=== PATIENT | female | born 1975 | race Two or more races ===

== ENCOUNTER 2016-12-29 18:23 | Emergency (ER) | payer SELFPAY ==
[~2016-12-29] VITALS: Ht 165.1 cm; Wt 97.5 kg
[~2016-12-29 18:23] MED LIST: NAPR-607; NOR10T; NORFLEX; PRILOSEC
[2016-12-29 18:29] VITALS: BP 113/71
[2016-12-29] MEDS ORDERED: CYCLOBENZAPRINE HCL 10 MG TAB PO ONE (20:15)
[2016-12-29] MEDS ORDERED: ACETAMINOPHEN 500 MG TAB PO ONE (20:15)
== END 2016-12-29 20:34 | disposition home or self-care (01) ==
LOC: ER 18:30
DX: M54.16 Radiculopathy, lumbar region (principal); M79.1 Myalgia; E11.9 Type 2 diabetes mellitus without complications; I10 Essential (primary) hypertension; G89.29 Other chronic pain; F12.10 Cannabis abuse, uncomplicated; Z87.891 Personal history of nicotine dependence; Z88.8 Allergy status to other drugs, medicaments and biological substances
CPT/HCPCS: 72100

== ENCOUNTER 2017-06-04 12:11 | Emergency (ER) | payer MEDICAID ==
[~2017-06-04] VITALS: Ht 162.6 cm; Wt 107.0 kg
[~2017-06-04 12:11] MED LIST changes: -NAPR-607; +NAPR500T4
[2017-06-04] MEDS ORDERED: KETOROLAC TROMETH 60MG/2ML VIAL IM ONE (14:15)
[2017-06-04 14:17] VITALS: BP 121/76
== END 2017-06-04 15:29 | disposition home or self-care (01) ==
LOC: ER 12:11
DX: S39.012A Strain of muscle, fascia and tendon of lower back, initial encounter (principal); S83.8X1A Sprain of other specified parts of right knee, initial encounter; G89.29 Other chronic pain; M54.5 Low back pain; E11.9 Type 2 diabetes mellitus without complications; I10 Essential (primary) hypertension; Z79.899 Other long term (current) drug therapy; Z88.6 Allergy status to analgesic agent; W01.0XXA Fall on same level from slipping, tripping and stumbling without subsequent striking against object, initial encounter; Y93.89 Activity, other specified; Y92.89 Other specified places as the place of occurrence of the external cause; Y99.8 Other external cause status
CPT/HCPCS: 72100; 96372; 99284; J1885

== ENCOUNTER 2022-08-05 13:09 | Emergency (ER) | payer MEDICAID ==
[~2022-08-05] VITALS: Ht 162.6 cm; Wt 98.9 kg
[~2022-08-05 13:09] MED LIST changes: +NAPR500T31; -NAPR500T4
[2022-08-05] MEDS ORDERED: LEVO750T64 PO (15:02)
[2022-08-05 15:30] VITALS: BP 115/69
[2022-08-05 18:09] LABS: Urine Blood Negative /uL (Negative); Urine Specific Gravity 1.041 (1.001-1.035)
== END 2022-08-05 16:09 | disposition home or self-care (01) ==
LOC: ER 13:09
DX: N39.0 Urinary tract infection, site not specified (principal); E11.9 Type 2 diabetes mellitus without complications; I10 Essential (primary) hypertension; F12.10 Cannabis abuse, uncomplicated; Z87.891 Personal history of nicotine dependence
CPT/HCPCS: 81003

== ENCOUNTER 2023-03-26 22:19 | Emergency (ER) | payer MEDICAID ==
[~2023-03-26] VITALS: Ht 165.1 cm; Wt 104.0 kg
[~2023-03-26 22:19] MED LIST changes: +LEVO750T40 PO; +NAPR-746; -NAPR500T31
[2023-03-26 23:31] VITALS: BP 142/74; PULSE 110; RESP 16; TEMP 98.1; O2SAT 99
[2023-03-26] MEDS ORDERED: CEPH500C PO (23:54)
[2023-03-26] MEDS ORDERED: TRIA0.02 TOP (23:54)
[2023-03-27] MEDS ORDERED: POLYSOL28 OP (00:12)
== END 2023-03-27 00:40 | disposition home or self-care (01) ==
LOC: ER 22:25
DX: L03.116 Cellulitis of left lower limb (principal); L03.115 Cellulitis of right lower limb; H10.9 Unspecified conjunctivitis; E78.5 Hyperlipidemia, unspecified; E11.9 Type 2 diabetes mellitus without complications; F17.210 Nicotine dependence, cigarettes, uncomplicated; F12.90 Cannabis use, unspecified, uncomplicated; Z88.6 Allergy status to analgesic agent; Z79.899 Other long term (current) drug therapy; Z98.890 Other specified postprocedural states

== ENCOUNTER 2023-04-06 13:15 | Emergency (ER) | payer MEDICAID ==
[~2023-04-06] VITALS: Ht 165.1 cm; Wt 103.9 kg
[~2023-04-06 13:15] MED LIST changes: +CEPH500C PO; +POLYSOL28 OP; +TRIA0.02 TOP
[2023-04-06 17:14] VITALS: BP 136/74; PULSE 102; RESP 18; TEMP 97; O2SAT 100
[2023-04-06] MEDS ORDERED: HYDR-3682 PO (17:16)
[2023-04-06] MEDS ORDERED: NYST150P2 XX (17:16)
[2023-04-06] MEDS ORDERED: TRIA0.1O TOP (17:16)
[2023-04-06] MEDS ORDERED: CLOT1CRE78 EX (17:16)
== END 2023-04-06 17:26 | disposition home or self-care (01) ==
LOC: ER 13:15
DX: R21 Rash and other nonspecific skin eruption (principal); E11.9 Type 2 diabetes mellitus without complications; E78.5 Hyperlipidemia, unspecified; F17.210 Nicotine dependence, cigarettes, uncomplicated; F12.10 Cannabis abuse, uncomplicated; Z88.6 Allergy status to analgesic agent

== ENCOUNTER 2024-09-27 17:10 | Inpatient (IN) | payer MEDICAID ==
[~2024-09-27] VITALS: Ht 162.6 cm; Wt 93.2 kg
[~2024-09-27 17:10] MED LIST changes: +ALBU108A5 IN; +CLOT1CRE78 EX; +HYDR-3682 PO; +NYST150P2 XX; +PROM1SOL4 PO; +TRIA0.1O TOP
[2024-09-27 21:45] VITALS: BP 93/61; PULSE 101; RESP 18; TEMP 98.1; O2SAT 98
[2024-09-27] MEDS ORDERED: ALBUAER3 IN (22:25)
[2024-09-27] MEDS ORDERED: ATOR-507 PO (22:25)
[2024-09-27] MEDS ORDERED: IVAB5TAB2 PO (22:25)
[2024-09-27] MEDS ORDERED: OMEP20TA PO (22:25)
[2024-09-27] MEDS ORDERED: ESCI10TA PO (22:25)
[2024-09-27] MEDS ORDERED: ACET325T82 PO (22:25)
[2024-09-27] MEDS ORDERED: ASPI81CH59 PO (22:25)
[2024-09-27] MEDS ORDERED: EMPA1TAB PO (22:25)
[2024-09-27] MEDS ORDERED: TICA90TA PO (22:25)
[2024-09-27] MEDS ORDERED: BUPR2MIS SL (22:25)
[2024-09-27] MEDS ORDERED: INSUINJ37 SC (22:25)
[2024-09-27] MEDS ORDERED: NITROGLYCERIN 0.4 MG SL TAB SL PRN (23:00)
[2024-09-27] MEDS ORDERED: MORPHINE SULFATE INJ 2 MG/ml SYRG IV PRN (23:00)
[2024-09-27] MEDS ORDERED: DEXTROSE (50%) 50ML SYRG IV PRN (23:00)
[2024-09-27] MEDS ORDERED: POLYETHYLENE GLYCOL 17 GM PWDR PO PRN (23:15)
[2024-09-27 23:41] LABS: Basophils # (auto) 0 10 ^3/uL (0-0.2); Eosinophils # (auto) 0.3 10 ^3/uL (0-0.8); Lymphocytes # (auto) 1.2 10 ^3/uL (0.4-5.4); Monocytes # (auto) 0.6 10 ^3/uL (0-1.3); Neutrophils # (auto) 4.4 10 ^3/uL (1.6-8.6); White Blood Cell 6.6 10^3/uL (4.4-10.8)
[2024-09-27 23:42] LABS: Basophils % (auto) 0.6 % (0.0-2.0); Eosinophils % (auto) 4.9 % (0.0-7.0); Hematocrit 27.7 % (36.0-46.0); Lymphocytes % (auto) 18.3 % (10.0-50.0); Mean Corpuscular Hemoglobin 25.7 pg (28.0-32.0); Mean Corpuscular Hgb Conc. 32.6 g/dL (32.0-36.0); Mean Corpuscular Volume 78.9 fL (80.0-100.0); Monocytes % (auto) 9.5 % (0.0-12.0); Neutrophils % (auto) 66.7 % (37.0-80.0); Platelet Count (auto) 257 10^3/uL (140-450); Red Blood Cells 3.51 10^6/uL (4.0-5.20); Red Cell Distribution Width 15.1 % (11.8-14.3)
[2024-09-28] VITALS (55 sets, daily range): BP systolic 78–120; BP diastolic 40–74; PULSE 60–132; RESP 11–24; TEMP 98.2–101.1; O2SAT 6–100
[2024-09-28 00:05] LABS: Alanine Aminotransferase 20 U/L (7-40); Albumin 3.5 g/dL (3.2-4.8); Anion Gap 6 (5-15); Aspartate Aminotransferase 20 U/L (13-40); BUN/Creatinine Ratio 21.6 (10.0-20.0); Blood Urea Nitrogen 16 mg/dL (9-23); Calcium 9.4 mg/dL (8.7-10.4); Carbon Dioxide 25 mmol/L (20-31); Potassium 3.9 mmol/L (3.5-5.1)
[2024-09-28 00:06] LABS: Bilirubin, Total 0.3 mg/dL (0.2-1.0); Total Protein 6.5 g/dL (5.7-8.2)
[2024-09-28 00:08] LABS: Alkaline Phosphatase 207 U/L (46-116); Chloride 96 mmol/L (98-107); Glucose 269 mg/dL (74-106); Sodium 127 mmol/L (136-145)
--- NOTE | 2024-09-28 00:08 | DVHHPRES ---
History of Present Illness Resident Creating Document: MARTINA REN Reason for Visit: Imelda from [facility] History of Present Illness The patient is a 49-year-old female with a history of hyperlipidemia (HLD), type 2 diabetes mellitus (DM2), and methamphetamine use, who initially presented with worsening shortness of breath and a nonproductive cough that had been ongoing for 5 days. She was admitted on September 13/2025 She subsequently developed substernal chest pressure and bilateral lower extremity swelling over the past few days. She denies fever or chills. She has a 30 pack-year smoking history and quit drinking alcohol a year ago. However, she recently used methamphetamine and PCP before this admission. She was found to have elevated troponins and was diagnosed with NSTEMI at [facility]. An echocardiogram revealed an ejection fraction (EF) of 15%, and a left heart catheterization showed: 80% stenosis of RCA, 95% stenosis of OM1 and mid circumflex, 80% stenosis of OM2 and 90% stenosis of the proximal to mid LAD A ruptured 99% stenosis in mid LAD and HBA1c was found to be 14 Given the high-risk nature of her coronary artery disease the patient was transferred to [facility] for further evaluation and management, including consideration of high-risk PCI vs. CABG. September 19/2025 In her admission she had an episode of acute neurological changes with new-onset slurred speech, prompting a stroke workup. Imaging showed a small left precent ral and postcentral cortical infarct. No large vessel thrombus was seen on TTE On September 22/2025: The patient had the high risk PCI and Impella assistance was placed until September 24/2025 Angiogram: S/P Impella assisted, IVUS guided PCI to LAD and LCX. S/P PCI to proximal to mid LAD with 2.548 Xience Skypoint KYM, post-dilated with 2.75mm NC balloon. Stenosis reduced from 90% to 0% with SAL-3 flow. S/P PCI to proximal LCX with 3.023mm Xience Skypoint KYM, post-dilated with 3.25mm NC balloon. PTCA performed on bifurcating OM1 with SAL-3 flow. S/P PCI to distal LCX into OM2 with 2.7523mm Xience Skypoint KYM, post-dilated with 2.75mm NC balloon. Jailed OM2 was re-crossed, and PTCA was performed with SAL-3 flow. Also patient was found to be positive for MSSA which was covered with cefazolin Pt also developed a right groin hematoma in the puncture site of the impella Review of Systems Constitutional: No: Fever, Chills, Sweats, Weakness, Malaise, Other Eyes: No: Pain, Vision change, Conjunctivae inflammation, Eyelid inflammation, Other, Redness ENT: No: Ear pain, Ear discharge, Nose pain, Nose discharge, Nose congestion, Mouth pain, Mouth swelling, Throat pain, Throat swelling, Other Respiratory: No: Cough, Dry, Shortness of breath, SOB with excertion, Wheezing, Hemoptysis, Pleuritic Pain, Sputum, Wheezing, Other Cardiovascular: No: Chest Pain, Palpitations, Orthopnea, Paroxysmal Noc. D yspnea, Edema, Lt Headedness, Other Genitourinary: No Dysuria, No Frequency, No Incontinence, No Hematuria, No Retention, No Other Musculoskeletal: No: other, neck pain, shoulder pain, arm pain, back pain, hand pain, leg pain, foot pain Skin: No: Rash, Lesions, Jaundice, Bruising, Other Neurological: No: Weakness, Numbness, Incoordination, Change in speech, Confusion, Seizures, Other Allergies: Coded Allergies: Ibuprofen (Verified Allergy, Unknown, 07/23/14) Mushroom Extract Complex (Verified Allergy, Unknown, 09/28/24) Mushroom food allergy Medications Current Medications Medications Dose Ordered Sig/Mary Anne Route Start Time Stop Time Status Last Admin Dose Admin Nitroglycerin 0.4 mg Q5MINP PRN SL 09/27/24 23:00 Morphine Sulfate 2 mg Q30M PRN IV 09/27/24 23:00 Ticagrelor 90 mg BID PO 09/28/24 10:00 Aspirin 81 mg DAILY PO 09/28/24 10:00 Insulin Glargine 40 units HS SC 09/28/24 22:00 Diagnostic Test (Pha) 1 strip Q6HR 09/28/24 00:00 Insulin Human Regular Q6HR SC 09/28/24 00:00 Dextrose 50 ml UD PRN IV 09/27/24 23:00 Empaglifozin 10 mg DAILY PO 09/28/24 10:00 Atorvastatin Calcium 80 mg HS PO 09/28/24 22:00 Cefazolin Sodium/ Dextrose 50 ml @ 50 mls/hr Q8HR IV 09/28/24 06:00 Enoxaparin Sodium 40 mg DAILY SC 09/28/24 10:00 UNV Pantoprazole Sodium 40 mg DAILY IV 09/28/24 10:00 Sennosides 8.6 mg HS PO 09/28/24 22:00 Polyethylene Glycol 17 gm DAILYPRN PRN PO 09/27/24 23:15 Exam General Appearance: Alert, Oriented X3, Cooperative HEENT: Atraumatic, PERRLA, EOMI, Mucous membr. moist/pink Respiratory: Clear to auscultation Cardiovascular: Regular rate, Normal S1, Normal S2, Other (tachycardic) Abdominal: Soft Extremities: No clubbing, No edema, Other (right groin hematoma, non expanding ) Skin: No rashes Neuro: Normal gait, Normal speech, Strength at 5/5 X4 ext, Normal tone Psych/Mental Status: Mental status NL, Mood NL Labs/Xrays Labs Test 09/27/24 23:32 Range/Units White Blood Count 6.6 4.4-10.8 10^3/uL Red Blood Count 3.51 L 4.0-5.20 10^6/uL Hemoglobin 9.0 L 12.2-16.2 g/dL Hematocrit 27.7 L 36.0-46.0 % Mean Corpuscular Volume 78.9 L 80.0-100.0 fL Mean Corpuscular Hemoglobin 25.7 L 28.0-32.0 pg Mean Corpuscular Hemoglobin Concent 32.6 32.0-36.0 g/dL Red Cell Distribution Width 15.1 H 11.8-14.3 % Platelet Count 257 140-450 10^3/uL Mean Platelet Volume 7.8 6.9-10.8 fL Neutrophils (%) (Auto) 66.7 37.0-80.0 % Lymphocytes (%) (Auto) 18.3 10.0-50.0 % Monocytes (%) (Auto) 9.5 0.0-12.0 % Eosinophils (%) (Auto) 4.9 0.0-7.0 % Basophils (%) (Auto) 0.6 0.0-2.0 % Neutrophils # (Auto) 4.4 1.6-8.6 10 ^3/uL Lymphocytes # (Auto) 1.2 0.4-5.4 10 ^3/uL Monocytes # (Auto) 0.6 0-1.3 10 ^3/uL Eosinophils # (Auto) 0.3 0-0.8 10 ^3/uL Basophils # (Auto) 0 0-0.2 10 ^3/uL Nucleated Red Blood Cells 0.0 % Assessment/Plan Assessment/Plan #Cardiogenic shock #S/P (09/22/24) Impella assisted, IVUS guided PCI to LAD and LCX. #S/P PCI (09/22/24) to proximal to mid LAD with 2.548 Xience Skypoint KYM, post-dilated with 2.75mm NC balloon. Stenosis reduced from 90% to 0% with SAL-3 flow. #S/P PCI (09/22/24) to proximal LCX with 3.023mm Xience Skypoint KYM, post- dilated with 3.25mm NC balloon. PTCA performed on bifurcating OM1 with SAL-3 flow. #S/P PCI (09/22/24) to distal LCX into OM2 with 2.7523mm Xience Skypoint KYM, post-dilated with 2.75mm NC balloon. Jailed OM2 was re-crossed, and PTCA was performed with SAL-3 flow. #NSTEMI with multivessel CAD #Acute ischemic stroke (09/19/24): Small left precentral and postcentral cortical infarct. #Severe systolic CHF (EF 15-20%) #MSSA bacteremia #Type 2 Diabetes Mellitus - Uncontrolled (A1C >14%) #Hyperlipidemia #Methamphetamine use disorder #Hematoma right groin #Hyponatremia - chronic- 127 #Hypocromic, microcitic anemia #Transaminitis Admit patient JARED status Cardiology and neurology consult ordered Cardiac diet Restart ticagrelor and aspirin Restart cefazolin 2 gr every 8h Lantus 14 UI Moderate insulin sliding scale Start atorvastatin 80 mg Due to low BPs only jardiance is started 10 mg. No other GDMT medications Blood and urine culture ordered New ECHO ordered New chest xray, UA, UDS, GGT, iron panel, ferritin and TSH ordered Asymptomatic hyponatremia: urine sodium, urine osm and serum osm ordered Groin hematoma: ultrasound ordered Smoking and drug use cessation reinforcement. Case discussed with Dr Marco Time spent on critical care 71 min Full code Plan discussed with: Patient, Other (rn) My Orders Orders - MARTINA REN RESIDENT Procedure Category Date Status Time Admit ADMIT 09/27/24 Transmitted 22:56 Nitroglycerin PHA 09/27/24 In Process Sublingual (Ntrostat 23:00 Morphine Sulfate PHA 09/27/24 In Process Injection 23:00 Oxygen By Nasal RT 09/27/24 Transmitted Cannula 22:56 Stat Ekg For Chest HUNTER 09/27/24 In Process Pain 22:56 Notify Md Of Changes HUNTER 09/27/24 In Process From Base 22:56 Tool Radial Drill Press Set Up Operator For HUNTER 09/27/24 In Process 24 Hours 22:56 Emergency Dysrhythmia HUNTER 09/27/24 In Process Protocol 22:56 Rhythm Strips Once HUNTER 09/27/24 In Process Every Shift 22:56 Blood Culture CRISSY 09/27/24 In Process 22:59 Urine Bacterial CRISSY 09/27/24 Logged Culture 22:59 Ticagrelor (Brilinta) PHA 09/28/24 In Process 10:00 Aspirin Tablet PHA 09/28/24 In Process 10:00 Insulin Lantus PHA 09/28/24 In Process (Glargine) (Lantus) 22:00 Glucose Blood PHA 09/28/24 In Process (Accu-Chek Comfort 00:00 Insulin R (Human) PHA 09/28/24 In Process (Insulin R) 00:00 Dextrose 50% Syringe PHA 09/27/24 In Process 23:00 Empagliflozin PHA 09/28/24 In Process (Jardiance) 10:00 Atorvastatin (Lipitor) PHA 09/28/24 In Process 22:00 Comprehensive LAB 09/27/24 In Process Metabolic Panel 23:06 Complete Blood Count LAB 09/28/24 Logged 04:00 Comprehensive LAB 09/28/24 Logged Metabolic Panel 04:00 Lactic Acid W/ Reflex LAB 09/28/24 Logged Order 04:00 Thyroid Stimulating LAB 09/28/24 Logged Hormone 04:00 Echo 2d Mode Cardiac US 09/27/24 Logged DOP 23:06 * Cardiology Consult CONS 09/27/24 Transmitted 23:06 Cefazolin 2 PHA 09/28/24 In Process [id number] (Ancef) 06:00 Chest Xray 1 View XY 09/27/24 Logged 23:06 Test, Urine LAB 09/27/24 Logged 23:06 Urinalysis LAB 09/27/24 Logged 23:06 Cardiac DIET 09/28/24 Transmitted Diet-2gna,Lofat,Lochol Breakfast * Neurology Consult CONS 09/27/24 Transmitted 23:06 Enoxaparin Sodium PHA 09/28/24 Pending (Lovenox) 10:00 Pantoprazole PHA 09/28/24 In Process (Protonix) 10:00 Senna Pod Tablet PHA 09/28/24 In Process (Senokot Tablet) 22:00 Polyethylene Glycol PHA 09/27/24 In Process 17g Powder (Miralax 23:15 Date of Service: Sep 27, 2024 Billing Provider: SHRUTHI URENA MD Common Visit Codes: [id number] CARE 30-74 MIN MARTINA REN RESIDENT Sep 28, 2024 00:08 SHRUTHI URENA MD Sep 28, 2024 23:56
[2024-09-28] MEDS: ACCU-CHEK COMFORT CURVE STRIP VI SCH (01:07)
[2024-09-28] MEDS: InsuLIN REG 1unit/0.01ml Soln (100units/ml) SC SCH (01:25)
[2024-09-28 02:04] LABS: Urine Bacteria None Seen /hpf (None Seen)
[2024-09-28 02:35] LABS: Urine Blood Negative /uL (Negative); Urine Clarity Clear (Clear); Urine Color Yellow (Yellow); Urine Hyaline Cast FEW /lpf (0 - 2); Urine Mucus FEW (None Seen); Urine Protein, UAD TRACE (Negative); Urine Specific Gravity 1.023 (1.001-1.035); Urine Squamous Epithelial Cell FEW /hpf (<5); Urine Urobilinogen Normal (Negative); Urine WBC 14 /HPF (0-5); Urine pH 5.5 (5.0-9.0)
--- NOTE | 2024-09-28 09:03 | DVHINCON2 ---
Date of service: Sep 28, [address] Kraus Reason for Consultation Status post stroke after high-risk PCI History of Present Illness Ms. Oleksandr Elaine is a right-handed female with a history of hypertension, diabetes, dyslipidemia, coronary artery disease, previous heart attack, chronic leg edema, obesity, she presented to [facility] on 09/13/2024 for shortness breath, and the patient was found to have three-vessel coronary artery disease after catheterization on 09/15/2024, and she was transferred to the [facility] on 09/18/2024 on 09/20/2024, the patient was developed for memory, slurred speech but no focal weakness numbness (neuro consultation: Mild right facial droop and dysarthria), MRI brain scan confirmed acute stroke. On 09/22/2024, the patient was received stand, and she was transferred back to [facility] on 09/27/2024. She snores, maybe sometimes, occasionally she wakes up catching her breathing, her sleep refreshing, she sometimes has daytime fatigue and sleepiness She was slowly progressive tingling and numbness (no pain) in the feet since 2020 Dr. Vazquez, 09/19/24: LKN: 09/19/2024 1055. NIHSS: Two for symptoms of mild right facial droop and dysarthria TTE, 09/19/2024: No LV thrombus CTA perfusion, 09/19/24: No abnormality identified on the quantitative perfusion analysis. MRI brain, 09/20/2024: Recently tiny area of cortical olfactory involving the left precentral and postcentral gyri I presumed CT angio brain & neck was obtained because neurology/stroke note mentioned "no thrombectomy 2/2 M3 occlusion" Urinalysis, 09/28/2024: WBC: 2, urine leukocyte esterase: 1+ UDS, 09/14/2024: Amphetamine WBC/HB/PLT/MCV, 09/28/2024: 1/8.3/528/90.9 Na, 09/27/2024: 127 HGB A1c, 09/15/2024: > 14 Liver function tests, 09/27/2024: Unremarkable Echocardiogram, 09/14/2024: Normal left ventricular size with severely decreased systolic function. Ejection fraction is estimated at 15-20%. Severe global hypokinesis. Normal right ventricular size and systolic function. No hemodynamically significant valvular disease. PA systolic pressure is estimated at 35-40 mm Hg. There is no prior study for comparison. Cardiac catheterization, 09/15/2024: 1. severe 3v cad 2. acute severe systolic HF Past Medical History Hypertension, diabetes, dyslipidemia, coronary artery disease, heart attack in 2018, anxiety, chronic leg edema, obesity Past Surgical History x2, lumbar spine surgery, Bilateral tubal ligation Family History: Cerebrovascular accident (CVA) G8 MOTHER Chronic obstructive pulmonary disease G8 MOTHER Cirrhosis of liver G8 MOTHER Diabetes mellitus G8 MOTHER FH: CHF (congestive heart failure) G8 FATHER FH: emphysema G8 FATHER FH: tuberculosis G8 FATHER Hypertension G8 MOTHER Liver transplant G8 MOTHER Family History Hypertension, heart disease (no premature cardio vascular disease), COPD, liver cirrhosis (not alcohol related) Social History She was a tobacco smoker, she was a drug abuser (quit recently) no history of alcohol abuse Allergies: Coded Allergies: Ibuprofen (Verified Allergy, Unknown, 07/23/14) Mushroom Extract Complex (Verified Allergy, Unknown, 09/28/24) Mushroom food allergy Home Meds Reported Medications Insulin Glargine (Lantus Solostar) 100 Unit/Ml Inj, 15 UNIT SC BID, INJ 09/27/24 Albuterol Sulfate (VENTOLIN MDI) 90 Mcg Ih, 1 PUFF IN DAILY, INH 09/27/24 Omeprazole (Gnp Omeprazole) 20 Mg Tab, 20 MG PO DAILY, TAB 09/27/24 Escitalopram Oxalate (Lexapro) 10 Mg Tab, 10 MG PO DAILY, TAB 09/27/24 Acetaminophen (Apap) 325 Mg Tab, 2 TAB PO Q6HP PRN for PAIN SCALE 1 THRU 6, TAB 09/27/24 Buprenorphine Hcl-Naloxone Hcl (Suboxone) 1 Mis Mis, 1 MIS SL DAILY, MISC 09/27/24 Ticagrelor Base (BRILINTA) 90 Mg Tab, 90 MG PO BID, TAB 09/27/24 Ivabradine HCl (Ivabradine Hydrochloride) 5 Mg Tab, 2.5 MG PO BID, TAB 09/27/24 Atorvastatin Calcium (Lipitor) 40 Mg Tab, 40 MG PO DAILY, TAB 09/27/24 Aspirin (Aspirin Low Dose) 81 Mg Chw, 81 MG PO DAILY, TAB.CHEW 09/27/24 Empagliflozin (Jardiance) 10 Mg Tab, 10 MG PO DAILY, TAB 09/27/24 Current Medications Current Medications Medications (Trade) Dose Ordered Sig/Mary Anne Route PRN Reason Start Time Stop Time Status Last Admin Nitroglycerin (Ntrostat Sublingual) 0.4 mg Q5MINP PRN SL FOR CHEST PAIN 09/27/24 23:00 Morphine Sulfate 2 mg Q30M PRN IV FOR CHEST PAIN 09/27/24 23:00 Ticagrelor (Brilinta) 90 mg BID PO 09/28/24 10:00 Aspirin 81 mg DAILY PO 09/28/24 10:00 Insulin Glargine (Lantus) 40 units HS SC 09/28/24 22:00 Diagnostic Test (Pha) (Accu-Chek Comfort Curve T) 1 strip Q6HR 09/28/24 00:00 09/28/24 06:13 Insulin Human Regular (InsuLIN R) Q6HR SC 09/28/24 00:00 09/28/24 06:14 Dextrose 50 ml UD PRN IV Blood Sugar LESS THAN 60 09/27/24 23:00 Empaglifozin (Jardiance) 10 mg DAILY PO 09/28/24 10:00 Atorvastatin Calcium (Lipitor) 80 mg HS PO 09/28/24 22:00 Cefazolin Sodium/ Dextrose 50 ml @ 50 mls/hr Q8HR IV 09/28/24 06:00 Enoxaparin Sodium (Lovenox) 40 mg DAILY SC 09/28/24 10:00 Pantoprazole Sodium (Protonix) 40 mg DAILY IV 09/28/24 10:00 Sennosides (Senokot Tablet) 8.6 mg HS PO 09/28/24 22:00 Polyethylene Glycol (Miralax 17GM Powder) 17 gm DAILYPRN PRN PO FOR CONSTIPATION 09/27/24 23:15 Review of Systems As above, the other systems are negative Vital Signs Vital Signs Date Time Temp Pulse Resp B/P (MAP) Pulse Ox O2 Delivery O2 Flow Rate FiO2 09/28/24 07:00 110 21 93/53 (66) 96 09/28/24 06:00 Room Air* 0 21 09/28/24 04:00 98.9 98.9 Physical Exam GENERAL EXAM: General: the patient is well developed and nourished. No acute distress. HEENT: Normocephalic, neck is supple, no carotid bruits. No mass RESPIRATORY: Normal respiratory effort with symmetrical lung expansion. Lungs clear to auscultation. CARDIOVASCULAR: Regular rate and rhythm with no murmurs. S1, S2. ABDOMEN: Soft, nontender, normal bowel sound NEUROLOGICAL: MENTAL STATUS: Awake and alert. Oriented to person, place, time and general circumstances. Able to give personal history SPEECH, LANGUAGE, HIGHER CORTICAL FUNCTION: no aphasia or dysathria. CRANIAL NERVES: #2: Intact visual doll to confrontation. The optic discs were sharp #3,4,6: Pupils are equal, round and reactive. EOMs full and conjugate. No nystagmus. #5: Facial sensation intact in all three divisions bilaterally. Mandibular strength intact. #7: Facial muscles symmetrical and strength intact. #8: Hearing grossly normal to voice. #9,10: Uvula and soft palate rise in the midline. Swallow and voice are normal. #11: Trapezius and sternomastoid strength intact bilaterally. #12: Tongue midline. No fasciculations or atrophy. SENSATION: Sensation to touch and pinprick is normal. MOTOR: Normal tone in the upper and lower extremity. Normal muscle bulk. No fasciculations. No abnormal movements or posturing. Muscle strength of the major groups in the upper extremities is 5/5. Muscle strength of the major groups in the lower extremities is 5/5. REFLEXES: Deep tendon reflexes normal and symmetrical. No pathological reflexes. CEREBELLAR/COORDINATION: Finger to nose is normal bilaterally. GAIT/STATION: deferred. Labs/Diagnostic Data Labs Test 09/28/24 08:20 09/28/24 06:06 09/28/24 01:52 09/27/24 23:32 Range/Units POC Glucose 153 H 70-106 mg/dl Urine Color Yellow Yellow Urine Clarity Clear Clear Urine pH 5.5 5.0-9.0 Urine Specific [place] 1.023 1.001-1.035 Urine Protein Trace H Negative Urine Ketones Negative Negative Urine Blood Negative Negative /uL Urine Nitrite Negative Negative Urine Bilirubin Negative Negative Urine Urobilinogen Normal Negative mg/dL Urine Leukocyte Esterase 1+ Negative /uL Urine RBC 1 0 - 4 /hpf Urine Microscopic WBC 14 H 0-5 /HPF Urine Squamous Epithelial Cells Few <5 /hpf Urine Bacteria None seen None Seen /hpf Urine Hyaline Casts Few 0 - 2 /lpf Urine Mucus Few None Seen Urine Osmolality 617 mOsm/kg Urine Glucose 4+ H Normal mg/dL Urine Test Negative Negative White Blood Count 6.6 4.4-10.8 10^3/uL Red Blood Count 3.51 L 4.0-5.20 10^6/uL Hemoglobin 9.0 L 12.2-16.2 g/dL Hematocrit 27.7 L 36.0-46.0 % Mean Corpuscular Volume 78.9 L 80.0-100.0 fL Mean Corpuscular Hemoglobin 25.7 L 28.0-32.0 pg Mean Corpuscular Hemoglobin Concent 32.6 32.0-36.0 g/dL Red Cell Distribution Width 15.1 H 11.8-14.3 % Platelet Count 257 140-450 10^3/uL Mean Platelet Volume 7.8 6.9-10.8 fL Neutrophils (%) (Auto) 66.7 37.0-80.0 % Lymphocytes (%) (Auto) 18.3 10.0-50.0 % Monocytes (%) (Auto) 9.5 0.0-12.0 % Eosinophils (%) (Auto) 4.9 0.0-7.0 % Basophils (%) (Auto) 0.6 0.0-2.0 % Neutrophils # (Auto) 4.4 1.6-8.6 10 ^3/uL Lymphocytes # (Auto) 1.2 0.4-5.4 10 ^3/uL Monocytes # (Auto) 0.6 0-1.3 10 ^3/uL Eosinophils # (Auto) 0.3 0-0.8 10 ^3/uL Basophils # (Auto) 0 0-0.2 10 ^3/uL Nucleated Red Blood Cells 0.0 % Assessment Acute stroke with aphasia, right facial drooping, Stroke may be related to cardiac catheterization Sleep-related breathing disorder She was multiple stroke risk fact including Hypertension Diabetes Dyslipidemia Coronary artery disease Substance abuse Obesity Possible sleep apnea Plan/Recommendation Monitoring Supportive treatment JARED care Lipitor 80 mg daily Aspirin 81 mg daily Brilinta 90 mg b.i.d. DVT prophylax/Lovenox GI prophylaxis/Protonix Foot care Daily foot inspection Soft, wide than protect she was only APAP trial in the hospital She has been advised the to discuss with her family doctor Re: Sleep medicine evaluation Time spent with her discussing about impression, recommendation Progress: Poor This medical document was created using an electronic medical record system with [employer] dictation system. Although this document has been carefully reviewed, there may still be some phonetic and typographical errors. These areas are purely typographical due to imperfections of the software programs, and do not reflect any compromise in the patient's medical care. Plan discussed with: Patient, Other KANDACE ALEGRIA MD Sep 28, 2024 09:03
[2024-09-28] MEDS: ceFAZolin 2 GM/D5W50ml 50 ML IV SCH (09:06)
[2024-09-28] MEDS ORDERED: ENOXAPARIN SOD 40 MG/0.4 ML SYRINGE SC SCH (10:00)
--- NOTE | 2024-09-28 10:26 | DVH ---
EXAM: XY CHEST PORTABLE Indication: sob Technique: Single frontal view of the chest was obtained Comparison: None FINDINGS: Lines and Tubes: None Lungs: No focal consolidation. Pleura: No effusion. No pneumothorax. Cardiomediastinal contours: Unremarkable Bones: No acute osseous abnormality. IMPRESSION: No acute cardiopulmonary disease.
--- NOTE | 2024-09-28 10:27 | DVHPN2 ---
Subjective Generalized weakness Reviewed: Care Plan, H&P, Labs Changes from previous H/P or p: No Changes General: Per HPI Eyes: No Pain, No Vision change, No Conjunctivae inflammation, No Eyelid inflammation, No Other, No Redness ENT: No Ear pain, No Ear discharge, No Nose pain, No Nose discharge, No Nose congestion, No Mouth pain, No Mouth swelling, No Throat pain, No Throat swelling, No Other Cardiovascular: No Chest Pain, No Palpitations, No Orthopnea, No Paroxysmal Noc. Dyspnea, No Edema, No Lt Headedness, No Other Respiratory: No Cough, No Dry, No Shortness of breath, No SOB with excertion, No Wheezing, No Hemoptysis, No Pleuritic Pain, No Sputum, No Other Genitourinary: No Dysuria, No Frequency, No Incontinence, No Hematuria, No Retention, No Other Musculoskeletal: No other, No neck pain, No shoulder pain, No arm pain, No back pain, No hand pain, No leg pain, No foot pain Skin: No Rash, No Lesions, No Jaundice, No Bruising, No Other Objective Vitals Vital Signs Date Time Temp Pulse Resp B/P (MAP) Pulse Ox O2 Delivery O2 Flow Rate FiO2 09/28/24 09:15 128 20 96 09/28/24 08:00 100.2 100.2 09/28/24 08:00 Room Air* 0 21 Intake/Output Intake and Output 09/28/24 07:00 Intake Total 50 ml Output Total 400 ml Balance -350 ml Intake Oral 50 ml Output Urine Total 400 ml # Voids 1 General Appearance: Alert, Oriented X3, Cooperative, mild distress HEENT: Atraumatic, PERRLA Cardiovascular: Normal S1, Normal S2 Musculoskeletal: Normal sensory function, Normal motor function Neuro: Normal gait, Normal speech Psych/Mental Status: Mental status NL, Mood NL Medications Current Medications Medications Dose Ordered Sig/Mary [place] Route Start Time Stop Time Status Last Admin Dose Admin Nitroglycerin 0.4 mg Q5MINP PRN SL 09/27/24 23:00 Morphine Sulfate 2 mg Q30M PRN IV 09/27/24 23:00 Ticagrelor 90 mg BID PO 09/28/24 10:00 Aspirin 81 mg DAILY PO 09/28/24 10:00 Insulin Glargine 40 units HS SC 09/28/24 22:00 Diagnostic Test (Pha) 1 strip Q6HR 09/28/24 00:00 09/28/24 06:13 1 STRIP Insulin Human Regular Q6HR SC 09/28/24 00:00 09/28/24 06:14 2 UNITS Dextrose 50 ml UD PRN IV 09/27/24 23:00 Empaglifozin 10 mg DAILY PO 09/28/24 10:00 Atorvastatin Calcium 80 mg HS PO 09/28/24 22:00 Cefazolin Sodium/ Dextrose 50 ml @ 50 mls/hr Q8HR IV 09/28/24 06:00 09/28/24 09:06 50 MLS/HR Pantoprazole Sodium 40 mg DAILY IV 09/28/24 10:00 Sennosides 8.6 mg HS PO 09/28/24 22:00 Polyethylene Glycol 17 gm DAILYPRN PRN PO 09/27/24 23:15 Nicotine 1 patch DAILY TD 09/29/24 10:00 UNV Laboratory Results Laboratory Tests 09/28/24 08:20 Chemistry Test 09/27/24 23:32 09/28/24 08:20 Albumin 3.5 g/dL (3.2-4.8) Pending Calcium Level 9.4 mg/dL (8.7-10.4) Pending Total Protein 6.5 g/dL (5.7-8.2) Pending Magnesium Level Pending Coagulation Test 09/28/24 08:20 Prothrombin Time Pending Prothrombin Time INR Pending Activated Partial Thromboplast Time Pending Cardiac Markers Test 09/28/24 08:20 B-Type Natriuretic Peptide 109.99 pg/mL (0-100) LFT Test 09/27/24 23:32 09/28/24 08:20 Alanine Aminotransferase (ALT) 20 U/L (7-40) Pending Alkaline Phosphatase 207 U/L (46-116) H Pending Aspartate Amino Transferase (AST) 20 U/L (13-40) Pending Total Bilirubin 0.3 mg/dL (0.2-1.0) Pending HgA1c, TSH Test 09/28/24 08:20 Thyroid Stimulating Hormone (TSH) 18.99 uIU/mL (0.55-4.78) H Urinalysis Test 09/28/24 01:52 Urine Color Yellow (Yellow) Urine Clarity Clear (Clear) Urine pH 5.5 (5.0-9.0) Urine Specific [place] 1.023 (1.001-1.035) Urine Protein Trace (Negative) H Urine Ketones Negative (Negative) Urine Blood Negative /uL (Negative) Urine Nitrite Negative (Negative) Urine Bilirubin Negative (Negative) Urine Urobilinogen Normal mg/dL (Negative) Urine Leukocyte Esterase 1+ /uL (Negative) Urine RBC 1 /hpf (0 - 4) Urine Microscopic WBC 14 /HPF (0-5) H Urine Squamous Epithelial Cells Few /hpf (<5) Urine Bacteria None seen /hpf (None Seen) Urine Hyaline Casts Few /lpf (0 - 2) Urine Mucus Few (None Seen) Urine Osmolality 617 mOsm/kg Urine Sodium Pending Urine Glucose 4+ mg/dL (Normal) H Urine Test Negative (Negative) Labs and/or images reviewed: Labs reviewed by me, Image(s) reviewed by me Assessment/Plan Assessment/Plan Impression: -status post PTCA stent placement in LAD circumflex artery RCA -amphetamine abuse -acute decompensated systolic and diastolic heart failure -obesity -sepsis with MSSA in the blood -diabetes mellitus -hypothyroidism Plan: -received report from Cardiology from [facility] yesterday. Patient had prolonged recovery requiring Impella for 48 hours post intervention. Patient also developed fevers with positive blood culture with MSSA. -cardiology consultation -continue antibiotic therapy with Ancef -repeat blood culture -we will discuss goal-directed medical therapy with Cardiology regarding patient's tachycardia and soft blood pressure. -thyroid supplementation -regular insulin sliding scale -repeat labs in a.m. Critical care time spent with patient discussing and formulating plan of care: 40 minutes. This does not include time spent performing procedures. This medical document was created using an electronic medical record system with [employer] dictation system. Although this document has been carefully reviewed, there may still be some phonetic and typographical errors. These areas are purely typographical due to imperfections of the software programs, and do not reflect any compromise in the patient's medical care. Plan discussed with: Patient, Other (RN) My Orders Orders - INDU GARCÍA NP Procedure Category Date Status Time Mrsa Screen CRISSY 09/28/24 In Process 01:00 Date of Service: Sep 28, 2024 Billing Provider: INDU GARCÍA NP Common Visit Codes: 95211-[id number] CARE 30-74 MIN INDU GARCÍA NP Sep 28, 2024 10:27
--- NOTE | 2024-09-28 10:53 | DVH ---
US RT LOWER DVT US 09/28/2024 08:33 AM Clinical History: R/O DVT RLE EDEMA Comparison: None Technique: Duplex Doppler evaluation of the deep venous system of the right lower extremity from the common femo ral vein to the popliteal vein including color Doppler and spectral/pulsed waveform analysis was perf ormed. Findings: The common femoral vein demonstrates appropriate compressibility and waveform variability. There is compressibility/patency of the great saphenous vein at the proximal thigh. The femoral vein demonstrates appropriate compressibility and waveform variability. The deep femoral vein demonstrates appropriate compressibility and waveform variability. The popliteal vein demonstrates appropriate compressibility and waveform variability. There is color flow in the tibioperoneal trunk and posterior tibial vein. Impression: 1. No deep venous thrombosis right lower extremity. If clinical concern/symptoms persist or worsen, short-interval follow-up study is suggested.
--- NOTE | 2024-09-28 11:08 | DVH ---
EXAM: US RT LOW EXT ART DUPLEX HISTORY: arterial and venous doppler, R/O pseudoaneurysm or fistula COMPARISON: None TECHNIQUE: Realtime grayscale and color Doppler ultrasound images of the right lower extremity arter ies (common femoral, proximal deep femoral and proximal superficial femoral arteries) with spectral w aveform analysis were obtained. FINDINGS: No significant atherosclerotic disease or arterial stenosis. Elevated peak systolic velocities noted in the common femoral and proximal deep femoral arteries measuring 192 centimeter/second and 153 davie timeter/second respectively. Peak systolic velocity measures 113 centimeter/second in the proximal gliliam perficial femoral artery. Normal triphasic waveforms noted. No pseudo aneurysm is identified. A 1.7 x 1.7 x 0.9 cm isoechoic nonvascular structure is noted in the right groin that is likely hematoma. IMPRESSION: 1. No pseudo aneurysm. A 1.7 cm hematoma noted in the right groin. REFERENCE VALUES, [facility] (COUNTS INCLUDE 234 BEDS AT THE [facility]) vascular Imaging Lab Criteria: Peak systolic velocity ranges (in cm/sec) are as follows: <150 cm/s - <20 % stenosis 150-200 cm/s - 20-49% stenosis 200-300 cm/s - 50-75% stenosis >300 cm/s -> 75% stenosis
[2024-09-28] MEDS: ASPirin 81 mg TAB PO SCH (11:22)
[2024-09-28] MEDS: PANTOPRAZOLE 40 MG/10 ML VIAL INJ IV SCH (11:22)
[2024-09-28] MEDS: TICAGRELOR 90 MG TAB PO SCH (11:23)
[2024-09-28] MEDS: EMPAGLIFLOZIN 10 MG TAB PO SCH (11:23)
--- NOTE | 2024-09-28 11:45 | DVHCONRES ---
Date Seen: Sep 28, 2024 Resident Creating Document: AYDE LEW RESIDENT Referring Physician Dr. Kraus, resident Reason for Consultation Status post stroke after high-risk PCI History of Present Illness This is a 49-year-old female who was transferred from [place] after high-risk PCI. She has a past medical history relevant for hyperlipidemia, type 2 diabetes. Social history relevant for methamphetamine use. Patient was recently hospitalized on September 13, 2024 due to chief complain of shortness of Breath found, chest pain, bilateral lower extremity swelling, she was found no to have no NSTEMI initially, acute systolic CHF, patient was taken to the label tacker and she was found to have an 80% stenosis of RCA, 95% stenosis of OM1 and mid circumflex, 80% stenosis of OM2 and 90% stenosis of proximal to mid LAD, 99% stenosis in mid LAD. Due to this patient was threatening to [place] for further evaluation. During her stay over the she had an episode of slurred speech, a head CT with contrast revealed small left paracentral and postcentral cortical infarct. An Impella assisted device was placed, a PCI was also performed two proximal to mid LAD., another one was placed proximal to left circumflex. A 3rd was performed distal to left circumflex into OM2. Patient was also found to be positive for MSSA from blood culture. Patient also developed a right groin hematoma in the puncture site of the Impella. On arrival to the [facility], patient was placed back on aspirin and Brilinta, she was placed on cefazolin, a lower extremity Doppler to rule out a DVT. An arterial ultrasound also stated no pseudo not resume on the right drawing, but did demonstrate a 1.7 cm hematoma a chest x-ray was unremarkable. EKG shows sinus rhythm, no ST-T wave changes. Family History: Cerebrovascular accident (CVA) G8 MOTHER Chronic obstructive pulmonary disease G8 MOTHER Cirrhosis of liver G8 MOTHER Diabetes mellitus G8 MOTHER FH: CHF (congestive heart failure) G8 FATHER FH: emphysema G8 FATHER FH: tuberculosis G8 FATHER Hypertension G8 MOTHER Liver transplant G8 MOTHER Allergies: Coded Allergies: Ibuprofen (Verified Allergy, Unknown, 07/23/14) Mushroom Extract Complex (Verified Allergy, Unknown, 09/28/24) Mushroom food allergy Home Meds Reported Medications Insulin Glargine (Lantus Solostar) 100 Unit/Ml Inj, 15 UNIT SC BID, INJ 09/27/24 Albuterol Sulfate (VENTOLIN MDI) 90 Mcg Ih, 1 PUFF IN DAILY, INH 09/27/24 Omeprazole (Gnp Omeprazole) 20 Mg Tab, 20 MG PO DAILY, TAB 09/27/24 Escitalopram Oxalate (Lexapro) 10 Mg Tab, 10 MG PO DAILY, TAB 09/27/24 Acetaminophen (Apap) 325 Mg Tab, 2 TAB PO Q6HP PRN for PAIN SCALE 1 THRU 6, TAB 09/27/24 Buprenorphine Hcl-Naloxone Hcl (Suboxone) 1 Mis Mis, 1 MIS SL DAILY, MISC 09/27/24 Ticagrelor Base (BRILINTA) 90 Mg Tab, 90 MG PO BID, TAB 09/27/24 Ivabradine HCl (Ivabradine Hydrochloride) 5 Mg Tab, 2.5 MG PO BID, TAB 09/27/24 Atorvastatin Calcium (Lipitor) 40 Mg Tab, 40 MG PO DAILY, TAB 09/27/24 Aspirin (Aspirin Low Dose) 81 Mg Chw, 81 MG PO DAILY, TAB.CHEW 09/27/24 Empagliflozin (Jardiance) 10 Mg Tab, 10 MG PO DAILY, TAB 09/27/24 Current Medications Current Medications Medications (Trade) Dose Ordered Sig/Mary Anne Route PRN Reason Start Time Stop Time Status Last Admin Nitroglycerin (Ntrostat Sublingual) 0.4 mg Q5MINP PRN SL FOR CHEST PAIN 09/27/24 23:00 Morphine Sulfate 2 mg Q30M PRN IV FOR CHEST PAIN 09/27/24 23:00 Ticagrelor (Brilinta) 90 mg BID PO 09/28/24 10:00 Aspirin 81 mg DAILY PO 09/28/24 10:00 Insulin Glargine (Lantus) 40 units HS SC 09/28/24 22:00 Diagnostic Test (Pha) (Accu-Chek Comfort Curve T) 1 strip Q6HR 09/28/24 00:00 09/28/24 06:13 Insulin Human Regular (InsuLIN R) Q6HR SC 09/28/24 00:00 09/28/24 06:14 Dextrose 50 ml UD PRN IV Blood Sugar LESS THAN 60 09/27/24 23:00 Empaglifozin (Jardiance) 10 mg DAILY PO 09/28/24 10:00 Atorvastatin Calcium (Lipitor) 80 mg HS PO 09/28/24 22:00 Cefazolin Sodium/ Dextrose 50 ml @ 50 mls/hr Q8HR IV 09/28/24 06:00 09/28/24 09:06 Enoxaparin Sodium (Lovenox) 40 mg DAILY SC 09/28/24 10:00 09/28/24 09:46 DC Pantoprazole Sodium (Protonix) 40 mg DAILY IV 09/28/24 10:00 Sennosides (Senokot Tablet) 8.6 mg HS PO 09/28/24 22:00 Polyethylene Glycol (Miralax 17GM Powder) 17 gm DAILYPRN PRN PO FOR CONSTIPATION 09/27/24 23:15 Nicotine (Nicoderm 14MG/ 24HR) 1 patch DAILY TD 09/29/24 10:00 Levothyroxine Sodium (Synthroid Tablet) 50 mcg QAM@0600 PO 09/29/24 06:00 Review of Systems Constitutional: Patient denies fevers, chills, sweats and weight changes. Eyes: Patient denies any visual symptoms. Ears, Nose, and Throat: No difficulties with hearing. No symptoms of rhinitis or sore throat. Cardiovascular: Patient denies chest pains, palpitations, orthopnea and paroxysmal nocturnal dyspnea. Respiratory: No dyspnea on exertion, no wheezing or cough. GI: No nausea, vomiting, diarrhea, constipation, abdominal pain, hematochezia or melena. : No urinary hesitancy or dribbling. No nocturia or urinary frequency. No abnormal urethral discharge. Musculoskeletal: No myalgias, arthralgias or edema. Neurologic: No chronic headaches, no seizures. Patient denies numbness, tingling or weakness. Psychiatric: Patient denies problems with mood disturbance. No problems with anx iety. Endocrine: No excessive urination or excessive thirst. Dermatologic: Chronic wound on scalp Vital Signs Vital Signs Date Time Temp Pulse Resp B/P (MAP) Pulse Ox O2 Delivery O2 Flow Rate FiO2 09/28/24 09:15 128 20 96 09/28/24 08:00 100.2 100.2 09/28/24 08:00 Room Air* 0 21 Physical Exam General: Awake, alert, comfortable appearing, in no acute distress. HEENT: Head is normocephalic and atraumatic. Pupils are equal, round, and reactive to light. Extraocular muscles are intact. No nasal discharge. No facial trauma. Intraoral exam shows moist mucous membranes with no tonsillar enlargement or exudate. Neck: Supple with no cervical lymphadenopathy No meningismus. No goiter. Heart: Regular rate without murmur, rub, or gallop. Lungs: Equal breath sounds bilaterally with no wheezing, rales, or rhonchi. There is no chest wall tenderness or instability. Abdomen: Right inguinal area bruises and hematoma, no signs for active bleeding Extremities: Strong peripheral pulses. There is no clubbing, no cyanosis, and no edema. Skin: Wound on scalp Neurologic: Cranial nerves II-XII intact without motor, sensory, or cerebellar deficit, no asterixis. Labs/Diagnostic Data Labs Test 09/28/24 06:06 09/28/24 01:52 09/27/24 23:32 Range/Units POC Glucose 153 H 70-106 mg/dl Urine Color Yellow Yellow Urine Clarity Clear Clear Urine pH 5.5 5.0-9.0 Urine Specific [place] 1.023 1.001-1.035 Urine Protein Trace H Negative Urine Ketones Negative Negative Urine Blood Negative Negative /uL Urine Nitrite Negative Negative Urine Bilirubin Negative Negative Urine Urobilinogen Normal Negative mg/dL Urine Leukocyte Esterase 1+ Negative /uL Urine RBC 1 0 - 4 /hpf Urine Microscopic WBC 14 H 0-5 /HPF Urine Squamous Epithelial Cells Few <5 /hpf Urine Bacteria None seen None Seen /hpf Urine Hyaline Casts Few 0 - 2 /lpf Urine Mucus Few None Seen Urine Osmolality 617 mOsm/kg Urine Glucose 4+ H Normal mg/dL Urine Test Negative Negative White Blood Count 6.6 4.4-10.8 10^3/uL Red Blood Count 3.51 L 4.0-5.20 10^6/uL Hemoglobin 9.0 L 12.2-16.2 g/dL Hematocrit 27.7 L 36.0-46.0 % Mean Corpuscular Volume 78.9 L 80.0-100.0 fL Mean Corpuscular Hemoglobin 25.7 L 28.0-32.0 pg Mean Corpuscular Hemoglobin Concent 32.6 32.0-36.0 g/dL Red Cell Distribution Width 15.1 H 11.8-14.3 % Platelet Count 257 140-450 10^3/uL Mean Platelet Volume 7.8 6.9-10.8 fL Neutrophils (%) (Auto) 66.7 37.0-80.0 % Lymphocytes (%) (Auto) 18.3 10.0-50.0 % Monocytes (%) (Auto) 9.5 0.0-12.0 % Eosinophils (%) (Auto) 4.9 0.0-7.0 % Basophils (%) (Auto) 0.6 0.0-2.0 % Neutrophils # (Auto) 4.4 1.6-8.6 10 ^3/uL Lymphocytes # (Auto) 1.2 0.4-5.4 10 ^3/uL Monocytes # (Auto) 0.6 0-1.3 10 ^3/uL Eosinophils # (Auto) 0.3 0-0.8 10 ^3/uL Basophils # (Auto) 0 0-0.2 10 ^3/uL Nucleated Red Blood Cells 0.0 % Sodium Level 127 L 136-145 mmol/L Potassium Level 3.9 3.5-5.1 mmol/L Chloride Level 96 L 98-107 mmol/L Carbon Dioxide Level 25 20-31 mmol/L Anion Gap 6 5-15 Blood Urea Nitrogen 16 9-23 mg/dL Creatinine 0.74 0.550-1.02 mg/dL Glomerular Filtration Rate Calc 100 >90 mL/min BUN/Creatinine Ratio 21.6 H 10.0-20.0 Serum Glucose 269 H 74-106 mg/dL Calcium Level 9.4 8.7-10.4 mg/dL Total Bilirubin 0.3 0.2-1.0 mg/dL Aspartate Amino Transferase (AST) 20 13-40 U/L Alanine Aminotransferase (ALT) 20 7-40 U/L Alkaline Phosphatase 207 H 46-116 U/L Total Protein 6.5 5.7-8.2 g/dL Albumin 3.5 3.2-4.8 g/dL Assessment Multiple vessel disease status post PCI x3, status post Impella device. Acute ischemic stroke Acute systolic CHF, NYHA class 3 Sinus tachycardia, likely related to sepsis, anemia Bacteremia Anemia, microcytic hypochromic Hyperlipidemia Right inguinal hematoma Type 2 diabetes Methamphetamine abuse Plan/Recommendation Repeat echo shows improved EF to 25%, severe global dysfunction Continue Brilinta and aspirin Hold Lovenox given active bleeding Recommend blood transfusion if hemoglobin drops less than 8.0, monitor H&H Hold off GDMT given soft blood pressures, may continue jardiance Counseled on lifestyle modifications, avoid illicit drug use Antibiotic therapy per primary team Recommended trial of IVF NS 250ml Case was discussed with Dr. Felix sutherland high risk pci , images reviewed US of groin stable lvef improved HR high bp little low deepak start GDMT as it permits dc planning soon Plan discussed with: Patient AYDE LEW RESIDENT Sep 28, 2024 11:45 SD MORATAYA MD Sep 29, 2024 09:00
[2024-09-28] MEDS: NICOTINE 14 MG/24HR TOPICAL PATCH TD ONE (12:06)
[2024-09-28 12:27] LABS: Basophils # (auto) 0 10 ^3/uL (0-0.2); Hemoglobin 9.5 g/dL (12.2-16.2); Neutrophils # (auto) 5.8 10 ^3/uL (1.6-8.6); White Blood Cell 7.3 10^3/uL (4.4-10.8)
[2024-09-28 12:29] LABS: Basophils % (auto) 0.4 % (0.0-2.0); Eosinophils # (auto) 0.3 10 ^3/uL (0-0.8); Eosinophils % (auto) 3.6 % (0.0-7.0); Hematocrit 29.7 % (36.0-46.0); Lymphocytes # (auto) 0.7 10 ^3/uL (0.4-5.4); Lymphocytes % (auto) 9.4 % (10.0-50.0); Mean Corpuscular Hemoglobin 25.2 pg (28.0-32.0); Mean Corpuscular Volume 78.8 fL (80.0-100.0); Monocytes # (auto) 0.4 10 ^3/uL (0-1.3); Monocytes % (auto) 6.1 % (0.0-12.0); Neutrophils % (auto) 80.5 % (37.0-80.0); Platelet Count (auto) 305 10^3/uL (140-450); Red Blood Cells 3.77 10^6/uL (4.0-5.20); Red Cell Distribution Width 15.4 % (11.8-14.3)
[2024-09-28 12:36] LABS: INR 1.02 (0.9-1.15); Partial Thromboplastin Time 32.6 SEC (24.5-34.5); Prothrombin Time 10.8 sec (9.3-11.8)
[2024-09-28 13:16] LABS: Alanine Aminotransferase 17 U/L (7-40); Albumin 3.7 g/dL (3.2-4.8); Anion Gap 7 (5-15); Aspartate Aminotransferase 21 U/L (13-40); BUN/Creatinine Ratio 16.9 (10.0-20.0); Bilirubin, Total 0.4 mg/dL (0.2-1.0); Blood Urea Nitrogen 11 mg/dL (9-23); Calcium 9.6 mg/dL (8.7-10.4); Carbon Dioxide 25 mmol/L (20-31); Magnesium 1.7 mg/dL (1.6-2.6); Potassium 4.2 mmol/L (3.5-5.1); Total Protein 6.8 g/dL (5.7-8.2)
[2024-09-28 13:17] LABS: Free T3 2.54 pg/mL (2.3-4.2); Free T4 (Free Thyroxine) 1.19 ng/dL (0.89-1.76)
[2024-09-28 13:22] LABS: Alkaline Phosphatase 231 U/L (46-116); Chloride 96 mmol/L (98-107); Glucose 214 mg/dL (74-106); Sodium 128 mmol/L (136-145)
[2024-09-28] MEDS: SODIUM CHLORIDE 0.9% 250 ML IV ONE (13:29)
--- NOTE | 2024-09-28 14:31 | ECG ---
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
--- NOTE | 2024-09-28 15:18 | DVHSR ---
APPROVED REPORT EXAM: Two-dimensional and M-mode echocardiogram with Doppler and color Doppler. Blood Pressure: 93/53 mmHg INDICATION Heart Failure RISK FACTORS Height: 5'4", Weight: 200 DIMENSIONS LVDd5.6 (3.8-5.7cm)LA (2D) (1.9-4.0cm)Aortic Root (2.0-3.7cm) LVDs4.8 (2.5-4.0cm)LA (MM) (1.9-4.0cm)Aortic Cusp Exc (1.5-2.0cm) EF (%) 29.0 (55-70%)Rt. Atrium (1.9-4.0cm)Asc. Aorta cm IVSd0.7 (0.7-1.1cm)RV (D) (1.8-2.4cm) PWd1.0 (0.7-1.1cm) Mitral Valve MitralMitral Stenosis E/A ratio0.02D MVAcm2 Other Information Quality : Technically LimitedRhythm : Technically limited study due to body habitus. Conclusion lvef 25% severe global dysfunction normal RV Function
[2024-09-28] MEDS: ACETAMINOPHEN 325 MG TAB PO PRN (17:16)
[2024-09-28 20:45] LABS: Amphetamine Screen, Urine Neg (NEGATIVE); Barbiturate Scree,Urine Neg (NEGATIVE); Benzodiazephine Screen, Urine Neg (NEGATIVE); Cannabinoid Screen, Urine Neg (NEGATIVE); Cocaine Screen, Urine Neg (NEGATIVE); Opiate Scree,Urine Neg (NEGATIVE); Phencyclidine Screen, Urine Neg (NEGATIVE)
[2024-09-28] MEDS: INSULIN LANTUS (GLARGINE) 1 /0.01ml (100units/ml) SC SCH (21:53)
[2024-09-28] MEDS: ATORVASTATIN 20 MG TAB PO SCH (21:53)
[2024-09-28] MEDS: SENNA 8.6 MG TAB PO SCH (21:53)
[2024-09-29] VITALS (11 sets, daily range): BP systolic 80–114; BP diastolic 40–61; PULSE 65–129; RESP 17–20; TEMP 98–99.1; O2SAT 97–100
[2024-09-29] MEDS: LEVOTHYROXINE SODIUM 50 MCG TAB PO SCH (06:00)
--- NOTE | 2024-09-29 08:29 | DVHPN2 ---
Subjective Generalized weakness Reviewed: Care Plan, H&P, Labs Changes from previous H/P or p: No Changes General: Per HPI Eyes: No Pain, No Vision change, No Conjunctivae inflammation, No Eyelid inflammation, No Other, No Redness ENT: No Ear pain, No Ear discharge, No Nose pain, No Nose discharge, No Nose congestion, No Mouth pain, No Mouth swelling, No Throat pain, No Throat swelling, No Other Cardiovascular: No Chest Pain, No Palpitations, No Orthopnea, No Paroxysmal Noc. Dyspnea, No Edema, No Lt Headedness, No Other Respiratory: No Cough, No Dry, No Shortness of breath, No SOB with excertion, No Wheezing, No Hemoptysis, No Pleuritic Pain, No Sputum, No Other Genitourinary: No Dysuria, No Frequency, No Incontinence, No Hematuria, No Retention, No Other Musculoskeletal: No other, No neck pain, No shoulder pain, No arm pain, No back pain, No hand pain, No leg pain, No foot pain Skin: No Rash, No Lesions, No Jaundice, No Bruising, No Other Objective Vitals Vital Signs Date Time Temp Pulse Resp B/P (MAP) Pulse Ox O2 Delivery O2 Flow Rate FiO2 09/29/24 05:00 98.5 65 18 114/54 (74) 98 98.5 09/28/24 23:20 Facial BiPAP Mask 30 09/28/24 20:00 0 Intake/Output Intake and Output 09/29/24 07:00 Intake Total 2460 ml Output Total 1840 ml Balance 620 ml Intake Oral 2360 ml IV Total 100 ml Output Urine Total 1840 ml # Voids 1 General Appearance: Alert, Oriented X3, Cooperative, mild distress HEENT: Atraumatic, PERRLA Cardiovascular: Normal S1, Normal S2 Musculoskeletal: Normal sensory function, Normal motor function Neuro: Normal gait, Normal speech Skin: Dry, Intact Psych/Mental Status: Mental status NL, Mood NL Medications Current Medications Medications Dose Ordered Sig/Mary Anne Route Start Time Stop Time Status Last Admin Dose Admin Nitroglycerin 0.4 mg Q5MINP PRN SL 09/27/24 23:00 Morphine Sulfate 2 mg Q30M PRN IV 09/27/24 23:00 Ticagrelor 90 mg BID PO 09/28/24 10:00 09/28/24 21:53 90 MG Aspirin 81 mg DAILY PO 09/28/24 10:00 09/28/24 11:22 81 MG Insulin Glargine 40 units HS SC 09/28/24 22:00 09/28/24 21:53 40 UNITS Diagnostic Test (Pha) 1 strip Q6HR 09/28/24 00:00 09/29/24 06:11 1 STRIP Insulin Human Regular Q6HR SC 09/28/24 00:00 09/29/24 01:59 3 UNITS Dextrose 50 ml UD PRN IV 09/27/24 23:00 Empaglifozin 10 mg DAILY PO 09/28/24 10:00 09/28/24 11:23 10 MG Atorvastatin Calcium 80 mg HS PO 09/28/24 22:00 09/28/24 21:53 80 MG Cefazolin Sodium/ Dextrose 50 ml @ 50 mls/hr Q8HR IV 09/28/24 06:00 09/29/24 06:11 50 MLS/HR Pantoprazole Sodium 40 mg DAILY IV 09/28/24 10:00 09/28/24 11:22 40 MG Sennosides 8.6 mg HS PO 09/28/24 22:00 09/28/24 21:53 8.6 MG Polyethylene Glycol 17 gm DAILYPRN PRN PO 09/27/24 23:15 Nicotine 1 patch DAILY TD 09/29/24 10:00 Acetaminophen 650 mg Q6HP PRN PO 09/28/24 16:30 09/28/24 17:16 650 MG Ivabradine 2.5 mg BID PO 09/29/24 10:00 UNV Laboratory Results Laboratory Tests 09/28/24 11:12 Chemistry Test 09/28/24 11:12 Albumin 3.7 g/dL (3.2-4.8) Calcium Level 9.6 mg/dL (8.7-10.4) Magnesium Level 1.7 mg/dL (1.6-2.6) Total Protein 6.8 g/dL (5.7-8.2) Coagulation Test 09/28/24 11:12 Prothrombin Time 10.8 sec (9.3-11.8) Prothrombin Time INR 1.02 (0.9-1.15) Activated Partial Thromboplast Time 32.6 SEC (24.5-34.5) Cardiac Markers Test 09/28/24 11:12 B-Type Natriuretic Peptide 618.98 pg/mL (0-100) LFT Test 09/28/24 11:12 Alanine Aminotransferase (ALT) 17 U/L (7-40) Alkaline Phosphatase 231 U/L (46-116) H Aspartate Amino Transferase (AST) 21 U/L (13-40) Total Bilirubin 0.4 mg/dL (0.2-1.0) HgA1c, TSH Test 09/28/24 11:12 Thyroid Stimulating Hormone (TSH) 1.33 uIU/mL (0.55-4.78) Urinalysis Test 09/28/24 01:52 Urine Color Yellow (Yellow) Urine Clarity Clear (Clear) Urine pH 5.5 (5.0-9.0) Urine Specific [place] 1.023 (1.001-1.035) Urine Protein Trace (Negative) H Urine Ketones Negative (Negative) Urine Blood Negative /uL (Negative) Urine Nitrite Negative (Negative) Urine Bilirubin Negative (Negative) Urine Urobilinogen Normal mg/dL (Negative) Urine Leukocyte Esterase 1+ /uL (Negative) Urine RBC 1 /hpf (0 - 4) Urine Microscopic WBC 14 /HPF (0-5) H Urine Squamous Epithelial Cells Few /hpf (<5) Urine Bacteria None seen /hpf (None Seen) Urine Hyaline Casts Few /lpf (0 - 2) Urine Mucus Few (None Seen) Urine Osmolality 617 mOsm/kg Urine Sodium < 10 mmol/L (40-220) L Urine Glucose 4+ mg/dL (Normal) H Urine Test Negative (Negative) Microbiology Microbiology Date/Time Source Procedure Growth Status 09/28/24 01:15 Nose MRSA Screen - Final Complete 09/27/24 23:18 Blood Blood Culture - Preliminary Resulted Labs and/or images reviewed: Labs reviewed by me, Image(s) reviewed by me Assessment/Plan Assessment/Plan Impression: -status post PTCA stent placement in LAD circumflex artery RCA -amphetamine abuse -acute decompensated systolic and diastolic heart failure -obesity -sepsis with MSSA in the blood -diabetes mellitus Plan: -events: Patient continues to be febrile. Repeat blood culture positive for Gram-positive cocci, probably persistent MSSA. Patient continues to be tachycardic. Given patient was started Ivabradine at [facility], medication will be restarted at 2.5 mg p.o. b.i.d. -cardiology consultation -continue antibiotic therapy with Ancef -repeat blood culture: Positive Gram-positive cocci -regular insulin sliding scale , Lantus -repeat labs in a.m. Total time spent with patient discussing and formulating plan of care: 35 minutes. This medical document was created using an electronic medical record system with [employer] dictation system. Although this document has been carefully reviewed, there may still be some phonetic and typographical errors. These areas are purely typographical due to imperfections of the software programs, and do not reflect any compromise in the patient's medical care. Plan discussed with: Patient, Other (RN) My Orders Orders - INDU GARCÍA NP Procedure Category Date Status Time Cover Wound With Foam HUNTER 09/28/24 In Process Dressing 15:04 Acetaminophen Tablet PHA 09/28/24 In Process (Tylenol Tablet) 16:30 Ivabradine (Corlanor) PHA 09/29/24 Logged 10:00 Date of Service: Sep 29, 2024 Billing Provider: INDU GARCÍA NP Common Visit Codes: [id number] INP/OBS CARE(HIGH) INDU GARCÍA NP Sep 29, 2024 08:29
[2024-09-29] MEDS: NICOTINE 14 MG/24HR TOPICAL PATCH TD SCH (09:21)
[2024-09-29] MEDS: IVABRADINE 5 MG TAB PO SCH (09:21)
--- NOTE | 2024-09-29 12:59 | DVHPN2 ---
Progress Note Date Seen: Sep 29, 2024 Medical Necessity Reason Pt with a Central, PICC or Fol: No Subjective Patient reports: Feels better Objective vital signs Vital Sign Date Time Temp Pulse Resp B/P (MAP) Pulse Ox O2 Delivery O2 Flow Rate FiO2 09/29/24 07:40 122 97 Room Air* 0 21 09/29/24 05:00 98.5 18 114/54 (74) 98.5 Total Intake and Output 09/28/24 09/28/24 09/29/24 15:00 23:00 07:00 Intake Total 720 ml 790 ml 950 ml Output Total 1000 ml 840 ml Balance 720 ml -210 ml 110 ml medications Current Medications Medications Dose Ordered Sig/Mary Anne Route Start Time Stop Time Status Last Admin Dose Admin Nitroglycerin 0.4 mg Q5MINP PRN SL 09/27/24 23:00 Morphine Sulfate 2 mg Q30M PRN IV 09/27/24 23:00 Ticagrelor 90 mg BID PO 09/28/24 10:00 09/29/24 09:20 90 MG Aspirin 81 mg DAILY PO 09/28/24 10:00 09/29/24 09:20 81 MG Insulin Glargine 40 units HS SC 09/28/24 22:00 09/28/24 21:53 40 UNITS Diagnostic Test (Pha) 1 strip Q6HR 09/28/24 00:00 09/29/24 11:31 1 STRIP Insulin Human Regular Q6HR SC 09/28/24 00:00 09/29/24 11:53 2 UNITS Dextrose 50 ml UD PRN IV 09/27/24 23:00 Empaglifozin 10 mg DAILY PO 09/28/24 10:00 09/29/24 09:20 10 MG Atorvastatin Calcium 80 mg HS PO 09/28/24 22:00 09/28/24 21:53 80 MG Cefazolin Sodium/ Dextrose 50 ml @ 50 mls/hr Q8HR IV 09/28/24 06:00 09/29/24 06:11 50 MLS/HR Pantoprazole Sodium 40 mg DAILY IV 09/28/24 10:00 09/29/24 09:20 40 MG Sennosides 8.6 mg HS PO 09/28/24 22:00 09/28/24 21:53 8.6 MG Polyethylene Glycol 17 gm DAILYPRN PRN PO 09/27/24 23:15 Nicotine 1 patch DAILY TD 09/29/24 10:00 09/29/24 09:21 1 PATCH Acetaminophen 650 mg Q6HP PRN PO 09/28/24 16:30 09/28/24 17:16 650 MG Ivabradine 2.5 mg BID PO 09/29/24 10:00 09/29/24 09:21 2.5 MG Examination: GENERAL:Abnormal, HEENT:Abnormal, LUNGS:Abnormal, CVS:Abnormal, ABDOMEN:Abnormal laboratory and microbiology Laboratory Tests 09/28/24 11:12 Test 09/28/24 11:12 Range/Units Serum Glucose 214 H 74-106 mg/dL Microbiology Date/Time Source Procedure Growth Status 09/28/24 01:52 Voided Urine Urine Culture - Preliminary Resulted 09/28/24 01:15 Nose MRSA Screen - Final Complete 09/27/24 23:18 Blood Blood Culture - Preliminary Staphylococcus aureus Resulted Problem List/Assessment/Plan Problem List/Assessment/Plan nstemi severe 3v cad s/p multivessel high risk pci with impella sepsis hypotension cont dapt cont statin BB when feasible cont GMDT, jardiance abx per hospitalist Plan discussed with: Patient Date of Service: Sep 29, 2024 Billing Provider: SD MORATAYA MD Common Visit Codes: NOT BILLABLE SD MORATAYA MD Sep 29, 2024 12:59
--- NOTE | 2024-09-29 23:25 | DVHPN2 ---
Progress Note - Dictate Date Seen: Sep 29, 2024 Medical Necessity Reason Pt with a Central, PICC or Fol: No Subjective Ms. Oleksandr Elaine is a right-handed female with a history of hypertension, diabetes, dyslipidemia, coronary artery disease, previous heart attack, chronic leg edema, obesity, she presented to [facility] on 09/13/2024 for shortness breath, and the patient was found to have three-vessel coronary artery disease after catheterization on 09/15/2024, and she was transferred to the [facility] on 09/18/2024 on 09/20/2024, the patient was developed for memory, slurred speech but no focal weakness numbness (neuro consultation: Mild right facial droop and dysarthria), MRI brain scan confirmed acute stroke. On 09/22/2024, the patient was received stents, and she was transferred back to [facility] on 09/27/2024. I have seen and examined the patient, I have discussed her and her nurse, she was doing fine, no new complaints She reports the APAP help her sleep She snores, maybe sometimes, occasionally she wakes up catching her breathing, her sleep refreshing, she sometimes has daytime fatigue and sleepiness She was slowly progressive tingling and numbness (no pain) in the feet since 2020 Dr. Vazquez, 09/19/24: LKN: 09/19/2024 1055. NIHSS: Two for symptoms of mild right facial droop and dysarthria TTE, 09/19/2024: No LV thrombus CTA perfusion, 09/19/24: No abnormality identified on the quantitative perfusion analysis. MRI brain, 09/20/2024: Recently tiny area of cortical olfactory involving the left precentral and postcentral gyri I presumed CT angio brain & neck was obtained because neurology/stroke note mentioned "no thrombectomy 2/2 M3 occlusion" Urinalysis, 09/28/2024: WBC: 2, urine leukocyte esterase: 1+ UDS, 09/14/2024: Amphetamine WBC/HB/PLT/MCV, 09/28/2024: 1/8.3/528/90.9 Na, 09/27/2024: 127 HGB A1c, 09/15/2024: > 14 Liver function tests, 09/27/2024: Unremarkable Echocardiogram, 09/14/2024: Normal left ventricular size with severely decreased systolic function. Ejection fraction is estimated at 15-20%. Severe global hypokinesis. Normal right ventricular size and systolic function. No hemodynamically significant valvular disease. PA systolic pressure is estimated at 35-40 mm Hg. There is no prior study for comparison. Cardiac catheterization, 09/15/2024: 1. severe 3v cad 2. acute severe systolic HF vital signs Vital Sign Date Time Temp Pulse Resp B/P (MAP) Pulse Ox O2 Delivery O2 Flow Rate FiO2 09/29/24 21:00 99.1 129 18 111/61 (78) 97 99.1 09/29/24 20:00 Room Air* 0 21 Total Intake and Output 09/28/24 09/28/24 09/29/24 15:00 23:00 07:00 Intake Total 720 ml 790 ml 950 ml Output Total 1000 ml 840 ml Balance 720 ml -210 ml 110 ml medications Current Medications Medications Dose Ordered Sig/Mary Anne Route Start Time Stop Time Status Last Admin Dose Admin Nitroglycerin 0.4 mg Q5MINP PRN SL 09/27/24 23:00 Morphine Sulfate 2 mg Q30M PRN IV 09/27/24 23:00 Ticagrelor 90 mg BID PO 09/28/24 10:00 09/29/24 21:36 90 MG Aspirin 81 mg DAILY PO 09/28/24 10:00 09/29/24 09:20 81 MG Insulin Glargine 40 units HS SC 09/28/24 22:00 09/29/24 21:36 40 UNITS Diagnostic Test (Pha) 1 strip Q6HR 09/28/24 00:00 09/29/24 17:33 1 STRIP Insulin Human Regular Q6HR SC 09/28/24 00:00 09/29/24 18:25 2 UNITS Dextrose 50 ml UD PRN IV 09/27/24 23:00 Empaglifozin 10 mg DAILY PO 09/28/24 10:00 09/29/24 09:20 10 MG Atorvastatin Calcium 80 mg HS PO 09/28/24 22:00 09/29/24 21:36 80 MG Cefazolin Sodium/ Dextrose 50 ml @ 50 mls/hr Q8HR IV 09/28/24 06:00 09/29/24 21:37 50 MLS/HR Pantoprazole Sodium 40 mg DAILY IV 09/28/24 10:00 09/29/24 09:20 40 MG Sennosides 8.6 mg HS PO 09/28/24 22:00 09/29/24 21:37 8.6 MG Polyethylene Glycol 17 gm DAILYPRN PRN PO 09/27/24 23:15 Nicotine 1 patch DAILY TD 09/29/24 10:00 09/29/24 09:21 1 PATCH Acetaminophen 650 mg Q6HP PRN PO 09/28/24 16:30 09/28/24 17:16 650 MG Ivabradine 2.5 mg BID PO 09/29/24 10:00 09/29/24 21:37 2.5 MG Melatonin 5 mg HS PO 09/29/24 22:00 objective General: the patient is well developed and nourished. No acute distress. MENTAL STATUS: Awake and alert. Oriented to person, place, time and general circumstances. Able to give personal history SPEECH, LANGUAGE, HIGHER CORTICAL FUNCTION: no aphasia or dysathria. CRANIAL NERVES: Intact visual doll to confrontation. Pupils are equal, round and reactive. EOMs full and conjugate. No nystagmus. Facial sensation intact in all three divisions bilaterally. Mandibular strength intact. Facial muscles symmetrical and strength intact. . MOTOR: Normal tone in the upper and lower extremity. Normal muscle bulk. No fasciculations. No abnormal movements or posturing. Muscle strength of the major groups in the extremities is 5/5. REFLEXES: Deep tendon reflexes normal and symmetrical. No pathological reflexes. CEREBELLAR/COORDINATION: Finger to nose is normal bilaterally. GAIT/STATION: deferred. laboratory and microbiology Laboratory Tests 09/28/24 11:12 Test 09/28/24 11:12 Range/Units Serum Glucose 214 H 74-106 mg/dL Problem List Acute stroke with aphasia, right facial drooping, Stroke may be related to cardiac catheterization Sleep-related breathing disorder She was multiple stroke risk fact including Hypertension Diabetes Dyslipidemia Coronary artery disease Substance abuse Obesity Possible sleep apnea Assessment/Plan Monitoring Supportive treatment Telemetry Lipitor 80 mg daily Aspirin 81 mg daily Brilinta 90 mg b.i.d. DVT prophylax/Lovenox GI prophylaxis/Protonix Foot care Daily foot inspection Soft, wide than protect she was only APAP in the hospital She has been advised the to discuss with her family doctor Re: Sleep medicine evaluation This medical document was created using an electronic medical record system with [employer] computerized dictation system. Although this document has been carefully reviewed, there may still be some phonetic and typographical errors. These areas are purely typographical due to imperfections of the software programs, and do not reflect any compromise in the patient's medical care Prognosis poor Plan discussed with: Patient, Other KANDACE ALEGRIA MD Sep 29, 2024 23:25
[2024-09-30] VITALS (12 sets, daily range): BP systolic 81–100; BP diastolic 37–49; PULSE 85–122; RESP 16–20; TEMP 98.1–98.7; O2SAT 94–100
[2024-09-30] MEDS: MELATONIN 5 MG TAB PO SCH (00:28)
--- NOTE | 2024-09-30 13:09 | DVHPN2 ---
Subjective Generalized weakness Reviewed: Care Plan, H&P, Labs Changes from previous H/P or p: No Changes General: Per HPI Eyes: No Pain, No Vision change, No Conjunctivae inflammation, No Eyelid inflammation, No Other, No Redness ENT: No Ear pain, No Ear discharge, No Nose pain, No Nose discharge, No Nose congestion, No Mouth pain, No Mouth swelling, No Throat pain, No Throat swelling, No Other Cardiovascular: No Chest Pain, No Palpitations, No Orthopnea, No Paroxysmal Noc. Dyspnea, No Edema, No Lt Headedness, No Other Respiratory: No Cough, No Dry, No Shortness of breath, No SOB with excertion, No Wheezing, No Hemoptysis, No Pleuritic Pain, No Sputum, No Other Genitourinary: No Dysuria, No Frequency, No Incontinence, No Hematuria, No Retention, No Other Musculoskeletal: No other, No neck pain, No shoulder pain, No arm pain, No back pain, No hand pain, No leg pain, No foot pain Skin: No Rash, No Lesions, No Jaundice, No Bruising, No Other Objective Vitals Vital Signs Date Time Temp Pulse Resp B/P (MAP) Pulse Ox O2 Delivery O2 Flow Rate FiO2 09/30/24 12:42 98.7 87 16 81/46 (58) 94 98.7 09/30/24 07:40 Room Air* 0 21 Intake/Output Intake and Output 09/30/24 07:00 Intake Total 1590 ml Output Total 2200 ml Balance -610 ml Intake Oral 1440 ml IV Total 150 ml Output Urine Total 2200 ml # Bowel Movements 1 General Appearance: Alert, Oriented X3, Cooperative, mild distress HEENT: Atraumatic, PERRLA Cardiovascular: Normal S1, Normal S2 Musculoskeletal: Normal sensory function, Normal motor function Neuro: Normal gait, Normal speech Skin: Dry, Intact Psych/Mental Status: Mental status NL, Mood NL Medications Current Medications Medications Dose Ordered Sig/Mary Anne Route Start Time Stop Time Status Last Admin Dose Admin Nitroglycerin 0.4 mg Q5MINP PRN SL 09/27/24 23:00 Morphine Sulfate 2 mg Q30M PRN IV 09/27/24 23:00 Ticagrelor 90 mg BID PO 09/28/24 10:00 09/30/24 09:52 90 MG Aspirin 81 mg DAILY PO 09/28/24 10:00 09/30/24 09:52 81 MG Insulin Glargine 40 units HS SC 09/28/24 22:00 09/29/24 21:36 40 UNITS Diagnostic Test (Pha) 1 strip Q6HR 09/28/24 00:00 09/30/24 11:52 1 STRIP Insulin Human Regular Q6HR SC 09/28/24 00:00 09/30/24 11:52 3 UNITS Dextrose 50 ml UD PRN IV 09/27/24 23:00 Empaglifozin 10 mg DAILY PO 09/28/24 10:00 09/30/24 09:52 10 MG Atorvastatin Calcium 80 mg HS PO 09/28/24 22:00 09/29/24 21:36 80 MG Cefazolin Sodium/ Dextrose 50 ml @ 50 mls/hr Q8HR IV 09/28/24 06:00 09/30/24 05:56 50 MLS/HR Pantoprazole Sodium 40 mg DAILY IV 09/28/24 10:00 09/30/24 09:52 40 MG Sennosides 8.6 mg HS PO 09/28/24 22:00 09/29/24 21:37 8.6 MG Polyethylene Glycol 17 gm DAILYPRN PRN PO 09/27/24 23:15 Nicotine 1 patch DAILY TD 09/29/24 10:00 09/30/24 09:53 1 PATCH Acetaminophen 650 mg Q6HP PRN PO 09/28/24 16:30 09/28/24 17:16 650 MG Ivabradine 2.5 mg BID PO 09/29/24 10:00 09/30/24 09:52 2.5 MG Melatonin 5 mg HS PO 09/29/24 22:00 09/30/24 00:28 5 MG Fluconazole 100 mg DAILY PO 10/01/24 10:00 UNV Saccharomyces Boulardii 250 mg DAILY PO 10/01/24 10:00 UNV Laboratory Results Laboratory Tests 09/28/24 11:12 Urinalysis Test 09/28/24 01:52 Urine Color Yellow (Yellow) Urine Clarity Clear (Clear) Urine pH 5.5 (5.0-9.0) Urine Specific [place] 1.023 (1.001-1.035) Urine Protein Trace (Negative) H Urine Ketones Negative (Negative) Urine Blood Negative /uL (Negative) Urine Nitrite Negative (Negative) Urine Bilirubin Negative (Negative) Urine Urobilinogen Normal mg/dL (Negative) Urine Leukocyte Esterase 1+ /uL (Negative) Urine RBC 1 /hpf (0 - 4) Urine Microscopic WBC 14 /HPF (0-5) H Urine Squamous Epithelial Cells Few /hpf (<5) Urine Bacteria None seen /hpf (None Seen) Urine Hyaline Casts Few /lpf (0 - 2) Urine Mucus Few (None Seen) Urine Osmolality 617 mOsm/kg Urine Sodium < 10 mmol/L (40-220) L Urine Glucose 4+ mg/dL (Normal) H Urine Test Negative (Negative) Microbiology Microbiology Date/Time Source Procedure Growth Status 09/28/24 01:52 Voided Urine Urine Culture - Preliminary Resulted 09/28/24 01:15 Nose MRSA Screen - Final Complete 09/27/24 23:18 Blood Blood Culture - Final Staphylococcus aureus Complete Labs and/or images reviewed: Labs reviewed by me, Image(s) reviewed by me Assessment/Plan Assessment/Plan Impression: -status post PTCA stent placement in LAD circumflex artery RCA -amphetamine abuse -acute decompensated systolic and diastolic heart failure -obesity -sepsis with MSSA in the blood -diabetes mellitus Plan: -events: Patient's heart rate improved Ivabradine. Urine culture positive with yeast, greater [place] [id number]. Blood culture continues to grow Staphylococcus aureus. -repeat blood culture -cardiology consultation -continue antibiotic therapy with Ancef -continue Jardiance, hold other goal-directed medical therapy given soft blood pressure. -regular insulin sliding scale , Lantus -repeat labs in a.m. Total time spent with patient discussing and formulating plan of care: 35 minutes. This medical document was created using an electronic medical record system with [employer] dictation system. Although this document has been carefully reviewed, there may still be some phonetic and typographical errors. These areas are purely typographical due to imperfections of the software programs, and do not reflect any compromise in the patient's medical care. Plan discussed with: Patient, Other (RN) My Orders Orders - INDU GARCÍA NP Procedure Category Date Status Time Blood Culture CRISSY 09/30/24 Logged 12:57 Complete Blood Count LAB 10/01/24 Verified 04:00 Basic Metabolic Panel LAB 10/01/24 Verified 04:00 Fluconazole Tablet PHA 09/30/24 Logged (Diflucan Tablet) 13:00 Fluconazole Tablet PHA 10/01/24 Logged (Diflucan Tablet) 10:00 Florastor (S. PHA 10/01/24 Logged Boulardii) (Florastor) 10:00 Date of Service: Sep 30, 2024 Billing Provider: INDU GARCÍA NP Common Visit Codes: [id number] INP/OBS CARE(HIGH) INDU GARCÍA NP Sep 30, 2024 13:09
[2024-09-30] MEDS: FLUCONAZOLE 100 MG TAB PO ONE (14:21)
--- NOTE | 2024-09-30 16:41 | DVHPN2 ---
Progress Note Date Seen: Sep 30, 2024 Medical Necessity Reason Pt with a Central, PICC or Fol: No Subjective Other Systems: + blood cx Objective vital signs Vital Sign Date Time Temp Pulse Resp B/P (MAP) Pulse Ox O2 Delivery O2 Flow Rate FiO2 09/30/24 12:42 98.7 87 16 81/46 (58) 94 98.7 09/30/24 07:40 Room Air* 0 21 Total Intake and Output 09/29/24 09/29/24 09/30/24 15:00 23:00 07:00 Intake Total 100 ml 1140 ml 350 ml Output Total 1100 ml 1100 ml Balance 100 ml 40 ml -750 ml medications Current Medications Medications Dose Ordered Sig/Mary Anne Route Start Time Stop Time Status Last Admin Dose Admin Nitroglycerin 0.4 mg Q5MINP PRN SL 09/27/24 23:00 Morphine Sulfate 2 mg Q30M PRN IV 09/27/24 23:00 Ticagrelor 90 mg BID PO 09/28/24 10:00 09/30/24 09:52 90 MG Aspirin 81 mg DAILY PO 09/28/24 10:00 09/30/24 09:52 81 MG Insulin Glargine 40 units HS SC 09/28/24 22:00 09/29/24 21:36 40 UNITS Diagnostic Test (Pha) 1 strip Q6HR 09/28/24 00:00 09/30/24 11:52 1 STRIP Insulin Human Regular Q6HR SC 09/28/24 00:00 09/30/24 11:52 3 UNITS Dextrose 50 ml UD PRN IV 09/27/24 23:00 Empaglifozin 10 mg DAILY PO 09/28/24 10:00 09/30/24 09:52 10 MG Atorvastatin Calcium 80 mg HS PO 09/28/24 22:00 09/29/24 21:36 80 MG Cefazolin Sodium/ Dextrose 50 ml @ 50 mls/hr Q8HR IV 09/28/24 06:00 09/30/24 14:10 50 MLS/HR Pantoprazole Sodium 40 mg DAILY IV 09/28/24 10:00 09/30/24 09:52 40 MG Sennosides 8.6 mg HS PO 09/28/24 22:00 09/29/24 21:37 8.6 MG Polyethylene Glycol 17 gm DAILYPRN PRN PO 09/27/24 23:15 Nicotine 1 patch DAILY TD 09/29/24 10:00 09/30/24 09:53 1 PATCH Acetaminophen 650 mg Q6HP PRN PO 09/28/24 16:30 09/28/24 17:16 650 MG Ivabradine 2.5 mg BID PO 09/29/24 10:00 09/30/24 09:52 2.5 MG Melatonin 5 mg HS PO 09/29/24 22:00 09/30/24 00:28 5 MG Fluconazole 100 mg DAILY PO 10/01/24 10:00 Saccharomyces Boulardii 250 mg DAILY PO 10/01/24 10:00 Examination: GENERAL:Abnormal, HEENT:Abnormal, LUNGS:Abnormal, CVS:Abnormal, ABDOMEN:Abnormal laboratory and microbiology Laboratory Tests 09/28/24 11:12 Test 09/28/24 11:12 Range/Units Serum Glucose 214 H 74-106 mg/dL Microbiology Date/Time Source Procedure Growth Status 09/28/24 01:52 Voided Urine Urine Culture - Preliminary Resulted 09/28/24 01:15 Nose MRSA Screen - Final Complete 09/27/24 23:18 Blood Blood Culture - Final Staphylococcus aureus Complete Problem List/Assessment/Plan Problem List/Assessment/Plan nstemi severe 3v cad s/p multivessel high risk pci with impella sepsis hypotension cont dapt cont statin BB when feasible cont GMDT, jardiance abx per hospitalist ivabradine started unsure if fast HR and low bp likely 2/2 to septic shock cont abx Plan discussed with: Patient Date of Service: Sep 30, 2024 Billing Provider: SD MORATAYA MD Common Visit Codes: NOT BILLABLE SD MORATAYA MD Sep 30, 2024 16:41
--- NOTE | 2024-09-30 21:11 | DVHPN2 ---
Progress Note - Dictate Date Seen: Sep 30, 2024 Medical Necessity Reason Pt with a Central, PICC or Fol: No Subjective Ms. Oleksandr Elaine is a right-handed female with a history of hypertension, diabetes, dyslipidemia, coronary artery disease, previous heart attack, chronic leg edema, obesity, she presented to [facility] on 09/13/2024 for shortness breath, and the patient was found to have three-vessel coronary artery disease after catheterization on 09/15/2024, and she was transferred to the [facility] on 09/18/2024 on 09/20/2024, the patient was developed for memory, slurred speech but no focal weakness numbness (neuro consultation: Mild right facial droop and dysarthria), MRI brain scan confirmed acute stroke. On 09/22/2024, the patient was received stents, and she was transferred back to [facility] on 09/27/2024. I have seen and examined the patient, I have discussed her and her nurse, she was doing fine, she thinks CPAP with nasal pillows works better. no new complaints Follow-up blood culture today She reports the APAP help her sleep She snores, maybe sometimes, occasionally she wakes up catching her breathing, her sleep refreshing, she sometimes has daytime fatigue and sleepiness She was slowly progressive tingling and numbness (no pain) in the feet since 2020 Dr. Vazquez, 09/19/24: LKN: 09/19/2024 1055. NIHSS: Two for symptoms of mild right facial droop and dysarthria TTE, 09/19/2024: No LV thrombus CTA perfusion, 09/19/24: No abnormality identified on the quantitative perfusion analysis. MRI brain, 09/20/2024: Recently tiny area of cortical olfactory involving the left precentral and postcentral gyri I presumed CT angio brain & neck was obtained because neurology/stroke note mentioned "no thrombectomy 2/2 M3 occlusion" Urinalysis, 09/28/2024: WBC: 2, urine leukocyte esterase: 1+ UDS, 09/14/2024: Amphetamine WBC/HB/PLT/MCV, 09/28/2024: 1/8.3/528/90.9 Na, 09/27/2024: 127 HGB A1c, 09/15/2024: > 14 Liver function tests, 09/27/2024: Unremarkable Echocardiogram, 09/14/2024: Normal left ventricular size with severely decreased systolic function. Ejection fraction is estimated at 15-20%. Severe global hypokinesis. Normal right ventricular size and systolic function. No hemodynamically significant valvular disease. PA systolic pressure is estimated at 35-40 mm Hg. There is no prior study for comparison. Cardiac catheterization, 09/15/2024: 1. severe 3v cad 2. acute severe systolic HF vital signs Vital Sign Date Time Temp Pulse Resp B/P (MAP) Pulse Ox O2 Delivery O2 Flow Rate FiO2 09/30/24 17:00 98.3 99 17 100/49 (66) 95 98.3 09/30/24 07:40 Room Air* 0 21 Total Intake and Output 09/29/24 09/29/24 09/30/24 15:00 23:00 07:00 Intake Total 100 ml 1140 ml 350 ml Output Total 1100 ml 1100 ml Balance 100 ml 40 ml -750 ml medications Current Medications Medications Dose Ordered Sig/Mary Anne Route Start Time Stop Time Status Last Admin Dose Admin Nitroglycerin 0.4 mg Q5MINP PRN SL 09/27/24 23:00 Morphine Sulfate 2 mg Q30M PRN IV 09/27/24 23:00 Ticagrelor 90 mg BID PO 09/28/24 10:00 09/30/24 09:52 90 MG Aspirin 81 mg DAILY PO 09/28/24 10:00 09/30/24 09:52 81 MG Insulin Glargine 40 units HS SC 09/28/24 22:00 09/29/24 21:36 40 UNITS Diagnostic Test (Pha) 1 strip Q6HR 09/28/24 00:00 09/30/24 17:17 1 STRIP Insulin Human Regular Q6HR SC 09/28/24 00:00 09/30/24 17:54 6 UNITS Dextrose 50 ml UD PRN IV 09/27/24 23:00 Empaglifozin 10 mg DAILY PO 09/28/24 10:00 09/30/24 09:52 10 MG Atorvastatin Calcium 80 mg HS PO 09/28/24 22:00 09/29/24 21:36 80 MG Cefazolin Sodium/ Dextrose 50 ml @ 50 mls/hr Q8HR IV 09/28/24 06:00 09/30/24 14:10 50 MLS/HR Pantoprazole Sodium 40 mg DAILY IV 09/28/24 10:00 09/30/24 09:52 40 MG Sennosides 8.6 mg HS PO 09/28/24 22:00 09/29/24 21:37 8.6 MG Polyethylene Glycol 17 gm DAILYPRN PRN PO 09/27/24 23:15 Nicotine 1 patch DAILY TD 09/29/24 10:00 09/30/24 09:53 1 PATCH Acetaminophen 650 mg Q6HP PRN PO 09/28/24 16:30 09/28/24 17:16 650 MG Ivabradine 2.5 mg BID PO 09/29/24 10:00 09/30/24 09:52 2.5 MG Melatonin 5 mg HS PO 09/29/24 22:00 09/30/24 00:28 5 MG Fluconazole 100 mg DAILY PO 10/01/24 10:00 Saccharomyces Boulardii 250 mg DAILY PO 10/01/24 10:00 objective General: the patient is well developed and nourished. No acute distress. MENTAL STATUS: Awake and alert. Oriented to person, place, time and general circumstances. Able to give personal history SPEECH, LANGUAGE, HIGHER CORTICAL FUNCTION: no aphasia or dysathria. CRANIAL NERVES: Intact visual doll to confrontation. Pupils are equal, round and reactive. EOMs full and conjugate. No nystagmus. Facial sensation intact in all three divisions bilaterally. Mandibular strength intact. Facial muscles symmetrical and strength intact. . MOTOR: Normal tone in the upper and lower extremity. Normal muscle bulk. No fasciculations. No abnormal movements or posturing. Muscle strength of the major groups in the extremities is 5/5. REFLEXES: Deep tendon reflexes normal and symmetrical. No pathological reflexes. CEREBELLAR/COORDINATION: Finger to nose is normal bilaterally. GAIT/STATION: deferred. laboratory and microbiology Laboratory Tests 09/28/24 11:12 Test 09/28/24 11:12 Range/Units Serum Glucose 214 H 74-106 mg/dL Problem List Acute stroke with aphasia, right facial drooping, Stroke may be related to cardiac catheterization Sleep-related breathing disorder She was multiple stroke risk fact including Hypertension Diabetes Dyslipidemia Coronary artery disease Substance abuse Obesity Possible sleep apnea Assessment/Plan Monitoring Supportive treatment Telemetry Lipitor 80 mg daily Aspirin 81 mg daily Brilinta 90 mg b.i.d. DVT prophylax/Lovenox GI prophylaxis/Protonix Foot care Daily foot inspection Soft, wide than protect she was only APAP in the hospital She has been advised the to discuss with her family doctor Re: Sleep medicine evaluation This medical document was created using an electronic medical record system with Lightbox dictation system. Although this document has been carefully reviewed, there may still be some phonetic and typographical errors. These areas are purely typographical due to imperfections of the software programs, and do not reflect any compromise in the patient's medical care Prognosis poor Plan discussed with: Patient, Other KANDACE ALEGRIA MD Sep 30, 2024 21:11
[2024-10-01] VITALS (10 sets, daily range): BP systolic 94–113; BP diastolic 44–58; PULSE 75–91; RESP 18–20; TEMP 97.4–99; O2SAT 96–99
[2024-10-01 06:25] LABS: Basophils # (auto) 0 10 ^3/uL (0-0.2); Basophils % (auto) 0.6 % (0.0-2.0); Eosinophils # (auto) 0.3 10 ^3/uL (0-0.8); Eosinophils % (auto) 5.5 % (0.0-7.0); Hematocrit 25.1 % (36.0-46.0); Hemoglobin 8.1 g/dL (12.2-16.2); Lymphocytes # (auto) 1.3 10 ^3/uL (0.4-5.4); Lymphocytes % (auto) 24.8 % (10.0-50.0); Mean Corpuscular Hemoglobin 25.1 pg (28.0-32.0); Mean Corpuscular Hgb Conc. 32.1 g/dL (32.0-36.0); Mean Corpuscular Volume 78.1 fL (80.0-100.0); Monocytes # (auto) 0.6 10 ^3/uL (0-1.3); Monocytes % (auto) 11.4 % (0.0-12.0); Neutrophils # (auto) 2.9 10 ^3/uL (1.6-8.6); Neutrophils % (auto) 57.7 % (37.0-80.0); Nucleated Red Blood Cells % 0.1 %; Platelet Count (auto) 399 10^3/uL (140-450); Red Blood Cells 3.21 10^6/uL (4.0-5.20); Red Cell Distribution Width 14.9 % (11.8-14.3); White Blood Cell 5.1 10^3/uL (4.4-10.8)
[2024-10-01 06:44] LABS: Anion Gap 8 (5-15); Carbon Dioxide 24 mmol/L (20-31); Chloride 104 mmol/L (98-107); Potassium 3.6 mmol/L (3.5-5.1)
[2024-10-01 06:45] LABS: Calcium 9.4 mg/dL (8.7-10.4)
[2024-10-01 06:50] LABS: BUN/Creatinine Ratio 15.5 (10.0-20.0)
[2024-10-01 06:57] LABS: Blood Urea Nitrogen 9 mg/dL (9-23); Glucose 106 mg/dL (74-106); Sodium 136 mmol/L (136-145)
[2024-10-01] MEDS: FLUCONAZOLE 100 MG TAB PO SCH (10:27)
[2024-10-01] MEDS: FLORASTOR (S. BOULARDII) 250 MG CAP PO SCH (10:28)
--- NOTE | 2024-10-01 11:08 | ECG ---
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
--- NOTE | 2024-10-01 13:50 | DVHPN2 ---
Reviewed: Care Plan, H&P, Labs Changes from previous H/P or p: No Changes General: Per HPI Eyes: No Pain, No Vision change, No Conjunctivae inflammation, No Eyelid inflammation, No Other, No Redness ENT: No Ear pain, No Ear discharge, No Nose pain, No Nose discharge, No Nose congestion, No Mouth pain, No Mouth swelling, No Throat pain, No Throat swelling, No Other Cardiovascular: No Chest Pain, No Palpitations, No Orthopnea, No Paroxysmal Noc. Dyspnea, No Edema, No Lt Headedness, No Other Respiratory: No Cough, No Dry, No Shortness of breath, No SOB with excertion, No Wheezing, No Hemoptysis, No Pleuritic Pain, No Sputum, No Other Genitourinary: No Dysuria, No Frequency, No Incontinence, No Hematuria, No Retention, No Other Musculoskeletal: No other, No neck pain, No shoulder pain, No arm pain, No back pain, No hand pain, No leg pain, No foot pain Skin: No Rash, No Lesions, No Jaundice, No Bruising, No Other Objective Vitals Vital Signs Date Time Temp Pulse Resp B/P (MAP) Pulse Ox O2 Delivery O2 Flow Rate FiO2 10/01/24 11:48 83 19 95/44 99 0.0 21 10/01/24 08:00 Room Air* 10/01/24 08:00 98.6 98.6 Intake/Output Intake and Output 10/01/24 07:00 Intake Total 1575 ml Output Total 1800 ml Balance -225 ml Intake Oral 1425 ml IV Total 150 ml Output Urine Total 1800 ml General Appearance: Alert, Oriented X3, Cooperative, mild distress HEENT: Atraumatic, PERRLA Cardiovascular: Normal S1, Normal S2 Musculoskeletal: Normal sensory function, Normal motor function Neuro: Normal gait, Normal speech Skin: Dry, Intact Psych/Mental Status: Mental status NL, Mood NL Medications Current Medications Medications Dose Ordered Sig/Mary Anne Route Start Time Stop Time Status Last Admin Dose Admin Nitroglycerin 0.4 mg Q5MINP PRN SL 09/27/24 23:00 Morphine Sulfate 2 mg Q30M PRN IV 09/27/24 23:00 Ticagrelor 90 mg BID PO 09/28/24 10:00 10/01/24 10:27 90 MG Aspirin 81 mg DAILY PO 09/28/24 10:00 10/01/24 10:27 81 MG Insulin Glargine 40 units HS SC 09/28/24 22:00 09/30/24 22:19 40 UNITS Diagnostic Test (Pha) 1 strip Q6HR 09/28/24 00:00 10/01/24 12:19 1 STRIP Insulin Human Regular Q6HR SC 09/28/24 00:00 10/01/24 12:36 2 UNITS Dextrose 50 ml UD PRN IV 09/27/24 23:00 Empaglifozin 10 mg DAILY PO 09/28/24 10:00 10/01/24 10:28 10 MG Atorvastatin Calcium 80 mg HS PO 09/28/24 22:00 09/30/24 21:46 80 MG Cefazolin Sodium/ Dextrose 50 ml @ 50 mls/hr Q8HR IV 09/28/24 06:00 10/01/24 06:05 50 MLS/HR Pantoprazole Sodium 40 mg DAILY IV 09/28/24 10:00 10/01/24 10:26 40 MG Sennosides 8.6 mg HS PO 09/28/24 22:00 09/30/24 21:46 8.6 MG Polyethylene Glycol 17 gm DAILYPRN PRN PO 09/27/24 23:15 Nicotine 1 patch DAILY TD 09/29/24 10:00 10/01/24 10:26 1 PATCH Acetaminophen 650 mg Q6HP PRN PO 09/28/24 16:30 09/28/24 17:16 650 MG Ivabradine 2.5 mg BID PO 09/29/24 10:00 10/01/24 10:43 2.5 MG Melatonin 5 mg HS PO 09/29/24 22:00 09/30/24 21:46 5 MG Fluconazole 100 mg DAILY PO 10/01/24 10:00 10/01/24 10:27 100 MG Saccharomyces Boulardii 250 mg DAILY PO 10/01/24 10:00 10/01/24 10:28 250 MG Laboratory Results Laboratory Tests 10/01/24 05:45 Chemistry Test 10/01/24 05:45 Calcium Level 9.4 mg/dL (8.7-10.4) Urinalysis Test 09/28/24 01:52 Urine Color Yellow (Yellow) Urine Clarity Clear (Clear) Urine pH 5.5 (5.0-9.0) Urine Specific [place] 1.023 (1.001-1.035) Urine Protein Trace (Negative) H Urine Ketones Negative (Negative) Urine Blood Negative /uL (Negative) Urine Nitrite Negative (Negative) Urine Bilirubin Negative (Negative) Urine Urobilinogen Normal mg/dL (Negative) Urine Leukocyte Esterase 1+ /uL (Negative) Urine RBC 1 /hpf (0 - 4) Urine Microscopic WBC 14 /HPF (0-5) H Urine Squamous Epithelial Cells Few /hpf (<5) Urine Bacteria None seen /hpf (None Seen) Urine Hyaline Casts Few /lpf (0 - 2) Urine Mucus Few (None Seen) Urine Osmolality 617 mOsm/kg Urine Sodium < 10 mmol/L (40-220) L Urine Glucose 4+ mg/dL (Normal) H Urine Test Negative (Negative) Microbiology Microbiology Date/Time Source Procedure Growth Status 09/28/24 01:52 Voided Urine Urine Culture - Final Yeast, not Trini albicans Complete 09/28/24 01:15 Nose MRSA Screen - Final Complete 09/27/24 23:18 Blood Blood Culture - Final Staphylococcus aureus Complete Assessment/Plan Assessment/Plan Impression: -status post PTCA stent placement in LAD circumflex artery RCA -amphetamine abuse -acute decompensated systolic and diastolic heart failure -obesity -sepsis with MSSA in the blood -diabetes mellitus Plan: -events: Patient's heart rate improved Ivabradine. Urine culture positive with yeast, [place] [id number]. Blood culture continues to grow Staphylococcus aureus. -repeat blood culture -cardiology consultation -continue antibiotic therapy with Ancef -continue Jardiance, hold other goal-directed medical therapy given soft blood pressure. -regular insulin sliding scale , Lantus -repeat labs in a.m. 10/01/2024: continue with current IV ABx bacteremia repeat blood culture Plan discussed with: Patient Date of Service: Oct 01, 2024 Billing Provider: HALIMA BLACKBURN DO Common Visit Codes: [id number] INP/OBS CARE(HIGH) HALIMA BLACKBURN DO Oct 01, 2024 13:50
[2024-10-02] VITALS (9 sets, daily range): BP systolic 107–115; BP diastolic 51–63; PULSE 75–100; RESP 18–20; TEMP 98.1–98.7; O2SAT 95–99
--- NOTE | 2024-10-02 16:04 | DVHPN2 ---
Progress Note - Dictate Date Seen: Oct 02, 2024 Medical Necessity Reason Pt with a Central, PICC or Fol: No Subjective Ms. Oleksandr Elaine is a right-handed female with a history of hypertension, diabetes, dyslipidemia, coronary artery disease, previous heart attack, chronic leg edema, obesity, she presented to [facility] on 09/13/2024 for shortness breath, and the patient was found to have three-vessel coronary artery disease after catheterization on 09/15/2024, and she was transferred to the [facility] on 09/18/2024 on 09/20/2024, the patient was developed for memory, slurred speech but no focal weakness numbness (neuro consultation: Mild right facial droop and dysarthria), MRI brain scan confirmed acute stroke. On 09/22/2024, the patient was received stents, and she was transferred back to [facility] on 09/27/2024. I have seen and examined the patient, I have discussed her and her nurse, she is doing fine, she reports poor experience with APAP last night because a feeling of suffocation. No new complaints She was way work with her doctor for sleep medicine evaluation Follow-up blood culture Dr. Vazquez, 09/19/24: LKN: 09/19/2024 1055. NIHSS: Two for symptoms of mild right facial droop and dysarthria TTE, 09/19/2024: No LV thrombus CTA perfusion, 09/19/24: No abnormality identified on the quantitative perfusion analysis. MRI brain, 09/20/2024: Recently tiny area of cortical olfactory involving the left precentral and postcentral gyri I presumed CT angio brain & neck was obtained because neurology/stroke note mentioned "no thrombectomy 2/2 M3 occlusion" Urinalysis, 09/28/2024: WBC: 2, urine leukocyte esterase: 1+ UDS, 09/14/2024: Amphetamine WBC/HB/PLT/MCV, 09/28/2024: 1/8.3/528/90.9 Na, 09/27/2024: 127 HGB A1c, 09/15/2024: > 14 Liver function tests, 09/27/2024: Unremarkable Echocardiogram, 09/14/2024: Normal left ventricular size with severely decreased systolic function. Ejection fraction is estimated at 15-20%. Severe global hypokinesis. Normal right ventricular size and systolic function. No hemodynamically significant valvular disease. PA systolic pressure is estimated at 35-40 mm Hg. There is no prior study for comparison. Cardiac catheterization, 09/15/2024: 1. severe 3v cad 2. acute severe systolic HF vital signs Vital Sign Date Time Temp Pulse Resp B/P (MAP) Pulse Ox O2 Delivery O2 Flow Rate FiO2 10/02/24 13:00 98.1 76 18 111/59 (76) 98 98.1 10/02/24 08:00 Room Air* 0 21 Total Intake and Output 10/01/24 10/01/24 10/02/24 15:00 23:00 07:00 Intake Total 50 ml 740 ml 360 ml Output Total 460 ml Balance 50 ml 280 ml 360 ml medications Current Medications Medications Dose Ordered Sig/Mary Anne Route Start Time Stop Time Status Last Admin Dose Admin Nitroglycerin 0.4 mg Q5MINP PRN SL 09/27/24 23:00 Morphine Sulfate 2 mg Q30M PRN IV 09/27/24 23:00 Ticagrelor 90 mg BID PO 09/28/24 10:00 10/02/24 09:33 90 MG Aspirin 81 mg DAILY PO 09/28/24 10:00 10/02/24 09:32 81 MG Insulin Glargine 40 units HS SC 09/28/24 22:00 10/01/24 21:28 40 UNITS Diagnostic Test (Pha) 1 strip Q6HR 09/28/24 00:00 10/02/24 11:56 1 STRIP Insulin Human Regular Q6HR SC 09/28/24 00:00 10/01/24 18:26 2 UNITS Dextrose 50 ml UD PRN IV 09/27/24 23:00 Empaglifozin 10 mg DAILY PO 09/28/24 10:00 10/02/24 09:33 10 MG Atorvastatin Calcium 80 mg HS PO 09/28/24 22:00 10/01/24 21:20 80 MG Cefazolin Sodium/ Dextrose 50 ml @ 50 mls/hr Q8HR IV 09/28/24 06:00 10/02/24 13:55 50 MLS/HR Pantoprazole Sodium 40 mg DAILY IV 09/28/24 10:00 10/02/24 09:32 40 MG Sennosides 8.6 mg HS PO 09/28/24 22:00 10/01/24 21:20 8.6 MG Polyethylene Glycol 17 gm DAILYPRN PRN PO 09/27/24 23:15 Nicotine 1 patch DAILY TD 09/29/24 10:00 10/02/24 09:35 1 PATCH Acetaminophen 650 mg Q6HP PRN PO 09/28/24 16:30 09/28/24 17:16 650 MG Ivabradine 2.5 mg BID PO 09/29/24 10:00 10/02/24 09:32 2.5 MG Melatonin 5 mg HS PO 09/29/24 22:00 10/01/24 21:20 5 MG Fluconazole 100 mg DAILY PO 10/01/24 10:00 10/02/24 09:32 100 MG Saccharomyces Boulardii 250 mg DAILY PO 10/01/24 10:00 10/02/24 09:33 250 MG objective General: the patient is well developed and nourished. No acute distress. MENTAL STATUS: Awake and alert. Oriented to person, place, time and general circumstances. Able to give personal history SPEECH, LANGUAGE, HIGHER CORTICAL FUNCTION: no aphasia or dysathria. CRANIAL NERVES: Intact visual doll to confrontation. Pupils are equal, round and reactive. EOMs full and conjugate. No nystagmus. Facial sensation intact in all three divisions bilaterally. Mandibular strength intact. Facial muscles symmetrical and strength intact. . MOTOR: Normal tone in the upper and lower extremity. Normal muscle bulk. No fasciculations. No abnormal movements or posturing. Muscle strength of the major groups in the extremities is 5/5. REFLEXES: Deep tendon reflexes normal and symmetrical. No pathological reflexes. CEREBELLAR/COORDINATION: Finger to nose is normal bilaterally. GAIT/STATION: deferred. laboratory and microbiology Laboratory Tests 10/01/24 05:45 Test 10/01/24 05:45 Range/Units Serum Glucose 106 74-106 mg/dL Problem List Acute stroke with aphasia, right facial drooping, Stroke may be related to cardiac catheterization Sleep-related breathing disorder She was multiple stroke risk fact including Hypertension Diabetes Dyslipidemia Coronary artery disease Substance abuse Obesity Possible sleep apnea Assessment/Plan Monitoring Supportive treatment Telemetry Lipitor 80 mg daily Aspirin 81 mg daily Brilinta 90 mg b.i.d. DVT prophylax/Lovenox GI prophylaxis/Protonix Foot care Daily foot inspection Soft, wide than protect she was only APAP in the hospital She has been advised the to discuss with her family doctor Re: Sleep medicine evaluation This medical document was created using an electronic medical record system with [employer] dictation system. Although this document has been carefully reviewed, there may still be some phonetic and typographical errors. These areas are purely typographical due to imperfections of the software programs, and do not reflect any compromise in the patient's medical care Prognosis poor Plan discussed with: Patient, Other KANDACE ALEGRIA MD Oct 02, 2024 16:04
--- NOTE | 2024-10-02 22:21 | DVHPN2 ---
Reviewed: Care Plan, H&P, Labs Changes from previous H/P or p: No Changes General: Per HPI Eyes: No Pain, No Vision change, No Conjunctivae inflammation, No Eyelid inflammation, No Other, No Redness ENT: No Ear pain, No Ear discharge, No Nose pain, No Nose discharge, No Nose congestion, No Mouth pain, No Mouth swelling, No Throat pain, No Throat swelling, No Other Cardiovascular: No Chest Pain, No Palpitations, No Orthopnea, No Paroxysmal Noc. Dyspnea, No Edema, No Lt Headedness, No Other Respiratory: No Cough, No Dry, No Shortness of breath, No SOB with excertion, No Wheezing, No Hemoptysis, No Pleuritic Pain, No Sputum, No Other Genitourinary: No Dysuria, No Frequency, No Incontinence, No Hematuria, No Retention, No Other Musculoskeletal: No other, No neck pain, No shoulder pain, No arm pain, No back pain, No hand pain, No leg pain, No foot pain Skin: No Rash, No Lesions, No Jaundice, No Bruising, No Other Objective Vitals Vital Signs Date Time Temp Pulse Resp B/P (MAP) Pulse Ox O2 Delivery O2 Flow Rate FiO2 10/02/24 21:00 98.4 86 20 115/53 (73) 98 98.4 10/02/24 08:00 Room Air* 0 21 Intake/Output Intake and Output 10/02/24 06:59 Intake Total 1150 ml Output Total 460 ml Balance 690 ml Intake Oral 1050 ml IV Total 100 ml Output Urine Total 460 ml # Voids 4 # Bowel Movements 1 General Appearance: Alert, Oriented X3, Cooperative, mild distress HEENT: Atraumatic, PERRLA Cardiovascular: Normal S1, Normal S2 Musculoskeletal: Normal sensory function, Normal motor function Neuro: Normal gait, Normal speech Skin: Dry, Intact Psych/Mental Status: Mental status NL, Mood NL Medications Current Medications Medications Dose Ordered Sig/Mary Anne Route Start Time Stop Time Status Last Admin Dose Admin Nitroglycerin 0.4 mg Q5MINP PRN SL 09/27/24 23:00 Morphine Sulfate 2 mg Q30M PRN IV 09/27/24 23:00 Ticagrelor 90 mg BID PO 09/28/24 10:00 10/02/24 09:33 90 MG Aspirin 81 mg DAILY PO 09/28/24 10:00 10/02/24 09:32 81 MG Insulin Glargine 40 units HS SC 09/28/24 22:00 10/01/24 21:28 40 UNITS Diagnostic Test (Pha) 1 strip Q6HR 09/28/24 00:00 10/02/24 17:53 1 STRIP Insulin Human Regular Q6HR SC 09/28/24 00:00 10/01/24 18:26 2 UNITS Dextrose 50 ml UD PRN IV 09/27/24 23:00 Empaglifozin 10 mg DAILY PO 09/28/24 10:00 10/02/24 09:33 10 MG Atorvastatin Calcium 80 mg HS PO 09/28/24 22:00 10/01/24 21:20 80 MG Cefazolin Sodium/ Dextrose 50 ml @ 50 mls/hr Q8HR IV 09/28/24 06:00 10/02/24 13:55 50 MLS/HR Pantoprazole Sodium 40 mg DAILY IV 09/28/24 10:00 10/02/24 09:32 40 MG Sennosides 8.6 mg HS PO 09/28/24 22:00 10/01/24 21:20 8.6 MG Polyethylene Glycol 17 gm DAILYPRN PRN PO 09/27/24 23:15 Nicotine 1 patch DAILY TD 09/29/24 10:00 10/02/24 09:35 1 PATCH Acetaminophen 650 mg Q6HP PRN PO 09/28/24 16:30 09/28/24 17:16 650 MG Ivabradine 2.5 mg BID PO 09/29/24 10:00 10/02/24 09:32 2.5 MG Melatonin 5 mg HS PO 09/29/24 22:00 10/01/24 21:20 5 MG Fluconazole 100 mg DAILY PO 10/01/24 10:00 10/02/24 09:32 100 MG Saccharomyces Boulardii 250 mg DAILY PO 10/01/24 10:00 10/02/24 09:33 250 MG Laboratory Results Laboratory Tests 10/01/24 05:45 Urinalysis Test 09/28/24 01:52 Urine Color Yellow (Yellow) Urine Clarity Clear (Clear) Urine pH 5.5 (5.0-9.0) Urine Specific [place] 1.023 (1.001-1.035) Urine Protein Trace (Negative) H Urine Ketones Negative (Negative) Urine Blood Negative /uL (Negative) Urine Nitrite Negative (Negative) Urine Bilirubin Negative (Negative) Urine Urobilinogen Normal mg/dL (Negative) Urine Leukocyte Esterase 1+ /uL (Negative) Urine RBC 1 /hpf (0 - 4) Urine Microscopic WBC 14 /HPF (0-5) H Urine Squamous Epithelial Cells Few /hpf (<5) Urine Bacteria None seen /hpf (None Seen) Urine Hyaline Casts Few /lpf (0 - 2) Urine Mucus Few (None Seen) Urine Osmolality 617 mOsm/kg Urine Sodium < 10 mmol/L (40-220) L Urine Glucose 4+ mg/dL (Normal) H Urine Test Negative (Negative) Microbiology Microbiology Date/Time Source Procedure Growth Status 09/30/24 14:05 Blood Blood Culture - Preliminary NO GROWTH AFTER 48 HOURS OF INCUBATION. Resulted 09/28/24 01:52 Voided Urine Urine Culture - Final Yeast, not Trini albicans Complete 09/28/24 01:15 Nose MRSA Screen - Final Complete Assessment/Plan Assessment/Plan Impression: -status post PTCA stent placement in LAD circumflex artery RCA -amphetamine abuse -acute decompensated systolic and diastolic heart failure -obesity -sepsis with MSSA in the blood -diabetes mellitus Plan: -events: Patient's heart rate improved Ivabradine. Urine culture positive with yeast, [place] [id number]. Blood culture continues to grow Staphylococcus aureus. -repeat blood culture -cardiology consultation -continue antibiotic therapy with Ancef -continue Jardiance, hold other goal-directed medical therapy given soft blood pressure. -regular insulin sliding scale , Lantus -repeat labs in a.m. 10/01/2024: continue with current IV ABx bacteremia repeat blood culture Date of Service: Oct 02, 2024 Billing Provider: HALIMA BLACKBURN DO Common Visit Codes: [id number] INP/OBS CARE(HIGH) HALIMA BLACKBURN DO Oct 02, 2024 22:21
[2024-10-03] VITALS (12 sets, daily range): BP systolic 96–123; BP diastolic 51–75; PULSE 74–86; RESP 16–18; TEMP 97.6–98.6; O2SAT 94–100
[2024-10-03] MEDS ORDERED: TICA90TA PO (11:29)
[2024-10-03] MEDS ORDERED: AUG875T PO (11:29)
[2024-10-03] MEDS ORDERED: EMPA1TAB PO (11:29)
[2024-10-03] MEDS ORDERED: FURO1TAB33 PO (11:29)
[2024-10-03] MEDS ORDERED: IVAB1.7T PO (11:29)
[2024-10-03] MEDS ORDERED: ASPI-325 PO (11:29)
[2024-10-03] MEDS ORDERED: INSLANTI SC (11:29)
--- NOTE | 2024-10-03 12:49 | DVHDS2 ---
Discharge Summary Date of Admission Sep 27, 2024 at 21:40 Date of Discharge: Oct 03, 2024 Labs/Diagnostic Data: Laboratory Results Test 10/03/24 11:49 10/02/24 18:00 10/01/24 05:45 09/28/24 16:44 POC Glucose 139 mg/dl (70-106) Stool Occult Blood Negative (Negative) Stool Occult Blood Sample #3 (Negative) White Blood Count 5.1 10^3/uL (4.4-10.8) Red Blood Count 3.21 10^6/uL (4.0-5.20) Hemoglobin 8.1 g/dL (12.2-16.2) Hematocrit 25.1 % (36.0-46.0) Mean Corpuscular Volume 78.1 fL (80.0-100.0) Mean Corpuscular Hemoglobin 25.1 pg (28.0-32.0) Mean Corpuscular Hemoglobin Concent 32.1 g/dL (32.0-36.0) Red Cell Distribution Width 14.9 % (11.8-14.3) Platelet Count 399 10^3/uL (140-450) Mean Platelet Volume 7.0 fL (6.9-10.8) Neutrophils (%) (Auto) 57.7 % (37.0-80.0) Lymphocytes (%) (Auto) 24.8 % (10.0-50.0) Monocytes (%) (Auto) 11.4 % (0.0-12.0) Eosinophils (%) (Auto) 5.5 % (0.0-7.0) Basophils (%) (Auto) 0.6 % (0.0-2.0) Neutrophils # (Auto) 2.9 10 ^3/uL (1.6-8.6) Lymphocytes # (Auto) 1.3 10 ^3/uL (0.4-5.4) Monocytes # (Auto) 0.6 10 ^3/uL (0-1.3) Eosinophils # (Auto) 0.3 10 ^3/uL (0-0.8) Basophils # (Auto) 0 10 ^3/uL (0-0.2) Nucleated Red Blood Cells 0.1 % Sodium Level 136 mmol/L (136-145) Potassium Level 3.6 mmol/L (3.5-5.1) Chloride Level 104 mmol/L (98-107) Carbon Dioxide Level 24 mmol/L (20-31) Anion Gap 8 (5-15) Blood Urea Nitrogen 9 mg/dL (9-23) Creatinine 0.58 mg/dL (0.550-1.02) Glomerular Filtration Rate Calc 112 mL/min (>90) BUN/Creatinine Ratio 15.5 (10.0-20.0) Serum Glucose 106 mg/dL (74-106) Calcium Level 9.4 mg/dL (8.7-10.4) Troponin I High Sensitivity 1480 ng/L (</=34) Test 09/28/24 11:12 09/28/24 01:52 Prothrombin Time 10.8 sec (9.3-11.8) Prothrombin Time INR 1.02 (0.9-1.15) Activated Partial Thromboplast Time 32.6 SEC (24.5-34.5) Lactic Acid Level 1.3 mmol/L (0.4-2.0) Magnesium Level 1.7 mg/dL (1.6-2.6) Iron Level 20 ug/dL (50-170) Total Iron Binding Capacity 287 ug/dL (250-425) Percent Iron Saturation 7.0 % (15-50) Ferritin 64.8 ng/mL (10-291) Total Bilirubin 0.4 mg/dL (0.2-1.0) Gamma Glutamyl Transpeptidase 235 U/L (<38) Aspartate Amino Transferase (AST) 21 U/L (13-40) Alanine Aminotransferase (ALT) 17 U/L (7-40) Alkaline Phosphatase 231 U/L (46-116) B-Type Natriuretic Peptide 618.98 pg/mL (0-100) Total Protein 6.8 g/dL (5.7-8.2) Albumin 3.7 g/dL (3.2-4.8) Thyroid Stimulating Hormone (TSH) 1.33 uIU/mL (0.55-4.78) Free Thyroxine (T4) Calculated 1.19 ng/dL (0.89-1.76) Free Triiodothyronine (T3) pg/mL 2.54 pg/mL (2.3-4.2) Urine Color Yellow (Yellow) Urine Clarity Clear (Clear) Urine pH 5.5 (5.0-9.0) Urine Specific [place] 1.023 (1.001-1.035) Urine Protein Trace (Negative) Urine Ketones Negative (Negative) Urine Blood Negative /uL (Negative) Urine Nitrite Negative (Negative) Urine Bilirubin Negative (Negative) Urine Urobilinogen Normal mg/dL (Negative) Urine Leukocyte Esterase 1+ /uL (Negative) Urine RBC 1 /hpf (0 - 4) Urine Microscopic WBC 14 /HPF (0-5) Urine Squamous Epithelial Cells Few /hpf (<5) Urine Bacteria None seen /hpf (None Seen) Urine Hyaline Casts Few /lpf (0 - 2) Urine Mucus Few (None Seen) Urine Osmolality 617 mOsm/kg Urine Sodium < 10 mmol/L (40-220) Urine Glucose 4+ mg/dL (Normal) Urine Test Negative (Negative) Urine Opiates Screen Neg (NEGATIVE) Urine Fentanyl Screen Neg (NEGATIVE) Urine Barbiturates Screen Neg (NEGATIVE) Urine Phencyclidine Screen Neg (NEGATIVE) Urine Amphetamines Screen Neg (NEGATIVE) Urine Benzodiazepines Screen Neg (NEGATIVE) Urine Cocaine Screen Neg (NEGATIVE) Urine Cannabinoids Screen Neg (NEGATIVE) Other Laboratory Tests 10/01/24 05:45 Brief Hx & Hospital Course: History of Present Illness The patient is a 49-year-old female with a history of hyperlipidemia (HLD), type 2 diabetes mellitus (DM2), and methamphetamine use, who initially presented with worsening shortness of breath and a nonproductive cough that had been ongoing for 5 days. She was admitted on September 13/2025 She subsequently developed substernal chest pressure and bilateral lower extremity swelling over the past few days. She denies fever or chills. She has a 30 pack-year smoking history and quit drinking alcohol a year ago. However, she recently used methamphetamine and PCP before this admission. She was found to have elevated troponins and was diagnosed with NSTEMI at [facility]. An echocardiogram revealed an ejection fraction (EF) of 15%, and a left heart catheterization showed: 80% stenosis of RCA, 95% stenosis of OM1 and mid circumflex, 80% stenosis of OM2 and 90% stenosis of the proximal to mid LAD A ruptured 99% stenosis in mid LAD and HBA1c was found to be 14 Given the high-risk nature of her coronary artery disease the patient was transferred to [facility] for further evaluation and management, including consideration of high-risk PCI vs. CABG. September 19/2025 In her admission she had an episode of acute neurological changes with new-onset slurred speech, prompting a stroke workup. Imaging showed a small left precentral and postcentral cortical infarct. No large vessel thrombus was seen on TTE On September 22/2025: The patient had the high risk PCI and Impella assistance was placed until September 24/2025 Angiogram: S/P Impella assisted, IVUS guided PCI to LAD and LCX. S/P PCI to proximal to mid LAD with 2.548 Xience Skypoint KMY, post-dilated with 2.75mm NC balloon. Stenosis reduced from 90% to 0% with SAL-3 flow. S/P PCI to proximal LCX with 3.023mm Xience Skypoint KYM, post-dilated with 3.25mm NC balloon. PTCA performed on bifurcating OM1 with SAL-3 flow. S/P PCI to distal LCX into OM2 with 2.7523mm Xience Skypoint KYM, post-dilated with 2.75mm NC balloon. Jailed OM2 was re-crossed, and PTCA was performed with SAL-3 flow. Also patient was found to be positive for MSSA which was covered with cefazolin Pt also developed a right groin hematoma in the puncture site of the impella Course of hospitalization: Patient was treated with IV Ancef for MSSA. Repeat blood culture found the patient to continued to have emesis a, with repeat blood culture being negative. Patient has been ambulating without difficulty. Patient's heart rate was uncontrolled in the hospital on admission, with persistent borderline hypotension. Patient was started Ivabraden 0.5 mg p.o. b.i.d. with the patient's heart rate improving. Patient was also started on Jardiance 10 mg p.o. daily to assist with not only goal-directed medical therapy with the patient's persistent hyperglycemia. Patient was blood sugars have improved. Patient has had increase with ambulation. She will be continued on dual antiplatelet therapy in the form of Brilinta and aspirin. Patient will also continue with Jardiance as well as p.o. Lasix, as well as increasing her Lantus to 40 units q.h.s.. Patient we will be held off on Jasper and beta renay given patient's decreased blood pressure. She will follow up with Dr. Washington in 1-2 weeks for re-evaluation of adding goal-directed medical therapy. Patient was instructed on the need to be abstain from all alcohol and illicit drugs. She will also follow up with the discharge Clinic in one week. Patient was agreeable with discharge plan. All questions answered. Physical examination General: Alert and Oriented x3. No acute distress. Well-nourished. Obese Eyes: EOMI. Anicteric. HENT: Moist mucous membranes. Lungs: Clear to auscultation bilaterally. No accessory muscle use. Cardiovascular: Regular rate and rhythm. No murmur. No JVD. Abdomen: Soft, non-tender and non-distended. No palpable masses. Extremities: No edema. Non-tender. Skin: No rashes or lesions. Warm. Neurologic: No focal neurological deficits. CN II-XII grossly intact, but not individually tested. Psychiatric: Cooperative. Appropriate mood and affect. Total time spent with patient discussing and formulating plan of care: 35 minutes. This medical document was created using an electronic medical record system with [employer] dictation system. Although this document has been carefully reviewed, there may still be some phonetic and typographical errors. These areas are purely typographical due to imperfections of the software programs, and do not reflect any compromise in the patient's medical care. Consults/Reason for consult Cardiology: Status post high-risk PCI Condition at Discharge: Guarded Final Diagnosis/Problems List CAD SP PTCA Diagnosis: -status post PTCA stent placement in LAD circumflex artery RCA -amphetamine abuse -acute decompensated systolic and diastolic heart failure -obesity -sepsis with MSSA in the blood -diabetes mellitus -postprocedure CVA -right inguinal hematoma postprocedure Discharge Disposition: Home Discharge Instruct/Medications Diet: Consistent carbohydrate, Cardiac 2g Na,low cholest Activity: Light activity Follow Up/Referral: Follow up with Cardiology in 1-2 weeks Follow up with PCP in 1-2 weeks Medications: Lantus 40 units q.h.s. Jardiance 10 mg p.o. daily Lasix 20 mg p.o. daily Ivabraden 2.5 mg p.o. Brilinta showed 90 mg p.o. b.i.d. Aspirin 81 mg p.o. daily Augmentin 875 mg p.o. b.i.d. times 10 days 36 Discharge Statement: "Patient was advised to return to the ER or call 911 if any headaches, dizziness, shortness of breath, chest pain, abdominal pain, bleeding, fevers, or worsening of medical condition. Patient was counseled about treatment plan, medications, possible side effects, patientverbalized understanding. All questions were answered to the best of my ability. This discharge took greater then 30 minutes in planning, reviewing documentation, counseling the patient, and discussing with other team members." ASSESSMENT ASSESSMENT Assessment CAD SP PTCA Date of Service: Oct 03, 2024 Billing Provider: INDU GARCÍA NP Common Visit Codes: 68793-WRS/OBS DISCH DAY >30min Secondary Visit Codes: 74760-CEUXA CHNG SMOKING >10MIN INDU GARCÍA NP Oct 03, 2024 12:49
--- NOTE | 2024-10-03 23:50 | DVHPN2 ---
Progress Note - Dictate Date Seen: Oct 03, 2024 Medical Necessity Reason Pt with a Central, PICC or Fol: No Subjective Ms. Oleksandr Elaine is a right-handed female with a history of hypertension, diabetes, dyslipidemia, coronary artery disease, previous heart attack, chronic leg edema, obesity, she presented to [facility] on 09/13/2024 for shortness breath, and the patient was found to have three-vessel coronary artery disease after catheterization on 09/15/2024, and she was transferred to the [facility] on 09/18/2024 on 09/20/2024, the patient was developed for memory, slurred speech but no focal weakness numbness (neuro consultation: Mild right facial droop and dysarthria), MRI brain scan confirmed acute stroke. On 09/22/2024, the patient was received stents, and she was transferred back to [facility] on 09/27/2024. I have seen and examined the patient, I have discussed her and her nurse, she is doing fine, she reports good experience with APAP last night and she wants to continue Dr. Vazquez, 09/19/24: LKN: 09/19/2024 1055. NIHSS: Two for symptoms of mild right facial droop and dysarthria TTE, 09/19/2024: No LV thrombus CTA perfusion, 09/19/24: No abnormality identified on the quantitative perfusion analysis. MRI brain, 09/20/2024: Recently tiny area of cortical olfactory involving the left precentral and postcentral gyri I presumed CT angio brain & neck was obtained because neurology/stroke note mentioned "no thrombectomy 2/2 M3 occlusion" Blood culture, 09/27/2024: Staphylococcus aureus Urinalysis, 09/28/2024: WBC: 2, urine leukocyte esterase: 1+ UDS, 09/14/2024: Amphetamine WBC/HB/PLT/MCV, 09/28/2024: 1/8.3/528/90.9 Na, 09/27/2024: 127 HGB A1c, 09/15/2024: > 14 Liver function tests, 09/27/2024: Unremarkable Echocardiogram, 09/14/2024: Normal left ventricular size with severely decreased systolic function. Ejection fraction is estimated at 15-20%. Severe global hypokinesis. Normal right ventricular size and systolic function. No hemodynamically significant valvular disease. PA systolic pressure is estimated at 35-40 mm Hg. There is no prior study for comparison. Cardiac catheterization, 09/15/2024: 1. severe 3v cad 2. acute severe systolic HF vital signs Vital Sign Date Time Temp Pulse Resp B/P (MAP) Pulse Ox O2 Delivery O2 Flow Rate FiO2 10/03/24 21:00 98.5 86 17 101/55 (70) 94 98.5 10/03/24 08:05 Room Air* 0 21 Total Intake and Output 10/02/24 10/02/24 10/03/24 15:00 23:00 07:00 Intake Total 514 ml 824 ml 1280 ml Output Total 801 ml 404 ml Balance 514 ml 23 ml 876 ml medications Current Medications Medications Dose Ordered Sig/Mary Anne Route Start Time Stop Time Status Last Admin Dose Admin Nitroglycerin 0.4 mg Q5MINP PRN SL 09/27/24 23:00 Morphine Sulfate 2 mg Q30M PRN IV 09/27/24 23:00 Ticagrelor 90 mg BID PO 09/28/24 10:00 10/03/24 21:33 90 MG Aspirin 81 mg DAILY PO 09/28/24 10:00 10/03/24 10:10 81 MG Insulin Glargine 40 units HS SC 09/28/24 22:00 10/03/24 23:24 40 UNITS Diagnostic Test (Pha) 1 strip Q6HR 09/28/24 00:00 10/03/24 23:24 1 STRIP Insulin Human Regular Q6HR SC 09/28/24 00:00 10/03/24 23:23 3 UNITS Dextrose 50 ml UD PRN IV 09/27/24 23:00 Empaglifozin 10 mg DAILY PO 09/28/24 10:00 10/03/24 10:10 10 MG Atorvastatin Calcium 80 mg HS PO 09/28/24 22:00 10/03/24 21:33 80 MG Cefazolin Sodium/ Dextrose 50 ml @ 50 mls/hr Q8HR IV 09/28/24 06:00 10/03/24 21:33 50 MLS/HR Pantoprazole Sodium 40 mg DAILY IV 09/28/24 10:00 10/03/24 10:09 40 MG Sennosides 8.6 mg HS PO 09/28/24 22:00 10/03/24 21:33 8.6 MG Polyethylene Glycol 17 gm DAILYPRN PRN PO 09/27/24 23:15 Nicotine 1 patch DAILY TD 09/29/24 10:00 10/03/24 10:10 1 PATCH Acetaminophen 650 mg Q6HP PRN PO 09/28/24 16:30 09/28/24 17:16 650 MG Ivabradine 2.5 mg BID PO 09/29/24 10:00 10/03/24 21:34 2.5 MG Melatonin 5 mg HS PO 09/29/24 22:00 10/03/24 21:33 5 MG Fluconazole 100 mg DAILY PO 10/01/24 10:00 10/03/24 10:09 100 MG Saccharomyces Boulardii 250 mg DAILY PO 10/01/24 10:00 10/03/24 10:10 250 MG objective General: the patient is well developed and nourished. No acute distress. MENTAL STATUS: Awake and alert. Oriented to person, place, time and general circumstances. Able to give personal history SPEECH, LANGUAGE, HIGHER CORTICAL FUNCTION: no aphasia or dysathria. CRANIAL NERVES: Intact visual doll to confrontation. Pupils are equal, round and reactive. EOMs full and conjugate. No nystagmus. Facial sensation intact in all three divisions bilaterally. Mandibular strength intact. Facial muscles symmetrical and strength intact. . MOTOR: Normal tone in the upper and lower extremity. Normal muscle bulk. No fasciculations. No abnormal movements or posturing. Muscle strength of the major groups in the extremities is 5/5. REFLEXES: Deep tendon reflexes normal and symmetrical. No pathological reflexes. CEREBELLAR/COORDINATION: Finger to nose is normal bilaterally. GAIT/STATION: deferred. laboratory and microbiology Laboratory Tests 10/01/24 05:45 Test 10/01/24 05:45 Range/Units Serum Glucose 106 74-106 mg/dL Problem List Acute stroke with aphasia, right facial drooping, Stroke may be related to cardiac catheterization Sleep-related breathing disorder She was multiple stroke risk fact including Hypertension Diabetes Dyslipidemia Coronary artery disease Substance abuse Obesity Possible sleep apnea Assessment/Plan Monitoring Supportive treatment Telemetry Lipitor 80 mg daily Aspirin 81 mg daily Brilinta 90 mg b.i.d. DVT prophylax/Lovenox GI prophylaxis/Protonix Foot care Daily foot inspection Soft, wide than protect she was only APAP in the hospital She has been advised the to discuss with her family doctor Re: Sleep medicine evaluation This medical document was created using an electronic medical record system with [employer] dictation system. Although this document has been carefully reviewed, there may still be some phonetic and typographical errors. These areas are purely typographical due to imperfections of the software programs, and do not reflect any compromise in the patient's medical care Prognosis poor Plan discussed with: Patient, Other KANDACE ALEGRIA MD Oct 03, 2024 23:50
[2024-10-04] VITALS (7 sets, daily range): BP systolic 90–96; BP diastolic 49–55; PULSE 76–81; RESP 17–18; TEMP 98.4–98.8; O2SAT 92–100
[2024-10-04] MEDS: PNEUMOCOCCAL VACC POLYS 25 MCG/0.5 ML VIAL IM ONE (10:25)
[2024-10-04] MEDS: INFLUENZA TRIVALENT 2024-2025 0.5 ML INJ IM ONE (10:27)
--- NOTE | 2024-10-04 11:26 | DVHPN2 ---
Subjective Generalized weakness Reviewed: Care Plan, H&P, Labs Changes from previous H/P or p: No Changes General: Per HPI Eyes: No Pain, No Vision change, No Conjunctivae inflammation, No Eyelid inflammation, No Other, No Redness ENT: No Ear pain, No Ear discharge, No Nose pain, No Nose discharge, No Nose congestion, No Mouth pain, No Mouth swelling, No Throat pain, No Throat swelling, No Other Cardiovascular: No Chest Pain, No Palpitations, No Orthopnea, No Paroxysmal Noc. Dyspnea, No Edema, No Lt Headedness, No Other Respiratory: No Cough, No Dry, No Shortness of breath, No SOB with excertion, No Wheezing, No Hemoptysis, No Pleuritic Pain, No Sputum, No Other Genitourinary: No Dysuria, No Frequency, No Incontinence, No Hematuria, No Retention, No Other Musculoskeletal: No other, No neck pain, No shoulder pain, No arm pain, No back pain, No hand pain, No leg pain, No foot pain Skin: No Rash, No Lesions, No Jaundice, No Bruising, No Other Objective Vitals Vital Signs Date Time Temp Pulse Resp B/P (MAP) Pulse Ox O2 Delivery O2 Flow Rate FiO2 10/04/24 09:47 76 18 96 10/04/24 09:00 98.8 93/49 (64) 98.8 10/04/24 08:00 Room Air* 0 21 Intake/Output Intake and Output 10/04/24 07:00 Intake Total 3290 ml Output Total 1 ml Balance 3289 ml Intake Oral 3090 ml IV Total 200 ml Stool Total 1 ml # Voids 5 # Bowel Movements 1 General Appearance: Alert, Oriented X3, Cooperative, mild distress HEENT: Atraumatic, PERRLA Cardiovascular: Normal S1, Normal S2 Musculoskeletal: Normal sensory function, Normal motor function Neuro: Normal gait, Normal speech, Cranial nerves 3-12 NL Skin: Dry, Intact Psych/Mental Status: Mental status NL, Mood NL Medications Current Medications Medications Dose Ordered Sig/Mary Anne Route Start Time Stop Time Status Last Admin Dose Admin Nitroglycerin 0.4 mg Q5MINP PRN SL 09/27/24 23:00 Morphine Sulfate 2 mg Q30M PRN IV 09/27/24 23:00 Ticagrelor 90 mg BID PO 09/28/24 10:00 10/04/24 09:57 90 MG Aspirin 81 mg DAILY PO 09/28/24 10:00 10/04/24 09:57 81 MG Insulin Glargine 40 units HS SC 09/28/24 22:00 10/03/24 23:24 40 UNITS Diagnostic Test (Pha) 1 strip Q6HR 09/28/24 00:00 10/04/24 05:12 1 STRIP Insulin Human Regular Q6HR SC 09/28/24 00:00 10/03/24 23:23 3 UNITS Dextrose 50 ml UD PRN IV 09/27/24 23:00 Empaglifozin 10 mg DAILY PO 09/28/24 10:00 10/04/24 09:57 10 MG Atorvastatin Calcium 80 mg HS PO 09/28/24 22:00 10/03/24 21:33 80 MG Cefazolin Sodium/ Dextrose 50 ml @ 50 mls/hr Q8HR IV 09/28/24 06:00 10/04/24 05:07 50 MLS/HR Pantoprazole Sodium 40 mg DAILY IV 09/28/24 10:00 10/04/24 09:56 40 MG Sennosides 8.6 mg HS PO 09/28/24 22:00 10/03/24 21:33 8.6 MG Polyethylene Glycol 17 gm DAILYPRN PRN PO 09/27/24 23:15 Nicotine 1 patch DAILY TD 09/29/24 10:00 10/04/24 09:57 1 PATCH Acetaminophen 650 mg Q6HP PRN PO 09/28/24 16:30 09/28/24 17:16 650 MG Ivabradine 2.5 mg BID PO 09/29/24 10:00 10/04/24 09:58 2.5 MG Melatonin 5 mg HS PO 09/29/24 22:00 10/03/24 21:33 5 MG Fluconazole 100 mg DAILY PO 10/01/24 10:00 10/04/24 09:58 100 MG Saccharomyces Boulardii 250 mg DAILY PO 10/01/24 10:00 10/04/24 09:57 250 MG Laboratory Results Laboratory Tests 10/01/24 05:45 Urinalysis Test 09/28/24 01:52 Urine Color Yellow (Yellow) Urine Clarity Clear (Clear) Urine pH 5.5 (5.0-9.0) Urine Specific [place] 1.023 (1.001-1.035) Urine Protein Trace (Negative) H Urine Ketones Negative (Negative) Urine Blood Negative /uL (Negative) Urine Nitrite Negative (Negative) Urine Bilirubin Negative (Negative) Urine Urobilinogen Normal mg/dL (Negative) Urine Leukocyte Esterase 1+ /uL (Negative) Urine RBC 1 /hpf (0 - 4) Urine Microscopic WBC 14 /HPF (0-5) H Urine Squamous Epithelial Cells Few /hpf (<5) Urine Bacteria None seen /hpf (None Seen) Urine Hyaline Casts Few /lpf (0 - 2) Urine Mucus Few (None Seen) Urine Osmolality 617 mOsm/kg Urine Sodium < 10 mmol/L (40-220) L Urine Glucose 4+ mg/dL (Normal) H Urine Test Negative (Negative) Microbiology Microbiology Date/Time Source Procedure Growth Status 09/30/24 14:05 Blood Blood Culture - Preliminary NO GROWTH AFTER 72 HOURS OF INCUBATION. Resulted 09/28/24 01:52 Voided Urine Urine Culture - Final Yeast, not Trini albicans Complete 09/28/24 01:15 Nose MRSA Screen - Final Complete Labs and/or images reviewed: Labs reviewed by me, Image(s) reviewed by me Assessment/Plan Assessment/Plan Impression: -status post PTCA stent placement in LAD circumflex artery RCA -amphetamine abuse -acute decompensated systolic and diastolic heart failure -obesity -sepsis with MSSA in the blood -diabetes mellitus Plan: -events: Patient discharged yesterday. Pending discharge medications. Continue current plan of care until DC home. -repeat blood culture -cardiology consultation -continue antibiotic therapy with Ancef -continue Jardiance, hold other goal-directed medical therapy given soft blood pressure. -regular insulin sliding scale , Lantus -repeat labs in a.m. Total time spent with patient discussing and formulating plan of care: 35 minutes. This medical document was created using an electronic medical record system with [employer] dictation system. Although this document has been carefully reviewed, there may still be some phonetic and typographical errors. These areas are purely typographical due to imperfections of the software programs, and do not reflect any compromise in the patient's medical care. Plan discussed with: Patient, Other (RN) My Orders Orders - INDU GARCÍA NP Procedure Category Date Status Time Discharge DISCHARGE 10/03/24 Transmitted 11:24 Schedule For Dc HUNTER 10/03/24 In Process Clinic F/U 11:24 Date of Service: Oct 04, 2024 Billing Provider: INDU GARCÍA NP Common Visit Codes: [id number] INP/OBS CARE(HIGH) INDU GARCÍA NP Oct 04, 2024 11:26
== END 2024-10-04 14:00 | disposition home or self-care (01) | DRG 720 ==
LOC: WEST WING 21:40 → ICU CENTRL 09-28 03:25 → TELE-WESTW 09-28 16:03
PROVIDERS: ADMIT Nurse Practitioner Acute Care; ATTEND Nurse Practitioner Acute Care
PROC: 5A09357 Assistance with Respiratory Ventilation, Less than 24 Consecutive Hours, Continuous Positive Airway Pressure (ICD-10-PCS; principal; 2024-09-28)
PROC: 5A09357 Assistance with Respiratory Ventilation, Less than 24 Consecutive Hours, Continuous Positive Airway Pressure (ICD-10-PCS; 2024-09-30)
PROC: 5A09357 Assistance with Respiratory Ventilation, Less than 24 Consecutive Hours, Continuous Positive Airway Pressure (ICD-10-PCS; 2024-10-02)
PROC: 5A09357 Assistance with Respiratory Ventilation, Less than 24 Consecutive Hours, Continuous Positive Airway Pressure (ICD-10-PCS; 2024-10-03)
PROC: 5A09357 Assistance with Respiratory Ventilation, Less than 24 Consecutive Hours, Continuous Positive Airway Pressure (ICD-10-PCS; 2024-10-04)
DX: A41.01 Sepsis due to Methicillin susceptible Staphylococcus aureus (principal); R57.0 Cardiogenic shock; I21.4 Non-ST elevation (NSTEMI) myocardial infarction; I50.43 Acute on chronic combined systolic (congestive) and diastolic (congestive) heart failure; E87.1 Hypo-osmolality and hyponatremia; R47.01 Aphasia; D50.9 Iron deficiency anemia, unspecified; E11.65 Type 2 diabetes mellitus with hyperglycemia; E66.9 Obesity, unspecified; E78.5 Hyperlipidemia, unspecified; I11.0 Hypertensive heart disease with heart failure; F15.10 Other stimulant abuse, uncomplicated; R29.810 Facial weakness; E03.9 Hypothyroidism, unspecified; S30.1XXA Contusion of abdominal wall, initial encounter; X58.XXXA Exposure to other specified factors, initial encounter; I25.10 Atherosclerotic heart disease of native coronary artery without angina pectoris; E11.9 Type 2 diabetes mellitus without complications; R74.01 Elevation of levels of liver transaminase levels; Z88.8 Allergy status to other drugs, medicaments and biological substances; Z79.899 Other long term (current) drug therapy; Z82.49 Family history of ischemic heart disease and other diseases of the circulatory system; Z82.5 Family history of asthma and other chronic lower respiratory diseases; Z83.3 Family history of diabetes mellitus; Z82.3 Family history of stroke; Z87.891 Personal history of nicotine dependence; Z79.4 Long term (current) use of insulin; Z79.82 Long term (current) use of aspirin; Y93.89 Activity, other specified; Y92.89 Other specified places as the place of occurrence of the external cause; Y99.8 Other external cause status; Z98.61 Coronary angioplasty status; Z68.34 Body mass index [BMI] 34.0-34.9, adult; I25.2 Old myocardial infarction; Z79.84 Long term (current) use of oral hypoglycemic drugs
CPT/HCPCS: 36415; 71045; 80048; 80053; 80307; 81001; 81025; 82270; 82728; 82962; 82977; 83540; 83550; 83605; 83735; 83880; 83935; 84300; 84439; 84443; 84481; 84484; 85025; 85610; 85730; 87040; 87077; 87081; 87086; 87088; 87186; 93005; 93306; 93926; 93971; 94660; 96365; 96372; 96375; G0378; J1815; J2470

== ENCOUNTER 2024-10-08 19:34 | Emergency (ER) | payer MEDICAID ==
[~2024-10-08] VITALS: Ht 162.6 cm; Wt 84.0 kg
[~2024-10-08 19:34] MED LIST changes: +ACET325T82 PO; -ALBU108A5 IN; +ALBUAER3 IN; +ASPI-325 PO; +ASPI81CH59 PO; +ATOR-507 PO; +AUG875T PO; +BUPR2MIS SL; -CEPH500C PO; -CLOT1CRE78 EX; +EMPA1TAB PO; +ESCI10TA PO; +FURO1TAB33 PO; -HYDR-3682 PO; +INSLANTI SC; +INSUINJ37 SC; +IVAB1.7T PO; +IVAB5TAB2 PO; -LEVO750T40 PO; -NAPR-746; -NOR10T; -NORFLEX; -NYST150P2 XX; +OMEP20TA PO; -POLYSOL28 OP; -PRILOSEC; -PROM1SOL4 PO; +TICA90TA PO; -TRIA0.02 TOP; -TRIA0.1O TOP
[2024-10-08 20:19] VITALS: BP 120/72; PULSE 104; RESP 16; O2SAT 99
== END 2024-10-08 21:13 | disposition left against medical advice (07) ==
LOC: ER 19:34
DX: R10.2 Pelvic and perineal pain (principal); Z53.21 Procedure and treatment not carried out due to patient leaving prior to being seen by health care provider

== ENCOUNTER 2024-10-23 13:56 | Inpatient (IN) | payer MEDICAID ==
[2024-10-23] VITALS (13 sets, daily range): BP systolic 88–148; BP diastolic 51–79; PULSE 71–97; RESP 10–23; TEMP 97.6–98.7; O2SAT 95–100
[~2024-10-23] VITALS: Ht 162.6 cm; Wt 87.0 kg
[~2024-10-23 13:56] MED LIST changes: +ISOS1TAB28 PO
[2024-10-23 14:54] LABS: Chloride 104 mmol/L (98-107); Potassium 3.9 mmol/L (3.5-5.1)
[2024-10-23 14:55] LABS: Anion Gap 8 (5-15); Basophils # (auto) 0 10 ^3/uL (0-0.2); Eosinophils # (auto) 0.3 10 ^3/uL (0-0.8); Hematocrit 33.1 % (36.0-46.0); Hemoglobin 10.9 g/dL (12.2-16.2); Lymphocytes # (auto) 0.6 10 ^3/uL (0.4-5.4); Monocytes # (auto) 0.2 10 ^3/uL (0-1.3); Nucleated Red Blood Cells % 0.2 %; White Blood Cell 2.1 10^3/uL (4.4-10.8)
[2024-10-23 14:56] LABS: Basophils % (auto) 0.2 % (0.0-2.0); Calcium 9.4 mg/dL (8.7-10.4); Eosinophils % (auto) 11.9 % (0.0-7.0); Lymphocytes % (auto) 29.7 % (10.0-50.0); Mean Corpuscular Hemoglobin 25.1 pg (28.0-32.0); Mean Corpuscular Volume 76.1 fL (80.0-100.0); Monocytes % (auto) 9.6 % (0.0-12.0); Neutrophils % (auto) 48.6 % (37.0-80.0); Platelet Count (auto) 189 10^3/uL (140-450); Red Blood Cells 4.35 10^6/uL (4.0-5.20); Red Cell Distribution Width 15.7 % (11.8-14.3)
[2024-10-23 14:57] LABS: Carbon Dioxide 20 mmol/L (20-31); Sodium 132 mmol/L (136-145)
[2024-10-23 15:01] LABS: Blood Urea Nitrogen 14 mg/dL (9-23)
--- NOTE | 2024-10-23 15:01 | DVH ---
CHEST RADIOGRAPH Indication: cp Technique: Single frontal view of the chest was obtained Comparison: XY CHEST PORTABLE on DOS: 09/28/24 FINDINGS: Lines and Tubes: None Lungs: No focal consolidation. Pleura: No effusion. No pneumothorax. Cardiomediastinal contours: Unremarkable Bones: No acute osseous abnormality. IMPRESSION: 1. No acute cardiopulmonary disease.
[2024-10-23 15:02] LABS: Glucose 196 mg/dL (74-106)
[2024-10-23] MEDS: SODIUM CHLORIDE 0.9% 500 ML IV ONE ×2 (15:03→20:38)
--- NOTE | 2024-10-23 15:09 | ED.PDOC ---
HPI Comments 49 y.o female with PMHx of DM, HTN, hyperlipidemia, CHF with EJ fraction of 20%, ND, PTCA x2, NSTEMI x2, and anxiety, presents to the ED for a chief complaint of substernal chest pain associated with SOB that started today at 0500 while laying down in bed. Patient describes pain as a pressure sensation that is constant, non radiating, and has no alleviating or precipitating factors. Patient reports this pain feels similar to her previous ND episode. Patient denies any nausea, vomiting, diarrhea, fever, chills, leg swelling. Chief Complaint: Chest Pain Time Seen by MD: 14:20 Primary Care Provider: SHERI Reviewed Notes: Nurses Notes, Medications, Allergies Allergies: Coded Allergies: Ibuprofen (Verified Allergy, Unknown, 07/23/14) Mushroom Extract Complex (Verified Allergy, Unknown, 09/28/24) Mushroom food allergy Home Meds Active Scripts Aspirin (Aspirin Low Dose) 81 Mg Tab, 81 MG PO DAILY for 30 Days, #30 TAB 3 Refills Prov:IND[employer]ARC[employer] 10/03/24 Amoxicillin & Pot Clavulanate (AUGMENTIN TABLET) 875 Mg Tb, 875 MG PO BID for 10 Days, #20 TAB Prov:[employer] 10/03/24 Furosemide (Lasix) 20 Mg Tb, 1 TAB PO DAILY, #90 TAB 1 Refill Prov:[employer] 10/03/24 Empagliflozin (Jardiance) 10 Mg Tab, 10 MG PO DAILY for 30 Days, #30 TAB 3 Refills Prov:[employer] 10/03/24 Insulin Glargine (Lantus) 100 Unit/Ml Inj, 40 UNITS SC HS for 30 Days, #5 INJ 3 Refills Prescirbe Pre-filled pens please. Prov:[employer] 10/03/24 Ticagrelor Base (BRILINTA) 90 Mg Tab, 90 MG PO BID for 30 Days, #60 TAB 3 Refills Prov:[employer] 10/03/24 Ivabradine Hydrochloride (Corlanor) 5 Mg Tab, 2.5 MG PO BID for 30 Days, #30 TAB 3 Refills Prov:[employer] 10/03/24 Reported Medications Insulin Glargine (Lantus Solostar) 100 Unit/Ml Inj, 15 UNIT SC BID, INJ 09/27/24 Albuterol Sulfate (VENTOLIN MDI) 90 Mcg Ih, 1 PUFF IN DAILY, INH 09/27/24 Omeprazole (Gnp Omeprazole) 20 Mg Tab, 20 MG PO DAILY, TAB 09/27/24 Escitalopram Oxalate (Lexapro) 10 Mg Tab, 10 MG PO DAILY, TAB 09/27/24 Acetaminophen (Apap) 325 Mg Tab, 2 TAB PO Q6HP PRN for PAIN SCALE 1 THRU 6, TAB 09/27/24 Buprenorphine Hcl-Naloxone Hcl (Suboxone) 1 Mis Mis, 1 MIS SL DAILY, MISC 09/27/24 Ticagrelor Base (BRILINTA) 90 Mg Tab, 90 MG PO BID, TAB 09/27/24 Ivabradine HCl (Ivabradine Hydrochloride) 5 Mg Tab, 2.5 MG PO BID, TAB 09/27/24 Atorvastatin Calcium (Lipitor) 40 Mg Tab, 40 MG PO DAILY, TAB 09/27/24 Aspirin (Aspirin Low Dose) 81 Mg Chw, 81 MG PO DAILY, TAB.CHEW 09/27/24 Empagliflozin (Jardiance) 10 Mg Tab, 10 MG PO DAILY, TAB 09/27/24 Information Source: Patient Mode of Arrival: Wheelchair Severity: Moderate Timing: Hours Duration: Since onset Location: Substernal Radiation: No Radiation Quality: Pressure Onset: At Rest Cardiac Risk Factors: Hyperlipidemia, HTN, Diabetes PE Risk Factors: None History of: Similar pain in past, ND Modifying Factors: Nothing Associated Signs and Symptoms: SOB Past Medical History PAST MEDICAL HISTORY: Anxiety, CHF, DM, High Lipids, HTN, ND Surgical History: PTCA (3) HANDKERCHIEF SAMPLE CLERK History: No Pertinent HANDKERCHIEF SAMPLE CLERK History Family History Family History: Reviewed,noncontributory to illness Social History Smoker: Cigarettes Alcohol: Occasionally Drugs: Marijuana, Methamphetamine Lives In: Home Constitutional: denies: chills, diaphoresis, fatigue, fever, malaise, sweats, weakness, others EENTM: denies: blurred vision, double vision, ear bleeding, ear discharge, ear drainage, ear pain, ear ringing, eye pain, eye redness, hearing loss, mouth pain, mouth swelling, nasal discharge, nose bleeding, nose congestion, nose pain, photophobia, tearing, throat pain, throat swelling, voice changes, others Respiratory: reports: SOB at rest, shortness of breath, SOB with excertion; denies: cough, hemoptysis, orthopnea, stridor, wheezing, others Cardiovascular: reports: chest pain; denies: dizzy spells, diaphoresis, Dyspnea on exertion, edema, irregular heart beat, left arm pain, lightheadedness, palpitations, PND, syncope, others Gastrointestinal: denies: abdomen distended, abdominal pain, blood streaked bowels, constipated, diarrhea, dysphagia, difficulty swallowing, hematemesis, melena, nausea, poor appetite, poor fluid intake, rectal bleeding, rectal pain, vomiting, others Genitourinary: denies: abnormal vagina bleeding, burning, dyspareunia, dysuria, flank pain, frequency, hematuria, incontinence, pain, , vagina di scharge, urgency, others Neurological: denies: dizziness, fainting, headache, left sided numbness, left sided weakness, numbness, paresthesia, pre-existing deficit, right sided numbness, right sided weakness, seizure, speech problems, tingling, tremors, weakness, others Musculoskeletal: denies: back pain, gout, joint pain, joint swelling, muscle pain, muscle stiffness, neck pain, others Integumetry: denies: bruises, change in color, change in hair/nails, dryness, laceration, lesions, lumps, rash, wounds, others Allergic/Immunocompromised: denies: Difficulty Healing, Frequent Infections, Hives, Itching, others Hematologic/Lymphatic: denies: anemia, blood clots, easy bleeding, easy bruising, swollen glands, others Endocrine: denies: excessive hunger, excessive sweating, excessive thirst, excessive urination, flushing, intolerance to cold, intolerance to heat, unexplained weight gain, unexplained weight loss, others Psychiatric: denies: anxiety, bipolar disorder, depression, hopeless, panic disorder, schizophrenia, sleepless, suicidal, others All Other Systems: Reviewed and Negative Physical Exam General Appearance: No Apparent Distress, Normal HEENT: Normal ENT Inspection, Pharynx Normal, TMs Normal Neck: Full Range of Motion, Non-Tender, Normal, Normal Inspection Respiratory: Chest Non-Tender, Lungs Clear, No Accessory Muscle Use, No Respiratory Distress, Normal Breath Sounds Cardiovascular: No Edema, No JVD, No Murmur, No Gallop, Normal Peripheral Pulses, Regular Rate/Rhythm Breast Exam: Deferred Gastrointestinal: No Organomegaly, Non Tender, No Pulsatile Mass, Normal Bowel Sounds, Soft Genitalia: Deferred Pelvic: Deferred Rectal: Deferred Extremities: No calf tenderness, Normal capillary refill, Normal inspection, N ormal range of motion, Non-tender, No pedal edema Musculoskeletal : Apperance: Normal Neurologic: Alert, net coordinator II-XII nml as Tested, No Motor Deficits, Normal Affect, Normal Mood, No Sensory Deficits Cerebellar Function: Normal Reflexes: Normal Skin: Dry, Normal Color, Warm Lymphatic: No Adenopathy Was a procedure done? Was a procedure done?: No CP Differential Dx Differential Diagnosis: Angina, Anxiety / Panic Attack, Electrolyte Disorder, Heart Failure, ND, N/A Differential Diagnosis: CHF Differential Diagnosis: Angina, Chest Wall Pain, Cholelithiasis, Costochondritis, Gastritis, Myocardial Infarction, Pericarditis, Pneumonia, Pulmonary Embolus X-Ray, Labs, Meds, VS Vital Signs Date Time Temp Pulse Resp B/P (MAP) Pulse Ox O2 Delivery O2 Flow Rate FiO2 10/23/24 15:41 78 10/23/24 14:35 82/42 (55) 10/23/24 14:30 97.6 96 18 78/50 (59) 95 97.6 10/23/24 14:30 96 18 95 Room Air* 0 21 10/23/24 14:20 98.0 73 16 88/84 (85) 99 10/23/24 14:07 96 Lab Test 10/23/24 16:00 10/23/24 15:33 10/23/24 14:11 Range/Units Urine Opiates Screen Pending Urine Fentanyl Screen Pending Urine Barbiturates Screen Pending Urine Phencyclidine Screen Pending Urine Amphetamines Screen Pending Urine Benzodiazepines Screen Pending Urine Cocaine Screen Pending Urine Cannabinoids Screen Pending Troponin I High Sensitivity Pending 74 *H </=34 ng/L White Blood Count 2.1 L 4.4-10.8 10^3/uL Red Blood Count 4.35 4.0-5.20 10^6/uL Hemoglobin 10.9 L 12.2-16.2 g/dL Hematocrit 33.1 L 36.0-46.0 % Mean Corpuscular Volume 76.1 L 80.0-100.0 fL Mean Corpuscular Hemoglobin 25.1 L 28.0-32.0 pg Mean Corpuscular Hemoglobin Concent 33.0 32.0-36.0 g/dL Red Cell Distribution Width 15.7 H 11.8-14.3 % Platelet Count 189 140-450 10^3/uL Mean Platelet Volume 8.8 6.9-10.8 fL Neutrophils (%) (Auto) 48.6 37.0-80.0 % Lymphocytes (%) (Auto) 29.7 10.0-50.0 % Monocytes (%) (Auto) 9.6 0.0-12.0 % Eosinophils (%) (Auto) 11.9 H 0.0-7.0 % Basophils (%) (Auto) 0.2 0.0-2.0 % Neutrophils # (Auto) 1.0 L 1.6-8.6 10 ^3/uL Lymphocytes # (Auto) 0.6 0.4-5.4 10 ^3/uL Monocytes # (Auto) 0.2 0-1.3 10 ^3/uL Eosinophils # (Auto) 0.3 0-0.8 10 ^3/uL Basophils # (Auto) 0 0-0.2 10 ^3/uL Nucleated Red Blood Cells 0.2 % Sodium Level 132 L 136-145 mmol/L Potassium Level 3.9 3.5-5.1 mmol/L Chloride Level 104 98-107 mmol/L Carbon Dioxide Level 20 20-31 mmol/L Anion Gap 8 5-15 Blood Urea Nitrogen 14 9-23 mg/dL Creatinine 1.00 0.550-1.02 mg/dL Glomerular Filtration Rate Calc 69 >90 mL/min BUN/Creatinine Ratio 14.0 10.0-20.0 Serum Glucose 196 H 74-106 mg/dL Calcium Level 9.4 8.7-10.4 mg/dL Current Medications Medications (Trade) Dose Ordered Sig/Mary Anne Route Start Time Stop Time Status Last Admin Sodium Chloride 500 ml @ 500 mls/hr Q1H ONCE IV 10/23/24 14:45 10/23/24 15:44 DC 10/23/24 15:03 Time of 1ST Reevaluation: 15:04 Reevaluation 1ST: Unchanged Reevaluation 2ND: Improved Patient Education/Counseling: Diagnosis, Treatment, Prognosis, Need For Follow Up, Other, Pt Unresponsive Family Education/Counseling: Diagnosis, Treatment, Prognosis, Need For Follow Up Additional Information Previous visit documents reviewed: 10/08/24 wound check 09/27/24 NSTEMI 09/14/24 NSTEMI 09/09/24 Acute bronchitis The following tests were ordered, and results were reviewed by me: EKG x3, NS, CXR, lab including Troponin x3, BMP, CBC, Drug screen Additional Information was gathered from interviewing the following independent historians: None I reviewed and agreed with the following test results read by other providers: CXR I discussed treatment and results with medical personnel and: patient pt has 20% ef, per pt herself. her systolic Bp is not expected to be much above 100, if at all, if her Bp were well controlled. pt appears alert, comfortable, so the initial hypotension is likely not too from her baseline. however, she had symptoms of CP, a history of ND and along with the hypotension and mildly elevated trop, she likely has ACS. she will be admitted for further evaluation and treatments Departure 1 Departure Time of Disposition: 16:29 Impression: Primary Impression: Acute coronary syndrome Disposition: ADMITTED INPATIENT Admit to: Tele Condition: Serious Critical Care Note Critical Care Time?: Yes (55 min-critical care time only) Critical care comment: Due to concerns for patients condition deteriorating, the care required my highest level of attention and readiness to intervene. I assessed the patient, reviewed the medical records, ordered the appropriate tests and treatments, then reassessed for results and responsiveness. I communicated with medical personnel and consultants and formulated a plan of care. Total critical care time excludes any procedures Stability Stability form required: No Heart Score Heart Score: Heart Score Response (Comments) Value History Highly Suspicious 2 EKG Repolarization Disturb 1 Age 45-64 1 Risk Factors >3 or Hx ASHD 2 Troponin 1-2 x's Normal limit 1 Total 7 I personally scribed for TUYET DIAZ MD ([email or web address]) on 10/23/24 at 15:09. Electronically submitted by Eryn Salinas ([facility]). TUYET DIAZ MD Oct 23, 2024 15:09
[2024-10-23] MEDS: ASPirin 325 MG TAB PO ONE (16:35)
[2024-10-23 16:47] LABS: Opiate Scree,Urine Neg (NEGATIVE)
[2024-10-23 16:50] LABS: Amphetamine Screen, Urine Neg (NEGATIVE); Barbiturate Scree,Urine Neg (NEGATIVE); Benzodiazephine Screen, Urine Neg (NEGATIVE); Cannabinoid Screen, Urine Neg (NEGATIVE); Cocaine Screen, Urine Neg (NEGATIVE); Phencyclidine Screen, Urine Neg (NEGATIVE)
[2024-10-23] MEDS ORDERED: ONDANSETRON HCL 4 MG/2 ML VIAL IV PRN (17:15)
[2024-10-23] MEDS ORDERED: DEXTROSE (50%) 50ML SYRG IV PRN (17:15)
[2024-10-23] MEDS ORDERED: MORPHINE SULFATE 4 MG/ML SYR/VIAL IV PRN (17:15)
--- NOTE | 2024-10-23 17:40 | DVHHP2 ---
History of Present Illness Reason for Visit: Chest pain History of Present Illness Maritza Fan is a 49-year-old female with past medical history of hypertension, hyperlipidemia, diabetes type 2, CHF, CVA with no deficits, MD, anxiety, PTCA x3 on 09/22/24 with an Impella that was placed in and removed on 09/24/24 at [facility], and right groin I and D with a wound VAC currently in place from [facility] who presents to the ED with chest pain and shortness of breath that occurred this morning around 5:00 a.m.. Patient states that she was sleeping at the time and the pain woke her up from her sleep. She reports that the pain is currently 7/10 pressure-like and constant and radiates to her left mid axillary. Patient states that she is currently taking Bactrim for her MRSA infection that started on her left dorsal hand and her right groin which started on October 15 and due to finish on October 28. Patient denies any abdominal pain, nausea, vomiting, diarrhea, lightheadedness, weakness, fever, chills, and dizziness. Patient also reports that she uses a cane and a front wheel walker to ambulate. Patient states that she quit smoking, quit drinking, and quit illicit drugs this August. Patient also reports that she had fallen 1 year ago on her head and she is currently cleaning the top of her scalp with solution and placing a bandage over the site. Patient also states that she only takes aspirin for her current stents in place. 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 Psych: Anxiety Endocrine: Diabetes Past Surgical History: Other (Status post PTCA x3 on to 6 with an Impella that was removed on to 8 Right groin I and D with a wound VAC currently in place) Family History: Other (Mom with COPD and dad with heart disease) Smoke: Quit ALCOHOL: none (Quit) Drugs: Marijuana, Other (Methamphetamine and marijuana quit) Lives: with Family Domestic Violence: Neg Review of Systems Respiratory: Shortness of breath Cardiovascular: Chest Pain Allergies: Coded Allergies: Ibuprofen (Verified Allergy, Unknown, 07/23/14) Mushroom Extract Complex (Verified Allergy, Unknown, 09/28/24) Mushroom food allergy Medications Current Medications Medications Dose Ordered Sig/Mary Anne Route Start Time Stop Time Status Last Admin Dose Admin Norepinephrine Bitartrate 250 ml @ 3.75 mls/hr Q24H IV 10/23/24 17:15 UNV Diagnostic Test (Pha) 1 strip ACHS 10/23/24 22:00 UNV Insulin Human Regular ACHS SC 10/23/24 22:00 UNV Dextrose 50 ml UD PRN IV 10/23/24 17:15 UNV Morphine Sulfate 2 mg Q30MP PRN IV 10/23/24 17:15 UNV Acetaminophen 650 mg Q6HP PRN PO 10/23/24 17:15 UNV Ondansetron HCl 4 mg Q4HP PRN IV 10/23/24 17:15 UNV Exam Vital Signs Vital Signs Date Time Temp Pulse Resp B/P (MAP) Pulse Ox O2 Delivery O2 Flow Rate FiO2 10/23/24 16:00 83 18 88/52 (64) 96 10/23/24 14:30 97.6 97.6 10/23/24 14:30 Room Air* 0 21 General Appearance: Alert, Oriented X3, Cooperative, No acute distress HEENT: Atraumatic, PERRLA, EOMI, Mucous membr. moist/pink Respiratory: Normal air movement Cardiovascular: Regular rate, Normal S1, Normal S2, No murmurs Abdominal: Normal bowel sounds, Soft, No tenderness, No hepatospenomegaly, No masses Extremities: No cyanosis Skin: No significant lesion Neuro: Normal speech, Normal tone, Sensation intact Psych/Mental Status: Mental status NL, Mood NL Labs/Xrays Labs Test 10/23/24 17:00 10/23/24 16:00 10/23/24 14:11 Range/Units Urine Opiates Screen Neg NEGATIVE Urine Fentanyl Screen Neg NEGATIVE Urine Barbiturates Screen Neg NEGATIVE Urine Phencyclidine Screen Neg NEGATIVE Urine Amphetamines Screen Neg NEGATIVE Urine Benzodiazepines Screen Neg NEGATIVE Urine Cocaine Screen Neg NEGATIVE Urine Cannabinoids Screen Neg NEGATIVE White Blood Count 2.1 L 4.4-10.8 10^3/uL Red Blood Count 4.35 4.0-5.20 10^6/uL Hemoglobin 10.9 L 12.2-16.2 g/dL Hematocrit 33.1 L 36.0-46.0 % Mean Corpuscular Volume 76.1 L 80.0-100.0 fL Mean Corpuscular Hemoglobin 25.1 L 28.0-32.0 pg Mean Corpuscular Hemoglobin Concent 33.0 32.0-36.0 g/dL Red Cell Distribution Width 15.7 H 11.8-14.3 % Platelet Count 189 140-450 10^3/uL Mean Platelet Volume 8.8 6.9-10.8 fL Neutrophils (%) (Auto) 48.6 37.0-80.0 % Lymphocytes (%) (Auto) 29.7 10.0-50.0 % Monocytes (%) (Auto) 9.6 0.0-12.0 % Eosinophils (%) (Auto) 11.9 H 0.0-7.0 % Basophils (%) (Auto) 0.2 0.0-2.0 % Neutrophils # (Auto) 1.0 L 1.6-8.6 10 ^3/uL Lymphocytes # (Auto) 0.6 0.4-5.4 10 ^3/uL Monocytes # (Auto) 0.2 0-1.3 10 ^3/uL Eosinophils # (Auto) 0.3 0-0.8 10 ^3/uL Basophils # (Auto) 0 0-0.2 10 ^3/uL Nucleated Red Blood Cells 0.2 % Sodium Level 132 L 136-145 mmol/L Potassium Level 3.9 3.5-5.1 mmol/L Chloride Level 104 98-107 mmol/L Carbon Dioxide Level 20 20-31 mmol/L Anion Gap 8 5-15 Blood Urea Nitrogen 14 9-23 mg/dL Creatinine 1.00 0.550-1.02 mg/dL Glomerular Filtration Rate Calc 69 >90 mL/min BUN/Creatinine Ratio 14.0 10.0-20.0 Serum Glucose 196 H 74-106 mg/dL Calcium Level 9.4 8.7-10.4 mg/dL CHEST RADIOGRAPH Indication: cp Technique: Single frontal view of the chest was obtained Comparison: XY CHEST PORTABLE on DOS: 09/28/24 FINDINGS: Lines and Tubes: None Lungs: No focal consolidation. Pleura: No effusion. No pneumothorax. Cardiomediastinal contours: Unremarkable Bones: No acute osseous abnormality. IMPRESSION: 1. No acute cardiopulmonary disease. Assessment/Plan Assessment/Plan Assessment Chest pain Rule out sepsis Hypotension Anemia Hyponatremia Obesity Diabetes type 2 uncontrolled History of MRSA infection History of right groin I&D with a wound VAC History of hypertension History of hyperlipidemia History of MD status post PTCA x3 on 09/22/2024 at [facility] History of polysubstance abuse Plan Admit to ICU Vasopressors Wound consult Cardiology consult Hemoglobin A1c ISS and Accu-Cheks Aspirin NS 500 cc given in ED Drug screen EKG noted Chest x-ray BNP Respiratory treatments UDS Urine culture Lactate Blood cultures TSH Diet Discussed plan of care with patient and nurse IV antibiotics-ceftriaxone Resume home medications DVT prophylaxis -SCDs Counseled patient on cessation of polysubstance use Counseled patient on lifestyle modifications, diet, and exercise Continue home medication Bactrim until 10/28/24 Plan discussed with: Patient My Orders Orders - AGUS REZA 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 INSTALLER Procedure Category Date Status Time Norepinephrine Drip PHA 10/23/24 Transmitted Levophed 17:15 Hemoglobin A1c LAB 10/23/24 Transmitted 17:07 Glucose Blood PHA 10/23/24 Transmitted (Accu-Chek Comfort 22:00 Mild Sliding Scale PHA 10/23/24 Transmitted 22:00 Dextrose 50% Syringe PHA 10/23/24 Transmitted 17:15 Drug Screen LAB 10/23/24 Transmitted 17:07 Lactate Dehydrogenase LAB 10/23/24 Transmitted 17:07 Blood Culture CRISSY 10/23/24 Transmitted 17:07 Urinalysis LAB 10/23/24 Transmitted 17:07 Urine Bacterial CRISSY 10/23/24 Transmitted Culture 17:07 * Cardiology Consult CONS 10/23/24 Transmitted 17:07 Thyroid Stimulating LAB 10/23/24 Transmitted Hormone 17:07 Admit ADMIT 10/23/24 Transmitted 17:07 Code Status CODE 10/23/24 Transmitted 17:07 Vital Signs HUNTER 10/23/24 Transmitted 17:07 Genetics Teacher HUNTER 10/23/24 Transmitted 17:07 Cardiac DIET 10/23/24 Transmitted Diet-2gna,Lofat,Lochol Dinner Morphine Sulfate PHA 10/23/24 Transmitted Injection 17:15 Acetaminophen Tablet PHA 10/23/24 Transmitted (Tylenol Tablet) 17:15 Complete Blood Count LAB 10/24/24 Verified 04:00 Basic Metabolic Panel LAB 10/24/24 Verified 04:00 Magnesium LAB 10/24/24 Verified 04:00 Ondansetron Hcl PHA 10/23/24 Transmitted (Zofran) 17:15 Electrocardigram EKG 10/24/24 Transmitted 04:00 Troponin-I Hs LAB 10/23/24 Transmitted 17:07 Cardiac HUNTER 10/23/24 Transmitted Rehabilitation - Outpa Nitroglycerin PHA 10/23/24 Transmitted Sublingual (Ntrostat 17:15 Morphine Sulfate PHA 10/23/24 Transmitted Injection 17:15 Stat Ekg For Chest [facility] 10/23/24 Transmitted Pain 17:07 Notify Of Changes [facility] 10/23/24 Transmitted From Base 17:07 Developer [employer] For [facility] 10/23/24 Transmitted 24 Hours 17:07 Emergency Dysrhythmia [facility] 10/23/24 Transmitted Protocol 17:07 Rhythm Strips Once [facility] 10/23/24 Transmitted Every Shift 17:07 Oxygen By Nasal RT 10/23/24 Transmitted Cannula 17:07 Amoxicillin/Clavulanate [facility] 10/23/24 Transmitted Tablet (Augmenti 22:00 Empagliflozin PHA 10/24/24 Transmitted (Jardiance) 10:00 Furosemide Tablet [facility] 10/24/24 Transmitted (Lasix Tablet) 10:00 (Nf) Aspirin (Aspirin PHA 10/24/24 Transmitted Low Dose) 10:00 (Nf) Atorvastatin PHA 10/24/24 Transmitted Calcium (Lipitor) 10:00 (Nf) Buprenorphine [facility] 10/24/24 Transmitted Hcl-Naloxone Hcl (Sub 10:00 (Nf) Escitalopram PHA 10/24/24 Transmitted Oxalate (Lexapro) 10:00 (Nf) Omeprazole (Gnp PHA 10/24/24 Transmitted Omeprazole) 10:00 Date of Service: Oct 23, 2024 Billing Provider: AGUS REZA Common Visit Codes: [id number] INP/OBS CARE (HIGH) AGUS REZA Oct 23, 2024 17:40
[2024-10-23 17:51] LABS: Urine Bacteria None Seen /hpf (None Seen)
[2024-10-23 18:09] LABS: Urine Blood Negative /uL (Negative); Urine Clarity Clear (Clear); Urine Color Colorless (Yellow); Urine Protein, UAD Negative (Negative); Urine Specific Gravity 1.016 (1.001-1.035); Urine Squamous Epithelial Cell None Seen /hpf (<5); Urine Urobilinogen Normal (Negative); Urine WBC < 1 /HPF (0-5)
[2024-10-23 18:20] LABS: Thyroid Stimulating Hormone 0.21 uIU/mL (0.55-4.78)
[2024-10-23] MEDS: cefTRIAXone 1GM/50ML D5W 50 ML IV ONE (18:43)
[2024-10-23] MEDS ORDERED: SODIUM CHLORIDE 0.9% 1,650 ML IV ONE (18:45)
[2024-10-23] MEDS: NOREPINEPHRINE 8 MG/250ML KIT 250 ML IV SCH (18:52)
[2024-10-23] MEDS: MORPHINE SULFATE INJ 2 MG/ml SYRG IV PRN (20:26)
[2024-10-23] MEDS: BUDESONIDE (INHALATION) 0.5 MG/2 ML NEB NEB SCH (20:56)
[2024-10-23] MEDS: IPRATROPIUM BROM 0.5 MG/2.5ML INH SOL NEB PRN (20:56)
[2024-10-23] MEDS: ALBUTEROL SULF 2.5 MG/0.5ML(0.5%) NEB SOLN NEB PRN (20:56)
[2024-10-23] MEDS: InsuLIN REG 1unit/0.01ml Soln (100units/ml) SC SCH (22:00)
[2024-10-23] MEDS: ACCU-CHEK COMFORT CURVE STRIP VI SCH (22:00)
[2024-10-23] MEDS: AMOXICILLIN/CLAVUL 875 MG TAB PO SCH (22:33)
[2024-10-24] VITALS (78 sets, daily range): BP systolic 89–125; BP diastolic 40–71; PULSE 69–133; RESP 8–30; TEMP 98.2–99.3; O2SAT 83–100
[2024-10-24] MEDS: ACETAMINOPHEN 325 MG TAB PO PRN (02:46)
[2024-10-24 05:22] LABS: Chloride 106 mmol/L (98-107); Potassium 4.2 mmol/L (3.5-5.1)
[2024-10-24 05:23] LABS: Anion Gap 10 (5-15); Calcium 9.2 mg/dL (8.7-10.4)
[2024-10-24 05:25] LABS: Hemoglobin 9.2 g/dL (12.2-16.2); Mean Corpuscular Hemoglobin 24.9 pg (28.0-32.0); Mean Corpuscular Hgb Conc. 32.7 g/dL (32.0-36.0); Platelet Count (auto) 164 10^3/uL (140-450); Red Blood Cells 3.69 10^6/uL (4.0-5.20); Red Cell Distribution Width 15.5 % (11.8-14.3)
[2024-10-24 05:28] LABS: BUN/Creatinine Ratio 13.3 (10.0-20.0); Blood Urea Nitrogen 11 mg/dL (9-23)
[2024-10-24 05:30] LABS: Carbon Dioxide 19 mmol/L (20-31); Glucose 171 mg/dL (74-106); Sodium 135 mmol/L (136-145)
[2024-10-24 05:42] LABS: White Blood Cell 1.8 10^3/uL (4.4-10.8)
[2024-10-24 05:44] LABS: Basophils % (manual) 0 (0.0-2.0); Blast Cells 0; Metamyelocytes % 0; Myelocytes % 0; Promyelocytes % 0; Reactive Lymphocytes 0
[2024-10-24 08:16] LABS: Anisocytosis Slight; Band Neutrophils % (manual) 4; Eosinophils % (manual) 15 (0-7); Lymphocytes % (manual) 35 (10.0-50.0); Monocytes % (manual) 11 (0-12); Platelet Estimate Adequate
[2024-10-24] MEDS: cefTRIAXone 1GM/50ML D5W 50 ML IV SCH (09:26)
[2024-10-24] MEDS: FUROSEMIDE 20 MG TAB PO SCH (10:34)
[2024-10-24] MEDS: ATORVASTATIN 20 MG TAB PO SCH (10:34)
[2024-10-24] MEDS: PANTOPRAZOLE 40 MG TAB PO SCH (10:34)
[2024-10-24] MEDS: ASPirin 81 mg TAB PO SCH (10:35)
[2024-10-24] MEDS: EMPAGLIFLOZIN 10 MG TAB PO SCH (10:35)
--- NOTE | 2024-10-24 10:39 | DVHINCON2 ---
Date of service: Oct 24, 2024 History of Present Illness 49 yo F office pt of mine with complex hx of cad s/p impella high risk pci now with wound vac to groin, severe chf, recent scalp infection bacteremia admitted for chest pain and low wbc count. trops are -. ecg reviewed . pt taking brilinta Past Medical History reviewed Family History: Cerebrovascular accident (CVA) G8 MOTHER Chronic obstructive pulmonary disease G8 MOTHER Cirrhosis of liver G8 MOTHER Diabetes mellitus G8 MOTHER FH: CHF (congestive heart failure) G8 FATHER FH: emphysema G8 FATHER FH: tuberculosis G8 FATHER Hypertension G8 MOTHER Liver transplant G8 MOTHER Allergies: Coded Allergies: Ibuprofen (Verified Allergy, Unknown, 07/23/14) Mushroom Extract Complex (Verified Allergy, Unknown, 09/28/24) Mushroom food allergy Home Meds Active Scripts Aspirin (Aspirin Low Dose) 81 Mg Tab, 81 MG PO DAILY for 30 Days, #30 TAB 3 Refills Prov:INDU GARCÍA ENTRY LEVEL MANAGER 10/03/24 Amoxicillin & Pot Clavulanate (AUGMENTIN TABLET) 875 Mg Tb, 875 MG PO BID for 10 Days, #20 TAB Prov:INDU GARCÍA ENTRY LEVEL MANAGER 10/03/24 Furosemide (Lasix) 20 Mg Tb, 1 TAB PO DAILY, #90 TAB 1 Refill Prov:INDU GARCÍA ENTRY LEVEL MANAGER 10/03/24 Empagliflozin (Jardiance) 10 Mg Tab, 10 MG PO DAILY for 30 Days, #30 TAB 3 Refills Prov:INDU GARCÍA ENTRY LEVEL MANAGER 10/03/24 Insulin Glargine (Lantus) 100 Unit/Ml Inj, 40 UNITS SC HS for 30 Days, #5 INJ 3 Refills Prescirbe Pre-filled pens please. Prov:INDU GARCÍA ENTRY LEVEL MANAGER 10/03/24 Ticagrelor Base (BRILINTA) 90 Mg Tab, 90 MG PO BID for 30 Days, #60 TAB 3 Refills Prov:INDU GARCÍA ENTRY LEVEL MANAGER 10/03/24 Ivabradine Hydrochloride (Corlanor) 5 Mg Tab, 2.5 MG PO BID for 30 Days, #30 TAB 3 Refills Prov:INDU GARCÍA ENTRY LEVEL MANAGER 10/03/24 Reported Medications Insulin Glargine (Lantus Solostar) 100 Unit/Ml Inj, 15 UNIT SC BID, INJ 09/27/24 Albuterol Sulfate (VENTOLIN MDI) 90 Mcg Ih, 1 PUFF IN DAILY, INH 09/27/24 Omeprazole (Gnp Omeprazole) 20 Mg Tab, 20 MG PO DAILY, TAB 09/27/24 Escitalopram Oxalate (Lexapro) 10 Mg Tab, 10 MG PO DAILY, TAB 09/27/24 Acetaminophen (Apap) 325 Mg Tab, 2 TAB PO Q6HP PRN for PAIN SCALE 1 THRU 6, TAB 09/27/24 Buprenorphine Hcl-Naloxone Hcl (Suboxone) 1 Mis Mis, 1 MIS SL DAILY, MISC 09/27/24 Ticagrelor Base (BRILINTA) 90 Mg Tab, 90 MG PO BID, TAB 09/27/24 Ivabradine HCl (Ivabradine Hydrochloride) 5 Mg Tab, 2.5 MG PO BID, TAB 09/27/24 Atorvastatin Calcium (Lipitor) 40 Mg Tab, 40 MG PO DAILY, TAB 09/27/24 Aspirin (Aspirin Low Dose) 81 Mg Chw, 81 MG PO DAILY, TAB.CHEW 09/27/24 Empagliflozin (Jardiance) 10 Mg Tab, 10 MG PO DAILY, TAB 09/27/24 Current Medications Current Medications Medications (Trade) Dose Ordered Sig/Mary Anne Route PRN Reason Start Time Stop Time Status Last Admin Norepinephrine Bitartrate 250 ml @ 3.75 mls/hr Q24H IV 10/23/24 17:15 10/23/24 18:52 Diagnostic Test (Pha) (Accu-Chek Comfort Curve T) 1 strip ACHS 10/23/24 22:00 10/24/24 06:56 Insulin Human Regular (InsuLIN R) ACHS SC 10/23/24 22:00 10/24/24 06:55 Dextrose 50 ml UD PRN IV Blood Sugar LESS THAN 60 10/23/24 17:15 Morphine Sulfate 2 mg Q30MP PRN IV FOR CHEST PAIN 10/23/24 17:15 10/23/24 18:12 DC Acetaminophen (Tylenol Tablet) 650 mg Q6HP PRN PO MILD PAIN (1-3 PAIN SCALE) 10/23/24 17:15 10/24/24 02:46 Ondansetron HCl (Zofran) 4 mg Q4HP PRN IV NAUSEA / VOMITING 10/23/24 17:15 Nitroglycerin (Ntrostat Sublingual) 0.4 mg Q5MINP PRN SL FOR CHEST PAIN 10/23/24 17:15 Morphine Sulfate 2 mg Q30M PRN IV FOR CHEST PAIN 10/23/24 17:15 10/23/24 20:26 Amoxicillin/ Clavulanate Potassium (Augmentin Tablet) 875 mg BID PO 10/23/24 22:00 10/24/24 10:35 Empaglifozin (Jardiance) 10 mg DAILY PO 10/24/24 10:00 10/24/24 10:35 Furosemide (Lasix Tablet) 20 mg DAILY PO 10/24/24 10:00 10/24/24 10:34 Aspirin 81 mg DAILY PO 10/24/24 10:00 10/24/24 10:35 Atorvastatin Calcium (Lipitor) 40 mg DAILY PO 10/24/24 10:00 10/24/24 10:34 Patient Own Medication 1 mis DAILY SL 10/24/24 10:00 Hold Citalopram Hydrobromide (CeleXA TABLET) 20 mg DAILY PO 10/24/24 10:00 Pantoprazole Sodium (Protonix Tablet) 40 mg DAILY PO 10/24/24 10:00 10/24/24 10:34 Budesonide (Pulmicort) 0.5 mg BID NEB 10/23/24 22:00 10/24/24 06:48 Albuterol (Ventolin Medneb) 2.5 mg Q4HPRN PRN NEB SHORTNESS OF BREATH 10/23/24 17:45 10/24/24 06:48 Ipratropium [place] (Atrovent Medneb) 0.5 mg Q4HPRN PRN NEB SHORTNESS OF BREATH 10/23/24 17:45 10/24/24 06:48 Ceftriaxone Sodium 50 ml @ 100 mls/hr DAILY@09 IV 10/24/24 09:00 10/24/24 09:26 Review of Systems 10 pt ros otherwise negative Vital Signs Vital Signs Date Time Temp Pulse Resp B/P (MAP) Pulse Ox O2 Delivery O2 Flow Rate FiO2 10/24/24 10:34 113/65 10/24/24 09:45 76 17 94 10/24/24 08:00 Room Air* 0 21 10/24/24 04:00 98.6 98.6 Physical Exam nad s1 s2 rrr ctab soft nt/nd trivial edema, R groin wound vac Labs/Diagnostic Data Labs Test 10/24/24 10:00 10/24/24 04:19 10/23/24 18:39 10/23/24 17:00 Range/Units POC Glucose 250 H 70-106 mg/dl White Blood Count 1.8 *L 4.4-10.8 10^3/uL Red Blood Count 3.69 L 4.0-5.20 10^6/uL Hemoglobin 9.2 #L 12.2-16.2 g/dL Hematocrit 28.0 #L 36.0-46.0 % Mean Corpuscular Volume 76.0 L 80.0-100.0 fL Mean Corpuscular Hemoglobin 24.9 L 28.0-32.0 pg Mean Corpuscular Hemoglobin Concent 32.7 32.0-36.0 g/dL Red Cell Distribution Width 15.5 H 11.8-14.3 % Platelet Count 164 140-450 10^3/uL Mean Platelet Volume 8.6 6.9-10.8 fL Neutrophils (%) (Auto) 37.0-80.0 % Lymphocytes (%) (Auto) 10.0-50.0 % Monocytes (%) (Auto) 0.0-12.0 % Eosinophils (%) (Auto) 0.0-7.0 % Basophils (%) (Auto) 0.0-2.0 % Neutrophils # (Auto) 1.6-8.6 10 ^3/uL Lymphocytes # (Auto) 0.4-5.4 10 ^3/uL Monocytes # (Auto) 0-1.3 10 ^3/uL Differential Total Cells Counted 100.0 100 Neutrophils % (Manual) 35 L 37.0-80.0 Band Neutrophils % (Manual) 4 Lymphocytes % (Manual) 35 10.0-50.0 Monocytes % (Manual) 11 0-12 Eosinophils % (Manual) 15 H 0-7 Basophils % (Manual) 0 0.0-2.0 Metamyelocytes % (manual) 0 Myelocytes % (Manual) 0 Promyelocytes % (Manual) 0 Blast Cells % (Manual) 0 Reactive Lymphocytes 0 Platelet Estimate Adequate Anisocytosis (manual) Slight Microcytosis Slight Sodium Level 135 L 136-145 mmol/L Potassium Level 4.2 3.5-5.1 mmol/L Chloride Level 106 98-107 mmol/L Carbon Dioxide Level 19 L 20-31 mmol/L Anion Gap 10 5-15 Blood Urea Nitrogen 11 9-23 mg/dL Creatinine 0.83 0.550-1.02 mg/dL Glomerular Filtration Rate Calc 87 >90 mL/min BUN/Creatinine Ratio 13.3 10.0-20.0 Serum Glucose 171 H 74-106 mg/dL Calcium Level 9.2 8.7-10.4 mg/dL Magnesium Level 2.0 1.6-2.6 mg/dL Lactic Acid Level 0.8 0.4-2.0 mmol/L Troponin I High Sensitivity 65 *H </=34 ng/L Test 10/23/24 16:00 10/23/24 14:11 Range/Units Urine Color Colorless Yellow Urine Clarity Clear Clear Urine pH 6.0 5.0-9.0 Urine Specific [place] 1.016 1.001-1.035 Urine Protein Negative Negative Urine Ketones Negative Negative Urine Blood Negative Negative /uL Urine Nitrite Negative Negative Urine Bilirubin Negative Negative Urine Urobilinogen Normal Negative mg/dL Urine Leukocyte Esterase Negative Negative /uL Urine RBC None seen 0 - 4 /hpf Urine Microscopic WBC < 1 0-5 /HPF Urine Squamous Epithelial Cells None seen <5 /hpf Urine Bacteria None seen None Seen /hpf Urine Glucose 4+ H Normal mg/dL Urine Opiates Screen Neg NEGATIVE Urine Fentanyl Screen Neg NEGATIVE Urine Barbiturates Screen Neg NEGATIVE Urine Phencyclidine Screen Neg NEGATIVE Urine Amphetamines Screen Neg NEGATIVE Urine Benzodiazepines Screen Neg NEGATIVE Urine Cocaine Screen Neg NEGATIVE Urine Cannabinoids Screen Neg NEGATIVE Eosinophils # (Auto) 0.3 0-0.8 10 ^3/uL Basophils # (Auto) 0 0-0.2 10 ^3/uL Nucleated Red Blood Cells 0.2 % Hemoglobin A1c 10.6 H <5.7 % A1C Lactate Dehydrogenase 194 120-246 U/L Thyroid Stimulating Hormone (TSH) 0.21 L 0.55-4.78 uIU/mL Microbiology Date/Time Source Procedure Growth Status 10/23/24 16:00 Voided Urine Urine Culture - Preliminary Resulted Assessment severe chf r/o acs hx of cad s/p pci recent sepsis cont dapt plavix given, cont asa acs ruled out d dimer pending diuretics as needed infectious workup ongoing Plan discussed with: Patient SD MORATAYA MD Oct 24, 2024 10:39
[2024-10-24] MEDS: CLOPIDOGREL BISULFATE 75 MG TAB PO ONE (11:00)
--- NOTE | 2024-10-24 15:28 | DVHPN2 ---
Subjective Patient continues to have intermittent sharp substernal and left-sided chest pain. Reviewed: Care Plan, H&P, Labs, Medications Changes from previous H/P or p: No Changes General: Per HPI Cardiovascular: Chest Pain Respiratory: Shortness of breath Objective Vitals Vital Signs Date Time Temp Pulse Resp B/P (MAP) Pulse Ox O2 Delivery O2 Flow Rate FiO2 10/24/24 15:00 93 11 124/68 (86) 100 10/24/24 14:00 Room Air* 0 21 10/24/24 12:00 98.4 98.4 Intake/Output Intake and Output 10/24/24 06:59 Intake Total 745.00 ml Balance 745.00 ml Intake Oral 230 ml IV Total 515.00 ml # Voids 1 General Appearance: Alert, Oriented X3, mild distress HEENT: Atraumatic, PERRLA Cardiovascular: Normal S1, Normal S2 Abdomen: Normal bowel sounds, Soft, No tenderness Musculoskeletal: Normal sensory function, Normal motor function Neuro: Normal gait, Normal speech Skin: Wounds (See nurse notes and pictures), Other (Right point wound VAC. Scalp dressing) Psych/Mental Status: Mental status NL, Mood NL Medications Current Medications Medications Dose Ordered Sig/Mary Anne Route Start Time Stop Time Status Last Admin Dose Admin Norepinephrine Bitartrate 250 ml @ 3.75 mls/hr Q24H IV 10/23/24 17:15 10/23/24 18:52 3.75 MLS/HR Diagnostic Test (Pha) 1 strip ACHS 10/23/24 22:00 10/24/24 14:08 1 STRIP Insulin Human Regular ACHS SC 10/23/24 22:00 10/24/24 14:09 4 UNITS Dextrose 50 ml UD PRN IV 10/23/24 17:15 Acetaminophen 650 mg Q6HP PRN PO 10/23/24 17:15 10/24/24 02:46 650 MG Ondansetron HCl 4 mg Q4HP PRN IV 10/23/24 17:15 Nitroglycerin 0.4 mg Q5MINP PRN SL 10/23/24 17:15 Morphine Sulfate 2 mg Q30M PRN IV 10/23/24 17:15 10/24/24 14:56 2 MG Amoxicillin/ Clavulanate Potassium 875 mg BID PO 10/23/24 22:00 10/24/24 10:35 875 MG Empaglifozin 10 mg DAILY PO 10/24/24 10:00 10/24/24 10:35 10 MG Furosemide 20 mg DAILY PO 10/24/24 10:00 10/24/24 10:34 20 MG Aspirin 81 mg DAILY PO 10/24/24 10:00 10/24/24 10:35 81 MG Atorvastatin Calcium 40 mg DAILY PO 10/24/24 10:00 10/24/24 10:34 40 MG Patient Own Medication 1 mis DAILY SL 10/24/24 10:00 Hold Citalopram Hydrobromide 20 mg DAILY PO 10/24/24 10:00 Pantoprazole Sodium 40 mg DAILY PO 10/24/24 10:00 10/24/24 10:34 40 MG Budesonide 0.5 mg BID NEB 10/23/24 22:00 10/24/24 06:48 0.5 MG Albuterol 2.5 mg Q4HPRN PRN NEB 10/23/24 17:45 10/24/24 06:48 2.5 MG Ipratropium [place] 0.5 mg Q4HPRN PRN NEB 10/23/24 17:45 10/24/24 06:48 0.5 MG Ceftriaxone Sodium 50 ml @ 100 mls/hr DAILY@09 IV 10/24/24 09:00 10/24/24 09:26 100 MLS/HR Laboratory Results Laboratory Tests 10/24/24 04:19 Chemistry Test 10/24/24 04:19 Calcium Level 9.2 mg/dL (8.7-10.4) Magnesium Level 2.0 mg/dL (1.6-2.6) Urinalysis Test 10/23/24 16:00 Urine Color Colorless (Yellow) Urine Clarity Clear (Clear) Urine pH 6.0 (5.0-9.0) Urine Specific [place] 1.016 (1.001-1.035) Urine Protein Negative (Negative) Urine Ketones Negative (Negative) Urine Blood Negative /uL (Negative) Urine Nitrite Negative (Negative) Urine Bilirubin Negative (Negative) Urine Urobilinogen Normal mg/dL (Negative) Urine Leukocyte Esterase Negative /uL (Negative) Urine RBC None seen /hpf (0 - 4) Urine Microscopic WBC < 1 /HPF (0-5) Urine Squamous Epithelial Cells None seen /hpf (<5) Urine Bacteria None seen /hpf (None Seen) Urine Glucose 4+ mg/dL (Normal) H Microbiology Microbiology Date/Time Source Procedure Growth Status 10/23/24 16:00 Voided Urine Urine Culture - Preliminary Resulted Labs and/or images reviewed: Labs reviewed by me, Image(s) reviewed by me Assessment/Plan Assessment/Plan Impression: -chest pain -rule out ACS -history of recent CT with multiple stent placement as well as the need for Impella device for cardiogenic shock -hypotension, questionable cardiogenic shock -rule out PE -rule out sepsis given recent bacteremia with Staphylococcus aureus -history of illicit drug use: Amphetamines -obesity -diabetes mellitus Plan: -continue to wean norepinephrine drip -check D-dimer, if elevated CT angiogram of the chest will be performed -continue regular insulin sliding scale -stop Augmentin, continue Rocephin -wound care nurse consultation for changing wound VAC to right groin, evaluate the necessity for continued treatment -stroud cultures -continue dual antiplatelet therapy -repeat labs in a.m. Critical care time spent with patient discussing and formulating plan of care: 40 minutes. This does not include time spent performing procedures. This medical document was created using an electronic medical record system with [employer] dictation system. Although this document has been carefully reviewed, there may still be some phonetic and typographical errors. These areas are purely typographical due to imperfections of the software programs, and do not reflect any compromise in the patient's medical care. Plan discussed with: Patient, Other (RN) My Orders Orders - INDU GARCÍA NP Procedure Category Date Status Time Wound Culture W/ Gs CRISSY 10/24/24 In Process 13:43 Electrocardigram EKG 10/24/24 Logged 15:00 Electrocardigram EKG 10/24/24 Logged 16:00 * Wound Consult CONS 10/24/24 Transmitted 15:18 D-Dimer LAB 10/24/24 Logged 15:18 Basic Metabolic Panel LAB 10/25/24 Verified 04:00 Complete Blood Count LAB 10/25/24 Verified 04:00 Date of Service: Oct 24, 2024 Billing Provider: INDU GARCÍA NP Common Visit Codes: [id number] CARE 30-74 MIN INDU GARCÍA NP Oct 24, 2024 15:28
[2024-10-24] MEDS: IOHEXOL 350 MG/ML 100ML IJ ONE (18:26)
[2024-10-24] MEDS: IOHEXOL 180 MG/ML 20ML VIAL IJ ONE (18:26)
--- NOTE | 2024-10-24 21:19 | DVH ---
EXAM: CT CT ANGIO CHEST CONTRAST History: RULE OUT PE Comparison Study: None available TECHNIQUE: A digital sealing and canceling machine operator image was obtained. During the uneventful, intravenous administration of c ontrast material, multislice data acquisition was obtained through the chest. 3-D postprocessing is performed by technologist including MIP imaging Radiation Dose : CTDI vol 25.03 mGy, DLP 807.27 mGy*cm. Findings: Lungs: The lungs are clear. Pleura: Unremarkable Heart/Great vessels: No cardiomegaly or pericardial effusion. No pulmonary embolism, aneurysm, or dis section. Moderate coronary atherosclerosis. Mediastinum: Unremarkable Soft tissues/Bones: Unremarkable Cholelithiasis. The remaining partially visualized upper abdomen is within normal limits. Impression: 1. No evidence of a pulmonary embolism, aneurysm, or dissection.
[2024-10-24] MEDS: CITALOPRAM HYDROBR 20 MG TAB PO SCH (21:37)
[2024-10-25] VITALS (84 sets, daily range): BP systolic 73–136; BP diastolic 31–70; PULSE 62–114; RESP 10–23; TEMP 98.6–99.4; O2SAT 90–100
[2024-10-25 06:31] LABS: Basophils # (auto) 0 10 ^3/uL (0-0.2); Eosinophils # (auto) 0.3 10 ^3/uL (0-0.8); Hemoglobin 10.8 g/dL (12.2-16.2); Lymphocytes # (auto) 1.5 10 ^3/uL (0.4-5.4); Lymphocytes % (auto) 51.6 % (10.0-50.0); Monocytes # (auto) 0.3 10 ^3/uL (0-1.3); Neutrophils # (auto) 0.8 10 ^3/uL (1.6-8.6); White Blood Cell 2.9 10^3/uL (4.4-10.8)
[2024-10-25 06:34] LABS: Basophils % (auto) 0.7 % (0.0-2.0); Chloride 104 mmol/L (98-107); Eosinophils % (auto) 9.8 % (0.0-7.0); Hematocrit 33.3 % (36.0-46.0); Mean Corpuscular Hemoglobin 24.7 pg (28.0-32.0); Mean Corpuscular Hgb Conc. 32.5 g/dL (32.0-36.0); Mean Corpuscular Volume 75.9 fL (80.0-100.0); Monocytes % (auto) 11.6 % (0.0-12.0); Neutrophils % (auto) 26.3 % (37.0-80.0); Nucleated Red Blood Cells % 0.1 %; Platelet Count (auto) 182 10^3/uL (140-450); Red Blood Cells 4.39 10^6/uL (4.0-5.20); Red Cell Distribution Width 15.8 % (11.8-14.3)
[2024-10-25 06:35] LABS: Anion Gap 8 (5-15); Calcium 9.6 mg/dL (8.7-10.4); Carbon Dioxide 22 mmol/L (20-31)
[2024-10-25 06:36] LABS: Sodium 134 mmol/L (136-145)
[2024-10-25 06:40] LABS: BUN/Creatinine Ratio 18.1 (10.0-20.0); Blood Urea Nitrogen 13 mg/dL (9-23)
[2024-10-25 06:48] LABS: Glucose 186 mg/dL (74-106)
--- NOTE | 2024-10-25 08:15 | ECG ---
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
--- NOTE | 2024-10-25 08:24 | DVHPN2 ---
Subjective Patient denies any symptoms at this time. Reviewed: Care Plan, H&P, Labs, Medications Changes from previous H/P or p: No Changes General: Per HPI Cardiovascular: Chest Pain Respiratory: Shortness of breath Objective Vitals Vital Signs Date Time Temp Pulse Resp B/P (MAP) Pulse Ox O2 Delivery O2 Flow Rate FiO2 10/25/24 06:45 90 20 106/53 (70) 98 10/25/24 06:08 Nasal Cannula* 2 28 10/25/24 04:00 98.6 98.6 Intake/Output Intake and Output 10/25/24 07:00 Intake Total 1253.75 ml Output Total 1800 ml Balance -546.25 ml Intake Oral 1000 ml IV Total 253.75 ml Output Urine Total 1800 ml # Voids 3 # Bowel Movements 1 General Appearance: Alert, Oriented X3, mild distress HEENT: Atraumatic, PERRLA Cardiovascular: Normal S1, Normal S2 Abdomen: Normal bowel sounds, Soft, No tenderness Musculoskeletal: Normal sensory function, Normal motor function Neuro: Normal gait, Normal speech Skin: Dry, Intact, Wounds (See nurse notes and pictures), Other (Right point wound VAC. Scalp dressing) Psych/Mental Status: Mental status NL, Mood NL Medications Current Medications Medications Dose Ordered Sig/Mary Anne Route Start Time Stop Time Status Last Admin Dose Admin Norepinephrine Bitartrate 250 ml @ 3.75 mls/hr Q24H IV 10/23/24 17:15 10/23/24 18:52 3.75 MLS/HR Diagnostic Test (Pha) 1 strip ACHS 10/23/24 22:00 10/25/24 06:17 1 STRIP Insulin Human Regular ACHS SC 10/23/24 22:00 10/25/24 06:18 3 UNITS Dextrose 50 ml UD PRN IV 10/23/24 17:15 Acetaminophen 650 mg Q6HP PRN PO 10/23/24 17:15 10/24/24 02:46 650 MG Ondansetron HCl 4 mg Q4HP PRN IV 10/23/24 17:15 Nitroglycerin 0.4 mg Q5MINP PRN SL 10/23/24 17:15 Morphine Sulfate 2 mg Q30M PRN IV 10/23/24 17:15 10/24/24 22:35 2 MG Empaglifozin 10 mg DAILY PO 10/24/24 10:00 10/24/24 10:35 10 MG Furosemide 20 mg DAILY PO 10/24/24 10:00 10/24/24 10:34 20 MG Aspirin 81 mg DAILY PO 10/24/24 10:00 10/24/24 10:35 81 MG Atorvastatin Calcium 40 mg DAILY PO 10/24/24 10:00 10/24/24 10:34 40 MG Patient Own Medication 1 mis DAILY SL 10/24/24 10:00 Hold Citalopram Hydrobromide 20 mg DAILY PO 10/24/24 10:00 10/24/24 21:37 20 MG Pantoprazole Sodium 40 mg DAILY PO 10/24/24 10:00 10/24/24 10:34 40 MG Budesonide 0.5 mg BID NEB 10/23/24 22:00 10/25/24 06:07 0.5 MG Albuterol 2.5 mg Q4HPRN PRN NEB 10/23/24 17:45 10/25/24 06:07 2.5 MG Ipratropium [place] 0.5 mg Q4HPRN PRN NEB 10/23/24 17:45 10/25/24 06:07 0.5 MG Ceftriaxone Sodium 50 ml @ 100 mls/hr DAILY@09 IV 10/24/24 09:00 10/24/24 09:26 100 MLS/HR Laboratory Results Laboratory Tests 10/25/24 05:48 Chemistry Test 10/25/24 05:48 Calcium Level 9.6 mg/dL (8.7-10.4) Coagulation Test 10/24/24 16:34 D-Dimer, Quantitative 4.13 mg/L FEU (0.0-0.49) H Urinalysis Test 10/23/24 16:00 Urine Color Colorless (Yellow) Urine Clarity Clear (Clear) Urine pH 6.0 (5.0-9.0) Urine Specific [place] 1.016 (1.001-1.035) Urine Protein Negative (Negative) Urine Ketones Negative (Negative) Urine Blood Negative /uL (Negative) Urine Nitrite Negative (Negative) Urine Bilirubin Negative (Negative) Urine Urobilinogen Normal mg/dL (Negative) Urine Leukocyte Esterase Negative /uL (Negative) Urine RBC None seen /hpf (0 - 4) Urine Microscopic WBC < 1 /HPF (0-5) Urine Squamous Epithelial Cells None seen /hpf (<5) Urine Bacteria None seen /hpf (None Seen) Urine Glucose 4+ mg/dL (Normal) H Microbiology Microbiology Date/Time Source Procedure Growth Status 10/23/24 18:39 Blood Blood Culture - Preliminary NO GROWTH AFTER 24 HOURS OF INCUBATION. Resulted 10/23/24 16:00 Voided Urine Urine Culture - Preliminary Resulted Labs and/or images reviewed: Labs reviewed by me, Image(s) reviewed by me Assessment/Plan Assessment/Plan Impression: -chest pain -rule out ACS -history of recent [place] with multiple stent placement as well as the need for Impella device for cardiogenic shock -hypotension, questionable cardiogenic shock -rule out PE -rule out sepsis given recent bacteremia with Staphylococcus aureus -history of illicit drug use: Amphetamines -obesity -diabetes mellitus Been complicated cystitis Plan: Events: Patient was on 2 micrograms/minute of norepinephrine. CT angiogram of the chest negative for PE. Cardiology consultation/recommendations reviewed with Dr. [place]. -wound care consultation: Wound VAC changed -continue regular insulin sliding scale -stop Augmentin, continue Rocephin -stroud cultures : Positive UTI with Gram-negative rods -continue dual antiplatelet therapy -repeat labs in a.m. Critical care time spent with patient discussing and formulating plan of care: 40 minutes. This does not include time spent performing procedures. This medical document was created using an electronic medical record system with [employer] dictation system. Although this document has been carefully reviewed, there may still be some phonetic and typographical errors. These areas are purely typographical due to imperfections of the software programs, and do not reflect any compromise in the patient's medical care. Plan discussed with: Patient, Other (RN) My Orders Orders - INDU GARCÍA NP Procedure Category Date Status Time Wound Culture W/ Gs CRISSY 10/24/24 In Process 13:43 Electrocardigram EKG 10/24/24 Logged 15:00 Electrocardigram EKG 10/24/24 Logged 16:00 * Wound Consult CONS 10/24/24 Transmitted 15:[address] 10/24/24 Resulted Contrast 17:57 Apply Barrier Cream HUNTER 10/24/24 In Process 13:57 Complete Blood Count LAB 10/26/24 Verified 04:00 Basic Metabolic Panel LAB 10/26/24 Verified 04:00 Date of Service: Oct 25, 2024 Billing Provider: INDU GARCÍA NP Common Visit Codes: [id number] CARE 30-74 MIN INDU GARCÍA NP Oct 25, 2024 08:24
--- NOTE | 2024-10-25 08:25 | ECG ---
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
--- NOTE | 2024-10-25 08:30 | ECG ---
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
--- NOTE | 2024-10-25 08:38 | ECG ---
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
--- NOTE | 2024-10-25 14:55 | DVHPN2 ---
Progress Note Date Seen: Oct 25, 2024 Medical Necessity Reason Pt with a Central, PICC or Fol: No Subjective Patient reports: Feels better Objective vital signs Vital Sign Date Time Temp Pulse Resp B/P (MAP) Pulse Ox O2 Delivery O2 Flow Rate FiO2 10/25/24 12:00 83 10/25/24 10:15 18 102/51 (68) 96 10/25/24 10:00 Room Air* 0 21 10/25/24 08:00 98.9 98.9 Total Intake and Output 10/24/24 10/24/24 10/25/24 15:00 23:00 07:00 Intake Total 152.50 ml 568.75 ml 540.0 ml Output Total 1000 ml 800 ml Balance 152.50 ml -431.25 ml -260.0 ml medications Current Medications Medications Dose Ordered Sig/Mary Anne Route Start Time Stop Time Status Last Admin Dose Admin Norepinephrine Bitartrate 250 ml @ 3.75 mls/hr Q24H IV 10/23/24 17:15 10/23/24 18:52 3.75 MLS/HR Diagnostic Test (Pha) 1 strip ACHS 10/23/24 22:00 10/25/24 13:13 1 STRIP Insulin Human Regular ACHS SC 10/23/24 22:00 10/25/24 13:16 6 UNITS Dextrose 50 ml UD PRN IV 10/23/24 17:15 Acetaminophen 650 mg Q6HP PRN PO 10/23/24 17:15 10/24/24 02:46 650 MG Ondansetron HCl 4 mg Q4HP PRN IV 10/23/24 17:15 Nitroglycerin 0.4 mg Q5MINP PRN SL 10/23/24 17:15 Morphine Sulfate 2 mg Q30M PRN IV 10/23/24 17:15 10/24/24 22:35 2 MG Empaglifozin 10 mg DAILY PO 10/24/24 10:00 10/25/24 09:08 10 MG Furosemide 20 mg DAILY PO 10/24/24 10:00 10/25/24 09:07 20 MG Aspirin 81 mg DAILY PO 10/24/24 10:00 10/25/24 09:08 81 MG Atorvastatin Calcium 40 mg DAILY PO 10/24/24 10:00 10/25/24 09:07 40 MG Patient Own Medication 1 mis DAILY SL 10/24/24 10:00 Hold Pantoprazole Sodium 40 mg DAILY PO 10/24/24 10:00 10/25/24 09:07 40 MG Budesonide 0.5 mg BID NEB 10/23/24 22:00 10/25/24 06:07 0.5 MG Albuterol 2.5 mg Q4HPRN PRN NEB 10/23/24 17:45 10/25/24 06:07 2.5 MG Ipratropium [place] 0.5 mg Q4HPRN PRN NEB 10/23/24 17:45 10/25/24 06:07 0.5 MG Citalopram Hydrobromide 20 mg DAILY PO 10/25/24 22:00 Ertapenem 1 gm/ Sodium Chloride 50 ml @ 100 mls/hr DAILY IV 10/25/24 13:45 Examination: GENERAL:Abnormal, HEENT:Abnormal, LUNGS:Abnormal, CVS:Abnormal, ABDOMEN:Abnormal laboratory and microbiology Laboratory Tests 10/25/24 05:48 Test 10/25/24 05:48 Range/Units Serum Glucose 186 H 74-106 mg/dL Microbiology Date/Time Source Procedure Growth Status 10/24/24 13:30 Scalp Gram Stain - Final Resulted 10/24/24 13:30 Scalp Wound Culture - Preliminary Resulted 10/23/24 18:39 Blood Blood Culture - Preliminary NO GROWTH AFTER 24 HOURS OF INCUBATION. Resulted 10/23/24 16:00 Voided Urine Urine Culture - Final Klebsiella pneumoniae - ESBL Complete Problem List/Assessment/Plan Problem List/Assessment/Plan cad severe chf recent sepsis /infection ckd cta was - for PE pt is on brilinta not plavix, will restart this cont dapt cont statin Plan discussed with: Patient Date of Service: Oct 25, 2024 Billing Provider: SD MORATAYA MD Common Visit Codes: NOT BILLABLE SD MORATAYA MD Oct 25, 2024 14:55
[2024-10-25] MEDS: ERTAPENEM SOD INJ 1 GM in SODIUM CHL 0.9% 50 ML IV SCH (16:22)
[2024-10-25] MEDS: TICAGRELOR 90 MG TAB PO SCH (17:31)
[2024-10-25] MEDS: CITALOPRAM HYDROBR 20 MG TAB PO SCH (22:32)
[2024-10-26] VITALS (72 sets, daily range): BP systolic 81–131; BP diastolic 40–84; PULSE 57–111; RESP 8–33; TEMP 98.2–98.4; O2SAT 92–100
[2024-10-26 06:32] LABS: Mean Corpuscular Volume 76.3 fL (80.0-100.0)
[2024-10-26 06:36] LABS: Hematocrit 35.5 % (36.0-46.0); Mean Corpuscular Hemoglobin 23.7 pg (28.0-32.0); Platelet Count (auto) 243 10^3/uL (140-450); Red Blood Cells 4.66 10^6/uL (4.0-5.20); Red Cell Distribution Width 15.4 % (11.8-14.3); White Blood Cell 3.3 10^3/uL (4.4-10.8)
[2024-10-26 06:46] LABS: Chloride 104 mmol/L (98-107); Potassium 3.7 mmol/L (3.5-5.1)
[2024-10-26 06:47] LABS: Anion Gap 10 (5-15); Calcium 9.8 mg/dL (8.7-10.4); Carbon Dioxide 21 mmol/L (20-31)
[2024-10-26 06:50] LABS: Sodium 135 mmol/L (136-145)
[2024-10-26 06:52] LABS: BUN/Creatinine Ratio 18.4 (10.0-20.0); Blood Urea Nitrogen 14 mg/dL (9-23)
[2024-10-26 06:54] LABS: Glucose 224 mg/dL (74-106)
[2024-10-26 07:12] LABS: Band Neutrophils % (manual) 0; Basophils % (manual) 0 (0.0-2.0); Metamyelocytes % 0; Myelocytes % 0; Promyelocytes % 0; Reactive Lymphocytes 0
--- NOTE | 2024-10-26 08:49 | DVHPN2 ---
Subjective Patient denies any symptoms at this time. Reviewed: Care Plan, H&P, Labs, Medications Changes from previous H/P or p: No Changes General: Per HPI Cardiovascular: Chest Pain Respiratory: Shortness of breath Objective Vitals Vital Signs Date Time Temp Pulse Resp B/P (MAP) Pulse Ox O2 Delivery O2 Flow Rate FiO2 10/26/24 08:15 63 15 109/55 (73) 94 10/26/24 08:01 98.2 98.2 10/26/24 05:54 Room Air* 0 21 Intake/Output Intake and Output 10/26/24 06:59 Intake Total 638.50 ml Balance 638.50 ml Intake Oral 486 ml IV Total 152.50 ml # Voids 1 General Appearance: Alert, Oriented X3, mild distress HEENT: Atraumatic, PERRLA Cardiovascular: Normal S1, Normal S2 Abdomen: Normal bowel sounds, Soft, No tenderness Musculoskeletal: Normal sensory function, Normal motor function Neuro: Normal gait, Normal speech Skin: Dry, Intact, Wounds (See nurse notes and pictures), Other (Right point wound VAC. Scalp dressing) Psych/Mental Status: Mental status NL, Mood NL Medications Current Medications Medications Dose Ordered Sig/Mary Anne Route Start Time Stop Time Status Last Admin Dose Admin Norepinephrine Bitartrate 250 ml @ 3.75 mls/hr Q24H IV 10/23/24 17:15 10/25/24 17:33 3.75 MLS/HR Diagnostic Test (Pha) 1 strip ACHS 10/23/24 22:00 10/26/24 06:30 1 STRIP Insulin Human Regular ACHS SC 10/23/24 22:00 10/26/24 06:30 4 UNITS Dextrose 50 ml UD PRN IV 10/23/24 17:15 Acetaminophen 650 mg Q6HP PRN PO 10/23/24 17:15 10/25/24 23:11 650 MG Ondansetron HCl 4 mg Q4HP PRN IV 10/23/24 17:15 Nitroglycerin 0.4 mg Q5MINP PRN SL 10/23/24 17:15 Morphine Sulfate 2 mg Q30M PRN IV 10/23/24 17:15 10/25/24 23:27 2 MG Empaglifozin 10 mg DAILY PO 10/24/24 10:00 10/25/24 09:08 10 MG Furosemide 20 mg DAILY PO 10/24/24 10:00 10/25/24 09:07 20 MG Aspirin 81 mg DAILY PO 10/24/24 10:00 10/25/24 09:08 81 MG Atorvastatin Calcium 40 mg DAILY PO 10/24/24 10:00 10/25/24 09:07 40 MG Patient Own Medication 1 mis DAILY SL 10/24/24 10:00 Hold Pantoprazole Sodium 40 mg DAILY PO 10/24/24 10:00 10/25/24 09:07 40 MG Budesonide 0.5 mg BID NEB 10/23/24 22:00 10/26/24 05:54 0.5 MG Albuterol 2.5 mg Q4HPRN PRN NEB 10/23/24 17:45 10/26/24 05:54 2.5 MG Ipratropium [place] 0.5 mg Q4HPRN PRN NEB 10/23/24 17:45 10/26/24 05:54 0.5 MG Citalopram Hydrobromide 20 mg DAILY PO 10/25/24 22:00 10/25/24 22:32 20 MG Ertapenem 1 gm/ Sodium Chloride 50 ml @ 100 mls/hr DAILY IV 10/25/24 13:45 10/25/24 16:22 100 MLS/HR Ticagrelor 90 mg BID PO 10/25/24 15:00 10/25/24 22:32 90 MG Laboratory Results Laboratory Tests 10/26/24 05:28 Chemistry Test 10/26/24 05:28 Calcium Level 9.8 mg/dL (8.7-10.4) Urinalysis Test 10/23/24 16:00 Urine Color Colorless (Yellow) Urine Clarity Clear (Clear) Urine pH 6.0 (5.0-9.0) Urine Specific [place] 1.016 (1.001-1.035) Urine Protein Negative (Negative) Urine Ketones Negative (Negative) Urine Blood Negative /uL (Negative) Urine Nitrite Negative (Negative) Urine Bilirubin Negative (Negative) Urine Urobilinogen Normal mg/dL (Negative) Urine Leukocyte Esterase Negative /uL (Negative) Urine RBC None seen /hpf (0 - 4) Urine Microscopic WBC < 1 /HPF (0-5) Urine Squamous Epithelial Cells None seen /hpf (<5) Urine Bacteria None seen /hpf (None Seen) Urine Glucose 4+ mg/dL (Normal) H Microbiology Microbiology Date/Time Source Procedure Growth Status 10/24/24 13:30 Scalp Gram Stain - Final Resulted 10/24/24 13:30 Scalp Wound Culture - Preliminary Resulted 10/23/24 18:39 Blood Blood Culture - Preliminary NO GROWTH AFTER 48 HOURS OF INCUBATION. Resulted 10/23/24 16:00 Voided Urine Urine Culture - Final Klebsiella pneumoniae - ESBL Complete Labs and/or images reviewed: Labs reviewed by me, Image(s) reviewed by me Assessment/Plan Assessment/Plan Impression: -chest pain -rule out ACS -history of recent [place] with multiple stent placement as well as the need for Impella device for cardiogenic shock -hypotension, questionable cardiogenic shock -rule out PE -rule out sepsis given recent bacteremia with Staphylococcus aureus -history of illicit drug use: Amphetamines -obesity -diabetes mellitus Been complicated cystitis Plan: Events: Continues to be 4 micrograms/minute of norepinephrine. Patient denies any symptoms. Reviewing UA/UC, he way negative for signs of UTI with UC growing ESBL. We will repeat both. Continues to have intermittent substernal chest pain. -start Ranexa -wound care consultation: Wound VAC changed -continue regular insulin sliding scale --continue Invanz for now. -trial of albumin -continue dual antiplatelet therapy -repeat labs in a.m. Critical care time spent with patient discussing and formulating plan of care: 40 minutes. This does not include time spent performing procedures. This medical document was created using an electronic medical record system with [employer] dictation system. Although this document has been carefully reviewed, there may still be some phonetic and typographical errors. These areas are purely typographical due to imperfections of the software programs, and do not reflect any compromise in the patient's medical care. Plan discussed with: Patient, Other (RN) My Orders Orders - INDU GARCÍA NP Procedure Category Date Status Time Citalopram Tablet PHA 10/25/24 In Process (Celexa Tablet) 22:00 Ertapenem Sod Inj PHA 10/25/24 In Process (Invanz) 13:45 Communication Order ORDERS 10/25/24 Transmitted 17:23 Manual Differential LAB 10/26/24 In Process 05:28 Urinalysis LAB 10/26/24 Verified 08:44 Urine Bacterial CRISSY 10/26/24 Verified Culture 08:44 Albumin Ivpb PHA 10/26/24 Verified 08:45 Basic Metabolic Panel LAB 10/27/24 Verified 04:00 Complete Blood Count LAB 10/27/24 Verified 04:00 Date of Service: Oct 26, 2024 Billing Provider: INDU GARCÍA NP Common Visit Codes: [id number] CARE 30-74 MIN INDU GARCÍA NP Oct 26, 2024 08:49
[2024-10-26 10:30] LABS: Urine Bacteria None Seen /hpf (None Seen)
[2024-10-26] MEDS: RANOLAZINE ER 500 MG TAB PO SCH (10:40)
[2024-10-26 10:50] LABS: Blast Cells 1; Eosinophils % (manual) 7 (0-7); Lymphocytes % (manual) 42 (10.0-50.0); Monocytes % (manual) 7 (0-12)
[2024-10-26 10:51] LABS: Hypochromia Moderate; Platelet Estimate Adequate
[2024-10-26 11:23] LABS: Urine Blood Negative /uL (Negative); Urine Clarity Clear (Clear); Urine Color Light-Yellow (Yellow); Urine Protein, UAD Negative (Negative); Urine Specific Gravity 1.039 (1.001-1.035); Urine Squamous Epithelial Cell FEW /hpf (<5); Urine Urobilinogen Normal (Negative); Urine WBC 4 /HPF (0-5); Urine pH 5.5 (5.0-9.0)
[2024-10-26] MEDS: ALBUMIN 25% 50 ML IV ONE (12:42)
[2024-10-27] VITALS (102 sets, daily range): BP systolic 81–145; BP diastolic 41–112; PULSE 48–107; RESP 7–26; TEMP 97.7–98.2; O2SAT 91–100
[2024-10-27 07:09] LABS: Red Cell Distribution Width 15.4 % (11.8-14.3); White Blood Cell 3.1 10^3/uL (4.4-10.8)
[2024-10-27 07:13] LABS: Hemoglobin 10.8 g/dL (12.2-16.2); Mean Corpuscular Hemoglobin 24.8 pg (28.0-32.0); Mean Corpuscular Hgb Conc. 32.6 g/dL (32.0-36.0); Mean Corpuscular Volume 76.2 fL (80.0-100.0); Platelet Count (auto) 258 10^3/uL (140-450); Red Blood Cells 4.33 10^6/uL (4.0-5.20)
[2024-10-27 07:15] LABS: Band Neutrophils % (manual) 0; Basophils % (manual) 0 (0.0-2.0); Blast Cells 0; Eosinophils % (manual) 0 (0-7); Metamyelocytes % 0; Myelocytes % 0; Promyelocytes % 0
[2024-10-27 07:23] LABS: Anion Gap 10 (5-15); Carbon Dioxide 20 mmol/L (20-31); Chloride 105 mmol/L (98-107); Potassium 4.4 mmol/L (3.5-5.1); Sodium 135 mmol/L (136-145)
[2024-10-27 07:29] LABS: Blood Urea Nitrogen 14 mg/dL (9-23)
[2024-10-27 07:32] LABS: Glucose 212 mg/dL (74-106)
--- NOTE | 2024-10-27 09:00 | DVHPN2 ---
Subjective Patient denies any symptoms at this time. Reviewed: Care Plan, H&P, Labs, Medications Changes from previous H/P or p: No Changes General: Per HPI Cardiovascular: Chest Pain Respiratory: Shortness of breath Objective Vitals Vital Signs Date Time Temp Pulse Resp B/P (MAP) Pulse Ox O2 Delivery O2 Flow Rate FiO2 10/27/24 07:18 68 18 100 10/27/24 07:10 Room Air 0.0 10/27/24 07:10 21 10/27/24 06:50 104/66 10/27/24 04:00 97.7 97.7 Intake/Output Intake and Output 10/27/24 07:00 Intake Total 1337.50 ml Output Total 0 ml Balance 1337.50 ml Intake Oral 1100 ml IV Total 237.50 ml Output Urine Total 0 ml # Voids 2 # Bowel Movements 1 General Appearance: Alert, Oriented X3, Cooperative, mild distress HEENT: Atraumatic, PERRLA Cardiovascular: Normal S1, Normal S2 Abdomen: Normal bowel sounds, Soft, No tenderness Musculoskeletal: Normal sensory function, Normal motor function Neuro: Normal gait, Normal speech Skin: Dry, Intact, Wounds (See nurse notes and pictures), Other (Right point wound VAC. Scalp dressing) Psych/Mental Status: Mental status NL, Mood NL Medications Current Medications Medications Dose Ordered Sig/Mary Anne Route Start Time Stop Time Status Last Admin Dose Admin Norepinephrine Bitartrate 250 ml @ 3.75 mls/hr Q24H IV 10/23/24 17:15 10/26/24 15:42 7.5 MLS/HR Diagnostic Test (Pha) 1 strip ACHS 10/23/24 22:00 10/27/24 07:00 1 STRIP Insulin Human Regular ACHS SC 10/23/24 22:00 10/27/24 07:38 4 UNITS Dextrose 50 ml UD PRN IV 10/23/24 17:15 Acetaminophen 650 mg Q6HP PRN PO 10/23/24 17:15 10/26/24 20:36 650 MG Ondansetron HCl 4 mg Q4HP PRN IV 10/23/24 17:15 Nitroglycerin 0.4 mg Q5MINP PRN SL 10/23/24 17:15 Morphine Sulfate 2 mg Q30M PRN IV 10/23/24 17:15 10/26/24 21:24 2 MG Empaglifozin 10 mg DAILY PO 10/24/24 10:00 10/26/24 10:39 10 MG Furosemide 20 mg DAILY PO 10/24/24 10:00 10/26/24 10:39 20 MG Aspirin 81 mg DAILY PO 10/24/24 10:00 10/26/24 10:39 81 MG Atorvastatin Calcium 40 mg DAILY PO 10/24/24 10:00 10/26/24 10:40 40 MG Patient Own Medication 1 mis DAILY SL 10/24/24 10:00 Hold Pantoprazole Sodium 40 mg DAILY PO 10/24/24 10:00 10/26/24 10:39 40 MG Budesonide 0.5 mg BID NEB 10/23/24 22:00 10/27/24 07:10 0.5 MG Albuterol 2.5 mg Q4HPRN PRN NEB 10/23/24 17:45 10/27/24 07:10 2.5 MG Ipratropium [place] 0.5 mg Q4HPRN PRN NEB 10/23/24 17:45 10/27/24 07:10 0.5 MG Citalopram Hydrobromide 20 mg DAILY PO 10/25/24 22:00 10/26/24 10:40 20 MG Ertapenem 1 gm/ Sodium Chloride 50 ml @ 100 mls/hr DAILY IV 10/25/24 13:45 10/26/24 10:40 100 MLS/HR Ticagrelor 90 mg BID PO 10/25/24 15:00 10/26/24 22:18 90 MG Ranolazine 500 mg BID PO 10/26/24 10:00 10/26/24 22:18 500 MG Laboratory Results Laboratory Tests 10/27/24 05:38 Chemistry Test 10/27/24 05:38 Calcium Level 10.0 mg/dL (8.7-10.4) Urinalysis Test 10/26/24 10:17 Urine Color Light-yellow (Yellow) Urine Clarity Clear (Clear) Urine pH 5.5 (5.0-9.0) Urine Specific [place] 1.039 (1.001-1.035) Urine Protein Negative (Negative) Urine Ketones Negative (Negative) Urine Blood Negative /uL (Negative) Urine Nitrite Negative (Negative) Urine Bilirubin Negative (Negative) Urine Urobilinogen Normal mg/dL (Negative) Urine Leukocyte Esterase Negative /uL (Negative) Urine RBC 8 /hpf (0 - 4) Urine Microscopic WBC 4 /HPF (0-5) Urine Squamous Epithelial Cells Few /hpf (<5) Urine Bacteria None seen /hpf (None Seen) Urine Glucose 4+ mg/dL (Normal) H Microbiology Microbiology Date/Time Source Procedure Growth Status 10/24/24 13:30 Scalp Gram Stain - Final Resulted 10/24/24 13:30 Scalp Wound Culture - Preliminary Resulted 10/23/24 18:39 Blood Blood Culture - Preliminary NO GROWTH AFTER 72 HOURS OF INCUBATION. Resulted 10/23/24 16:00 Voided Urine Urine Culture - Final Klebsiella pneumoniae - ESBL Complete Labs and/or images reviewed: Labs reviewed by me, Image(s) reviewed by me Assessment/Plan Assessment/Plan Impression: -chest pain -rule out ACS -history of recent [place] with multiple stent placement as well as the need for Impella device for cardiogenic shock -hypotension, questionable cardiogenic shock -rule out PE -rule out sepsis given recent bacteremia with Staphylococcus aureus -history of illicit drug use: Amphetamines -obesity -diabetes mellitus Been complicated cystitis Plan: Events: Levophed at 1 microgram/minute. Twelve lead ECG reviewed. Patient continues to report having intermittent chest pain. Ranexa started yesterday. -continue Ranexa -additional dose of albumin -wound care consultation: Wound VAC changed -continue regular insulin sliding scale -continue Invanz for now. -trial of albumin -continue dual antiplatelet therapy -repeat labs in a.m. Critical care time spent with patient discussing and formulating plan of care: 40 minutes. This does not include time spent performing procedures. This medical document was created using an electronic medical record system with [employer] dictation system. Although this document has been carefully reviewed, there may still be some phonetic and typographical errors. These areas are purely typographical due to imperfections of the software programs, and do not reflect any compromise in the patient's medical care. Plan discussed with: Patient, Other (RN) My Orders Orders - INDU GARCÍA NP Procedure Category Date Status Time Manual Differential LAB 10/27/24 In Process 05:38 Electrocardigram EKG 10/27/24 Logged 08:32 Date of Service: Oct 27, 2024 Billing Provider: INDU GARCÍA NP Common Visit Codes: [id number] CARE 30-74 MIN INDU GARCÍA NP Oct 27, 2024 09:00
[2024-10-27] MEDS: ALBUMIN 25% 50 ML IV ONE (09:52)
[2024-10-27 10:18] LABS: Hypochromia Slight; Lymphocytes % (manual) 51 (10.0-50.0); Monocytes % (manual) 9 (0-12); Platelet Estimate Adequate; Reactive Lymphocytes 3
--- NOTE | 2024-10-27 13:37 | ECG ---
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
[2024-10-28] VITALS (99 sets, daily range): BP systolic 79–137; BP diastolic 44–77; PULSE 48–125; RESP 7–23; TEMP 97.9–98.9; O2SAT 90–100
--- NOTE | 2024-10-28 06:55 | DVHPN2 ---
Subjective Patient denies any symptoms at this time. Reviewed: Care Plan, H&P, Labs, Medications Changes from previous H/P or p: No Changes General: Per HPI Cardiovascular: Chest Pain Respiratory: Shortness of breath Objective Vitals Vital Signs Date Time Temp Pulse Resp B/P (MAP) Pulse Ox O2 Delivery O2 Flow Rate FiO2 10/28/24 06:28 117/61 10/28/24 06:00 13 99 Room Air* 0 21 10/28/24 06:00 70 10/28/24 00:00 98.7 98.7 Intake/Output Intake and Output 10/28/24 07:00 Intake Total 1481.75 ml Output Total 1900 ml Balance -418.25 ml Intake Oral 1230 ml IV Total 251.75 ml Output Urine Total 1900 ml # Voids 1 General Appearance: Alert, Oriented X3, Cooperative, mild distress HEENT: Atraumatic, PERRLA Cardiovascular: Normal S1, Normal S2 Abdomen: Normal bowel sounds, Soft, No tenderness Musculoskeletal: Normal sensory function, Normal motor function Neuro: Normal gait, Normal speech Skin: Dry, Intact, Wounds (See nurse notes and pictures), Other (Right point wound VAC. Scalp dressing) Psych/Mental Status: Mental status NL, Mood NL Medications Current Medications Medications Dose Ordered Sig/Mary Anne Route Start Time Stop Time Status Last Admin Dose Admin Norepinephrine Bitartrate 250 ml @ 3.75 mls/hr Q24H IV 10/23/24 17:15 10/28/24 06:28 7.5 MLS/HR Diagnostic Test (Pha) 1 strip ACHS 10/23/24 22:00 10/28/24 06:36 1 STRIP Insulin Human Regular ACHS SC 10/23/24 22:00 10/28/24 06:40 3 UNITS Dextrose 50 ml UD PRN IV 10/23/24 17:15 Acetaminophen 650 mg Q6HP PRN PO 10/23/24 17:15 10/26/24 20:36 650 MG Ondansetron HCl 4 mg Q4HP PRN IV 10/23/24 17:15 Nitroglycerin 0.4 mg Q5MINP PRN SL 10/23/24 17:15 Morphine Sulfate 2 mg Q30M PRN IV 10/23/24 17:15 10/26/24 21:24 2 MG Empaglifozin 10 mg DAILY PO 10/24/24 10:00 10/27/24 09:53 10 MG Furosemide 20 mg DAILY PO 10/24/24 10:00 10/27/24 09:53 20 MG Aspirin 81 mg DAILY PO 10/24/24 10:00 10/27/24 09:53 81 MG Atorvastatin Calcium 40 mg DAILY PO 10/24/24 10:00 10/27/24 09:54 40 MG Patient Own Medication 1 mis DAILY SL 10/24/24 10:00 Hold Pantoprazole Sodium 40 mg DAILY PO 10/24/24 10:00 10/27/24 09:53 40 MG Budesonide 0.5 mg BID NEB 10/23/24 22:00 10/27/24 18:20 0.5 MG Albuterol 2.5 mg Q4HPRN PRN NEB 10/23/24 17:45 10/27/24 07:10 2.5 MG Ipratropium [place] 0.5 mg Q4HPRN PRN NEB 10/23/24 17:45 10/27/24 07:10 0.5 MG Citalopram Hydrobromide 20 mg DAILY PO 10/25/24 22:00 10/27/24 09:54 20 MG Ertapenem 1 gm/ Sodium Chloride 50 ml @ 100 mls/hr DAILY IV 10/25/24 13:45 10/27/24 10:55 100 MLS/HR Ticagrelor 90 mg BID PO 10/25/24 15:00 10/27/24 21:36 90 MG Ranolazine 500 mg BID PO 10/26/24 10:00 10/27/24 21:36 500 MG Laboratory Results Laboratory Tests 10/27/24 05:38 Urinalysis Test 10/26/24 10:17 Urine Color Light-yellow (Yellow) Urine Clarity Clear (Clear) Urine pH 5.5 (5.0-9.0) Urine Specific [place] 1.039 (1.001-1.035) Urine Protein Negative (Negative) Urine Ketones Negative (Negative) Urine Blood Negative /uL (Negative) Urine Nitrite Negative (Negative) Urine Bilirubin Negative (Negative) Urine Urobilinogen Normal mg/dL (Negative) Urine Leukocyte Esterase Negative /uL (Negative) Urine RBC 8 /hpf (0 - 4) Urine Microscopic WBC 4 /HPF (0-5) Urine Squamous Epithelial Cells Few /hpf (<5) Urine Bacteria None seen /hpf (None Seen) Urine Glucose 4+ mg/dL (Normal) H Microbiology Microbiology Date/Time Source Procedure Growth Status 10/26/24 10:17 Urine - Midstream Clean Catch Urine Culture - Preliminary Resulted 10/24/24 13:30 Scalp Gram Stain - Final Resulted 10/24/24 13:30 Scalp Wound Culture - Preliminary Resulted 10/23/24 18:39 Blood Blood Culture - Preliminary NO GROWTH AFTER 72 HOURS OF INCUBATION. Resulted Labs and/or images reviewed: Labs reviewed by me, Image(s) reviewed by me Assessment/Plan Assessment/Plan Impression: -chest pain -rule out ACS -history of recent [place] with multiple stent placement as well as the need for Impella device for cardiogenic shock -hypotension, questionable cardiogenic shock -rule out PE -rule out sepsis given recent bacteremia with Staphylococcus aureus -history of illicit drug use: Amphetamines -obesity -diabetes mellitus Been complicated cystitis Plan: Events: Continues to be on norepinephrine at 4 micrograms/minute. Repeat urine culture with growth. -PICC line placement -continue Ranexa -wound care consultation: Wound VAC changed -continue regular insulin sliding scale -continue IV Invanz -continue dual antiplatelet therapy -social service consultation for discharge planning. Patient will require probable SNF placement for continued IV antibiotic therapy with Invanz as well as physical therapy -repeat labs in a.m. Critical care time spent with patient discussing and formulating plan of care: 40 minutes. This does not include time spent performing procedures. This medical document was created using an electronic medical record system with [employer] dictation system. Although this document has been carefully reviewed, there may still be some phonetic and typographical errors. These areas are purely typographical due to imperfections of the software programs, and do not reflect any compromise in the patient's medical care. Plan discussed with: Patient, Other (RN) My Orders Orders - INDU GARCÍA NP Procedure Category Date Status Time Mrsa Screen CRISSY 10/27/24 Uncollected 10:36 Mrsa Screen CRISSY 10/27/24 In Process 11:58 * Picc Line Consult CONS 10/28/24 Transmitted 06:51 Basic Metabolic Panel LAB 10/29/24 Verified 04:00 Magnesium LAB 10/29/24 Verified 04:00 Chest Portable XY 10/29/24 Transmitted 04:00 Date of Service: Oct 28, 2024 Billing Provider: INDU GARCÍA NP Common Visit Codes: [id number] CARE 30-74 MIN INDU GARCÍA NP Oct 28, 2024 06:55
[2024-10-28 10:32] LABS: INR 1.11 (0.9-1.15); Partial Thromboplastin Time 40.8 SEC (24.5-34.5); Prothrombin Time 11.6 sec (9.3-11.8)
[2024-10-28] MEDS: LIDOCAINE 1% (LOCAL ANESTH.) PF 5ml SDV ID ONE (17:23)
[2024-10-28] MEDS: SODIUM CHLOR 0.9% PF (SALINE LOCK) 10ML VIAL/SYR IV SCH (21:40)
[2024-10-29] VITALS (100 sets, daily range): BP systolic 78–136; BP diastolic 43–102; PULSE 53–128; RESP 8–25; TEMP 97.8–98.2; O2SAT 85–100
[2024-10-29 04:01] LABS: Chloride 104 mmol/L (98-107); Potassium 3.5 mmol/L (3.5-5.1); Sodium 138 mmol/L (136-145)
[2024-10-29 04:02] LABS: Anion Gap 9 (5-15); Calcium 10.2 mg/dL (8.7-10.4); Carbon Dioxide 25 mmol/L (20-31)
[2024-10-29 04:07] LABS: BUN/Creatinine Ratio 22.4 (10.0-20.0); Blood Urea Nitrogen 15 mg/dL (9-23)
[2024-10-29 04:08] LABS: Magnesium 2.1 mg/dL (1.6-2.6)
[2024-10-29 04:09] LABS: Glucose 157 mg/dL (74-106)
--- NOTE | 2024-10-29 05:44 | DVH ---
Exam: US US GUIDED VASCULAR ACCESS Clinical History: PICC LINE PLACEMENT Comparison: None Findings: Targeted sonographic evaluation of the arm vein was obtained utilizing grayscale and color Doppler im aging. IMPRESSION: Sonographic assistance for central line placement. Please refer to procedural report for detailed fin dings.
--- NOTE | 2024-10-29 05:44 | DVH ---
CHEST RADIOGRAPH Indication: chf Technique: Single frontal view of the chest was obtained COMPARISON: XY CHEST PORTABLE on DOS: 10/23/24, XY CHEST PORTABLE on DOS: 09/28/24 FINDINGS: Lines and Tubes: Right PICC in satisfactory position Lungs: Clear Pleura: No effusion. No pneumothorax. Cardiomediastinal contours: Unremarkable Bones: Unremarkable IMPRESSION: Right PICC in satisfactory position
--- NOTE | 2024-10-29 10:13 | DVHPN2 ---
Subjective Patient verbalizes that she was feeling better. States that she was ambulating with out any signs of dizziness. Reviewed: Care Plan, H&P, Labs, Medications Changes from previous H/P or p: Changes General: Per HPI Cardiovascular: Chest Pain Respiratory: Shortness of breath Objective Vitals Vital Signs Date Time Temp Pulse Resp B/P (MAP) Pulse Ox O2 Delivery O2 Flow Rate FiO2 10/29/24 08:07 105/56 10/29/24 07:10 64 14 100 10/29/24 07:02 Room Air 0.0 10/29/24 07:02 21 10/29/24 04:00 97.9 97.9 Intake/Output Intake and Output 10/29/24 07:00 Intake Total 2296.50 ml Output Total 2100 ml Balance 196.50 ml Intake Oral 2040 ml IV Total 256.50 ml Output Urine Total 2100 ml Stool Total 0 ml General Appearance: Alert, Oriented X3, Cooperative, mild distress HEENT: Atraumatic, PERRLA Cardiovascular: Normal S1, Normal S2 Abdomen: Normal bowel sounds, Soft, No tenderness Musculoskeletal: Normal sensory function, Normal motor function Neuro: Normal gait, Normal speech Skin: Dry, Intact, Wounds (See nurse notes and pictures), Other (Right point wound VAC. Scalp dressing) Psych/Mental Status: Mental status NL, Mood NL Medications Current Medications Medications Dose Ordered Sig/Mary Anne Route Start Time Stop Time Status Last Admin Dose Admin Norepinephrine Bitartrate 250 ml @ 3.75 mls/hr Q24H IV 10/23/24 17:15 10/29/24 08:07 7.5 MLS/HR Diagnostic Test (Pha) 1 strip ACHS 10/23/24 22:00 10/28/24 21:40 1 STRIP Insulin Human Regular ACHS SC 10/23/24 22:00 10/28/24 21:44 8 UNITS Dextrose 50 ml UD PRN IV 10/23/24 17:15 Acetaminophen 650 mg Q6HP PRN PO 10/23/24 17:15 10/26/24 20:36 650 MG Ondansetron HCl 4 mg Q4HP PRN IV 10/23/24 17:15 Nitroglycerin 0.4 mg Q5MINP PRN SL 10/23/24 17:15 Morphine Sulfate 2 mg Q30M PRN IV 10/23/24 17:15 10/28/24 15:11 2 MG Empaglifozin 10 mg DAILY PO 10/24/24 10:00 10/28/24 10:33 10 MG Furosemide 20 mg DAILY PO 10/24/24 10:00 10/28/24 10:32 20 MG Aspirin 81 mg DAILY PO 10/24/24 10:00 10/28/24 10:33 81 MG Atorvastatin Calcium 40 mg DAILY PO 10/24/24 10:00 10/28/24 10:33 40 MG Patient Own Medication 1 mis DAILY SL 10/24/24 10:00 Hold Pantoprazole Sodium 40 mg DAILY PO 10/24/24 10:00 10/28/24 10:32 40 MG Budesonide 0.5 mg BID NEB 10/23/24 22:00 10/29/24 07:02 0.5 MG Albuterol 2.5 mg Q4HPRN PRN NEB 10/23/24 17:45 10/29/24 07:02 2.5 MG Ipratropium [place] 0.5 mg Q4HPRN PRN NEB 10/23/24 17:45 10/27/24 07:10 0.5 MG Citalopram Hydrobromide 20 mg DAILY PO 10/25/24 22:00 10/28/24 10:32 20 MG Ertapenem 1 gm/ Sodium Chloride 50 ml @ 100 mls/hr DAILY IV 10/25/24 13:45 10/28/24 10:31 100 MLS/HR Ticagrelor 90 mg BID PO 10/25/24 15:00 10/28/24 21:40 90 MG Ranolazine 500 mg BID PO 10/26/24 10:00 10/28/24 21:40 500 MG Sodium Chloride 10 ml QSHIFT@10,22 IV 10/28/24 22:00 10/28/24 21:40 10 ML Laboratory Results Laboratory Tests 10/27/24 05:38 10/29/24 02:57 Chemistry Test 10/29/24 02:57 Calcium Level 10.2 mg/dL (8.7-10.4) Magnesium Level 2.1 mg/dL (1.6-2.6) Urinalysis Test 10/26/24 10:17 Urine Color Light-yellow (Yellow) Urine Clarity Clear (Clear) Urine pH 5.5 (5.0-9.0) Urine Specific [place] 1.039 (1.001-1.035) Urine Protein Negative (Negative) Urine Ketones Negative (Negative) Urine Blood Negative /uL (Negative) Urine Nitrite Negative (Negative) Urine Bilirubin Negative (Negative) Urine Urobilinogen Normal mg/dL (Negative) Urine Leukocyte Esterase Negative /uL (Negative) Urine RBC 8 /hpf (0 - 4) Urine Microscopic WBC 4 /HPF (0-5) Urine Squamous Epithelial Cells Few /hpf (<5) Urine Bacteria None seen /hpf (None Seen) Urine Glucose 4+ mg/dL (Normal) H Microbiology Microbiology Date/Time Source Procedure Growth Status 10/27/24 11:58 Nose MRSA Screen - Final Complete 10/26/24 10:17 Urine - Midstream Clean Catch Urine Culture - Final Complete 10/23/24 18:39 Blood Blood Culture - Final NO GROWTH AFTER 5 DAYS OF INCUBATION. Complete Labs and/or images reviewed: Labs reviewed by me, Image(s) reviewed by me Assessment/Plan Assessment/Plan Impression: -chest pain -rule out ACS -history of recent [place] with multiple stent placement as well as the need for Impella device for cardiogenic shock -hypotension, questionable cardiogenic shock -ruled out PE -sepsis secondary to ESBL in the urine -history of illicit drug use: Amphetamines -obesity -diabetes mellitus -complicated cystitis with ESBL in the urine Plan: Events: Continues to be on norepinephrine at 4 micrograms/minute. Repeat urine culture contaminated. Continue treatment with Invanz. Plans to evaluate right inguinal wound with possible removal of wound VAC. PICC line placed. -continue Ranexa -wound care consultation: Re-evaluate need for wound VAC -continue regular insulin sliding scale -continue IV Invanz -continue dual antiplatelet therapy -social service consultation for discharge planning. Patient will require probable SNF placement for continued IV antibiotic therapy with Invanz as well as physical therapy -repeat labs in a.m. Critical care time spent with patient discussing and formulating plan of care: 40 minutes. This does not include time spent performing procedures. This medical document was created using an electronic medical record system with [employer] system. Although this document has been carefully reviewed, there may still be some phonetic and typographical errors. These areas are purely typographical due to imperfections of the software programs, and do not reflect any compromise in the patient's medical care. Plan discussed with: Patient, Other My Orders Orders - INDU GARCÍA NP Procedure Category Date Status Time Us Guided Vascular US 10/28/24 Resulted Access 16:52 Nursing Protocol Picc HUNTER 10/28/24 In Process 16:52 Change Dressing Prn HUNTER 10/28/24 In Process 16:52 PICC BD 10/28/24 Transmitted 16:52 Sodium Chloride Lock PHA 10/28/24 In Process (Saline Lock Ns) 22:00 Do Not Use Picc For HUNTER 10/28/24 In Process Blood Cult 16:52 May Draw Blood From [facility] 10/28/24 In Process Picc 16:52 Ok To Use Picc HUNTER 10/28/24 In Process 16:52 Change Picc Dressing HUNTER 10/28/24 In Process Q7 Days 16:52 Communication Order ORDERS 10/29/24 Transmitted 07:59 Date of Service: Oct 29, 2024 Billing Provider: INDU GARCÍA NP Common Visit Codes: [id number] CARE 30-74 MIN INDU GARCÍA NP Oct 29, 2024 10:13
[2024-10-29] MEDS: NITROGLYCERIN 0.4 MG SL TAB SL PRN (15:28)
--- NOTE | 2024-10-29 16:02 | DVHPN2 ---
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75 mls/hr Q24H IV 10/23/24 17:15 10/29/24 08:07 7.5 MLS/HR Diagnostic Test (Pha) 1 strip ACHS 10/23/24 22:00 10/29/24 11:30 1 STRIP Insulin Human Regular ACHS SC 10/23/24 22:00 10/29/24 11:30 4 UNITS Dextrose 50 ml UD PRN IV 10/23/24 17:15 Acetaminophen 650 mg Q6HP PRN PO 10/23/24 17:15 10/26/24 20:36 650 MG Ondansetron HCl 4 mg Q4HP PRN IV 10/23/24 17:15 Nitroglycerin 0.4 mg Q5MINP PRN SL 10/23/24 17:15 10/29/24 15:38 0.4 MG Morphine Sulfate 2 mg Q30M PRN IV 10/23/24 17:15 10/28/24 15:11 2 MG Empaglifozin 10 mg DAILY PO 10/24/24 10:00 10/29/24 11:03 10 MG Furosemide 20 mg DAILY PO 10/24/24 10:00 10/29/24 11:04 20 MG Aspirin 81 mg DAILY PO 10/24/24 10:00 10/29/24 11:03 81 MG Atorvastatin Calcium 40 mg DAILY PO 10/24/24 10:00 10/29/24 11:03 40 MG Patient Own Medication 1 mis DAILY SL 10/24/24 10:00 Hold Pantoprazole Sodium 40 mg DAILY PO 10/24/24 10:00 10/29/24 11:04 40 MG Budesonide 0.5 mg BID NEB 10/23/24 22:00 10/29/24 07:02 0.5 MG Albuterol 2.5 mg Q4HPRN PRN NEB 10/23/24 17:45 10/29/24 07:02 2.5 MG Ipratropium [place] 0.5 mg Q4HPRN PRN NEB 10/23/24 17:45 10/27/24 07:10 0.5 MG Citalopram Hydrobromide 20 mg DAILY PO 10/25/24 22:00 10/29/24 11:04 20 MG Ertapenem 1 gm/ Sodium Chloride 50 ml @ 100 mls/hr DAILY IV 10/25/24 13:45 10/29/24 11:03 100 MLS/HR Ticagrelor 90 mg BID PO 10/25/24 15:00 10/29/24 11:03 90 MG Ranolazine 500 mg BID PO 10/26/24 10:00 10/29/24 11:03 500 MG Sodium Chloride 10 ml QSHIFT@10,22 IV 10/28/24 22:00 10/29/24 11:04 10 ML laboratory and microbiology Laboratory Tests 10/29/24 02:57 10/27/24 05:38 Test 10/29/24 02:57 Range/Units Serum Glucose 157 H 74-106 mg/dL Assessment/Plan Impression Acute hypoxemic respiratory failure Cardiomyopathy- severe Cardiogenic shock Infected impella NSTEMI Patient seen and examined in ICU Events Low oxygen requirements On room air On Levophed 3mcg for hemodynamic support Appears to have infected wound in groin Impella device in place Labs and imaging reviewed Chest x-ray shows clear lungs CTA of the chest shows no evidence of pulmonary emoblism Management Supplemental oxygen as needed Titrate to maintain sats 90% or above Incentive spirometry Continue antibiotics F/u cultures Bronchodilators Monitor renal function Monitor electrolytes Supplement as needed Pressors as needed for hemodynamic support To maintain a mean arterial pressure of 65 mmHg F/u cardiology DVT prophylaxis Critical care time 35 minutes Dietary Evaluation Review Comments: 1. Encourage continued good oral intakes >75% of meals 2. Suggest oral nutrition supplements (Ensure HP BID *provides 160 kcal, 16 gm pro, 19 gm CHO per carton) to support wound healing; change to Ensure Enlive if PO becomes <50% 3. Provided verbal and written diet education re: nutrition for wound healing, all questions/concerns addressed 4. Continue frequent POC BG checks for excellent glycemic control; goal <180 mg/dl while inpatient Expected Outcomes/Goals: Wound healing, maintain skin integrity, weight maintenance. Plan discussed with: Patient LITTLE FRANKLIN MD Oct 29, 2024 16:02
[2024-10-30] VITALS (95 sets, daily range): BP systolic 74–134; BP diastolic 34–79; PULSE 53–92; RESP 10–25; TEMP 97.6–98.9; O2SAT 92–100
--- NOTE | 2024-10-30 07:02 | DVHPN2 ---
Subjective Patient verbalizes that she was feeling better. States that she was ambulating with out any signs of dizziness. Reviewed: Care Plan, H&P, Labs, Medications Changes from previous H/P or p: No Changes General: Per HPI Cardiovascular: Chest Pain Respiratory: Shortness of breath Objective Vitals Vital Signs Date Time Temp Pulse Resp B/P (MAP) Pulse Ox O2 Delivery O2 Flow Rate FiO2 10/30/24 06:45 71 16 112/52 (72) 97 10/30/24 06:00 Room Air* 0 21 10/30/24 04:00 97.6 97.6 Intake/Output Intake and Output 10/30/24 07:00 Intake Total 5671.85 ml Balance 5671.85 ml Intake Oral 1480 ml IV Total 191.85 ml Intraperitoneal 4000 ml # Bowel Movements 1 General Appearance: Alert, Oriented X3, Cooperative, mild distress HEENT: Atraumatic, PERRLA Cardiovascular: Normal S1, Normal S2 Abdomen: Normal bowel sounds, Soft, No tenderness Musculoskeletal: Normal sensory function, Normal motor function Neuro: Normal gait, Normal speech Skin: Dry, Intact, Wounds (See nurse notes and pictures), Other (Right point wound VAC. Scalp dressing) Psych/Mental Status: Mental status NL, Mood NL Medications Current Medications Medications Dose Ordered Sig/Mary Anne Route Start Time Stop Time Status Last Admin Dose Admin Norepinephrine Bitartrate 250 ml @ 3.75 mls/hr Q24H IV 10/23/24 17:15 10/29/24 08:07 7.5 MLS/HR Diagnostic Test (Pha) 1 strip ACHS 10/23/24 22:00 10/29/24 21:41 1 STRIP Insulin Human Regular ACHS SC 10/23/24 22:00 10/29/24 21:44 8 UNITS Dextrose 50 ml UD PRN IV 10/23/24 17:15 Acetaminophen 650 mg Q6HP PRN PO 10/23/24 17:15 10/26/24 20:36 650 MG Ondansetron HCl 4 mg Q4HP PRN IV 10/23/24 17:15 Nitroglycerin 0.4 mg Q5MINP PRN SL 10/23/24 17:15 10/29/24 15:38 0.4 MG Morphine Sulfate 2 mg Q30M PRN IV 10/23/24 17:15 10/28/24 15:11 2 MG Empaglifozin 10 mg DAILY PO 10/24/24 10:00 10/29/24 11:03 10 MG Furosemide 20 mg DAILY PO 10/24/24 10:00 10/29/24 11:04 20 MG Aspirin 81 mg DAILY PO 10/24/24 10:00 10/29/24 11:03 81 MG Atorvastatin Calcium 40 mg DAILY PO 10/24/24 10:00 10/29/24 11:03 40 MG Patient Own Medication 1 mis DAILY SL 10/24/24 10:00 Hold Pantoprazole Sodium 40 mg DAILY PO 10/24/24 10:00 10/29/24 11:04 40 MG Budesonide 0.5 mg BID NEB 10/23/24 22:00 10/29/24 18:11 0.5 MG Albuterol 2.5 mg Q4HPRN PRN NEB 10/23/24 17:45 10/29/24 21:53 2.5 MG Ipratropium [place] 0.5 mg Q4HPRN PRN NEB 10/23/24 17:45 10/29/24 21:53 0.5 MG Citalopram Hydrobromide 20 mg DAILY PO 10/25/24 22:00 10/29/24 11:04 20 MG Ertapenem 1 gm/ Sodium Chloride 50 ml @ 100 mls/hr DAILY IV 10/25/24 13:45 10/29/24 11:03 100 MLS/HR Ticagrelor 90 mg BID PO 10/25/24 15:00 10/29/24 21:40 90 MG Ranolazine 500 mg BID PO 10/26/24 10:00 10/29/24 21:40 500 MG Sodium Chloride 10 ml QSHIFT@10,22 IV 10/28/24 22:00 10/29/24 21:41 10 ML Laboratory Results Laboratory Tests 10/27/24 05:38 10/29/24 02:57 Urinalysis Test 10/26/24 10:17 Urine Color Light-yellow (Yellow) Urine Clarity Clear (Clear) Urine pH 5.5 (5.0-9.0) Urine Specific [place] 1.039 (1.001-1.035) Urine Protein Negative (Negative) Urine Ketones Negative (Negative) Urine Blood Negative /uL (Negative) Urine Nitrite Negative (Negative) Urine Bilirubin Negative (Negative) Urine Urobilinogen Normal mg/dL (Negative) Urine Leukocyte Esterase Negative /uL (Negative) Urine RBC 8 /hpf (0 - 4) Urine Microscopic WBC 4 /HPF (0-5) Urine Squamous Epithelial Cells Few /hpf (<5) Urine Bacteria None seen /hpf (None Seen) Urine Glucose 4+ mg/dL (Normal) H Microbiology Microbiology Date/Time Source Procedure Growth Status 10/28/24 17:18 Nose MRSA Screen - Final Complete 10/26/24 10:17 Urine - Midstream Clean Catch Urine Culture - Final Complete 10/23/24 18:39 Blood Blood Culture - Final NO GROWTH AFTER 5 DAYS OF INCUBATION. Complete Labs and/or images reviewed: Labs reviewed by me, Image(s) reviewed by me Assessment/Plan Assessment/Plan Impression: -chest pain -rule out ACS -history of recent [place] with multiple stent placement as well as the need for Impella device for cardiogenic shock -hypotension, questionable cardiogenic shock -ruled out PE -sepsis secondary to ESBL in the urine -history of illicit drug use: Amphetamines -obesity -diabetes mellitus -complicated cystitis with ESBL in the urine Plan:Events: Continues to be on norepinephrine at 4 micrograms/minute. -Start Midodrine -Albumin -continue Ranexa -wound care consultation: Re-evaluate need for wound VAC -continue regular insulin sliding scale -continue IV Invanz -continue dual antiplatelet therapy -social service consultation for discharge planning. Patient will require probable SNF placement for continued IV antibiotic therapy with Invanz as well as physical therapy -repeat labs in a.m. Critical care time spent with patient discussing and formulating plan of care: 40 minutes. This does not include time spent performing procedures. This medical document was created using an electronic medical record system with [employer] dictation system. Although this document has been carefully reviewed, there may still be some phonetic and typographical errors. These areas are purely typographical due to imperfections of the software programs, and do not reflect any compromise in the patient's medical care. Plan discussed with: Patient, Other (RN) My Orders Orders - INDU GARCÍA NP Procedure Category Date Status Time Communication Order ORDERS 10/29/24 Transmitted 07:59 Date of Service: Oct 30, 2024 Billing Provider: INDU GARCÍA NP Common Visit Codes: [id number] CARE 30-74 MIN INDU GARCÍA NP Oct 30, 2024 07:01
[2024-10-30] MEDS: ALBUMIN 25% 100 ML IV ONE (10:10)
--- NOTE | 2024-10-30 10:40 | DVHPN2 ---
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* Patient seen and examined at bedside Overnight events reviewed vital signs Vital Sign Date Time Temp Pulse Resp B/P (MAP) Pulse Ox O2 Delivery O2 Flow Rate FiO2 10/30/24 10:09 94/56 10/30/24 09:49 62 16 100 10/30/24 09:43 Room Air 0.0 10/30/24 09:43 21 10/30/24 04:00 97.6 97.6 Total Intake and Output 10/29/24 10/29/24 10/30/24 14:59 22:59 06:59 Intake Total 338.75 ml 1200.60 ml 540.0 ml Output Total 1600 ml Balance 338.75 ml -399.40 ml 540.0 ml medications Current Medications Medications Dose Ordered Sig/Mary Anne Route Start Time Stop Time Status Last Admin Dose Admin Norepinephrine Bitartrate 250 ml @ 3.75 mls/hr Q24H IV 10/23/24 17:15 10/29/24 08:07 7.5 MLS/HR Diagnostic Test (Pha) 1 strip ACHS 10/23/24 22:00 10/29/24 21:41 1 STRIP Insulin Human Regular ACHS SC 10/23/24 22:00 10/29/24 21:44 8 UNITS Dextrose 50 ml UD PRN IV 10/23/24 17:15 Acetaminophen 650 mg Q6HP PRN PO 10/23/24 17:15 10/26/24 20:36 650 MG Ondansetron HCl 4 mg Q4HP PRN IV 10/23/24 17:15 Nitroglycerin 0.4 mg Q5MINP PRN SL 10/23/24 17:15 10/29/24 15:38 0.4 MG Morphine Sulfate 2 mg Q30M PRN IV 10/23/24 17:15 10/28/24 15:11 2 MG Empaglifozin 10 mg DAILY PO 10/24/24 10:00 10/30/24 10:09 10 MG Furosemide 20 mg DAILY PO 10/24/24 10:00 10/30/24 10:09 20 MG Aspirin 81 mg DAILY PO 10/24/24 10:00 10/30/24 10:09 81 MG Atorvastatin Calcium 40 mg DAILY PO 10/24/24 10:00 10/30/24 10:09 40 MG Pantoprazole Sodium 40 mg DAILY PO 10/24/24 10:00 10/30/24 10:10 40 MG Budesonide 0.5 mg BID NEB 10/23/24 22:00 10/30/24 09:43 0.5 MG Albuterol 2.5 mg Q4HPRN PRN NEB 10/23/24 17:45 10/29/24 21:53 2.5 MG Ipratropium [place] 0.5 mg Q4HPRN PRN NEB 10/23/24 17:45 10/29/24 21:53 0.5 MG Citalopram Hydrobromide 20 mg DAILY PO 10/25/24 22:00 10/30/24 10:10 20 MG Ertapenem 1 gm/ Sodium Chloride 50 ml @ 100 mls/hr DAILY IV 10/25/24 13:45 10/30/24 10:10 100 MLS/HR Ticagrelor 90 mg BID PO 10/25/24 15:00 10/30/24 10:09 90 MG Ranolazine 500 mg BID PO 10/26/24 10:00 10/30/24 10:09 500 MG Sodium Chloride 10 ml QSHIFT@10,22 IV 10/28/24 22:00 10/30/24 10:10 10 ML Midodrine 10 mg TID@0600,1200,1800 PO 10/30/24 12:00 laboratory and microbiology Laboratory Tests 10/29/24 02:57 10/27/24 05:38 Test 10/29/24 02:57 Range/Units Serum Glucose 157 H 74-106 mg/dL Assessment/Plan Impression Acute hypoxemic respiratory failure Cardiomyopathy- severe Cardiogenic shock Infected impella NSTEMI Patient seen and examined in ICU Events Low oxygen requirements On room air remains on Levophed 3mcg wound-vac right groin no new complaints started on midodrine Labs and imaging reviewed Chest x-ray shows clear lungs CTA of the chest shows no evidence of pulmonary emoblism Management Supplemental oxygen as needed Titrate to maintain sats 90% or above Incentive spirometry Continue antibiotics F/u cultures Bronchodilators Monitor renal function Monitor electrolytes Supplement as needed Pressors as needed for hemodynamic support To maintain a mean arterial pressure of 65 mmHg F/u cardiology DVT prophylaxis Critical care time 35 minutes Dietary Evaluation Review Comments: 1. Encourage continued good oral intakes >75% of meals 2. Suggest oral nutrition supplements (Ensure HP BID *provides 160 kcal, 16 gm pro, 19 gm CHO per carton) to support wound healing; change to Ensure Enlive if PO becomes <50% 3. Provided verbal and written diet education re: nutrition for wound healing, all questions/concerns addressed 4. Continue frequent POC BG checks for excellent glycemic control; goal <180 mg/dl while inpatient Expected Outcomes/Goals: Wound healing, maintain skin integrity, weight maintenance. Plan discussed with: Other (rn) LITTLE FRANKLIN MD Oct 30, 2024 10:40
[2024-10-30] MEDS: MIDODRINE HCL 10 MG TAB PO SCH (11:27)
[2024-10-31] VITALS (96 sets, daily range): BP systolic 46–173; BP diastolic 18–90; PULSE 55–136; RESP 8–28; TEMP 97.7–98.4; O2SAT 92–100
[2024-10-31 03:52] LABS: Chloride 104 mmol/L (98-107); Potassium 4.1 mmol/L (3.5-5.1); Sodium 137 mmol/L (136-145)
[2024-10-31 03:53] LABS: Anion Gap 8 (5-15); Calcium 10.2 mg/dL (8.7-10.4); Carbon Dioxide 25 mmol/L (20-31)
[2024-10-31 03:58] LABS: BUN/Creatinine Ratio 19.2 (10.0-20.0); Blood Urea Nitrogen 19 mg/dL (9-23)
[2024-10-31 04:00] LABS: Mean Corpuscular Hemoglobin 24.2 pg (28.0-32.0); Red Blood Cells 4.32 10^6/uL (4.0-5.20); White Blood Cell 3.8 10^3/uL (4.4-10.8)
[2024-10-31 04:11] LABS: Glucose 178 mg/dL (74-106)
[2024-10-31 04:15] LABS: Basophils # (auto) 0 10 ^3/uL (0-0.2); Eosinophils # (auto) 0.2 10 ^3/uL (0-0.8); Hematocrit 32.1 % (36.0-46.0); Hemoglobin 10.4 g/dL (12.2-16.2); Lymphocytes # (auto) 1.2 10 ^3/uL (0.4-5.4); Lymphocytes % (auto) 32.1 % (10.0-50.0); Mean Corpuscular Hgb Conc. 32.6 g/dL (32.0-36.0); Mean Corpuscular Volume 74.3 fL (80.0-100.0); Monocytes # (auto) 0.4 10 ^3/uL (0-1.3); Monocytes % (auto) 11.1 % (0.0-12.0); Neutrophils % (auto) 51.8 % (37.0-80.0); Nucleated Red Blood Cells % 0.1 %; Platelet Count (auto) 319 10^3/uL (140-450); Red Cell Distribution Width 15.6 % (11.8-14.3)
--- NOTE | 2024-10-31 07:47 | DVHPN2 ---
Subjective Patient verbalizes that she was feeling better. States that she was ambulating with out any signs of dizziness. Reviewed: Care Plan, H&P, Labs, Medications Changes from previous H/P or p: No Changes General: Per HPI Cardiovascular: Chest Pain Respiratory: Shortness of breath Objective Vitals Vital Signs Date Time Temp Pulse Resp B/P (MAP) Pulse Ox O2 Delivery O2 Flow Rate FiO2 10/31/24 07:07 97 Room Air* 0 21 10/31/24 07:07 67 17 10/31/24 06:15 90/51 (64) 10/31/24 06:00 98.2 98.2 Intake/Output Intake and Output 10/31/24 07:00 Intake Total 2287.50 ml Output Total 1750 ml Balance 537.50 ml Intake Oral 2010 ml IV Total 277.50 ml Output Urine Total 1750 ml General Appearance: Alert, Oriented X3, Cooperative, mild distress HEENT: Atraumatic, PERRLA Cardiovascular: Normal S1, Normal S2 Abdomen: Normal bowel sounds, Soft, No tenderness Musculoskeletal: Normal sensory function, Normal motor function Neuro: Normal gait, Normal speech Skin: Dry, Intact, Wounds (See nurse notes and pictures), Other (Right point wound VAC. Scalp dressing) Psych/Mental Status: Mental status NL, Mood NL Medications Current Medications Medications Dose Ordered Sig/Mary Anne Route Start Time Stop Time Status Last Admin Dose Admin Norepinephrine Bitartrate 250 ml @ 3.75 mls/hr Q24H IV 10/23/24 17:15 10/31/24 02:19 11.25 MLS/HR Diagnostic Test (Pha) 1 strip ACHS 10/23/24 22:00 10/31/24 06:22 1 STRIP Insulin Human Regular ACHS SC 10/23/24 22:00 10/31/24 06:22 3 UNITS Dextrose 50 ml UD PRN IV 10/23/24 17:15 Acetaminophen 650 mg Q6HP PRN PO 10/23/24 17:15 10/26/24 20:36 650 MG Ondansetron HCl 4 mg Q4HP PRN IV 10/23/24 17:15 Nitroglycerin 0.4 mg Q5MINP PRN SL 10/23/24 17:15 10/29/24 15:38 0.4 MG Morphine Sulfate 2 mg Q30M PRN IV 10/23/24 17:15 10/28/24 15:11 2 MG Empaglifozin 10 mg DAILY PO 10/24/24 10:00 10/30/24 10:09 10 MG Furosemide 20 mg DAILY PO 10/24/24 10:00 10/30/24 10:09 20 MG Aspirin 81 mg DAILY PO 10/24/24 10:00 10/30/24 10:09 81 MG Atorvastatin Calcium 40 mg DAILY PO 10/24/24 10:00 10/30/24 10:09 40 MG Pantoprazole Sodium 40 mg DAILY PO 10/24/24 10:00 10/30/24 10:10 40 MG Budesonide 0.5 mg BID NEB 10/23/24 22:00 10/31/24 07:07 0.5 MG Albuterol 2.5 mg Q4HPRN PRN NEB 10/23/24 17:45 10/30/24 21:51 2.5 MG Ipratropium [place] 0.5 mg Q4HPRN PRN NEB 10/23/24 17:45 10/30/24 21:51 0.5 MG Citalopram Hydrobromide 20 mg DAILY PO 10/25/24 22:00 10/30/24 10:10 20 MG Ertapenem 1 gm/ Sodium Chloride 50 ml @ 100 mls/hr DAILY IV 10/25/24 13:45 10/30/24 10:10 100 MLS/HR Ticagrelor 90 mg BID PO 10/25/24 15:00 10/30/24 21:20 90 MG Ranolazine 500 mg BID PO 10/26/24 10:00 10/30/24 21:15 500 MG Sodium Chloride 10 ml QSHIFT@10,22 IV 10/28/24 22:00 10/30/24 21:14 10 ML Midodrine 10 mg TID@0600,1200,1800 PO 10/30/24 12:00 10/31/24 06:22 10 MG Laboratory Results Laboratory Tests 10/31/24 03:05 Chemistry Test 10/31/24 03:05 Calcium Level 10.2 mg/dL (8.7-10.4) Urinalysis Test 10/26/24 10:17 Urine Color Light-yellow (Yellow) Urine Clarity Clear (Clear) Urine pH 5.5 (5.0-9.0) Urine Specific [place] 1.039 (1.001-1.035) Urine Protein Negative (Negative) Urine Ketones Negative (Negative) Urine Blood Negative /uL (Negative) Urine Nitrite Negative (Negative) Urine Bilirubin Negative (Negative) Urine Urobilinogen Normal mg/dL (Negative) Urine Leukocyte Esterase Negative /uL (Negative) Urine RBC 8 /hpf (0 - 4) Urine Microscopic WBC 4 /HPF (0-5) Urine Squamous Epithelial Cells Few /hpf (<5) Urine Bacteria None seen /hpf (None Seen) Urine Glucose 4+ mg/dL (Normal) H Microbiology Microbiology Date/Time Source Procedure Growth Status 10/28/24 17:18 Nose MRSA Screen - Final Complete 10/26/24 10:17 Urine - Midstream Clean Catch Urine Culture - Final Complete 10/23/24 18:39 Blood Blood Culture - Final NO GROWTH AFTER 5 DAYS OF INCUBATION. Complete Labs and/or images reviewed: Labs reviewed by me, Image(s) reviewed by me Assessment/Plan Assessment/Plan Impression: -chest pain -rule out ACS -history of recent [place] with multiple stent placement as well as the need for Impella device for cardiogenic shock -hypotension, questionable cardiogenic shock -ruled out PE -sepsis secondary to ESBL in the urine -history of illicit drug use: Amphetamines -obesity -diabetes mellitus -complicated cystitis with ESBL in the urine Plan:Events: Levophed 2 micrograms/minute. Patient was subjectively states that she was feeling better. Able to ambulate approximately 30 ft. Wound VAC exchanged. -continue midodrine, Ranexa -wound care consultation: Re-evaluate need for wound VAC -continue regular insulin sliding scale -continue IV Invanz -continue dual antiplatelet therapy -social service consultation for discharge planning. Patient will require probable SNF placement for continued IV antibiotic therapy with Invanz as well as physical therapy -repeat labs in a.m. Critical care time spent with patient discussing and formulating plan of care: 40 minutes. This does not include time spent performing procedures. This medical document was created using an electronic medical record system with [employer] system. Although this document has been carefully reviewed, there may still be some phonetic and typographical errors. These areas are purely typographical due to imperfections of the software programs, and do not reflect any compromise in the patient's medical care. Plan discussed with: Patient, Other (RN) Date of Service: Oct 31, 2024 Billing Provider: INDU GARCÍA NP Common Visit Codes: [id number] CARE 30-74 MIN INDU GARCÍA NP Oct 31, 2024 07:47
[2024-10-31] MEDS: NOREPINEPHRINE 8 MG/250ML KIT 250 ML IV SCH (18:30)
[2024-11-01] VITALS (97 sets, daily range): BP systolic 79–139; BP diastolic 42–71; PULSE 53–125; RESP 9–35; TEMP 97.9–98.4; O2SAT 91–100
--- NOTE | 2024-11-01 09:55 | DVHPN2 ---
Subjective Patient had an episode being dizzy associated with hypotension yesterday. Reviewed: Care Plan, H&P, Labs, Medications Changes from previous H/P or p: No Changes General: Per HPI Cardiovascular: Chest Pain Respiratory: Shortness of breath Skin: Other (Scabbing to top her head) Objective Vitals Vital Signs Date Time Temp Pulse Resp B/P (MAP) Pulse Ox O2 Delivery O2 Flow Rate FiO2 11/01/24 09:18 72/43 11/01/24 08:45 125 12 96 11/01/24 08:00 Room Air* 0 21 11/01/24 08:00 98.3 98.3 Intake/Output Intake and Output 11/01/24 07:00 Intake Total 1562.45 ml Output Total 2100 ml Balance -537.55 ml Intake Oral 1422 ml IV Total 140.45 ml Output Urine Total 2100 ml # Bowel Movements 1 General Appearance: Alert, Oriented X3, Cooperative, mild distress HEENT: Atraumatic, PERRLA Lungs: Clear to auscultation, Normal air movement Cardiovascular: Normal S1, Normal S2 Abdomen: Normal bowel sounds, Soft, No tenderness Musculoskeletal: Normal sensory function, Normal motor function Neuro: Normal gait, Normal speech Skin: Dry, Intact, Wounds (See nurse notes and pictures), Other (Right point wound VAC. Scalp dressing) Psych/Mental Status: Mental status NL, Mood NL Medications Current Medications Medications Dose Ordered Sig/Mary Anne Route Start Time Stop Time Status Last Admin Dose Admin Diagnostic Test (Pha) 1 strip ACHS 10/23/24 22:00 11/01/24 06:33 1 STRIP Insulin Human Regular ACHS SC 10/23/24 22:00 11/01/24 06:33 4 UNITS Dextrose 50 ml UD PRN IV 10/23/24 17:15 Acetaminophen 650 mg Q6HP PRN PO 10/23/24 17:15 10/26/24 20:36 650 MG Ondansetron HCl 4 mg Q4HP PRN IV 10/23/24 17:15 Nitroglycerin 0.4 mg Q5MINP PRN SL 10/23/24 17:15 10/29/24 15:38 0.4 MG Morphine Sulfate 2 mg Q30M PRN IV 10/23/24 17:15 10/29/24 15:41 2 MG Empaglifozin 10 mg DAILY PO 10/24/24 10:00 10/31/24 08:58 10 MG Furosemide 20 mg DAILY PO 10/24/24 10:00 10/31/24 08:59 20 MG Aspirin 81 mg DAILY PO 10/24/24 10:00 10/31/24 08:58 81 MG Atorvastatin Calcium 40 mg DAILY PO 10/24/24 10:00 10/31/24 08:58 40 MG Pantoprazole Sodium 40 mg DAILY PO 10/24/24 10:00 10/31/24 08:58 40 MG Budesonide 0.5 mg BID NEB 10/23/24 22:00 10/31/24 18:42 0.5 MG Albuterol 2.5 mg Q4HPRN PRN NEB 10/23/24 17:45 10/30/24 21:51 2.5 MG Ipratropium [place] 0.5 mg Q4HPRN PRN NEB 10/23/24 17:45 10/30/24 21:51 0.5 MG Citalopram Hydrobromide 20 mg DAILY PO 10/25/24 22:00 10/31/24 08:58 20 MG Ertapenem 1 gm/ Sodium Chloride 50 ml @ 100 mls/hr DAILY IV 10/25/24 13:45 10/31/24 08:59 100 MLS/HR Ticagrelor 90 mg BID PO 10/25/24 15:00 10/31/24 21:01 90 MG Ranolazine 500 mg BID PO 10/26/24 10:00 10/31/24 21:00 500 MG Sodium Chloride 10 ml QSHIFT@10,22 IV 10/28/24 22:00 10/31/24 21:09 10 ML Midodrine 10 mg TID@0600,1200,1800 PO 10/30/24 12:00 11/01/24 05:43 10 MG Norepinephrine Bitartrate 250 ml @ 3.75 mls/hr Q24H IV 10/31/24 18:30 11/01/24 06:04 3.75 MLS/HR Laboratory Results Laboratory Tests 10/31/24 03:05 Urinalysis Test 10/26/24 10:17 Urine Color Light-yellow (Yellow) Urine Clarity Clear (Clear) Urine pH 5.5 (5.0-9.0) Urine Specific [place] 1.039 (1.001-1.035) Urine Protein Negative (Negative) Urine Ketones Negative (Negative) Urine Blood Negative /uL (Negative) Urine Nitrite Negative (Negative) Urine Bilirubin Negative (Negative) Urine Urobilinogen Normal mg/dL (Negative) Urine Leukocyte Esterase Negative /uL (Negative) Urine RBC 8 /hpf (0 - 4) Urine Microscopic WBC 4 /HPF (0-5) Urine Squamous Epithelial Cells Few /hpf (<5) Urine Bacteria None seen /hpf (None Seen) Urine Glucose 4+ mg/dL (Normal) H Microbiology Microbiology Date/Time Source Procedure Growth Status 10/28/24 17:18 Nose MRSA Screen - Final Complete 10/26/24 10:17 Urine - Midstream Clean Catch Urine Culture - Final Complete 10/23/24 18:39 Blood Blood Culture - Final NO GROWTH AFTER 5 DAYS OF INCUBATION. Complete Labs and/or images reviewed: Labs reviewed by me, Image(s) reviewed by me Assessment/Plan Assessment/Plan Impression: -chest pain -rule out ACS -history of recent [place] with multiple stent placement as well as the need for Impella device for cardiogenic shock -hypotension, questionable cardiogenic shock -ruled out PE -sepsis secondary to ESBL in the urine -history of illicit drug use: Amphetamines -obesity -diabetes mellitus -complicated cystitis with ESBL in the urine Plan:Events: Levophed 2 micrograms/minute. Episode of diaphoresis and dizziness with ambulation yesterday. -trial of albumin. -continue midodrine, Ranexa -wound care consultation: Re-evaluate need for wound VAC -continue regular insulin sliding scale -continue IV Invanz -continue dual antiplatelet therapy -social service consultation for discharge planning. Patient will require probable SNF placement for continued IV antibiotic therapy with Invanz as well as physical therapy -repeat labs in a.m. Critical care time spent with patient discussing and formulating plan of care: 40 minutes. This does not include time spent performing procedures. This medical document was created using an electronic medical record system with [employer] dictation system. Although this document has been carefully reviewed, there may still be some phonetic and typographical errors. These areas are purely typographical due to imperfections of the software programs, and do not reflect any compromise in the patient's medical care. Plan discussed with: Patient, Other (RN) My Orders Orders - INDU GARCÍA NP Procedure Category Date Status Time Norepinephrine 8 PHA 10/31/24 In Process Mg/250ml Kit 18:30 Date of Service: Nov 01, 2024 Billing Provider: INDU GARCÍA NP Common Visit Codes: [id number] CARE 30-74 MIN INDU GARCÍA NP Nov 01, 2024 09:55
[2024-11-01] MEDS: ALBUMIN 5% 250 ML IV ONE (11:17)
[2024-11-02] VITALS (117 sets, daily range): BP systolic 74–159; BP diastolic 30–87; PULSE 56–136; RESP 11–27; TEMP 97.4–98; O2SAT 93–100
[2024-11-02 03:59] LABS: Anion Gap 8 (5-15); Basophils # (auto) 0 10 ^3/uL (0-0.2); Basophils % (auto) 1.2 % (0.0-2.0); Carbon Dioxide 26 mmol/L (20-31); Chloride 105 mmol/L (98-107); Eosinophils # (auto) 0.2 10 ^3/uL (0-0.8); Hematocrit 31.3 % (36.0-46.0); Hemoglobin 10.2 g/dL (12.2-16.2); Lymphocytes # (auto) 1.1 10 ^3/uL (0.4-5.4); Lymphocytes % (auto) 29.3 % (10.0-50.0); Mean Corpuscular Hemoglobin 23.9 pg (28.0-32.0); Mean Corpuscular Hgb Conc. 32.5 g/dL (32.0-36.0); Mean Corpuscular Volume 73.5 fL (80.0-100.0); Monocytes # (auto) 0.6 10 ^3/uL (0-1.3); Monocytes % (auto) 14.8 % (0.0-12.0); Neutrophils % (auto) 50.7 % (37.0-80.0); Nucleated Red Blood Cells % 0.2 %; Platelet Count (auto) 349 10^3/uL (140-450); Potassium 3.8 mmol/L (3.5-5.1); Red Blood Cells 4.25 10^6/uL (4.0-5.20); Red Cell Distribution Width 15.9 % (11.8-14.3); Sodium 139 mmol/L (136-145); White Blood Cell 3.9 10^3/uL (4.4-10.8)
[2024-11-02 04:05] LABS: BUN/Creatinine Ratio 23.3 (10.0-20.0); Blood Urea Nitrogen 17 mg/dL (9-23)
[2024-11-02 04:12] LABS: Calcium 10.6 mg/dL (8.7-10.4); Glucose 170 mg/dL (74-106)
[2024-11-02] MEDS: SODIUM CHLORIDE 0.9% 1,000 ML IV SCH (09:10)
--- NOTE | 2024-11-02 09:20 | DVHPN2 ---
Subjective Patient had an episode being dizzy associated with hypotension yesterday. Reviewed: Care Plan, H&P, Labs, Medications Changes from previous H/P or p: No Changes General: Per HPI Cardiovascular: Chest Pain Respiratory: Shortness of breath Skin: Other (Scabbing to top her head) Objective Vitals Vital Signs Date Time Temp Pulse Resp B/P (MAP) Pulse Ox O2 Delivery O2 Flow Rate FiO2 11/02/24 06:58 56 12 99 11/02/24 06:45 Room Air 11/02/24 06:45 93/46 (62) 11/02/24 06:00 0 21 11/02/24 04:00 98.0 98.0 Intake/Output Intake and Output 11/02/24 07:00 Intake Total 4600.340 ml Output Total 1000 ml Balance 3600.340 ml Intake Oral 4180 ml IV Total 420.340 ml Urine/Stool Mix 1000 ml # Voids 4 General Appearance: Alert, Oriented X3, Cooperative, mild distress HEENT: Atraumatic, PERRLA Lungs: Clear to auscultation, Normal air movement Cardiovascular: Normal S1, Normal S2 Abdomen: Normal bowel sounds, Soft, No tenderness Musculoskeletal: Normal sensory function, Normal motor function Neuro: Normal gait, Normal speech Skin: Dry, Intact, Wounds (See nurse notes and pictures), Other (Right point wound VAC. Scalp dressing) Psych/Mental Status: Mental status NL, Mood NL Medications Current Medications Medications Dose Ordered Sig/Mary Anne Route Start Time Stop Time Status Last Admin Dose Admin Diagnostic Test (Pha) 1 strip ACHS 10/23/24 22:00 11/02/24 05:57 1 STRIP Insulin Human Regular ACHS SC 10/23/24 22:00 11/02/24 06:00 3 UNITS Dextrose 50 ml UD PRN IV 10/23/24 17:15 Acetaminophen 650 mg Q6HP PRN PO 10/23/24 17:15 10/26/24 20:36 650 MG Ondansetron HCl 4 mg Q4HP PRN IV 10/23/24 17:15 Nitroglycerin 0.4 mg Q5MINP PRN SL 10/23/24 17:15 10/29/24 15:38 0.4 MG Empaglifozin 10 mg DAILY PO 10/24/24 10:00 11/01/24 09:55 10 MG Aspirin 81 mg DAILY PO 10/24/24 10:00 11/01/24 09:55 81 MG Atorvastatin Calcium 40 mg DAILY PO 10/24/24 10:00 11/01/24 09:55 40 MG Pantoprazole Sodium 40 mg DAILY PO 10/24/24 10:00 11/01/24 09:51 40 MG Budesonide 0.5 mg BID NEB 10/23/24 22:00 11/02/24 06:48 0.5 MG Albuterol 2.5 mg Q4HPRN PRN NEB 10/23/24 17:45 11/02/24 06:48 2.5 MG Ipratropium [place] 0.5 mg Q4HPRN PRN NEB 10/23/24 17:45 11/02/24 06:48 0.5 MG Citalopram Hydrobromide 20 mg DAILY PO 10/25/24 22:00 11/01/24 09:55 20 MG Ertapenem 1 gm/ Sodium Chloride 50 ml @ 100 mls/hr DAILY IV 10/25/24 13:45 11/01/24 09:50 100 MLS/HR Ticagrelor 90 mg BID PO 10/25/24 15:00 11/01/24 20:54 90 MG Ranolazine 500 mg BID PO 10/26/24 10:00 11/01/24 20:54 500 MG Sodium Chloride 10 ml QSHIFT@10,22 IV 10/28/24 22:00 11/01/24 20:54 10 ML Midodrine 10 mg TID@0600,1200,1800 PO 10/30/24 12:00 11/02/24 05:55 10 MG Norepinephrine Bitartrate 250 ml @ 3.75 mls/hr Q24H IV 10/31/24 18:30 11/01/24 06:04 3.75 MLS/HR Sodium Chloride 1,000 ml @ 100 mls/hr Q10H IV 11/02/24 08:30 11/02/24 18:29 11/02/24 09:10 100 MLS/HR Laboratory Results Laboratory Tests 11/02/24 03:29 Chemistry Test 11/02/24 03:29 Calcium Level 10.6 mg/dL (8.7-10.4) H Urinalysis Test 10/26/24 10:17 Urine Color Light-yellow (Yellow) Urine Clarity Clear (Clear) Urine pH 5.5 (5.0-9.0) Urine Specific [place] 1.039 (1.001-1.035) Urine Protein Negative (Negative) Urine Ketones Negative (Negative) Urine Blood Negative /uL (Negative) Urine Nitrite Negative (Negative) Urine Bilirubin Negative (Negative) Urine Urobilinogen Normal mg/dL (Negative) Urine Leukocyte Esterase Negative /uL (Negative) Urine RBC 8 /hpf (0 - 4) Urine Microscopic WBC 4 /HPF (0-5) Urine Squamous Epithelial Cells Few /hpf (<5) Urine Bacteria None seen /hpf (None Seen) Urine Glucose 4+ mg/dL (Normal) H Microbiology Microbiology Date/Time Source Procedure Growth Status 10/28/24 17:18 Nose MRSA Screen - Final Complete 10/26/24 10:17 Urine - Midstream Clean Catch Urine Culture - Final Complete 10/23/24 18:39 Blood Blood Culture - Final NO GROWTH AFTER 5 DAYS OF INCUBATION. Complete Labs and/or images reviewed: Labs reviewed by me, Image(s) reviewed by me Assessment/Plan Assessment/Plan Impression: -chest pain -rule out ACS -history of recent [place] with multiple stent placement as well as the need for Impella device for cardiogenic shock -hypotension, questionable cardiogenic shock -ruled out PE -sepsis secondary to ESBL in the urine -history of illicit drug use: Amphetamines -obesity -diabetes mellitus -complicated cystitis with ESBL in the urine Plan:Events: Levophed 1.5 micrograms/minute. Episode of diaphoresis and dizziness with ambulation yesterday. -NS 100ml/hr -continue midodrine, Ranexa -wound care consultation: Re-evaluate need for wound VAC -continue regular insulin sliding scale -continue IV Invanz -continue dual antiplatelet therapy -social service consultation for discharge planning. Patient will require probable SNF placement for continued IV antibiotic therapy with Invanz as well as physical therapy -repeat labs in a.m. Critical care time spent with patient discussing and formulating plan of care: 40 minutes. This does not include time spent performing procedures. This medical document was created using an electronic medical record system with [employer] system. Although this document has been carefully reviewed, there may still be some phonetic and typographical errors. These areas are purely typographical due to imperfections of the software programs, and do not reflect any compromise in the patient's medical care. Plan discussed with: Patient, Other (RN) My Orders Orders - INDU GARCÍA NP Procedure Category Date Status Time Sodium Chloride 0.9% PHA 11/02/24 In Process 08:30 Basic Metabolic Panel LAB 11/03/24 Verified 04:00 Complete Blood Count LAB 11/03/24 Verified 04:00 Date of Service: Nov 02, 2024 Billing Provider: INDU GARCÍA NP Common Visit Codes: [id number] CARE 30-74 MIN INDU GARCÍA NP Nov 02, 2024 09:20
[2024-11-03] VITALS (101 sets, daily range): BP systolic 65–117; BP diastolic 34–90; PULSE 57–134; RESP 8–38; TEMP 97.8–98.8; O2SAT 81–100
[2024-11-03 04:01] LABS: Basophils # (auto) 0 10 ^3/uL (0-0.2); Basophils % (auto) 1.1 % (0.0-2.0); Eosinophils # (auto) 0.2 10 ^3/uL (0-0.8); Hemoglobin 9.8 g/dL (12.2-16.2); Monocytes # (auto) 0.5 10 ^3/uL (0-1.3); Neutrophils # (auto) 1.9 10 ^3/uL (1.6-8.6); Neutrophils % (auto) 48.8 % (37.0-80.0)
[2024-11-03 04:03] LABS: Anion Gap 8 (5-15); Carbon Dioxide 22 mmol/L (20-31); Potassium 3.9 mmol/L (3.5-5.1); Sodium 139 mmol/L (136-145)
[2024-11-03 04:04] LABS: Calcium 10.1 mg/dL (8.7-10.4); Eosinophils % (auto) 4.9 % (0.0-7.0); Hematocrit 29.8 % (36.0-46.0); Lymphocytes # (auto) 1.3 10 ^3/uL (0.4-5.4); Lymphocytes % (auto) 31.8 % (10.0-50.0); Mean Corpuscular Hemoglobin 24.7 pg (28.0-32.0); Mean Corpuscular Hgb Conc. 32.9 g/dL (32.0-36.0); Mean Corpuscular Volume 74.8 fL (80.0-100.0); Monocytes % (auto) 13.4 % (0.0-12.0); Nucleated Red Blood Cells % 0.2 %; Platelet Count (auto) 350 10^3/uL (140-450); Red Blood Cells 3.98 10^6/uL (4.0-5.20); Red Cell Distribution Width 15.5 % (11.8-14.3); White Blood Cell 3.9 10^3/uL (4.4-10.8)
[2024-11-03 04:09] LABS: BUN/Creatinine Ratio 24.6 (10.0-20.0); Blood Urea Nitrogen 15 mg/dL (9-23); Chloride 109 mmol/L (98-107); Glucose 148 mg/dL (74-106)
[2024-11-03] MEDS: HYDROCORTISONE SOD SUCC 100 MG/2ML INJ VIAL IV SCH (09:37)
--- NOTE | 2024-11-03 09:40 | DVH ---
XY CHEST XRAY 1 VIEW, HISTORY: chf COMPARISON: XY CHEST PORTABLE on DOS: 10/29/24, XY CHEST PORTABLE on DOS: 10/23/24, XY CHEST PORTABLE on DOS: 09/28/24 XY CHEST PORTABLE on DOS: 10/29/24, XY CHEST PORTABLE on DOS: 10/23/24, XY CHEST PORTABLE on DOS: 5 TECHNICAL DATA: 1 view of the chest was obtained. FINDINGS: Lines and tubes: Right arm PICC with tip in the upper cavoatrial junction. Cardiomediastinal silhouette: normal Pulmonary vasculature: normal Lung expansion: normal Lung airspace: normal Lung interstitium: normal Pleura: normal Pneumothorax: no Bones: Unremarkable Other: no IMPRESSION: No acute intrathoracic abnormality.
[2024-11-03] MEDS: LACTATED RINGER'S 1,000 ML IV SCH (09:45)
--- NOTE | 2024-11-03 09:45 | DVHPN2 ---
Subjective Patient asymptomatic. Reviewed: Care Plan, H&P, Labs, Medications Changes from previous H/P or p: No Changes General: Per HPI Cardiovascular: Chest Pain Respiratory: Shortness of breath Skin: Other (Scabbing to top her head) Objective Vitals Vital Signs Date Time Temp Pulse Resp B/P (MAP) Pulse Ox O2 Delivery O2 Flow Rate FiO2 11/03/24 09:04 96 Room Air 11/03/24 09:04 0 21 11/03/24 08:30 83 19 87/46 (60) 11/03/24 08:00 98.8 98.8 Intake/Output Intake and Output 11/03/24 07:00 Intake Total 2213.8775 ml Output Total 1700 ml Balance 513.8775 ml Intake Oral 1190 ml IV Total 1023.8775 ml Output Urine Total 1700 ml # Voids 1 # Bowel Movements 1 General Appearance: Alert, Oriented X3, Cooperative, mild distress HEENT: Atraumatic, PERRLA Lungs: Clear to auscultation, Normal air movement Cardiovascular: Normal S1, Normal S2 Abdomen: Normal bowel sounds, Soft, No tenderness Musculoskeletal: Normal sensory function, Normal motor function Neuro: Normal gait, Normal speech Skin: Dry, Intact, Wounds (See nurse notes and pictures), Other (Right point wound VAC. Scalp dressing) Psych/Mental Status: Mental status NL, Mood NL Medications Current Medications Medications Dose Ordered Sig/Mary Anne Route Start Time Stop Time Status Last Admin Dose Admin Diagnostic Test (Pha) 1 strip ACHS 10/23/24 22:00 11/03/24 05:57 1 STRIP Insulin Human Regular ACHS SC 10/23/24 22:00 11/03/24 05:58 2 UNITS Dextrose 50 ml UD PRN IV 10/23/24 17:15 Acetaminophen 650 mg Q6HP PRN PO 10/23/24 17:15 10/26/24 20:36 650 MG Ondansetron HCl 4 mg Q4HP PRN IV 10/23/24 17:15 Nitroglycerin 0.4 mg Q5MINP PRN SL 10/23/24 17:15 10/29/24 15:38 0.4 MG Empaglifozin 10 mg DAILY PO 10/24/24 10:00 11/02/24 09:45 10 MG Aspirin 81 mg DAILY PO 10/24/24 10:00 11/02/24 09:45 81 MG Atorvastatin Calcium 40 mg DAILY PO 10/24/24 10:00 11/02/24 09:45 40 MG Pantoprazole Sodium 40 mg DAILY PO 10/24/24 10:00 11/02/24 09:45 40 MG Budesonide 0.5 mg BID NEB 10/23/24 22:00 11/02/24 21:58 0.5 MG Albuterol 2.5 mg Q4HPRN PRN NEB 10/23/24 17:45 11/02/24 11:33 2.5 MG Ipratropium [place] 0.5 mg Q4HPRN PRN NEB 10/23/24 17:45 11/02/24 11:34 0.5 MG Citalopram Hydrobromide 20 mg DAILY PO 10/25/24 22:00 11/02/24 09:46 20 MG Ertapenem 1 gm/ Sodium Chloride 50 ml @ 100 mls/hr DAILY IV 10/25/24 13:45 11/02/24 09:46 100 MLS/HR Ticagrelor 90 mg BID PO 10/25/24 15:00 11/02/24 21:53 90 MG Ranolazine 500 mg BID PO 10/26/24 10:00 11/02/24 21:54 500 MG Sodium Chloride 10 ml QSHIFT@10,22 IV 10/28/24 22:00 11/02/24 21:57 10 ML Midodrine 10 mg TID@0600,1200,1800 PO 10/30/24 12:00 11/03/24 05:57 10 MG Norepinephrine Bitartrate 250 ml @ 3.75 mls/hr Q24H IV 10/31/24 18:30 11/01/24 06:04 3.75 MLS/HR Hydrocortisone Sodium Succinate 100 mg Q12HR IV 11/03/24 10:00 Laboratory Results Laboratory Tests 11/03/24 03:01 Chemistry Test 11/03/24 03:01 Calcium Level 10.1 mg/dL (8.7-10.4) Urinalysis Test 10/26/24 10:17 Urine Color Light-yellow (Yellow) Urine Clarity Clear (Clear) Urine pH 5.5 (5.0-9.0) Urine Specific [place] 1.039 (1.001-1.035) Urine Protein Negative (Negative) Urine Ketones Negative (Negative) Urine Blood Negative /uL (Negative) Urine Nitrite Negative (Negative) Urine Bilirubin Negative (Negative) Urine Urobilinogen Normal mg/dL (Negative) Urine Leukocyte Esterase Negative /uL (Negative) Urine RBC 8 /hpf (0 - 4) Urine Microscopic WBC 4 /HPF (0-5) Urine Squamous Epithelial Cells Few /hpf (<5) Urine Bacteria None seen /hpf (None Seen) Urine Glucose 4+ mg/dL (Normal) H Microbiology Microbiology Date/Time Source Procedure Growth Status 10/28/24 17:18 Nose MRSA Screen - Final Complete 10/26/24 10:17 Urine - Midstream Clean Catch Urine Culture - Final Complete 10/23/24 18:39 Blood Blood Culture - Final NO GROWTH AFTER 5 DAYS OF INCUBATION. Complete Labs and/or images reviewed: Labs reviewed by me, Image(s) reviewed by me Assessment/Plan Assessment/Plan Impression: -chest pain -rule out ACS -history of recent [place] with multiple stent placement as well as the need for Impella device for cardiogenic shock -hypotension, questionable cardiogenic shock -ruled out PE -sepsis secondary to ESBL in the urine -history of illicit drug use: Amphetamines -obesity -diabetes mellitus -complicated cystitis with ESBL in the urine Plan:Events: Levophed at 0.5 micrograms/minute. Patient was off pressors, then restarted yesterday. Cortisol level related. X-ray reviewed, clear. Trial of 500 mL bolus of LR -continue midodrine, Ranexa -wound care consultation: Recommendations reviewed -continue regular insulin sliding scale -continue IV Invanz -continue dual antiplatelet therapy -repeat labs in a.m. Critical care time spent with patient discussing and formulating plan of care: 40 minutes. This does not include time spent performing procedures. This medical document was created using an electronic medical record system with [employer] dictation system. Although this document has been carefully reviewed, there may still be some phonetic and typographical errors. These areas are purely typographical due to imperfections of the software programs, and do not reflect any compromise in the patient's medical care. Plan discussed with: Patient, Other (RN) My Orders Orders - INDU GARCÍA NP Procedure Category Date Status Time Chest Xray 1 View XY 11/03/24 Taken 08:24 Hydrocortisone PHA 11/03/24 In Process Succinate Inj 10:00 Date of Service: Nov 03, 2024 Billing Provider: INDU GARCÍA NP Common Visit Codes: [id number] CARE 30-74 MIN INDU GARCÍA NP Nov 03, 2024 09:45
[2024-11-04] VITALS (75 sets, daily range): BP systolic 67–117; BP diastolic 34–84; PULSE 57–121; RESP 11–33; TEMP 97.2–98.4; O2SAT 93–100
[2024-11-04 03:29] LABS: Basophils # (auto) 0.1 10 ^3/uL (0-0.2); Basophils % (auto) 2.2 % (0.0-2.0); Eosinophils # (auto) 0.2 10 ^3/uL (0-0.8); Eosinophils % (auto) 4.6 % (0.0-7.0); Hematocrit 31.4 % (36.0-46.0); Hemoglobin 10.1 g/dL (12.2-16.2); Lymphocytes # (auto) 1.3 10 ^3/uL (0.4-5.4); Lymphocytes % (auto) 32.9 % (10.0-50.0); Mean Corpuscular Hgb Conc. 32.1 g/dL (32.0-36.0); Mean Corpuscular Volume 74.8 fL (80.0-100.0); Monocytes # (auto) 0.6 10 ^3/uL (0-1.3); Monocytes % (auto) 14.7 % (0.0-12.0); Neutrophils # (auto) 1.7 10 ^3/uL (1.6-8.6); Neutrophils % (auto) 45.6 % (37.0-80.0); Nucleated Red Blood Cells % 0.1 %; Platelet Count (auto) 347 10^3/uL (140-450); Red Cell Distribution Width 15.6 % (11.8-14.3); White Blood Cell 3.8 10^3/uL (4.4-10.8)
[2024-11-04 03:37] LABS: Anion Gap 7 (5-15); Carbon Dioxide 24 mmol/L (20-31); Chloride 107 mmol/L (98-107); Sodium 138 mmol/L (136-145)
[2024-11-04 03:38] LABS: Calcium 10.4 mg/dL (8.7-10.4)
[2024-11-04 03:43] LABS: BUN/Creatinine Ratio 22.9 (10.0-20.0); Blood Urea Nitrogen 16 mg/dL (9-23)
[2024-11-04 03:46] LABS: Glucose 156 mg/dL (74-106)
--- NOTE | 2024-11-04 10:08 | DVHPN2 ---
Subjective Patient asymptomatic. Reviewed: Care Plan, H&P, Labs, Medications Changes from previous H/P or p: No Changes General: Per HPI Cardiovascular: Chest Pain Respiratory: Shortness of breath Skin: Other (Scabbing to top her head) Objective Vitals Vital Signs Date Time Temp Pulse Resp B/P (MAP) Pulse Ox O2 Delivery O2 Flow Rate FiO2 11/04/24 08:30 121 16 91/65 (74) 99 11/04/24 08:00 98.0 98.0 11/04/24 08:00 Room Air* 0 21 Intake/Output Intake and Output 11/04/24 07:00 Intake Total 2566.442 ml Output Total 2500 ml Balance 66.442 ml Intake Oral 1707 ml IV Total 859.442 ml Output Urine Total 2500 ml # Voids 4 General Appearance: Alert, Oriented X3, Cooperative, mild distress HEENT: Atraumatic, PERRLA Lungs: Clear to auscultation, Normal air movement Cardiovascular: Normal S1, Normal S2 Abdomen: Normal bowel sounds, Soft, No tenderness Musculoskeletal: Normal sensory function, Normal motor function Neuro: Normal gait, Normal speech Skin: Dry, Intact, Wounds (See nurse notes and pictures), Other (Right point wound VAC. Scalp dressing) Psych/Mental Status: Mental status NL, Mood NL Medications Current Medications Medications Dose Ordered Sig/Mary [place] Route Start Time Stop Time Status Last Admin Dose Admin Diagnostic Test (Pha) 1 strip ACHS 10/23/24 22:00 11/04/24 06:12 1 STRIP Insulin Human Regular ACHS SC 10/23/24 22:00 11/04/24 06:13 3 UNITS Dextrose 50 ml UD PRN IV 10/23/24 17:15 Acetaminophen 650 mg Q6HP PRN PO 10/23/24 17:15 10/26/24 20:36 650 MG Ondansetron HCl 4 mg Q4HP PRN IV 10/23/24 17:15 Nitroglycerin 0.4 mg Q5MINP PRN SL 10/23/24 17:15 10/29/24 15:38 0.4 MG Empaglifozin 10 mg DAILY PO 10/24/24 10:00 11/04/24 09:28 10 MG Aspirin 81 mg DAILY PO 10/24/24 10:00 11/04/24 09:29 81 MG Atorvastatin Calcium 40 mg DAILY PO 10/24/24 10:00 11/04/24 09:29 40 MG Pantoprazole Sodium 40 mg DAILY PO 10/24/24 10:00 11/04/24 09:28 40 MG Budesonide 0.5 mg BID NEB 10/23/24 22:00 11/04/24 06:35 0.5 MG Albuterol 2.5 mg Q4HPRN PRN NEB 10/23/24 17:45 11/04/24 06:35 2.5 MG Ipratropium [place] 0.5 mg Q4HPRN PRN NEB 10/23/24 17:45 11/04/24 06:35 0.5 MG Citalopram Hydrobromide 20 mg DAILY PO 10/25/24 22:00 11/04/24 09:28 20 MG Ertapenem 1 gm/ Sodium Chloride 50 ml @ 100 mls/hr DAILY IV 10/25/24 13:45 11/04/24 09:28 100 MLS/HR Ticagrelor 90 mg BID PO 10/25/24 15:00 11/04/24 09:28 90 MG Ranolazine 500 mg BID PO 10/26/24 10:00 11/04/24 09:28 500 MG Sodium Chloride 10 ml QSHIFT@10,22 IV 10/28/24 22:00 11/04/24 09:29 10 ML Midodrine 10 mg TID@0600,1200,1800 PO 10/30/24 12:00 11/04/24 06:12 10 MG Norepinephrine Bitartrate 250 ml @ 3.75 mls/hr Q24H IV 10/31/24 18:30 11/01/24 06:04 3.75 MLS/HR Digoxin 0.125 mg DAILY PO 11/05/24 10:00 UNV Laboratory Results Laboratory Tests 11/04/24 03:00 Chemistry Test 11/04/24 03:00 Calcium Level 10.4 mg/dL (8.7-10.4) Urinalysis Test 10/26/24 10:17 Urine Color Light-yellow (Yellow) Urine Clarity Clear (Clear) Urine pH 5.5 (5.0-9.0) Urine Specific [place] 1.039 (1.001-1.035) Urine Protein Negative (Negative) Urine Ketones Negative (Negative) Urine Blood Negative /uL (Negative) Urine Nitrite Negative (Negative) Urine Bilirubin Negative (Negative) Urine Urobilinogen Normal mg/dL (Negative) Urine Leukocyte Esterase Negative /uL (Negative) Urine RBC 8 /hpf (0 - 4) Urine Microscopic WBC 4 /HPF (0-5) Urine Squamous Epithelial Cells Few /hpf (<5) Urine Bacteria None seen /hpf (None Seen) Urine Glucose 4+ mg/dL (Normal) H Microbiology Microbiology Date/Time Source Procedure Growth Status 10/28/24 17:18 Nose MRSA Screen - Final Complete 10/26/24 10:17 Urine - Midstream Clean Catch Urine Culture - Final Complete 10/23/24 18:39 Blood Blood Culture - Final NO GROWTH AFTER 5 DAYS OF INCUBATION. Complete Labs and/or images reviewed: Labs reviewed by me, Image(s) reviewed by me Assessment/Plan Assessment/Plan Impression: -chest pain -rule out ACS -history of recent [place] with multiple stent placement as well as the need for Impella device for cardiogenic shock -hypotension, questionable cardiogenic shock -ruled out PE -sepsis secondary to ESBL in the urine -history of illicit drug use: Amphetamines -obesity -diabetes mellitus -complicated cystitis with ESBL in the urine Plan: Events: Norepinephrine was weaned off yesterday. Patient had episode of hypotension for which was restarted for approximately 1.5 hours. Patient was assessed sitting in the chair asymptomatic. Noted tachycardia. Given her insurance did not approve Ivabradine as an outpatient, will attempt to use digoxin for heart rate control in setting of low blood pressure and tachycardia with reduced ejection fraction. -continue midodrine, Ranexa -wound care consultation: Recommendations reviewed -continue regular insulin sliding scale -continue IV Invanz -continue dual antiplatelet therapy -repeat labs in a.m. Critical care time spent with patient discussing and formulating plan of care: 40 minutes. This does not include time spent performing procedures. This medical document was created using an electronic medical record system with [employer] dictation system. Although this document has been carefully reviewed, there may still be some phonetic and typographical errors. These areas are purely typographical due to imperfections of the software programs, and do not reflect any compromise in the patient's medical care. Plan discussed with: Patient, Other (RN) My Orders Orders - INDU GARCÍA NP Procedure Category Date Status Time Digoxin Tablet PHA 11/04/24 Logged (Lanoxin Tablet) 10:00 Digoxin Tablet PHA 11/05/24 Logged (Lanoxin Tablet) 10:00 Date of Service: Nov 04, 2024 Billing Provider: INDU GARCÍA NP Common Visit Codes: [id number] CARE 30-74 MIN INDU GARCÍA NP Nov 04, 2024 10:08
[2024-11-04] MEDS: DIGOXIN 0.125 MG TAB PO ONE (10:52)
[2024-11-04] MEDS: SODIUM CHLORIDE 0.9% 1,000 ML IV ONE (12:45)
[2024-11-05] VITALS (18 sets, daily range): BP systolic 90–121; BP diastolic 44–69; PULSE 65–120; RESP 14–18; TEMP 98–98.6; O2SAT 92–100
[2024-11-05] MEDS: DIGOXIN 0.125 MG TAB PO SCH (10:25)
--- NOTE | 2024-11-05 14:18 | DVHPN2 ---
Subjective The patient is seen and examined at bedside. No complaint today. Reviewed: Care Plan, H&P, Labs, Medications Changes from previous H/P or p: No Changes General: Per HPI Cardiovascular: Chest Pain Respiratory: Shortness of breath Skin: Other (Scabbing to top her head) Objective Vitals Vital Signs Date Time Temp Pulse Resp B/P (MAP) Pulse Ox O2 Delivery O2 Flow Rate FiO2 11/05/24 12:40 98.2 65 16 97/51 (66) 95 98.2 11/05/24 10:36 Room Air 0.0 11/05/24 10:36 21 Intake/Output Intake and Output 11/05/24 07:00 Intake Total 1744 ml Output Total 2340 ml Balance -596 ml Intake Oral 1194 ml IV Total 550 ml Output Urine Total 2340 ml General Appearance: Alert, Oriented X3, Cooperative, mild distress HEENT: Atraumatic, PERRLA Lungs: Clear to auscultation, Normal air movement Cardiovascular: Normal S1, Normal S2 Abdomen: Normal bowel sounds, Soft, No tenderness Musculoskeletal: Normal sensory function, Normal motor function Neuro: Normal gait, Normal speech Skin: Dry, Intact, Wounds (See nurse notes and pictures), Other (Right point wound VAC. Scalp dressing) Psych/Mental Status: Mental status NL, Mood NL Medications Current Medications Medications Dose Ordered Sig/Mary [place] Route Start Time Stop Time Status Last Admin Dose Admin Diagnostic Test (Pha) 1 strip ACHS 10/23/24 22:00 11/05/24 11:30 1 STRIP Insulin Human Regular ACHS SC 10/23/24 22:00 11/05/24 11:30 3 UNITS Dextrose 50 ml UD PRN IV 10/23/24 17:15 Acetaminophen 650 mg Q6HP PRN PO 10/23/24 17:15 10/26/24 20:36 650 MG Ondansetron HCl 4 mg Q4HP PRN IV 10/23/24 17:15 Nitroglycerin 0.4 mg Q5MINP PRN SL 10/23/24 17:15 10/29/24 15:38 0.4 MG Empaglifozin 10 mg DAILY PO 10/24/24 10:00 11/05/24 10:26 10 MG Aspirin 81 mg DAILY PO 10/24/24 10:00 11/05/24 10:24 81 MG Atorvastatin Calcium 40 mg DAILY PO 10/24/24 10:00 11/05/24 10:24 40 MG Pantoprazole Sodium 40 mg DAILY PO 10/24/24 10:00 11/05/24 10:25 40 MG Budesonide 0.5 mg BID NEB 10/23/24 22:00 11/05/24 10:37 0.5 MG Albuterol 2.5 mg Q4HPRN PRN NEB 10/23/24 17:45 11/05/24 10:37 2.5 MG Ipratropium [place] 0.5 mg Q4HPRN PRN NEB 10/23/24 17:45 11/05/24 10:37 0.5 MG Citalopram Hydrobromide 20 mg DAILY PO 10/25/24 22:00 11/05/24 10:26 20 MG Ertapenem 1 gm/ Sodium Chloride 50 ml @ 100 mls/hr DAILY IV 10/25/24 13:45 11/05/24 10:45 100 MLS/HR Ticagrelor 90 mg BID PO 10/25/24 15:00 11/05/24 10:24 90 MG Ranolazine 500 mg BID PO 10/26/24 10:00 11/05/24 10:26 500 MG Sodium Chloride 10 ml QSHIFT@10,22 IV 10/28/24 22:00 11/05/24 10:26 10 ML Midodrine 10 mg TID@0600,1200,1800 PO 10/30/24 12:00 11/05/24 12:32 10 MG Digoxin 0.125 mg DAILY PO 11/05/24 10:00 11/05/24 10:25 0.125 MG Laboratory Results Laboratory Tests 11/04/24 03:00 Urinalysis Test 10/26/24 10:17 Urine Color Light-yellow (Yellow) Urine Clarity Clear (Clear) Urine pH 5.5 (5.0-9.0) Urine Specific [place] 1.039 (1.001-1.035) Urine Protein Negative (Negative) Urine Ketones Negative (Negative) Urine Blood Negative /uL (Negative) Urine Nitrite Negative (Negative) Urine Bilirubin Negative (Negative) Urine Urobilinogen Normal mg/dL (Negative) Urine Leukocyte Esterase Negative /uL (Negative) Urine RBC 8 /hpf (0 - 4) Urine Microscopic WBC 4 /HPF (0-5) Urine Squamous Epithelial Cells Few /hpf (<5) Urine Bacteria None seen /hpf (None Seen) Urine Glucose 4+ mg/dL (Normal) H Microbiology Microbiology Date/Time Source Procedure Growth Status 10/28/24 17:18 Nose MRSA Screen - Final Complete 10/26/24 10:17 Urine - Midstream Clean Catch Urine Culture - Final Complete 10/23/24 18:39 Blood Blood Culture - Final NO GROWTH AFTER 5 DAYS OF INCUBATION. Complete Labs and/or images reviewed: Labs reviewed by me Assessment/Plan Assessment/Plan -chest pain -rule out ACS -history of recent [place] with multiple stent placement as well as the need for Impella device for cardiogenic shock -hypotension, questionable cardiogenic shock -ruled out PE -sepsis secondary to ESBL in the urine -history of illicit drug use: Amphetamines -obesity -diabetes mellitus -complicated cystitis with ESBL in the urine Plan: Continuing current management. Encouraged the patient to be out of bed and ambulate. So far her blood pressure is stable. Patient is still very weak. Today she said she only able to get up and sit in the chair. Continuing physical therapy. Continuing midodrine and Ranexa. Continuing with wound care. Continuing with sliding scale insulin. Continuing with IV Invanz. Continuing with dual antiplatelet medication. This medical document was created using an electronic medical record system with [employer] direct computerized dictation system. Although this document has been carefully reviewed, there may still be some phonetic and typographical errors. These areas are purely typographical due to imperfections of the software programs, and do not reflect any compromise in the patient's medical care. Plan discussed with: Patient Date of Service: Nov 05, 2024 Billing Provider: REEMA LEE MD Common Visit Codes: [id number] INP/OBS CARE(HIGH) REEMA LEE MD Nov 05, 2024 14:18
[2024-11-06] VITALS (12 sets, daily range): BP systolic 90–124; BP diastolic 38–79; PULSE 58–98; RESP 15–18; TEMP 97.3–98.4; O2SAT 94–100
--- NOTE | 2024-11-06 23:03 | DVHPN2 ---
Subjective The patient is seen and examined at bedside. Remained weak and tired. Reviewed: Care Plan, H&P, Labs, Medications Changes from previous H/P or p: No Changes General: Per HPI Cardiovascular: Chest Pain Respiratory: Shortness of breath Skin: Other (Scabbing to top her head) Objective Vitals Vital Signs Date Time Temp Pulse Resp B/P (MAP) Pulse Ox O2 Delivery O2 Flow Rate FiO2 11/06/24 22:14 74 16 100 11/06/24 22:08 Room Air 0.0 11/06/24 22:08 21 11/06/24 21:00 97.6 102/54 (70) 97.6 Intake/Output Intake and Output 11/06/24 07:00 Intake Total 1410 ml Balance 1410 ml Intake Oral 1360 ml IV Total 50 ml # Voids 6 General Appearance: Alert, Oriented X3, Cooperative, mild distress HEENT: Atraumatic, PERRLA Lungs: Clear to auscultation, Normal air movement Cardiovascular: Normal S1, Normal S2 Abdomen: Normal bowel sounds, Soft, No tenderness Musculoskeletal: Normal sensory function, Normal motor function Neuro: Normal gait, Normal speech Skin: Dry, Intact, Wounds (See nurse notes and pictures), Other (Right point wound VAC. Scalp dressing) Psych/Mental Status: Mental status NL, Mood NL Medications Current Medications Medications Dose Ordered Sig/Mary [place] Route Start Time Stop Time Status Last Admin Dose Admin Diagnostic Test (Pha) 1 strip ACHS 10/23/24 22:00 11/06/24 21:49 1 STRIP Insulin Human Regular ACHS SC 10/23/24 22:00 11/06/24 21:53 3 UNITS Dextrose 50 ml UD PRN IV 10/23/24 17:15 Acetaminophen 650 mg Q6HP PRN PO 10/23/24 17:15 10/26/24 20:36 650 MG Ondansetron HCl 4 mg Q4HP PRN IV 10/23/24 17:15 Nitroglycerin 0.4 mg Q5MINP PRN SL 10/23/24 17:15 10/29/24 15:38 0.4 MG Empaglifozin 10 mg DAILY PO 10/24/24 10:00 11/06/24 09:59 10 MG Aspirin 81 mg DAILY PO 10/24/24 10:00 11/06/24 10:01 81 MG Atorvastatin Calcium 40 mg DAILY PO 10/24/24 10:00 11/06/24 09:59 40 MG Pantoprazole Sodium 40 mg DAILY PO 10/24/24 10:00 11/06/24 09:59 40 MG Budesonide 0.5 mg BID NEB 10/23/24 22:00 11/06/24 22:08 0.5 MG Albuterol 2.5 mg Q4HPRN PRN NEB 10/23/24 17:45 11/06/24 09:49 2.5 MG Ipratropium [place] 0.5 mg Q4HPRN PRN NEB 10/23/24 17:45 11/06/24 09:49 0.5 MG Citalopram Hydrobromide 20 mg DAILY PO 10/25/24 22:00 11/06/24 09:59 20 MG Ertapenem 1 gm/ Sodium Chloride 50 ml @ 100 mls/hr DAILY IV 10/25/24 13:45 11/06/24 10:20 100 MLS/HR Ticagrelor 90 mg BID PO 10/25/24 15:00 11/06/24 22:03 90 MG Ranolazine 500 mg BID PO 10/26/24 10:00 11/06/24 22:03 500 MG Sodium Chloride 10 ml QSHIFT@10,22 IV 10/28/24 22:00 11/06/24 22:04 10 ML Midodrine 10 mg TID@0600,1200,1800 PO 10/30/24 12:00 11/06/24 18:03 10 MG Digoxin 0.125 mg DAILY PO 11/05/24 10:00 11/06/24 10:01 0.125 MG Laboratory Results Laboratory Tests 11/04/24 03:00 Urinalysis Test 10/26/24 10:17 Urine Color Light-yellow (Yellow) Urine Clarity Clear (Clear) Urine pH 5.5 (5.0-9.0) Urine Specific [place] 1.039 (1.001-1.035) Urine Protein Negative (Negative) Urine Ketones Negative (Negative) Urine Blood Negative /uL (Negative) Urine Nitrite Negative (Negative) Urine Bilirubin Negative (Negative) Urine Urobilinogen Normal mg/dL (Negative) Urine Leukocyte Esterase Negative /uL (Negative) Urine RBC 8 /hpf (0 - 4) Urine Microscopic WBC 4 /HPF (0-5) Urine Squamous Epithelial Cells Few /hpf (<5) Urine Bacteria None seen /hpf (None Seen) Urine Glucose 4+ mg/dL (Normal) H Microbiology Microbiology Date/Time Source Procedure Growth Status 10/28/24 17:18 Nose MRSA Screen - Final Complete 10/26/24 10:17 Urine - Midstream Clean Catch Urine Culture - Final Complete 10/23/24 18:39 Blood Blood Culture - Final NO GROWTH AFTER 5 DAYS OF INCUBATION. Complete Labs and/or images reviewed: Labs reviewed by me Assessment/Plan Assessment/Plan -chest pain -rule out ACS -history of recent [place] with multiple stent placement as well as the need for Impella device for cardiogenic shock -hypotension, questionable cardiogenic shock -ruled out PE -sepsis secondary to ESBL in the urine -history of illicit drug use: Amphetamines -obesity -diabetes mellitus -complicated cystitis with ESBL in the urine Plan: Continuing current management. Encouraged the patient to be out of bed and ambulate. So far her blood pressure is stable. Patient is still very weak. Today she said she only able to get up and sit in the chair. Continuing physical therapy. Continuing midodrine and Ranexa. Continuing with wound care. Continuing with sliding scale insulin. Continuing with IV Invanz. Continuing with dual antiplatelet medication. This medical document was created using an electronic medical record system with [employer] computerized dictation system. Although this document has been carefully reviewed, there may still be some phonetic and typographical errors. These areas are purely typographical due to imperfections of the software programs, and do not reflect any compromise in the patient's medical care. Plan discussed with: Patient Date of Service: Nov 06, 2024 Billing Provider: REEMA LEE MD Common Visit Codes: [id number] INP/OBS CARE(HIGH) REEMA LEE MD Nov 06, 2024 23:03
[2024-11-07] VITALS (10 sets, daily range): BP systolic 102–114; BP diastolic 47–71; PULSE 59–73; RESP 14–18; TEMP 97.6–98.5; O2SAT 94–98
[2024-11-07] MEDS ORDERED: DIGO1TAB48 PO (09:57)
[2024-11-07] MEDS ORDERED: RANO500T3 PO (10:01)
--- NOTE | 2024-11-07 10:09 | DVHDS2 ---
Discharge Summary Date of Admission Oct 23, 2024 at 17:07 Date of Discharge: Nov 07, 2024 Admitting Diagnosis Pain Labs/Diagnostic Data: Laboratory Results Test 11/07/24 05:14 11/06/24 07:12 11/04/24 03:00 11/02/24 08:25 POC Glucose 130 mg/dl (70-106) Digoxin Level < 0.14 ng/mL (0.8-2) White Blood Count 3.8 10^3/uL (4.4-10.8) Red Blood Count 4.20 10^6/uL (4.0-5.20) Hemoglobin 10.1 g/dL (12.2-16.2) Hematocrit 31.4 % (36.0-46.0) Mean Corpuscular Volume 74.8 fL (80.0-100.0) Mean Corpuscular Hemoglobin 24.0 pg (28.0-32.0) Mean Corpuscular Hemoglobin Concent 32.1 g/dL (32.0-36.0) Red Cell Distribution Width 15.6 % (11.8-14.3) Platelet Count 347 10^3/uL (140-450) Mean Platelet Volume 8.0 fL (6.9-10.8) Neutrophils (%) (Auto) 45.6 % (37.0-80.0) Lymphocytes (%) (Auto) 32.9 % (10.0-50.0) Monocytes (%) (Auto) 14.7 % (0.0-12.0) Eosinophils (%) (Auto) 4.6 % (0.0-7.0) Basophils (%) (Auto) 2.2 % (0.0-2.0) Neutrophils # (Auto) 1.7 10 ^3/uL (1.6-8.6) Lymphocytes # (Auto) 1.3 10 ^3/uL (0.4-5.4) Monocytes # (Auto) 0.6 10 ^3/uL (0-1.3) Eosinophils # (Auto) 0.2 10 ^3/uL (0-0.8) Basophils # (Auto) 0.1 10 ^3/uL (0-0.2) Nucleated Red Blood Cells 0.1 % Sodium Level 138 mmol/L (136-145) Potassium Level 4.0 mmol/L (3.5-5.1) Chloride Level 107 mmol/L (98-107) Carbon Dioxide Level 24 mmol/L (20-31) Anion Gap 7 (5-15) Blood Urea Nitrogen 16 mg/dL (9-23) Creatinine 0.70 mg/dL (0.550-1.02) Glomerular Filtration Rate Calc 107 mL/min (>90) BUN/Creatinine Ratio 22.9 (10.0-20.0) Serum Glucose 156 mg/dL (74-106) Calcium Level 10.4 mg/dL (8.7-10.4) Cortisol AM Sample 31.51 ug/dL (5.27-22.45) Test 10/29/24 02:57 10/28/24 10:07 10/27/24 05:38 10/26/24 10:17 Magnesium Level 2.1 mg/dL (1.6-2.6) Prothrombin Time 11.6 sec (9.3-11.8) Prothrombin Time INR 1.11 (0.9-1.15) Activated Partial Thromboplast Time 40.8 SEC (24.5-34.5) Differential Total Cells Counted 100.0 (100) Neutrophils % (Manual) 37 (37.0-80.0) Band Neutrophils % (Manual) 0 Lymphocytes % (Manual) 51 (10.0-50.0) Monocytes % (Manual) 9 (0-12) Eosinophils % (Manual) 0 (0-7) Basophils % (Manual) 0 (0.0-2.0) Metamyelocytes % (manual) 0 Myelocytes % (Manual) 0 Promyelocytes % (Manual) 0 Blast Cells % (Manual) 0 Reactive Lymphocytes 3 Platelet Estimate Adequate Hypochromasia (manual) Slight Microcytosis Slight Urine Color Light-yellow (Yellow) Urine Clarity Clear (Clear) Urine pH 5.5 (5.0-9.0) Urine Specific [place] 1.039 (1.001-1.035) Urine Protein Negative (Negative) Urine Ketones Negative (Negative) Urine Blood Negative /uL (Negative) Urine Nitrite Negative (Negative) Urine Bilirubin Negative (Negative) Urine Urobilinogen Normal mg/dL (Negative) Urine Leukocyte Esterase Negative /uL (Negative) Urine RBC 8 /hpf (0 - 4) Urine Microscopic WBC 4 /HPF (0-5) Urine Squamous Epithelial Cells Few /hpf (<5) Urine Bacteria None seen /hpf (None Seen) Urine Glucose 4+ mg/dL (Normal) Test 10/24/24 16:34 10/24/24 04:19 10/23/24 18:39 10/23/24 17:00 D-Dimer, Quantitative 4.13 mg/L FEU (0.0-0.49) Anisocytosis (manual) Slight Lactic Acid Level 0.8 mmol/L (0.4-2.0) Troponin I High Sensitivity 65 ng/L (</=34) Test 10/23/24 16:00 10/23/24 14:11 Urine Opiates Screen Neg (NEGATIVE) Urine Fentanyl Screen Neg (NEGATIVE) Urine Barbiturates Screen Neg (NEGATIVE) Urine Phencyclidine Screen Neg (NEGATIVE) Urine Amphetamines Screen Neg (NEGATIVE) Urine Benzodiazepines Screen Neg (NEGATIVE) Urine Cocaine Screen Neg (NEGATIVE) Urine Cannabinoids Screen Neg (NEGATIVE) Hemoglobin A1c 10.6 % A1C (<5.7) Lactate Dehydrogenase 194 U/L (120-246) Thyroid Stimulating Hormone (TSH) 0.21 uIU/mL (0.55-4.78) Other Laboratory Tests 11/04/24 03:00 Brief Hx & Hospital Course: History of Present Illness Maritza Fan is a 49-year-old female with past medical history of hypertension, hyperlipidemia, diabetes type 2, CHF, CVA with no deficits, ND, anxiety, PTCA x3 on 09/22/24 with an Impella that was placed in and removed on 09/24/24 at [facility], and right groin I and D with a wound VAC currently in place from [facility] who presents to the ED with chest pain and shortness of breath that occurred this morning around 5:00 a.m.. Patient states that she was sleeping at the time and the pain woke her up from her sleep. She reports that the pain is currently 7/10 pressure-like and constant and radiates to her left mid axillary. Patient states that she is currently taking Bactrim for her MRSA infection that started on her left dorsal hand and her right groin which started on October 15 and due to finish on October 28. Patient denies any abdominal pain, nausea, vomiting, diarrhea, lightheadedness, weakness, fever, chills, and dizziness. Patient also reports that she uses a cane and a front wheel walker to ambulate. Patient states that she quit smoking, quit drinking, and quit illicit drugs this August. Patient also reports that she had fallen 1 year ago on her head and she is currently cleaning the top of her scalp with solution and placing a bandage over the site. Patient also states that she only takes aspirin for her current stents in place. Course of hospitalization: The patient was very well-known to to me from her previous admission including findings of uncontrolled diabetes mellitus, multivessel coronary artery disease, with the patient was subsequently being transferred to [facility] for which she underwent high-risk PCI with multiple stent placement as well as the need for Impella LVAD for persistent cardiogenic shock. Patient had also Staphylococcus aureus bacteremia at that time, as well as having small CVA during her admission at [facility]. Patient was transferred back to this hospital, and subsequently discharged. The patient went back for postop follow up at [facility], with the patient undergoing I and D to hematoma of right groin as well as wound VAC placement. Patient was brought to this hospital from home, found to be hypotensive requiring vasopressor therapy. Extreme challenges were found to weaning the patient off of vasopressors, probably multifactorial given poor ejection fraction, ESBL in the urine, as well as patient being hypovolemic from her heart failure regimen. Patient was given full two week course of Invanz. Right groin a wound VAC has been removed given adequate healing to her right groin. Patient's diuretics were stopped. Passive leg raises were performed on multiple occasions in the ICU, for which the patient had volume replete. Patient continued to have some hypotension as well as tachycardia for which digoxin 0.125 mg p.o. was started. Patient's heart rate improved. Patient has been ambulating without any noted dizziness and without any assistive DME. Vital signs have been the stable for the past 48 hours. Patient will be discharged home after having PICC line removed. Patient was instructed to have her wound VAC returned back to her home health services. Medication reconciliation was performed with the patient to continue all medications other than Imdur, with the patient now continuing her treatment with Ranexa, as well as digoxin every other day. She was to follow up with her PCP in 1-2 weeks as well as her discharge Clinic in one week if she was not able to obtain an appointment in a timely fashion. Patient was agreeable to this discharge plan. All questions answered. Total time spent with patient discussing and formulating plan of care: 35 minutes. This medical document was created using an electronic medical record system with [employer] dictation system. Although this document has been carefully reviewed, there may still be some phonetic and typographical errors. These areas are purely typographical due to imperfections of the software programs, and do not reflect any compromise in the patient's medical care. Consults/Reason for consult Cardiology: Elevated troponin, chest pain Condition at Discharge: Fair Final Diagnosis/Problems List Septic shock secondary to ESBL in the Urine Secondary diagnosis: -chest pain, stable angina -ruled out ACS -history of recent ND with multiple stent placement as well as the need for Impella device for cardiogenic shock -hypotension, questionable cardiogenic shock -ruled out PE -sepsis secondary to ESBL in the urine -history of illicit drug use: Amphetamines -obesity -diabetes mellitus -complicated cystitis with ESBL in the urine Discharge Disposition: Home Discharge Instruct/Medications Diet: Consistent carbohydrate, Cardiac 2g Na,low cholest Activity: No Restrictions, As Tolerated Follow Up/Referral: DC clinic in 1 week PCP in 1-2 weeks Medications: Midodrine 10mg po TID Digoxin 0.125mg every other day Continue all other home medications per medication reconciliation form 36 Discharge Statement: "Patient was advised to return to the ER or call 911 if any headaches, dizziness, shortness of breath, chest pain, abdominal pain, bleeding, fevers, or worsening of medical condition. Patient was counseled about treatment plan, medications, possible side effects, patientverbalized understanding. All questions were answered to the best of my ability. This discharge took greater then 30 minutes in planning, reviewing documentation, counseling the patient, and discussing with other team members." ASSESSMENT ASSESSMENT Assessment Septic shock secondary to ESBL in the Urine Date of Service: Nov 07, 2024 Billing Provider: INDU GARCÍA NP Common Visit Codes: 05080-SVC/OBS DISCH DAY >30min INDU GARCÍA NP Nov 07, 2024 10:09
[2024-11-07 10:48] LABS: Basophils # (auto) 0 10 ^3/uL (0-0.2); Basophils % (auto) 1.3 % (0.0-2.0); Eosinophils # (auto) 0.1 10 ^3/uL (0-0.8); Hemoglobin 9.7 g/dL (12.2-16.2); Monocytes # (auto) 0.3 10 ^3/uL (0-1.3); Neutrophils # (auto) 2.1 10 ^3/uL (1.6-8.6); Nucleated Red Blood Cells % 0.1 %; White Blood Cell 3.2 10^3/uL (4.4-10.8)
[2024-11-07 10:51] LABS: Hematocrit 29.4 % (36.0-46.0); Lymphocytes # (auto) 0.7 10 ^3/uL (0.4-5.4); Lymphocytes % (auto) 20.1 % (10.0-50.0); Mean Corpuscular Hemoglobin 24.7 pg (28.0-32.0); Mean Corpuscular Hgb Conc. 33.2 g/dL (32.0-36.0); Mean Corpuscular Volume 74.5 fL (80.0-100.0); Monocytes % (auto) 10.1 % (0.0-12.0); Neutrophils % (auto) 64.5 % (37.0-80.0); Platelet Count (auto) 345 10^3/uL (140-450); Red Blood Cells 3.94 10^6/uL (4.0-5.20); Red Cell Distribution Width 15.8 % (11.8-14.3)
[2024-11-07 10:55] LABS: Chloride 104 mmol/L (98-107); Potassium 4.2 mmol/L (3.5-5.1); Sodium 138 mmol/L (136-145)
[2024-11-07 10:56] LABS: Anion Gap 8 (5-15); Carbon Dioxide 26 mmol/L (20-31)
[2024-11-07 11:01] LABS: BUN/Creatinine Ratio 16.7 (10.0-20.0); Blood Urea Nitrogen 13 mg/dL (9-23)
[2024-11-07 11:04] LABS: Glucose 251 mg/dL (74-106)
== END 2024-11-07 15:06 | disposition home or self-care (01) | DRG 720 ==
LOC: ER 13:56 → OVERFLOW 17:07 → ICU WEST 10-27 10:24 → TELE-CENTR 11-04 21:17
PROVIDERS: ADMIT Nurse Practitioner Acute Care; ATTEND Nurse Practitioner Acute Care
PROC: 02HV33Z Insertion of Infusion Device into Superior Vena Cava, Percutaneous Approach (ICD-10-PCS; principal; 2024-10-28)
PROC: B548ZZA Ultrasonography of Superior Vena Cava, Guidance (ICD-10-PCS; 2024-10-28)
DX: A41.89 Other specified sepsis (principal); J96.01 Acute respiratory failure with hypoxia; R65.21 Severe sepsis with septic shock; I50.43 Acute on chronic combined systolic (congestive) and diastolic (congestive) heart failure; I42.9 Cardiomyopathy, unspecified; D64.9 Anemia, unspecified; E11.65 Type 2 diabetes mellitus with hyperglycemia; E66.9 Obesity, unspecified; F41.9 Anxiety disorder, unspecified; F17.210 Nicotine dependence, cigarettes, uncomplicated; I25.10 Atherosclerotic heart disease of native coronary artery without angina pectoris; E78.5 Hyperlipidemia, unspecified; F15.90 Other stimulant use, unspecified, uncomplicated; E86.1 Hypovolemia; I11.0 Hypertensive heart disease with heart failure; Z68.32 Body mass index [BMI] 32.0-32.9, adult; Z91.02 Food additives allergy status; Z79.82 Long term (current) use of aspirin; Z82.3 Family history of stroke; N30.00 Acute cystitis without hematuria; Z82.49 Family history of ischemic heart disease and other diseases of the circulatory system; B96.89 Other specified bacterial agents as the cause of diseases classified elsewhere; Z82.5 Family history of asthma and other chronic lower respiratory diseases; Z16.12 Extended spectrum beta lactamase (ESBL) resistance; Z83.3 Family history of diabetes mellitus; Z86.14 Personal history of Methicillin resistant Staphylococcus aureus infection; Z86.73 Personal history of transient ischemic attack (TIA), and cerebral infarction without residual deficits; Z88.6 Allergy status to analgesic agent; Z98.61 Coronary angioplasty status
CPT/HCPCS: 36415; 36569; 71045; 71275; 76937; 80048; 80162; 80307; 81001; 82533; 82962; 83036; 83605; 83615; 83735; 84443; 84484; 85007; 85025; 85027; 85379; 85610; 85730; 87040; 87081; 87086; 87088; 87186; 87205; 93005; 94640; 96361; 96365; 97110; 97116; 97163; 97530; 99291; G0378; J1335; J1815; P9047; Q9965

== ENCOUNTER 2025-04-05 17:29 | Inpatient (IN) | payer MEDICAID ==
[~2025-04-05] VITALS: Ht 165.1 cm; Wt 96.1 kg
[~2025-04-05 17:29] MED LIST changes: +ACET500T58 PO; -ASPI-325 PO; -AUG875T PO; +CEPH250C PO; +CIPR1SUS8 LEFT EAR; +DIGO1TAB48 PO; -FURO1TAB33 PO; -INSLANTI SC; -ISOS1TAB28 PO; -IVAB1.7T PO; -IVAB5TAB2 PO; +MID10T PO; +RANO500T3 PO; +SACU1TAB PO
--- NOTE | 2025-04-05 18:00 | ED.PDOC ---
History of Present Illness HPI Comments 50-year-old female presents with a chief complaint of chest pain x onset one hour with associated nausea and SOB at rest. Patient states that she got into an argument with her brother and states that she began to have chest pain. Patient mentions that she now feels nauseated and SOB. Patient reports that she has had 2 previous MIs. EKG was 90 with NSR rhythm. Chief Complaint: Chest Pain Time Seen by MD: 17:51 Primary Care Provider: UNKNOWN Reviewed Notes: Medications, Allergies Allergies: Coded Allergies: Ibuprofen (Unverified Allergy, Severe, anaphylaxis, 09/13/24) Metformin (Unverified Allergy, Unknown, 02/12/25) Home Meds Active Scripts Acetaminophen (Acetaminophen) 500 Mg Tab, 500 MG PO Q4HPRN, #30 TAB 0 Refills Prov:MAEVE JOYNER 03/29/25 Ciprofloxacin-Dexamethasone (Ciprofloxacin/Dexamethaso 0.3-0.1 %) 1 Prerna Prerna, 4 DROP LEFT EAR BID for 7 Days, #1 BOTTLE 0 Refills Prov:MAEVE JOYNER 03/29/25 Reported Medications Omeprazole (Gnp Omeprazole) 20 Mg Tab, 1 TAB PO DAILY, #90 TAB 1 Refill 12/07/24 Pravastatin Sodium (PRAVACHOL TABLET) 20 Mg Tb, 1 TAB PO DAILY, #30 TAB 5 Refills 12/07/24 Aspirin (Aspir-81) 81 Mg Tab, 1 TAB PO DAILY, #30 TAB 5 Refills 12/07/24 Insulin Glargine (Lantus) 100 Unit/Ml Inj, 100 UNIT SC, INJ 11/24/24 Escitalopram Oxalate (Lexapro) 10 Mg Tab, 1 TAB PO DAILY, #90 TAB 3 Refills 09/15/24 Sitagliptin Phosphate (Januvia) 50 Mg Tab, 1 TAB PO DAILY, #30 TAB 5 Refills 09/15/24 Information Source: Patient Mode of Arrival: Wheelchair Severity: Moderate Timing: Hours Duration: Since onset Prehospital treatment: None Past Medical History PAST MEDICAL HISTORY: Anxiety, CHF, DM, High Lipids, HTN, LA Surgical History: 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: No Pertinent PROGRAM COORDINATOR EXECUTIVE EDUCATION History Family History Family History: Reviewed,noncontributory to illness, Unknown Social History Smoker: Non-Smoker Alcohol: Denies ETOH Use Drugs: Denies Drug Use Lives In: Home Constitutional: denies: chills, diaphoresis, fatigue, fever, malaise, sweats, weakness, others EENTM: denies: blurred vision, double vision, ear bleeding, ear discharge, ear drainage, ear pain, ear ringing, eye pain, eye redness, hearing loss, mouth pain, mouth swelling, nasal discharge, nose bleeding, nose congestion, nose pain, photophobia, tearing, throat pain, throat swelling, voice changes, others Respiratory: reports: SOB at rest, shortness of breath; denies: cough, hemoptysis, orthopnea, SOB with excertion, stridor, wheezing, others Cardiovascular: reports: chest pain; denies: dizzy spells, diaphoresis, Dyspnea on exertion, edema, irregular heart beat, left arm pain, lightheadedness, palpitations, PND, syncope, others Gastrointestinal: reports: nausea; denies: abdomen distended, abdominal pain, blood streaked bowels, constipated, diarrhea, dysphagia, difficulty swallowing, hematemesis, melena, poor appetite, poor fluid intake, rectal bleeding, rectal pain, vomiting, others Genitourinary: denies: abnormal vagina bleeding, burning, dyspareunia, dysuria, flank pain, frequency, hematuria, incontinence, pain, , vagina discharge, urgency, others Neurological: denies: dizziness, fainting, headache, left sided numbness, left sided weakness, numbness, paresthesia, pre-existing deficit, right sided numbness, right sided weakness, seizure, speech problems, tingling, tremors, weakness, others Musculoskeletal: denies: back pain, gout, joint pain, joint swelling, muscle pain, muscle stiffness, neck pain, others Integumetry: denies: bruises, change in color, change in hair/nails, dryness, laceration, lesions, lumps, rash, wounds, others Allergic/Immunocompromised: denies: Difficulty Healing, Frequent Infections, Hives, Itching, others Hematologic/Lymphatic: denies: anemia, blood clots, easy bleeding, easy bruising, swollen glands, others Endocrine: denies: excessive hunger, excessive sweating, excessive thirst, excessive urination, flushing, intolerance to cold, intolerance to heat, unexplained weight gain, unexplained weight loss, others Psychiatric: denies: anxiety, bipolar disorder, depression, hopeless, panic disorder, schizophrenia, sleepless, suicidal, others All Other Systems: Reviewed and Negative Physical Exam General Appearance: No Apparent Distress, Normal HEENT: Normal ENT Inspection, Pharynx Normal, TMs Normal Neck: Full Range of Motion, Non-Tender, Normal, Normal Inspection Respiratory: Chest Non-Tender, Lungs Clear, No Accessory Muscle Use, No Respiratory Distress, Normal Breath Sounds Cardiovascular: No Edema, No JVD, No Murmur, No Gallop, Normal Peripheral Pulses, Regular Rate/Rhythm Breast Exam: Deferred Gastrointestinal: No Organomegaly, Non Tender, No Pulsatile Mass, Normal Bowel Sounds, Soft Genitalia: Deferred Pelvic: Deferred Rectal: Deferred Extremities: No calf tenderness, Normal capillary refill, Normal inspection, Normal range of motion, Non-tender, No pedal edema Musculoskeletal : Apperance: Normal Neurologic: Alert, cone operator II-XII nml as Tested, No Motor Deficits, Normal Affect, Normal Mood, No Sensory Deficits Cerebellar Function: Normal Reflexes: Normal Skin: Dry, Normal Color, Warm Lymphatic: No Adenopathy Was a procedure done? Was a procedure done?: No EKG EKG : Pulse Rate (adult): 90 [place]: Normal Cardiac Rhythm: NSR Block: None Hypertrophy: None ST: Normal Differential Dx Considerations may include: Differential diagnosis includes unstable angina, acute LA, anxiety, pleurisy, chest wall pain, GERD symptoms. However with the patient's strong cardiac history and multiple risk factors she will be admitted for further evaluation out unstable angina X-Ray, Labs, Meds, VS Vital Signs Date Time Temp Pulse Resp B/P (MAP) Pulse Ox O2 Delivery O2 Flow Rate FiO2 04/05/25 18:20 84 04/05/25 18:00 90 04/05/25 17:38 90 04/05/25 17:32 98.1 101 18 133/69 97 98.1 Lab Test 04/05/25 17:43 Range/Units White Blood Count 5.5 4.4-10.8 10^3/uL Red Blood Count 5.17 4.0-5.20 10^6/uL Hemoglobin 11.9 L 12.2-16.2 g/dL Hematocrit 37.3 36.0-46.0 % Mean Corpuscular Volume 72.2 L 80.0-100.0 fL Mean Corpuscular Hemoglobin 22.9 L 28.0-32.0 pg Mean Corpuscular Hemoglobin Concent 31.8 L 32.0-36.0 g/dL Red Cell Distribution Width 17.1 H 11.8-14.3 % Platelet Count 364 140-450 10^3/uL Mean Platelet Volume 7.5 6.9-10.8 fL Neutrophils (%) (Auto) 68.6 37.0-80.0 % Lymphocytes (%) (Auto) 18.2 10.0-50.0 % Monocytes (%) (Auto) 8.6 0.0-12.0 % Eosinophils (%) (Auto) 3.8 0.0-7.0 % Basophils (%) (Auto) 0.8 0.0-2.0 % Neutrophils # (Auto) 3.7 1.6-8.6 10 ^3/uL Lymphocytes # (Auto) 1.0 0.4-5.4 10 ^3/uL Monocytes # (Auto) 0.5 0-1.3 10 ^3/uL Eosinophils # (Auto) 0.2 0-0.8 10 ^3/uL Basophils # (Auto) 0 0-0.2 10 ^3/uL Nucleated Red Blood Cells 0.1 % Sodium Level 136 136-145 mmol/L Potassium Level 4.0 3.5-5.1 mmol/L Chloride Level 103 98-107 mmol/L Carbon Dioxide Level 22 20-31 mmol/L Anion Gap 11 5-15 Blood Urea Nitrogen 16 9-23 mg/dL Creatinine 0.94 0.550-1.02 mg/dL Glomerular Filtration Rate Calc 74 >90 mL/min BUN/Creatinine Ratio 17.0 10.0-20.0 Serum Glucose 290 H 74-106 mg/dL Calcium Level 9.6 8.7-10.4 mg/dL Troponin I High Sensitivity 29 </=34 ng/L Time of 1ST Reevaluation: 18:21 Reevaluation 1ST: Unchanged Patient Education/Counseling: Diagnosis, Treatment, Need For Follow Up Family Education/Counseling: Diagnosis, Treatment, Need For Follow Up SEPSIS Sepsis Screen Date sepsis recognized/suspect: Apr 05, 2025 Time Sepsis recognized/suspect: 1732 Recent Procedure: No On Antibiotic Therapy: No Respiratory Rate >20: No Heart Rate >90: Yes Temp<36 C (96.8 F) or >38.3 C: No SBP <90 or MAP <65 mmHG: No New Acute Mental Status Change: No Is the patient on CPAP, BIPAP,: No Physician Orders Electrocardigram (04/05/25 17:34) Troponin-I Hs (04/05/25 18:34) Troponin-I Hs (04/05/25 20:34) Electrocardigram (04/05/25 18:34) Continuous Ekg Monitoring 08,12,16,20,00,04 (04/05/25 17:55) Chest Xray 1 View (04/05/25 17:55) Vital Signs Date Time Temp Pulse Resp B/P (MAP) Pulse Ox O2 Delivery O2 Flow Rate FiO2 04/05/25 18:20 84 04/05/25 18:00 90 04/05/25 17:38 90 04/05/25 17:32 98.1 101 18 133/69 97 98.1 Laboratory Tests Test 04/05/25 17:43 White Blood Count 5.5 10^3/uL (4.4-10.8) Departure 1 Departure Time of Disposition: 18:44 Impression: Primary Impression: Unstable angina Disposition: ADMITTED INPATIENT Admit to: Tele Condition: Serious Discharged With: Self Critical Care Note Critical Care Time?: Yes (55 min-critical care time only) Critical care comment: Due to concerns for patients condition deteriorating, the care required my highest level of attention and readiness to intervene. I assessed the patient, reviewed the medical records, ordered the appropriate tests and treatments, then reassessed for results and responsiveness. I communicated with medical personnel and consultants and formulated a plan of care. Total critical care time excludes any procedures Stability Stability form required: No Heart Score Heart Score: Heart Score Response (Comments) Value History Highly Suspicious 2 EKG Repolarization Disturb 1 Age 45-64 1 Risk Factors >3 or Hx ASHD 2 Troponin Normal limit 0 Total 6 I personally scribed for TUYET DIAZ MD ([email or web address]) on 04/05/25 at 18:00. Electronically submitted by Rashaun Delgado ([email or web address]). TUYET DIAZ MD Apr 05, 2025 18:00
[2025-04-05 18:13] LABS: Hematocrit 37.3 % (36.0-46.0); Hemoglobin 11.9 g/dL (12.2-16.2); Mean Corpuscular Hemoglobin 22.9 pg (28.0-32.0); Mean Corpuscular Volume 72.2 fL (80.0-100.0); Nucleated Red Blood Cells % 0.1 %
[2025-04-05 18:17] LABS: Chloride 103 mmol/L (98-107); Potassium 4.0 mmol/L (3.5-5.1); Sodium 136 mmol/L (136-145)
[2025-04-05 18:18] LABS: Anion Gap 11 (5-15); Carbon Dioxide 22 mmol/L (20-31)
[2025-04-05 18:19] LABS: Calcium 9.6 mg/dL (8.7-10.4)
[2025-04-05 18:23] LABS: BUN/Creatinine Ratio 17.0 (10.0-20.0); Blood Urea Nitrogen 16 mg/dL (9-23)
[2025-04-05 18:24] LABS: Glucose 290 mg/dL (74-106)
--- NOTE | 2025-04-05 18:37 | DVH ---
CHEST RADIOGRAPH Indication: cp Technique: Single frontal view of the chest was obtained Comparison: XY CHEST PORTABLE on DOS: 02/12/25, XY CHEST XRAY 1 VIEW on DOS: 12/07/24, XY CHEST PORTABL E on DOS: 11/23/24 FINDINGS: Lines and Tubes: None Lungs: No focal consolidation. Pleura: No effusion. No pneumothorax. Cardiomediastinal contours: Unremarkable Bones: No acute osseous abnormality. IMPRESSION: 1. No acute cardiopulmonary disease. 2. No significant change from 02/12/2025.
[2025-04-05] MEDS: ONDANSETRON HCL 4 MG/2 ML VIAL IV ONE (19:41)
[2025-04-05] MEDS: SODIUM CHLORIDE 0.9% 1,000 ML IV ONE (19:42)
[2025-04-05] MEDS: MORPHINE SULFATE INJ 2 MG/ml SYRG IV ONE (19:42)
[2025-04-05] MEDS ORDERED: DEXTROSE (50%) 50ML SYRG IV PRN (23:15)
[2025-04-05] MEDS ORDERED: MORPHINE SULFATE INJ 2 MG/ml SYRG IV PRN (23:15)
[2025-04-05] MEDS ORDERED: NITROGLYCERIN 0.4 MG SL TAB SL PRN (23:15)
--- NOTE | 2025-04-05 23:28 | DVHHP2 ---
History of Present Illness History of Present Illness This is a 50-year-old female with past medical history of Anxiety, CHF with reduced ejection fraction 25% , DM2, HLD, HTN, [place], Depression, CAD with 3 stent September 2024 in [facility] presents to the Emergency Department with chest pain that began in afternoon after argument with her brother. Chest pain is associated with nausea, vomiting, dizziness, shortness of breaths and since then patient feeling anxious. Vomiting to episode but no blood contain in vomitus. The chest pain was 9/10, sharp in nature, radiates to the left side of the neck, took aspirin and Brilinta but does not helps a lot and patient decided to come to the hospital. Patient also stated she had bilateral leg swelling for last 2 days, exertional shortness of breaths and sometimes orthopnea. In ER, patient received NSS, ondansetron, aspirin 325 mg, morphine and Patient chest pain is improving. Patient is seen by Dr. Washington(surveying or spatial science technician). Currently patient denies any cough, headache, visual problems, abdominal pain, dysuria, any focal weakness. At the time of evaluation, her EKG showed a heart rate of 84 bpm with normal sinus rhythm (NSR), QTC 447. 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 History Family History: Reviewed,noncontributory to illness, Unknown Smoker: Ex smoker, quit smoking seen August 2024 Alcohol: ETOH stopped August 2024 Drugs: Denies Drug Use Lives In: Home PCP: Unknown Allergy: Ibuprofen, metformin Review of Systems Constitutional: Yes: Malaise; No: Fever, Chills, Sweats, Weakness, Other Eyes: No: Pain, Vision change, Conjunctivae inflammation, Eyelid inflammation, Other, Redness ENT: No: Ear pain, Ear discharge, Nose pain, Nose discharge, Nose congestion, Mouth pain, Mouth swelling, Throat pain, Throat swelling, Other Respiratory: No: Cough, Dry, Shortness of breath, SOB with excertion, Wheezing, Hemoptysis, Pleuritic Pain, Sputum, Wheezing, Other Cardiovascular: Chest Pain, Edema; No: Palpitations, Orthopnea, Paroxysmal Noc. Dyspnea, Lt Headedness, Other Gastrointestinal: Nausea, Vomiting; No: Abdominal Pain, Diarrhea, Constipation, Melena, Hematochezia, Other Genitourinary: No Dysuria, No Frequency, No Incontinence, No Hematuria, No Re tention, No Other Musculoskeletal: No: other, neck pain, shoulder pain, arm pain, back pain, hand pain, leg pain, foot pain Skin: No: Rash, Lesions, Jaundice, Bruising, Other Neurological: No: Weakness, Numbness, Incoordination, Change in speech, Confusion, Seizures, Other Allergies: Coded Allergies: Ibuprofen (Unverified Allergy, Severe, anaphylaxis, 09/13/24) Metformin (Unverified Allergy, Unknown, 02/12/25) Exam Vital Signs Vital Signs Date Time Temp Pulse Resp B/P (MAP) Pulse Ox O2 Delivery O2 Flow Rate FiO2 04/05/25 21:45 73 16 113/69 04/05/25 21:41 98.5 96 98.5 04/05/25 19:15 Room Air General Appearance: Alert, Oriented X3, mild distress HEENT: Atraumatic, PERRLA, EOMI Respiratory: Clear to auscultation, Normal air movement Cardiovascular: Regular rate, Normal S1, Normal S2 Abdominal: Normal bowel sounds, Soft, No tenderness Extremities: No clubbing, No cyanosis, Other (1+ edema bilateral lower extremity) Skin: No rashes, No significant lesion Neuro: Normal gait, Normal speech Labs/Xrays Labs Test 04/05/25 20:49 04/05/25 17:43 Range/Units Troponin I High Sensitivity 61 *H </=34 ng/L White Blood Count 5.5 4.4-10.8 10^3/uL Red Blood Count 5.17 4.0-5.20 10^6/uL Hemoglobin 11.9 L 12.2-16.2 g/dL Hematocrit 37.3 36.0-46.0 % Mean Corpuscular Volume 72.2 L 80.0-100.0 fL Mean Corpuscular Hemoglobin 22.9 L 28.0-32.0 pg Mean Corpuscular Hemoglobin Concent 31.8 L 32.0-36.0 g/dL Red Cell Distribution Width 17.1 H 11.8-14.3 % Platelet Count 364 140-450 10^3/uL Mean Platelet Volume 7.5 6.9-10.8 fL Neutrophils (%) (Auto) 68.6 37.0-80.0 % Lymphocytes (%) (Auto) 18.2 10.0-50.0 % Monocytes (%) (Auto) 8.6 0.0-12.0 % Eosinophils (%) (Auto) 3.8 0.0-7.0 % Basophils (%) (Auto) 0.8 0.0-2.0 % Neutrophils # (Auto) 3.7 1.6-8.6 10 ^3/uL Lymphocytes # (Auto) 1.0 0.4-5.4 10 ^3/uL Monocytes # (Auto) 0.5 0-1.3 10 ^3/uL Eosinophils # (Auto) 0.2 0-0.8 10 ^3/uL Basophils # (Auto) 0 0-0.2 10 ^3/uL Nucleated Red Blood Cells 0.1 % Sodium Level 136 136-145 mmol/L Potassium Level 4.0 3.5-5.1 mmol/L Chloride Level 103 98-107 mmol/L Carbon Dioxide Level 22 20-31 mmol/L Anion Gap 11 5-15 Blood Urea Nitrogen 16 9-23 mg/dL Creatinine 0.94 0.550-1.02 mg/dL Glomerular Filtration Rate Calc 74 >90 mL/min BUN/Creatinine Ratio 17.0 10.0-20.0 Serum Glucose 290 H 74-106 mg/dL Calcium Level 9.6 8.7-10.4 mg/dL B-Type Natriuretic Peptide 78.21 0-100 pg/mL SEPSIS Sepsis Screen Date sepsis recognized/suspect: Apr 05, 2025 Time Sepsis recognized/suspect: 1918 Recent Procedure: No On Antibiotic Therapy: No Respiratory Rate >20: No Heart Rate >90: No Temp<36 C (96.8 F) or >38.3 C: No SBP <90 or MAP <65 mmHG: No New Acute Mental Status Change: No Is the patient on CPAP, BIPAP,: No Physician Orders Electrocardigram (04/05/25 17:34) Electrocardigram (04/05/25 18:34) Continuous Ekg Monitoring 08,12,16,20,00,04 (04/05/25 17:55) Chest Xray 1 View (04/05/25 17:55) Admit (04/05/25 23:14) Code Status (04/05/25 23:14) Ondansetron Hcl (Zofran) (04/05/25 23:15) Enoxaparin Sodium (Lovenox) (04/06/25 10:00) Cardiac Diet-2gna,Lofat,Lochol (04/06/25 Breakfast) Echo 2d Mode Cardiac Dop (04/05/25 23:14) Nitroglycerin Sublingual (Ntrostat Subli (04/05/25 23:15) Morphine Sulfate Injection (04/05/25 23:15) Oxygen By Nasal Cannula (04/05/25 23:14) Notify Md Of Changes From Base (04/05/25 23:14) Bakery Sales Clerk For 24 Hours (04/05/25 23:14) Emergency Dysrhythmia Protocol (04/05/25 23:14) Rhythm Strips Once Every Shift (04/05/25 23:14) Test, Urine (04/05/25 23:14) Furosemide Tablet (Lasix Tablet) (04/06/25 10:00) Aspirin Tablet (04/06/25 10:00) Glucose Blood (Accu-Chek Comfort Curve T (04/06/25 07:00) Bedtime Insulin Scale (04/06/25 22:00) Moderate Insulin Ss (04/06/25 07:00) Dextrose 50% Syringe (04/05/25 23:15) Insulin Lantus (Glargine) (Lantus) (04/06/25 10:00) Pantoprazole Tablet (Protonix Tablet) (04/06/25 06:00) Pravastatin Sodium Tablet (Pravachol Tab (04/06/25 22:00) Empagliflozin (Jardiance) (04/06/25 10:00) Ranolazine (Ranexa Er) (04/06/25 10:00) Ticagrelor (Brilinta) (04/06/25 10:00) Isosorbide Mononitrate Tablet (Imdur Er (04/06/25 10:00) Metoprolol Tartrate Tablet (Lopressor Ta (04/06/25 10:00) Vital Signs Date Time Temp Pulse Resp B/P (MAP) Pulse Ox O2 Delivery O2 Flow Rate FiO2 04/05/25 21:45 73 16 113/69 04/05/25 21:41 98.5 73 16 113/69 (84) 96 98.5 04/05/25 19:46 97.8 78 16 106/78 (87) 97.8 04/05/25 19:42 78 16 106/78 04/05/25 19:15 98.6 86 20 108/61 (77) 96 98.6 04/05/25 19:15 80 20 96 Room Air 04/05/25 18:20 84 04/05/25 18:00 90 04/05/25 17:38 90 04/05/25 17:32 98.1 101 18 133/69 97 98.1 Laboratory Tests Test 04/05/25 17:43 White Blood Count 5.5 10^3/uL (4.4-10.8) Medications Medications Dose Ordered Sig/Mary Anne Route Start Time Stop Time Status Last Admin Dose Admin Aspirin 325 mg ONCE ONCE PO 04/05/25 18:00 04/05/25 18:01 DC 04/05/25 19:41 325 MG Morphine Sulfate 2 mg ONCE ONCE IV 04/05/25 19:30 04/05/25 19:31 DC 04/05/25 19:42 2 MG Ondansetron HCl 4 mg ONCE ONCE IV 04/05/25 19:30 04/05/25 19:31 DC 04/05/25 19:41 4 MG Sodium Chloride 1,000 ml @ 1,000 mls/hr Q1H ONCE IV 04/05/25 19:30 04/05/25 20:29 DC 04/05/25 19:42 1,000 MLS/HR Assessment/Plan Assessment/Plan Acute on chronic systolic heart failure Patient came with chest pain, nausea, dizziness, SOB, bilateral leg swelling In ER patient received morphine, ondansetron, aspirin 325 mg EKG showed a heart rate of 84 bpm with normal sinus rhythm (NSR), QTC 447. S.troponin 29> 37 >61 BNP 78.21 Start furosemide 40 mg p.o. daily Jardiance 10 mg p.o. daily Metoprolol 25 mg p.o. b.i.d. Ranolazine 500 mg p.o. b.i.d. Pravastatin 20 mg p.o. q.h.s. Brilinta 60 mg p.o. b.i.d. Isosorbide mononitrate 30 mg p.o. daily Will resume digoxin 0.125 mg Thursday and Thursday. Echo ordered UA, UDS, COVID 19 and influenza type a and B Monitor vitals NSTEMI type 2 due to heart failure Troponin 29>> 37> 61 Essential hypertension Metoprolol 50 mg p.o. b.i.d.-home medication Monitor BP DASH diet Type 2 diabetes mellitus with hyperglycemia During admission, BMP glucose 290 Hemoglobin A1c Glargine 25 units SC bedtime Insulin sliding scale Monitor blood sugar Jardiance 10 mg p.o. daily Sitagliptin 50 mg p.o. daily home medication NovoLog 10 units SC t.i.d.(home medicine) Coronary artery disease with 3 stent September 2024 Aspirin 81 mg p.o. daily Brilinta 60 mg p.o. b.i.d. Ranolazine 500 mg p.o. b.i.d. Mixed hyperlipidemia with diabetes mellitus type 2 Pravastatin 20 mg p.o. q.h.s. Lipid profile Lifestyle modification Normocytic normochromic anemia Hemoglobin 11.9, unknown baseline MCV 72.2, MCH 22.9, RDW 17.1 No signs symptoms of active bleeding Depression Will resume escitalopram 10 mg home medication GERD Omeprazole 20 mg p.o. daily Obesity, BMI 33.8 Lifestyle modification Diet: Diabetic diet GI prophylaxis: Pantoprazole 40 mg p.o. daily DVT prophylaxis: Lovenox 40 mg subcutaneously daily Goals of care discussions, more than 29 minute spent with patient. Full Code status. Case discussed with Dr. Fuller. Plan discussed with: Patient, Other (Nurse) My Orders Orders - KOFI PAN RESIDENT Procedure Category Date Status Time Admit ADMIT 04/05/25 Transmitted 23:14 Code Status CODE 04/05/25 Transmitted 23:14 Ondansetron Hcl PHA 04/05/25 Transmitted (Zofran) 23:15 Enoxaparin Sodium PHA 04/06/25 Transmitted (Lovenox) 10:00 Cardiac DIET 04/06/25 Transmitted Diet-2gna,Lofat,Lochol Breakfast Echo 2d Mode Cardiac US 04/05/25 Transmitted DOP 23:14 Nitroglycerin PHA 04/05/25 Transmitted Sublingual (Ntrostat 23:15 Morphine Sulfate PHA 04/05/25 Transmitted Injection 23:15 Oxygen By Nasal RT 04/05/25 Transmitted Cannula 23:14 Notify Of Changes [facility] 04/05/25 Transmitted From Base 23:14 Bakery Sales Clerk For [facility] 04/05/25 Transmitted 24 Hours 23:[address] [facility] 04/05/25 Transmitted Protocol 23:14 Rhythm Strips Once [facility] 04/05/25 Transmitted Every Shift 23:14 Test, Urine LAB 04/05/25 Transmitted 23:14 Furosemide Tablet PHA 04/06/25 Transmitted (Lasix Tablet) 10:00 Aspirin Tablet PHA 04/06/25 Transmitted 10:00 Glucose Blood PHA 04/06/25 Transmitted (Accu-Chek Comfort 07:00 Bedtime Insulin Scale PHA 04/06/25 Transmitted 22:00 Moderate Insulin Ss PHA 04/06/25 Transmitted 07:00 Dextrose 50% Syringe PHA 04/05/25 Transmitted 23:15 Insulin Lantus PHA 04/06/25 Transmitted (Glargine) (Lantus) 10:00 Pantoprazole Tablet PHA 04/06/25 Transmitted (Protonix Tablet) 06:00 Pravastatin Sodium PHA 04/06/25 Transmitted Tablet (Pravachol Tab 22:00 Empagliflozin PHA 04/06/25 Transmitted (Jardiance) 10:00 Ranolazine (Ranexa Er) PHA 04/06/25 Transmitted 10:00 Ticagrelor (Brilinta) PHA 04/06/25 Transmitted 10:00 Isosorbide PHA 04/06/25 Transmitted Mononitrate Tablet 10:00 Metoprolol Tartrate PHA 04/06/25 Transmitted Tablet (Lopressor Ta 10:00 Date of Service: Apr 05, 2025 Billing Provider: SUPA FULLER MD Common Visit Codes: 35999-[id number] INP/OBS CARE (HIGH) Secondary Visit Codes: [id number] CARE PLAN 30 MINUTES KOFI PAN Apr 05, 2025 23:28
[2025-04-06] VITALS (9 sets, daily range): BP systolic 91–112; BP diastolic 52–65; PULSE 61–95; RESP 15–18; TEMP 97.8–98.9; O2SAT 94–98
--- NOTE | 2025-04-06 00:27 | ECG ---
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
[2025-04-06 01:46] LABS: COVID19 ANTIGEN SOFIA FIA NEGATIVE (NEGATIVE)
[2025-04-06] MEDS: PANTOPRAZOLE 40 MG TAB PO SCH (06:14)
[2025-04-06] MEDS: ACCU-CHEK COMFORT CURVE STRIP VI SCH (06:14)
[2025-04-06] MEDS: InsuLIN REG 1unit/0.01ml Soln (100units/ml) SC SCH (06:18)
[2025-04-06 08:19] LABS: Cholesterol 159 mg/dL (< 200); Triglycerides 142 mg/dL (< 150)
[2025-04-06 08:24] LABS: HDL Cholesterol 37 mg/dL (40-59)
[2025-04-06] MEDS: ENOXAPARIN SOD 40 MG/0.4 ML SYRINGE SC SCH (09:52)
[2025-04-06] MEDS: RANOLAZINE ER 500 MG TAB PO SCH (09:52)
[2025-04-06] MEDS: METOPROLOL TARTRATE 25 MG TAB PO SCH (09:53)
[2025-04-06] MEDS: ONDANSETRON HCL 4 MG/2 ML VIAL IV PRN (09:54)
[2025-04-06] MEDS: ACETAMINOPHEN 325 MG TAB PO PRN (09:54)
[2025-04-06] MEDS: FUROSEMIDE 40 MG TAB PO SCH (09:54)
[2025-04-06] MEDS: EMPAGLIFLOZIN 10 MG TAB PO SCH (09:54)
[2025-04-06] MEDS: ISOSORBIDE MONONITRATE ER 60 MG TAB PO SCH (09:54)
[2025-04-06] MEDS: INSULIN LANTUS (GLARGINE) 1 /0.01ml (100units/ml) SC SCH (09:57)
[2025-04-06] MEDS: TICAGRELOR 60 MG TAB PO SCH (10:21)
--- NOTE | 2025-04-06 13:55 | ECG ---
[facility] Test Date: 2025-04-05 Test Time: 17:38:10 Pat Name: SHARONDA PARDO Department: ED Room: 0297T A Gender: F Radiographer: ROYCE : 1975 Requested By: MARLEY WALTON Order Number: [id number] Reading MD: Ever Ferguson Measurements Intervals [place] Rate: 90 P: 72 ID: [id number] QRS: -15 QRSD: 93 T: 66 QT: 365 QTc: 447 Interpretive Statements Sinus rhythm Borderline left axis deviation Low voltage, precordial leads Electronically Signed On 04-11-2025 14:19:17 PDT by Ever Ferguson Please click the below link to view image of tracing.
--- NOTE | 2025-04-06 14:52 | DVHINCON2 ---
Date Seen: Apr 06, 2025 Referring Physician MD Lawson resident Reason for Consultation Eval for possible AICD with EF less than 30% History of Present Illness This is a 50-year-old female patient who presents to the emergency room with chief complaint of chest pain. The patient reports that the chest pain began at approximately 5:00 p.m. yesterday after having a verbal argument with her brother. She reports becoming emotionally unstable and throwing a ladder which bounced back and hit her chest wall. She describes the pain as provoked with deep inhalation, intermittent, sharp in nature, located midsternally, and nonradiating. At the time of assessment, chest pain is reproducible upon palpation. Initial twelve lead electrocardiogram reveals normal sinus rhythm without any significant ST segment changes. Initial troponin level of 29ng/L with up trend and current level at 61ng/L. Significant past medical history includes severe multivessel coronary artery disease undergoing high-risk PCI including 3 KYM at [facility] with need for Impella device for cardiogenic shock on 09/2024, peripheral arterial disease undergoing SENSITOMETRIST of the bilateral lower extremities including 4 KYM (2 right sided, 2 left sided), ischemic cardiomyopathy with HFrEF, cerebrovascular accident with no residual weakness, hypertension, dyslipidemia, diabetes mellitus, previous polysubstance abuse and obesity. The patient reports following up with account executive trainee in the outpatient setting. Past Medical History Past medical history reviewed. No other significant than mentioned above. Past Surgical History PTCA including 3 KYM, 09/2024 SENSITOMETRIST including 4 KYM, 01/2025 BTL Family History: Diabetes mellitus G8 MOTHER FH: COPD (chronic obstructive pulmonary disease) G8 MOTHER FH: hepatic cirrhosis G8 MOTHER Hypertension G8 MOTHER Family History Family history reviewed. Social History Patient reports a 15 pack-year history, quit smoking August 2024 Patient admits to previous drug abuse, quit in August 2024 Denies any alcohol use Allergies: Coded Allergies: Ibuprofen (Unverified Allergy, Severe, anaphylaxis, 09/13/24) Metformin (Unverified Allergy, Unknown, 02/12/25) Home Meds Active Scripts Acetaminophen (Acetaminophen) 500 Mg Tab, 500 MG PO Q4HPRN, #30 TAB 0 Refills Prov:MAEVE JOYNER 03/29/25 Ciprofloxacin-Dexamethasone (Ciprofloxacin/Dexamethaso 0.3-0.1 %) 1 Prerna Prerna, 4 DROP LEFT EAR BID for 7 Days, #1 BOTTLE 0 Refills Prov:MAEVE JOYNER 03/29/25 Reported Medications Isosorbide Mononitrate (Isosorbide Mononitrate Er) 30 Mg Tab, 1 TAB PO DAILY, #90 04/06/25 Furosemide (Furosemide) 20 Mg Tab, 1 TAB PO DAILY, #30 04/06/25 Multiple Vitamin (Multivitamins) Tab, 1 TAB PO DAILY, #30 04/06/25 Metoprolol Succinate (Metoprolol Succinate Er) 25 Mg Tab, 1 TAB PO DAILY, #15 04/06/25 Insulin Glargine (Basaglar Kwikpen) 100 Unit/Ml Inj, UNIT SC UD, #15 04/06/25 Empagliflozin (Jardiance) 10 Mg Tab, 1 TAB PO DAILY, #30 04/06/25 Ascorbic Acid (VITAMIN C TABLET) 500 Mg Tb, 1 TAB PO DAILY, #30 04/06/25 Pravastatin Sodium (PRAVACHOL TABLET) 20 Mg Tb, 10 MG PO DAILY, #30 04/06/25 Digoxin (Digoxin) 125 Mcg Tab, 1 TAB PO DAILY, #30 04/06/25 Midodrine Hcl (Midodrine Hcl) 10 Mg Tab, 1 TAB PO UD, #90 04/06/25 Insulin Aspart (Novolog Flexpen Relion) 100 Unit/Ml Inj, UNIT SC UD, #15 04/06/25 Ticagrelor Base (BRILINTA) 90 Mg Tab, 1 TAB PO BID, #60 04/06/25 Ranolazine (Ranolazine ER) 500 Mg Tab, 1 TAB PO BID, #60 04/06/25 Omeprazole (Gnp Omeprazole) 20 Mg Tab, 1 TAB PO DAILY, #30 12/07/24 Aspirin (Aspir-81) 81 Mg Tab, 1 TAB PO DAILY, #90 12/07/24 Escitalopram Oxalate (Lexapro) 10 Mg Tab, 1 TAB PO DAILY, #30 09/15/24 Sitagliptin Phosphate (Januvia) 50 Mg Tab, 1 TAB PO DAILY, #30 TAB 5 Refills 09/15/24 Discontinued Reported Medications Metoprolol Tartrate (Metoprolol Tartrate) 50 Mg Tab, 50 MG PO for 30 Days, MG 04/06/25 Home Meds Home medications reviewed. Current Medications Current Medications Medications (Trade) Dose Ordered Sig/Mary Anne Route PRN Reason Start Time Stop Time Status Last Admin Ondansetron HCl (Zofran) 4 mg Q4HP PRN IV NAUSEA / VOMITING 04/05/25 23:15 04/06/25 09:54 Enoxaparin Sodium (Lovenox) 40 mg DAILY SC 04/06/25 10:00 04/06/25 09:52 Nitroglycerin (Ntrostat Sublingual) 0.4 mg Q5MINP PRN SL FOR CHEST PAIN 04/05/25 23:15 04/06/25 07:34 DC Morphine Sulfate 2 mg Q30M PRN IV FOR CHEST PAIN 04/05/25 23:15 04/06/25 07:34 DC Furosemide (Lasix Tablet) 40 mg DAILY PO 04/06/25 10:00 04/06/25 09:54 Aspirin 81 mg DAILY PO 04/06/25 10:00 04/06/25 09:52 Diagnostic Test (Pha) (Accu-Chek Comfort Curve T) 1 strip ACHS 04/06/25 07:00 04/06/25 11:48 Insulin Human Regular (InsuLIN R) HS SC 04/06/25 22:00 04/06/25 08:42 DC Insulin Human Regular (InsuLIN R) AC SC 04/06/25 07:00 04/06/25 11:53 Dextrose 50 ml UD PRN IV Blood Sugar LESS THAN 60 04/05/25 23:15 Insulin Glargine (Lantus) 25 units DAILY@1000 SC 04/06/25 10:00 04/06/25 09:57 Pantoprazole Sodium (Protonix Tablet) 40 mg DAILY@0600 PO 04/06/25 06:00 04/06/25 06:14 Pravastatin Sodium (Pravachol Tablet) 20 mg HS PO 04/06/25 22:00 Future Hold Empaglifozin (Jardiance) 10 mg DAILY PO 04/06/25 10:00 04/06/25 09:54 Ranolazine (Ranexa ER) 500 mg BID PO 04/06/25 10:00 04/06/25 09:52 Ticagrelor (Brilinta) 60 mg BID PO 04/06/25 10:00 04/06/25 10:21 Isosorbide Mononitrate (Imdur Er Tablet) 30 mg DAILY PO 04/06/25 10:00 04/06/25 09:54 Metoprolol Tartrate (Lopressor Tablet) 25 mg BID PO 04/06/25 10:00 04/06/25 09:53 Acetaminophen (Tylenol Tablet) 650 mg Q6HP PRN PO MILD PAIN (1-3 PAIN SCALE) 04/06/25 07:45 04/06/25 09:54 Amlodipine Besylate (Norvasc Tablet) 5 mg DAILY PO 04/07/25 10:00 Hydralazine HCl (Apresoline Tablet) 20 mg Q8H PO 04/06/25 16:00 Atorvastatin Calcium (Lipitor) 40 mg HS PO 04/06/25 22:00 Mirtazapine (Remeron Tablet) 15 mg HS PO 04/06/25 22:00 Sucralfate (Carafate Susp) 1 gm TID@0600,1130,2200 PO 04/06/25 22:00 Review of Systems Constitutional: No symptom reported Ears, Nose, & Throat: No symptom reported Eyes: No symptom reported Neurological: No symptoms reported Pulmonary/Respiratory: No symptoms reported Cardiovascular: Chest pain Gastrointestinal: No symptom reported Genitourinary: No symptom reported Musculoskeletal: No symptom reported Skin: No symptom reported Psychiatric: No symptom reported Endocrine: No symptom reported Hematologic/Lymphatic: No symptom reported Vital Signs Vital Signs Date Time Temp Pulse Resp B/P (MAP) Pulse Ox O2 Delivery O2 Flow Rate FiO2 04/06/25 12:59 98.2 70 17 100/52 (68) 98 98.2 04/06/25 08:00 Room Air* 0 21 Physical Exam General Appearance: Cooperative. Well-developed. Well-nourished. No acute distress. Pulmonary/Respiratory: Clear, bilateral breaths sounds. Cardiovascular/Chest: Regular rate and rhythm. Peripheral Pulses: 2+ Radial (R). 2+ Radial (L). 2+ Pedal (R). 2+ Pedal (L) Abdominal Exam: Normal bowel sounds. Ankle Exam: Negative ankle edema Lower extremities: Negative lower extremity edema Neuro/Mental Status: A/OX4, coherent. Thoughts/Psych: Normal thought pattern. Appropriate mood and affect. Good judgment and insight. Appearance: No acute distress. Skin Exam: Normal inspection. Normal color. Warm and dry. Labs/Diagnostic Data Labs Test 04/06/25 11:48 04/06/25 06:31 04/06/25 00:50 04/05/25 17:43 Range/Units POC Glucose 259 H 70-106 mg/dl Hemoglobin A1c 11.4 H <5.7 % A1C Triglycerides Level 142 < 150 mg/dL Cholesterol Level 159 < 200 mg/dL LDL Cholesterol 116 H < 100 mg/dL HDL Cholesterol 37 L 40-59 mg/dL Vitamin D 25-Hydroxy 28.3 L 30.0-100 ng/mL Thyroid Stimulating Hormone (TSH) 0.68 0.55-4.78 uIU/mL Influenza Type A Antigen Negative Negative Influenza Type B Antigen Negative Negative SARS-CoV-2 Antigen (Rapid) Negative NEGATIVE White Blood Count 5.5 4.4-10.8 10^3/uL Red Blood Count 5.17 4.0-5.20 10^6/uL Hemoglobin 11.9 L 12.2-16.2 g/dL Hematocrit 37.3 36.0-46.0 % Mean Corpuscular Volume 72.2 L 80.0-100.0 fL Mean Corpuscular Hemoglobin 22.9 L 28.0-32.0 pg Mean Corpuscular Hemoglobin Concent 31.8 L 32.0-36.0 g/dL Red Cell Distribution Width 17.1 H 11.8-14.3 % Platelet Count 364 140-450 10^3/uL Mean Platelet Volume 7.5 6.9-10.8 fL Neutrophils (%) (Auto) 68.6 37.0-80.0 % Lymphocytes (%) (Auto) 18.2 10.0-50.0 % Monocytes (%) (Auto) 8.6 0.0-12.0 % Eosinophils (%) (Auto) 3.8 0.0-7.0 % Basophils (%) (Auto) 0.8 0.0-2.0 % Neutrophils # (Auto) 3.7 1.6-8.6 10 ^3/uL Lymphocytes # (Auto) 1.0 0.4-5.4 10 ^3/uL Monocytes # (Auto) 0.5 0-1.3 10 ^3/uL Eosinophils # (Auto) 0.2 0-0.8 10 ^3/uL Basophils # (Auto) 0 0-0.2 10 ^3/uL Nucleated Red Blood Cells 0.1 % Sodium Level 136 136-145 mmol/L Potassium Level 4.0 3.5-5.1 mmol/L Chloride Level 103 98-107 mmol/L Carbon Dioxide Level 22 20-31 mmol/L Anion Gap 11 5-15 Blood Urea Nitrogen 16 9-23 mg/dL Creatinine 0.94 0.550-1.02 mg/dL Glomerular Filtration Rate Calc 74 >90 mL/min BUN/Creatinine Ratio 17.0 10.0-20.0 Serum Glucose 290 H 74-106 mg/dL Calcium Level 9.6 8.7-10.4 mg/dL B-Type Natriuretic Peptide 78.21 0-100 pg/mL Assessment Chest pain, likely musculoskeletal Chronic compensated HFrEF, NYHA class III Coronary artery disease status post PTCA x 3 KYM on 09/2024 (on Brilinta and aspirin) Peripheral arterial disease status post PTCA x 4 KYM on 01/2025 Hypertension Dyslipidemia History of CVA History polysubstance abuse Obesity Plan/Recommendation We will continue with the following plan/recommendations (Dr. Washington): Case discussed with . A transthoracic echocardiogram from 02/13/2025 reveals an EF of 30%. A repeat transthoracic echocardiogram done on this admission reveals an EF of 40%. We will initiate guideline directed medical therapy for CHF as tolerated. Stop metoprolol tartrate and initiate metoprolol succinate as this is in the GDMT guidelines. Stop amlodipine and initiate low- dose ARNI. Consider MRA (spironolactone) with stable potassium and stable BP. Continue on dual antiplatelet therapy and high-intensity statin. The patient presents with chest pain, likely musculoskeletal given presenting symptoms. The patient reports getting into a verbal argument with her brother and then shortly after throwing a ladder which bounced back and hit her chest wall. Upon assessment, chest pain is reproducible upon palpation. The patient with HFrEF states that she has been taking her guideline directed medical therapy for CHF. At this time, given EF of 40%, the patient does not qualify for AICD implantation. Continue with guideline directed medical therapy for CHF. The patient we will need to follow up with her primary account executive trainee in the outpatient setting within 1-2 weeks post discharge. There is no further inpatient cardiac workup indicated at this time. Thank you for allowing us to care for this patient. Please call with any questions or concerns. Critical care time spent: 44 minutes This medical document was created using an electronic medical record system with voice recognition software and computerized dictation system. Although this document has been carefully reviewed, there might still be some phonetic and typographical errors. Occasional wrong-word or ``sound-alike substitutions may have occurred due to the inherent limitations of voice recognition software. These areas are purely typographical due to imperfections of the software programs and do not reflect any compromise in the patient's medical care. Please read the chart carefully and recognize, using context, where these substitutions have occurred. Plan discussed with: Patient NYHA Physical activity limitations: Class3(Marked) ordinary Date of Service: Apr 06, 2025 Billing Provider: LISBETH WEEMS Cardiology Common Codes: [id number] INP/OBS CARE (High) Cardiology Consultation Codes: [id number] CONSULT <45MIN LISBETH WEEMS Apr 06, 2025 14:52
--- NOTE | 2025-04-06 18:34 | DVHPNRES ---
Progress Note Date Seen: Apr 06, 2025 Resident Creating Document: LUIS RIVERA RESIDENT Medical Necessity Reason Pt with a Central, PICC or Fol: No Subjective Review of Systems The patient is a 50-year-old female with prior medical history of hypertension, HFrEF, diabetes mellitus type 2, myocardial infarction with 3 KYM, ischemic cardiomyopathy, and PAD with 4 KYM (2 in each lower extremity), who presented to the ED with chief complaint of chest pain. Patient states that yesterday she got into an argument with her brother and after pushing latter which bounced back and hit her in the chest, had onset of substernal chest pain described as pressure, 9/10 in intensity, nonradiating, which worsened with deep inspiration, associated with shortness of breath, diaphoresis, and nausea. Patient states that due to persistence of pain, she sought medical care. On evaluation in the ED, the patient was slightly tachycardic and hypertensive. 12 lead EKG performed in the ED shows normal sinus rhythm. Initial labs show CBC significant for microcytic anemia, chemical panel significant for glucose 290, BNP from the 78.21, initial troponin 29. Chest x-ray no acute cardiopulmonary disease. Troponins continued to trend up to 37 and 61. Patient was subsequently admitted for further workup and monitoring. Personal history: Hypertension, HFrEF, type 2 diabetes, myocardial infarctions x2 with 3 KYM, ischemic cardiomyopathy, and PAD with for 4 KYM Allergies: Mushrooms, ibuprofen, metformin Surgical history: Back surgery, multiple stent placements Social: patient states she use opiates, meth, and we had for approximately 1 year and quit on September 11, 2024, patient states she smokes approximately 10 cigarettes a day for 30 years, she states she used to drink until passing out and is unsure for how long she did this, states that she quit on September 11, 2024. Patient states that she lives with her children and currently feels safe. Patient seen at bedside. She is AOx4, states that she feels well, currently refers she feels fatigued, chest pain has improved currently 6/10, denies nausea, vomiting, fever, palpitations, abdominal pain, shortness of breath, and other symptoms. No adverse events overnight. Vitals have been stable. Follow- up troponins are downtrending to 53. Echocardiogram from January 2025 shows LVEF of 30%. Patient was evaluated by Cardiology, who recommended initiation of GDM T as tolerated, Metoprolol tartrate will be switched to succinate, amlodipine will be discontinued and initiation of a low-dose RNA will be started. Repeat limited echocardiogram for EF will be ordered to see if patient qualifies for AICD. We will continue to monitor. Review of Systems: Constitutional: Refers fatigue, denies weight loss, fever and chills. HEENT: Denies changes in vision and hearing. Respiratory: Denies shortness of breath and cough Cardiovascular: refers retrosternal chest pain, Denies palpitations GI: Denies abdominal distention, abdominal pain, diarrhea : Denies dysuria and urinary frequency. Musculoskeletal: denies symptoms Skin: Denies rash and pruritus. Neurological: denies dizziness headache vision or hearing problems Objective vital signs Vital Sign Date Time Temp Pulse Resp B/P (MAP) Pulse Ox O2 Delivery O2 Flow Rate FiO2 04/06/25 17:00 97.8 80 18 107/64 (78) 97 97.8 04/06/25 08:00 Room Air* 0 21 Total Intake and Output 04/05/25 04/05/25 04/06/25 15:00 23:00 07:00 Intake Total 1000 ml 0 ml Balance 1000 ml 0 ml medications Current Medications Medications Dose Ordered Sig/Mary Anne Route Start Time Stop Time Status Last Admin Dose Admin Ondansetron HCl 4 mg Q4HP PRN IV 04/05/25 23:15 04/06/25 09:54 4 MG Enoxaparin Sodium 40 mg DAILY SC 04/06/25 10:00 04/06/25 09:52 40 MG Furosemide 40 mg DAILY PO 04/06/25 10:00 04/06/25 09:54 40 MG Aspirin 81 mg DAILY PO 04/06/25 10:00 04/06/25 09:52 81 MG Diagnostic Test (Pha) 1 strip ACHS 04/06/25 07:00 04/06/25 16:17 1 STRIP Insulin Human Regular AC SC 04/06/25 07:00 04/06/25 16:21 9 UNITS Dextrose 50 ml UD PRN IV 04/05/25 23:15 Insulin Glargine 25 units DAILY@1000 SC 04/06/25 10:00 04/06/25 09:57 25 UNITS Pantoprazole Sodium 40 mg DAILY@0600 PO 04/06/25 06:00 04/06/25 06:14 40 MG Empaglifozin 10 mg DAILY PO 04/06/25 10:00 04/06/25 09:54 10 MG Ranolazine 500 mg BID PO 04/06/25 10:00 04/06/25 09:52 500 MG Ticagrelor 60 mg BID PO 04/06/25 10:00 04/06/25 10:21 60 MG Isosorbide Mononitrate 30 mg DAILY PO 04/06/25 10:00 04/06/25 09:54 30 MG Acetaminophen 650 mg Q6HP PRN PO 04/06/25 07:45 04/06/25 09:54 650 MG Hydralazine HCl 20 mg Q8H PO 04/06/25 16:00 04/06/25 16:15 20 MG Atorvastatin Calcium 40 mg HS PO 04/06/25 22:00 Mirtazapine 15 mg HS PO 04/06/25 22:00 Sucralfate 1 gm TID@0600,1130,2200 PO 04/06/25 22:00 Metoprolol Succinate 25 mg DAILY PO 04/07/25 10:00 Sacubitril/ Valsartan 0.5 tab BID PO 04/06/25 22:00 Examination General: The patient seems comfortable, alert and oriented in person place and time. Patient following commands HEENT: Normocephalic, atraumatic, normal reactive pupils, EOM intact, pink conjunctiva, pink moist mucous membrane Respiratory/pulmonary: Bilateral chest expansion, pain to palpation of retrosternal region, clear lungs bilaterally, vesicular murmurs present in almost all lung doll, no associated crackles or wheezes. Cardiovascular: Normal RRR, normal S1 and S2 Abdomen: Obese, Abdomen nondistended, there is no pain to palpation in any of the abdominal quadrants, no palpable masses. Extremities: No deformities, there is no peripheral edema present at the lower extremities, pulses are palpable Skin: No rashes or pruritus, there is no sacral edema present at this time. Neurological: Intact cranial nerves with no focal neurologic deficits laboratory and microbiology Laboratory Tests 04/05/25 17:43 Test 04/05/25 17:43 Range/Units Serum Glucose 290 H 74-106 mg/dL Problem List/Assessment/Plan Problem List/Assessment/Plan Assessment and Plan: Acute Chest Pain, rule out ACS -Acetaminophen 650 mg PO PRN Chronic HFrEF NYHA III, not exacerbated -Echo from 01/2025: EV 30% -Per Cardiology: initiation of GDM T as tolerated, Metoprolol tartrate will be switched to succinate, amlodipine will be discontinued and initiation of a low- dose RNA will be started. Repeat limited echocardiogram for EF will be ordered to see if patient qualifies for AICD. -Furosemide 40 mg p.o. daily -Pending echo results NSTEMI, likely type 2 Ischemic Cardiomyopathy GERD - Protonix 40 mg p.o. daily - Carafate 1 gm PO TID History of VT x 2, 3 KYM placed 09/2024 at [facility] - Brilinta 60 mg p.o. b.i.d. - Aspirin 81 mg p.o. daily History of PAD, s/p PTCA x 4 KYM on 01/2025 Hyperlipidemia -Atorvastatin 40 mg p.o. daily Type diabetes mellitus with hyperglycemia, HbA1c: 11.4 -HbA1c 11/2024: 9.7 -Insulin Lantus 25 units daily -SSI -Carbohydrate consistent diet Hypertension -Metoprolol succinate 25 mg PO ondina;y -Metoprolol tartrate, discontinued Microcytic anemia Obesity, BMI 33.8 kg/m2 History of polysubstance use Diet: consistent carb diet DVT prophylaxis: Lovenox 40 mg sc daily GI prophylaxis: Not indicated Case discussed with Dr. Yi Goals of care discussed with the patient for over 25 minutes. FULL CODE. Plan discussed with: Patient My Orders My Orders Orders - LUIS RIVERA RESIDENT Procedure Category Date Status Time Acetaminophen Tablet PHA 04/06/25 In Process (Tylenol Tablet) 07:45 * Cardiology Consult CONS 04/06/25 Transmitted 08:52 Date of Service: Apr 06, 2025 Billing Provider: BILL YI MD Common Visit Codes: [id number] INP/OBS CARE(HIGH) LUIS RIVERA RESIDENT Apr 06, 2025 18:34 BILL YI MD Apr 09, 2025 20:29
[2025-04-06] MEDS: KETOROLAC TROMETH 30 MG/ML 1ML VIAL IV ONE (18:43)
[2025-04-06] MEDS ORDERED: PRAVASTATIN SODIUM 20 MG TAB PO SCH (22:00)
[2025-04-06] MEDS ORDERED: InsuLIN REG 1unit/0.01ml Soln (100units/ml) SC SCH (22:00)
[2025-04-06] MEDS: SACUBITRIL-VALSARTAN 24mg/26mg TAB PO SCH (22:00)
[2025-04-06] MEDS: SUCRALFATE 1 GM/10 ML ORAL SUSP PO SCH (22:22)
[2025-04-06] MEDS: ATORVASTATIN 20 MG TAB PO SCH (22:23)
[2025-04-06] MEDS: MIRTAZAPINE 30 MG TAB PO SCH (22:24)
[2025-04-07] VITALS (9 sets, daily range): BP systolic 83–106; BP diastolic 37–65; PULSE 62–96; RESP 17–20; TEMP 97.1–98.6; O2SAT 92–99
--- NOTE | 2025-04-07 00:24 | DVHSR ---
APPROVED REPORT EXAM: LIMITED Two-dimensional and M-mode echocardiogram. Blood Pressure: 100/52 mmHg INDICATION LIMITED evaluate for ef for possible AICD RISK FACTORS Obesity: Height: 5'5, Weight: 202 DIMENSIONS LVDd4.7 (3.8-5.7cm)LA (2D) (1.9-4.0cm)Aortic Root (2.0-3.7cm) LVDs3.8 (2.5-4.0cm)LA (MM) (1.9-4.0cm)Aortic Cusp Exc (1.5-2.0cm) EF (%) 42.0 (55-70%)Rt. Atrium (1.9-4.0cm)Asc. Aorta cm IVSd1.0 (0.7-1.1cm)RV (D) (1.8-2.4cm) PWd1.0 (0.7-1.1cm) Mitral Valve MitralMitral Stenosis E/A ratio0.02D MVAcm2 Other Information Technically limited study due to body habitus. Conclusion MODERATELY DILATED LV LV GLOBAL HYPOKINESIS LV EF 40% NORMAL VALVES NO EFFUSION
[2025-04-07] MEDS: SODIUM CHLORIDE 0.9% 500 ML IV ONE (02:00)
[2025-04-07 08:57] LABS: Nucleated Red Blood Cells % 0.1 %
[2025-04-07 08:59] LABS: Hematocrit 30.3 % (36.0-46.0); Hemoglobin 9.8 g/dL (12.2-16.2); Mean Corpuscular Hemoglobin 23.1 pg (28.0-32.0); Mean Corpuscular Volume 71.1 fL (80.0-100.0)
[2025-04-07 09:08] LABS: Alanine Aminotransferase 29 U/L (7-40); Albumin 3.7 g/dL (3.2-4.8); Alkaline Phosphatase 97 U/L (46-116); Anion Gap 10 (5-15); BUN/Creatinine Ratio 23.3 (10.0-20.0); Blood Urea Nitrogen 21 mg/dL (9-23); Calcium 8.9 mg/dL (8.7-10.4); Carbon Dioxide 23 mmol/L (20-31); Chloride 106 mmol/L (98-107); Potassium 3.7 mmol/L (3.5-5.1); Sodium 139 mmol/L (136-145); Total Protein 6.4 g/dL (5.7-8.2)
[2025-04-07 09:09] LABS: Bilirubin, Total 0.3 mg/dL (0.2-1.0)
[2025-04-07 09:14] LABS: Glucose 199 mg/dL (74-106)
[2025-04-07] MEDS: METOPROLOL SUCCINATE XL 50 MG TAB PO SCH (09:25)
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
[2025-04-08 01:00] VITALS: BP 111/60; PULSE 75; RESP 14; TEMP 97.2; O2SAT 94
[2025-04-08 05:00] VITALS: BP 118/63; PULSE 84; RESP 16; TEMP 97.9; O2SAT 98
[2025-04-08 08:00] VITALS: PULSE 65; PULSE 97; RESP 17
[2025-04-08 09:00] VITALS: BP 118/60; PULSE 98; RESP 16; TEMP 100; O2SAT 95
[2025-04-08] MEDS ORDERED: SUCR1SUS26 PO (12:07)
[2025-04-08] MEDS ORDERED: MIR30T PO (12:07)
[2025-04-08] MEDS ORDERED: METO-6 PO (12:07)
[2025-04-08] MEDS ORDERED: EMPA1TAB PO (12:07)
[2025-04-08] MEDS ORDERED: FURO40TA4 PO (12:07)
[2025-04-08] MEDS ORDERED: TICA1TAB PO (12:07)
[2025-04-08] MEDS ORDERED: ASPI-325 PO (12:07)
[2025-04-08] MEDS ORDERED: ATOR20TA50 PO (12:07)
[2025-04-08] MEDS ORDERED: SACU1TAB PO (12:07)
[2025-04-08 12:14] VITALS: BP 118/60; PULSE 98; RESP 18; TEMP 37.8; O2SAT 95
[2025-04-08 12:35] VITALS: BP 131/78; PULSE 79; RESP 18; TEMP 98.2; O2SAT 97
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
--- NOTE | 2025-04-10 08:27 | ECG ---
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
== END 2025-04-08 13:10 | disposition home or self-care (01) | DRG 190 ==
LOC: ER 17:29 → EDUNIT# 23:14 → OVERFLOW 23:14 → TELE-WESTW 04-06 02:17
PROVIDERS: ADMIT Internal Medicine Geriatric Medicine; ATTEND Internal Medicine
DX: R07.89 Other chest pain (principal); I21.A1 Myocardial infarction type 2; I11.0 Hypertensive heart disease with heart failure; I95.9 Hypotension, unspecified; E11.51 Type 2 diabetes mellitus with diabetic peripheral angiopathy without gangrene; E11.69 Type 2 diabetes mellitus with other specified complication; E11.65 Type 2 diabetes mellitus with hyperglycemia; I50.22 Chronic systolic (congestive) heart failure; D50.9 Iron deficiency anemia, unspecified; F32.A Depression, unspecified; Z68.33 Body mass index [BMI] 33.0-33.9, adult; E66.9 Obesity, unspecified; E78.2 Mixed hyperlipidemia; K21.9 Gastro-esophageal reflux disease without esophagitis; Z20.822 Contact with and (suspected) exposure to COVID-19; I25.5 Ischemic cardiomyopathy; F41.9 Anxiety disorder, unspecified; I25.10 Atherosclerotic heart disease of native coronary artery without angina pectoris; Z98.61 Coronary angioplasty status; Z86.73 Personal history of transient ischemic attack (TIA), and cerebral infarction without residual deficits; Z83.3 Family history of diabetes mellitus; Z82.5 Family history of asthma and other chronic lower respiratory diseases; Z82.49 Family history of ischemic heart disease and other diseases of the circulatory system; Z79.899 Other long term (current) drug therapy; Z79.84 Long term (current) use of oral hypoglycemic drugs; Z79.82 Long term (current) use of aspirin; Z79.4 Long term (current) use of insulin; Z79.02 Long term (current) use of antithrombotics/antiplatelets; Z88.8 Allergy status to other drugs, medicaments and biological substances
CPT/HCPCS: 36415; 71045; 80048; 80053; 80061; 82306; 82962; 83036; 83880; 84443; 84484; 85025; 87426; 87804; 93005; 93306; 96361; 96374; 99291; G0378; J1815; J1885; J2405

== ENCOUNTER 2025-05-25 17:56 | Inpatient (IN) | payer MEDICAID ==
[~2025-05-25] VITALS: Ht 162.6 cm; Wt 95.7 kg
[~2025-05-25 17:56] MED LIST changes: +ASPI-325 PO; +ATOR20TA50 PO; +FURO40TA4 PO; +METO-6 PO; +MIR30T PO; +SUCR1SUS26 PO; +TICA1TAB PO
--- NOTE | 2025-05-25 18:47 | ED.PDOC ---
HPI Comments HPI: 50 year old female came to ER due to chest pains. Patient was washing dishes last night when she developed chest pains, midsternal, pressure, associated with pain on deep breathing and dizziness. Blood pressure taken at home was elevated at 177/138 mmHg. No alleviating or precipitating factors. Pain is nonradiating Initial Vitals BP: 131/66 HR: 102 RR: 18 O2: 93% Past Medical History: Hypetension, diabetes, CHF, hyperlipidemia, methamphetamine abuse Past Surgical History: Cardiac stentsx3 (Aug 2024), leg stents, CS Social History: Denies ETOH, smoking, and drug use. Medications: Metoprolol, Digoxin, Omeprazole, Insulin, Brilinta Oleksandr: HPI: Poor Historian. REVIEW OF SYSTEMS: CONSTITUTIONAL: Denies acute: fever, diaphoresis, chills, HEAD: Denies acute: headache, photophobia Eyes: Denies acute: Double vision, vision loss, eye pain, eye discharge. EARS: Denies acute: tinnitus, hearing loss, ear discharge, ear pain, THROAT: Denies acute: sore throat, swelling, difficulty swallowing , pain with swallowing, change in voice. NECK: Denies acute: neck pain, neck swelling, stiff neck. HEART: Denies acute : palpitations, LUNGS: Denies acute: , wheezing, cough, hemoptysis ABDOMEN: Denies acute: abdominal pain, Nausea, Vomiting, diarrhea, melena , hematemesis, hematochezia SKIN: Denies acute: rash, redness, lesions, itchiness. EXTREMITIES: Denies acute: calf pain, numbness, tingling, weakness, denies pain in extremity. Denies acute: Low back pain. Neuro: Denies acute: focal neurological deficit, motor or sensory focal neurological deficit, tremors, seizure like activity, confusion, change in mental status, loss of bowel or bladder function, cauda equina like symptoms. : Denies acute: dysuria, hematuria, flank pain, increase in urinary frequency. PSYCH: Denies acute: hallucination, suicidal ideation, homicidal ideation. FEMALE: Denies acute: abnormal vaginal bleeding, foul odor, unusual discharge. PHYSICAL EXAM: General: ----moderate----acute distress, awake and alert. Head: normocephalic, atraumatic. Neck: supple, trachea is midline, no swelling. Throat: Normal phonation. Eyes:, no erythema, no purulent discharge, no proptosis, no icterus. Heart: regular rate, regular rhythm, no significant murmur appreciated. Lungs: Mild apparent respiratory distress, Able to speak in full sentences. No wheezing, no rhonchi, no crackles. No stridors Clear to auscultation bilaterally. Abdomen: non tender to palpation, non distended, soft, no guarding, no rebound, + bowel sounds. Neuro: Awake, Alert, oriented to name, self, situation, follows commands GCS=15. Speech is normal. Skin: no petechia, no purpura, no cyanosis, non-pale, not jaundice. Lower extremities: --no - Pitting edema no deformity, no focal swelling, no calf TTP. Makes eye contact. moves all four extremities. Face: no apparent facial droop. Ambulating in the ED independently. ED COURSE: DISCLAIMER: This medical document was created using an electronic medical record system with voice recognition software and computerized dictation system. Although this document has been carefully reviewed, there might still be some phonetic and typographical errors. Occasional wrong-word or "sound-alike" substitutions may have occurred due to the inherent limitations of voice recognition software. These areas are purely typographical due to imperfections of the software programs and do not reflect any compromise in the patient's medical care. Please read the chart carefully and recognize, using context, where these substitutions have occurred. Chief Complaint: Chest Pain Time Seen by MD: 18:46 Primary Care Provider: SHERI Reviewed Notes: Nurses Notes, Allergies Allergies: Coded Allergies: Ibuprofen (Verified Allergy, Unknown, 07/23/14) Metformin (Unverified Allergy, Unknown, 02/12/25) Mushroom Extract Complex (Verified Allergy, Unknown, 09/28/24) Mushroom food allergy Home Meds Active Scripts Furosemide (Furosemide) 40 Mg Tab, 40 MG PO DAILY for 30 Days, #30 TAB Prov:JOJO SIERRA RESIDENT 04/08/25 Empagliflozin (Jardiance) 10 Mg Tab, 10 MG PO DAILY for 30 Days, #30 TAB Prov:JOJO SIERRA RESIDENT 04/08/25 Atorvastatin Calcium (ATORVASTATIN CALCIUM) 20 Mg Tab, 40 MG PO HS for 30 Days, #60 TAB Prov:JOJO SEIRRA [facility] 04/08/25 Aspirin (Aspirin Low Dose) 81 Mg Tab, 81 MG PO DAILY for 30 Days, #30 TAB Prov:JOJO SIERRA [facility] 04/08/25 Mirtazapine (Remeron) 30 Mg Tb, 15 MG PO HS for 30 Days, #15 TAB Prov:JOJO SIERRA [facility] 04/08/25 Sucralfate (CARAFATE SUSP) 1 Gm/10 Ml Ss, 1 GM PO TID@0600,1130,2200 for 30 Days, #100 ML Prov:JOJO SIERRA [facility] 04/08/25 Ticagrelor Base (Brilinta) 60 Mg Tab, 60 MG PO BID for 30 Days, #60 TAB Prov:JOJO SIERRA [facility] 04/08/25 Sacubitril-Valsartan (Entresto 24-26 mg) 1 Tab Tab, 0.5 TAB PO BID for 30 Days, #30 TAB Prov:JOJO SIERRA [facility] 04/08/25 Metoprolol Succinate (Toprol Xl) 50 Mg Tab, 25 MG PO DAILY for 30 Days, #15 TAB Prov:JOJO SIERRA [facility] 04/08/25 Acetaminophen (Acetaminophen) 500 Mg Tab, 500 MG PO Q4HPRN, #30 TAB 0 Refills Prov:MAEVE JOYNER 03/29/25 Ciprofloxacin-Dexamethasone (Ciprofloxacin/Dexamethaso 0.3-0.1 %) 1 Prerna Prerna, 4 DROP LEFT EAR BID for 7 Days, #1 BOTTLE 0 Refills Prov:MAEVE JOYNER 03/29/25 Ticagrelor Base (BRILINTA) 90 Mg Tab, 90 MG PO BID for 90 Days, #180 TAB Prov:BRANDON BARRAZA MD 02/14/25 Sacubitril-Valsartan (Entresto 24-26 mg) 1 Tab Tab, 0.25 TAB PO BID for 90 Days, #45 TAB Prov:BRANDON BARRAZA MD 02/14/25 Ranolazine (Ranolazine ER) 500 Mg Tab, 1 TAB PO BID PRN for 90 Days, #60 TAB Prov:BRANDON BARRAZA MD 02/14/25 Ranolazine (Ranolazine ER) 500 Mg Tab, 500 MG PO BID, #30 TAB Prov:KAROLINA BETHEA MD 12/29/24 Midodrine HCl (Midodrine HCl) 10 Mg Tab, 10 MG PO TID for 30 Days, #90 TAB Prov:EVERETTE GONZALEZ MD 11/26/24 Cephalexin (KEFLEX CAPSULE) 250 Mg Cp, 1 CAP PO QID for 7 Days, #28 CAP Prov:EVERETTE GONZALEZ MD 11/26/24 Ranolazine (Ranolazine ER) 500 Mg Tab, 500 MG PO BID PRN for 30 Days, #60 TAB Prov:INDU GARCÍA PATIENT SERVICES SPECIALIST 11/07/24 Digoxin (Lanoxin) 125 Mcg Tab, 0.125 MG PO EOD for 30 Days, #30 TAB 1 Refill Prov:INDU GARCÍA PATIENT SERVICES SPECIALIST 11/07/24 Ticagrelor Base (BRILINTA) 90 Mg Tab, 90 MG PO BID for 30 Days, #60 TAB 3 Refills Prov:INDU GARCÍA PATIENT SERVICES SPECIALIST 10/03/24 Reported Medications Insulin Glargine (Lantus Solostar) 100 Unit/Ml Inj, 15 UNIT SC BID, INJ 09/27/24 Albuterol Sulfate (VENTOLIN MDI) 90 Mcg Ih, 1 PUFF IN DAILY, INH 09/27/24 Omeprazole (Gnp Omeprazole) 20 Mg Tab, 20 MG PO DAILY, TAB 09/27/24 Escitalopram Oxalate (Lexapro) 10 Mg Tab, 10 MG PO DAILY, TAB 09/27/24 Acetaminophen (Apap) 325 Mg Tab, 2 TAB PO Q6HP PRN for PAIN SCALE 1 THRU 6, TAB 09/27/24 Buprenorphine Hcl-Naloxone Hcl (Suboxone) 1 Mis Mis, 1 MIS SL DAILY, MISC 09/27/24 Atorvastatin Calcium (Lipitor) 40 Mg Tab, 40 MG PO DAILY, TAB 09/27/24 Aspirin (Aspirin Low Dose) 81 Mg Chw, 81 MG PO DAILY, TAB.CHEW 09/27/24 Empagliflozin (Jardiance) 10 Mg Tab, 10 MG PO DAILY, TAB 09/27/24 Information Source: Patient Mode of Arrival: Ambulatory Past Medical History PAST MEDICAL HISTORY: Anxiety, CHF, DM, High Lipids, HTN, CO Surgical History: , PTCA CORRECTION WARDEN History: No Pertinent CORRECTION WARDEN History Family History Family History: Reviewed,noncontributory to illness Social History Smoker: Cigarettes Alcohol: Occasionally Drugs: Marijuana, Methamphetamine Lives In: Home Was a procedure done? Was a procedure done?: No CP Differential Dx Differential Diagnosis: N/A Differential Diagnosis: CHF Differential Diagnosis: Angina, Chest Wall Pain, Costochondritis, Esophageal reflux/spasm, Gastritis, Myocardial Infarction, Other (Ddx include but not limitied to gastritis, musculoskeletal pain, radiculopathy, atypical chest pain, dissection, aneurysm, ACS, unstable angina, hiatal hernia, GERD, anxiety, costochondritis, PE, pneumothroax, neoplasm, cardiac ischemia, drug abuse, anemia.) X-Ray, Labs, Meds, VS Vital Signs Date Time Temp Pulse Resp B/P (MAP) Pulse Ox O2 Delivery O2 Flow Rate FiO2 05/25/25 20:51 73 05/25/25 20:50 97 Room Air* 0 21 05/25/25 20:49 97.6 97 12 106/50 (68) 97 97.6 05/25/25 19:07 98 05/25/25 18:11 97.5 102 18 131/66 93 97.5 05/25/25 18:04 101 Lab Test 05/25/25 19:51 05/25/25 19:06 Range/Units Troponin I High Sensitivity 15 15 </=34 ng/L White Blood Count 5.0 4.4-10.8 10^3/uL Red Blood Count 5.04 4.0-5.20 10^6/uL Hemoglobin 11.5 L 12.2-16.2 g/dL Hematocrit 35.7 L 36.0-46.0 % Mean Corpuscular Volume 70.8 L 80.0-100.0 fL Mean Corpuscular Hemoglobin 22.8 L 28.0-32.0 pg Mean Corpuscular Hemoglobin Concent 32.3 32.0-36.0 g/dL Red Cell Distribution Width 17.2 H 11.8-14.3 % Platelet Count 346 140-450 10^3/uL Mean Platelet Volume 7.4 6.9-10.8 fL Neutrophils (%) (Auto) 61.1 37.0-80.0 % Lymphocytes (%) (Auto) 23.6 10.0-50.0 % Monocytes (%) (Auto) 9.9 0.0-12.0 % Eosinophils (%) (Auto) 4.4 0.0-7.0 % Basophils (%) (Auto) 1.0 0.0-2.0 % Neutrophils # (Auto) 3.1 1.6-8.6 10 ^3/uL Lymphocytes # (Auto) 1.2 0.4-5.4 10 ^3/uL Monocytes # (Auto) 0.5 0-1.3 10 ^3/uL Eosinophils # (Auto) 0.2 0-0.8 10 ^3/uL Basophils # (Auto) 0.1 0-0.2 10 ^3/uL Nucleated Red Blood Cells 0.2 % Sodium Level 134 L 136-145 mmol/L Potassium Level 4.1 3.5-5.1 mmol/L Chloride Level 101 98-107 mmol/L Carbon Dioxide Level 23 20-31 mmol/L Anion Gap 10 5-15 Blood Urea Nitrogen 15 9-23 mg/dL Creatinine 0.84 0.550-1.02 mg/dL Glomerular Filtration Rate Calc 85 >90 mL/min BUN/Creatinine Ratio 17.9 10.0-20.0 Serum Glucose 385 H 74-106 mg/dL Calcium Level 9.7 8.7-10.4 mg/dL Total Bilirubin 0.3 0.2-1.0 mg/dL Aspartate Amino Transferase (AST) 31 13-40 U/L Alanine Aminotransferase (ALT) 41 H 7-40 U/L Alkaline Phosphatase 207 H 46-116 U/L B-Type Natriuretic Peptide 56.25 0-100 pg/mL Total Protein 7.4 5.7-8.2 g/dL Albumin 4.0 3.2-4.8 g/dL [place] [id number] Ph: [phone] DIAGNOSTIC IMAGING Diagnostic Imaging Report : [id number] Signed PATIENT: SHARONDA DIAS ACCT: [id number] UNIT: [id number] : 1975 LOC: ER ROOM / BED: / AGE / SEX: 50 / F ADM STATUS: REG ER SERVICE [id number] ORDERING PHYSICIAN: MATTHIEU VARNER DO PROCEDURE(s): CXRP - CHEST PORTABLE REASON: cp/sob ORDER NUMBER(s): [id number], ACCESSION NUMBER(s): [id number] CHEST RADIOGRAPH Indication: cp/sob Technique: Single frontal view of the chest was obtained Comparison: XY CHEST XRAY 1 VIEW on DOS: 04/05/25, XY CHEST PORTABLE on DOS: 02/12/25, XY CHEST XRAY 1 VIEW on DOS: 12/07/24 FINDINGS: Lines and Tubes: None Lungs: No focal consolidation. Pleura: No effusion. No pneumothorax. Cardiomediastinal contours: Unremarkable Bones: No acute osseous abnormality. IMPRESSION: 1. No acute cardiopulmonary disease. ATED BY: IVAN NICE Jr., DO DICTATED DATE/TIME: 05/25/251913 SIGNED BY: IVAN NICE Jr., SIGNED DATE/TIME: 05/25/251913 CC: Time of 1ST Reevaluation: 18:47 Reevaluation 1ST: Unchanged Patient Education/Counseling: Diagnosis, Treatment Family Education/Counseling: Diagnosis, Treatment Comments MDM: patient presented with the above HPI.--cardiac----workup was initiated. patient was found with the above mentioned diagnosis. the following medications were ordered: please refer to order lists of meds and tests obtained by myself Dr. Varner. Patient ED course and VS have been stabilized. Patient has been reassessed in the ED and remained in a stable condition. Pertinent incidental findings were discussed with the patient and/or family. Patient/family voices understanding and is agreeable with plan. Patient has been observed in the ED adequate length of time to insure improvement/stability. Escalation of care considered: Consideration of escalation to observation or admission Patient was ADMITTED to the medicine team for further evaluation and treatment of their presentation. All the reports of any imaging studies that were ordered by myself were reviewed by myself. SEPSIS Sepsis Screen Date sepsis recognized/suspect: May 25, 2025 Time Sepsis recognized/suspect: 1814 Recent Procedure: No On Antibiotic Therapy: No Respiratory Rate >20: No Heart Rate >90: Yes Temp<36 C (96.8 F) or >38.3 C: No SBP <90 or MAP <65 mmHG: No New Acute Mental Status Change: No Is the patient on CPAP, BIPAP,: No Physician Orders Electrocardigram (05/25/25 18:08) Electrocardigram (05/25/25 19:08) Electrocardigram (05/25/25 21:08) Microstrategy Bi Developer (05/25/25 ) Drug Screen (05/25/25 18:33) Chest Portable (05/25/25 18:33) Vital Signs Date Time Temp Pulse Resp B/P (MAP) Pulse Ox O2 Delivery O2 Flow Rate FiO2 05/25/25 20:51 73 05/25/25 20:50 97 Room Air* 0 21 05/25/25 20:49 97.6 97 12 106/50 (68) 97 97.6 05/25/25 19:07 98 05/25/25 18:11 97.5 102 18 131/66 93 97.5 05/25/25 18:04 101 Laboratory Tests Test 05/25/25 19:06 White Blood Count 5.0 10^3/uL (4.4-10.8) Departure 1 Departure Time of Disposition: 18:50 Impression: Primary Impression: Chest pain Disposition: ADMITTED INPATIENT Admit to: [facility] Condition: Guarded Discharged With: Self Critical Care Note Critical Care Time?: No Stability Stability form required: No Heart Score Heart Score: Heart Score Response (Comments) Value History Moderate Suspicious 1 EKG Normal 0 Age 45-64 1 Risk Factors >3 or Hx ASHD 2 Troponin Normal limit 0 Total 4 I personally scribed for MATTHIEU VARNER DO ([email or web address]) on 05/25/25 at 18:47. Electronically submitted by Errol Guthrie ([email or web address]). I personally scribed for MATTHIEU VARNER DO ([email or web address]) on 05/25/25 at 20:24. Electronically submitted by Errol Guthrie ([email or web address]). MATTHIEU VARNER DO May 25, 2025 18:47
--- NOTE | 2025-05-25 19:17 | DVH ---
CHEST RADIOGRAPH Indication: cp/sob Technique: Single frontal view of the chest was obtained Comparison: XY CHEST XRAY 1 VIEW on DOS: 04/05/25, XY CHEST PORTABLE on DOS: 02/12/25, XY CHEST XRAY 1 VIEW on DOS: 12/07/24 FINDINGS: Lines and Tubes: None Lungs: No focal consolidation. Pleura: No effusion. No pneumothorax. Cardiomediastinal contours: Unremarkable Bones: No acute osseous abnormality. IMPRESSION: 1. No acute cardiopulmonary disease.
[2025-05-25 19:24] LABS: Hematocrit 35.7 % (36.0-46.0); Hemoglobin 11.5 g/dL (12.2-16.2); Mean Corpuscular Hemoglobin 22.8 pg (28.0-32.0); Mean Corpuscular Volume 70.8 fL (80.0-100.0); Nucleated Red Blood Cells % 0.2 %
[2025-05-25 19:35] LABS: Albumin 4.0 g/dL (3.2-4.8); Anion Gap 10 (5-15); BUN/Creatinine Ratio 17.9 (10.0-20.0); Blood Urea Nitrogen 15 mg/dL (9-23); Calcium 9.7 mg/dL (8.7-10.4); Carbon Dioxide 23 mmol/L (20-31); Chloride 101 mmol/L (98-107); Potassium 4.1 mmol/L (3.5-5.1); Total Protein 7.4 g/dL (5.7-8.2)
[2025-05-25 19:36] LABS: Alanine Aminotransferase 41 U/L (7-40); Alkaline Phosphatase 207 U/L (46-116); Bilirubin, Total 0.3 mg/dL (0.2-1.0); Glucose 385 mg/dL (74-106); Sodium 134 mmol/L (136-145)
[2025-05-25] MEDS ORDERED: NITROGLYCERIN 0.4 MG SL TAB SL PRN (21:15)
[2025-05-25] MEDS ORDERED: ONDANSETRON HCL 4 MG/2 ML VIAL IV PRN (21:15)
[2025-05-25] MEDS ORDERED: MORPHINE SULFATE INJ 2 MG/ml SYRG IV PRN ×2 (21:15)
[2025-05-25] MEDS ORDERED: ACETAMINOPHEN 325 MG TAB PO PRN (21:15)
--- NOTE | 2025-05-25 22:15 | DVHHPRES ---
History of Present Illness Resident Creating Document: DB MARIE RESIDENT History of Present Illness Maritza Elaine is a 50 year old female who presents to ED with chief complaint of dyspnea, oppressive retrosternal chest pain which worsens with superficial palpation, deep breaths and when she lies flat, and improves when leaning forward in variable functional class which started approximately 2-3 days before her admission, associated with dizziness and disequilibrium. Patient reports recent complex PCI with placement of three KYM in September 2024 at [facility], with ischemic cardiomyopathy which has improved (LVEF 10% with last echocardiogram 40%), patient has stopped consuming methamphetamine alcohol in other polysubstance abuse. Patient is compliant with all his medication, including DAPT with aspirin and Brilinta. Denies any other associated symptoms. Past medical history: Hypertension, dyslipidemia, diabetes, ischemic cardiomyopathy, HFrEF which has improved (LVEF initially 10% last ejection fraction 40% on 03/2025), coronary artery disease with RI in 09/2024 status post complex PCI with placement of three KYM over at higher level of care ([facility]), GERD, fatty liver, varicose veins status post sclerotherapy, depression. Last echocardiogram on 03/2025 moderately dilated LV, LV global hypokinesis, LVEF 40%, normal valves. Surgical history: Back surgery, , 09/2024 PCI with three KYM Family history: Mother had liver cancer, grandfather had bone cancer, father had prostate cancer Social history: Lives in [place] with family (next of kin is sonJean-Pierre he is 21 years old). Ex tobacco abuse (20 pack-year history of smoking, quit in August 2024. Ex methamphetamine abuse, ex ethanol abuse (six beers per weekend). Denies current tobacco, alcohol and other drug abuse Allergies: Ibuprofen (angioedema), metformin (GI upset, not true allergy) Home medication: Aspirin, Brilinta, pravastatin, basal and Humalog insulin, omeprazole, metoprolol 50 mg p.o. daily, Jardiance, digoxin 0.125 mg p.o. daily Patient seen and examined at bedside. Currently has no new complaints. Patient will be admitted to telemetry for further evaluation. Past Medical History Per HPI Past Surgical History Per HPI Family History Per HPI Past Social History Per HPI Review of Systems Review of Systems Per HPI Allergies: Coded Allergies: Ibuprofen (Verified Allergy, Unknown, 07/23/14) Metformin (Unverified Allergy, Unknown, 02/12/25) Mushroom Extract Complex (Verified Allergy, Unknown, 09/28/24) Mushroom food allergy Medications Current Medications Medications Dose Ordered Sig/Mary Anne Route Start Time Stop Time Status Last Admin Dose Admin Acetaminophen 325 mg Q4HP PRN PO 05/25/25 21:15 Ondansetron HCl 4 mg Q4HP PRN IV 05/25/25 21:15 Morphine Sulfate 2 mg Q4HPRN PRN IV 05/25/25 21:15 Enoxaparin Sodium 40 mg DAILY SC 05/26/25 10:00 Nitroglycerin 0.4 mg Q5MINP PRN SL 05/25/25 21:15 Morphine Sulfate 2 mg Q30M PRN IV 05/25/25 21:15 Aspirin 81 mg DAILY PO 05/26/25 10:00 Atorvastatin Calcium 40 mg HS PO 05/25/25 22:00 Exam Vital Signs Vital Signs Date Time Temp Pulse Resp B/P (MAP) Pulse Ox O2 Delivery O2 Flow Rate FiO2 05/25/25 21:22 93 05/25/25 20:50 97 Room Air* 0 21 05/25/25 20:49 97.6 12 106/50 (68) 97.6 Exam Patient lying in bed, in no acute distress General: Lucid, afebrile, mucosae are moist Cardiovascular: Normal S1 and S2. No murmurs, gallops or rubs Respiratory: Normal ventilation mechanics. Clear lung sounds on auscultation Abdomen: Soft, nontender, no organomegaly, normal bowel sounds MSK/skin: Mobilizes 4 limbs. Skin is dry and warm. Bilateral infrapatellar pitting edema. Neurological: Oriented in 3 spheres. No motor no sensitive deficits. Pupils are isocoric and reactive Labs/Xrays Labs Test 05/25/25 21:57 05/25/25 19:06 Range/Units White Blood Count 5.0 4.4-10.8 10^3/uL Red Blood Count 5.04 4.0-5.20 10^6/uL Hemoglobin 11.5 L 12.2-16.2 g/dL Hematocrit 35.7 L 36.0-46.0 % Mean Corpuscular Volume 70.8 L 80.0-100.0 fL Mean Corpuscular Hemoglobin 22.8 L 28.0-32.0 pg Mean Corpuscular Hemoglobin Concent 32.3 32.0-36.0 g/dL Red Cell Distribution Width 17.2 H 11.8-14.3 % Platelet Count 346 140-450 10^3/uL Mean Platelet Volume 7.4 6.9-10.8 fL Neutrophils (%) (Auto) 61.1 37.0-80.0 % Lymphocytes (%) (Auto) 23.6 10.0-50.0 % Monocytes (%) (Auto) 9.9 0.0-12.0 % Eosinophils (%) (Auto) 4.4 0.0-7.0 % Basophils (%) (Auto) 1.0 0.0-2.0 % Neutrophils # (Auto) 3.1 1.6-8.6 10 ^3/uL Lymphocytes # (Auto) 1.2 0.4-5.4 10 ^3/uL Monocytes # (Auto) 0.5 0-1.3 10 ^3/uL Eosinophils # (Auto) 0.2 0-0.8 10 ^3/uL Basophils # (Auto) 0.1 0-0.2 10 ^3/uL Nucleated Red Blood Cells 0.2 % Sodium Level 134 L 136-145 mmol/L Potassium Level 4.1 3.5-5.1 mmol/L Chloride Level 101 98-107 mmol/L Carbon Dioxide Level 23 20-31 mmol/L Anion Gap 10 5-15 Blood Urea Nitrogen 15 9-23 mg/dL Creatinine 0.84 0.550-1.02 mg/dL Glomerular Filtration Rate Calc 85 >90 mL/min BUN/Creatinine Ratio 17.9 10.0-20.0 Serum Glucose 385 H 74-106 mg/dL Calcium Level 9.7 8.7-10.4 mg/dL Total Bilirubin 0.3 0.2-1.0 mg/dL Aspartate Amino Transferase (AST) 31 13-40 U/L Alanine Aminotransferase (ALT) 41 H 7-40 U/L Alkaline Phosphatase 207 H 46-116 U/L B-Type Natriuretic Peptide 56.25 0-100 pg/mL Total Protein 7.4 5.7-8.2 g/dL Albumin 4.0 3.2-4.8 g/dL SEPSIS Sepsis Screen Date sepsis recognized/suspect: May 25, 2025 Time Sepsis recognized/suspect: 1815 Recent Procedure: No On Antibiotic Therapy: No Respiratory Rate >20: No Heart Rate >90: Yes Temp<36 C (96.8 F) or >38.3 C: No SBP <90 or MAP <65 mmHG: No New Acute Mental Status Change: No Is the patient on CPAP, BIPAP,: No Physician Orders Electrocardigram (05/25/25 18:08) Electrocardigram (05/25/25 19:08) Electrocardigram (05/25/25 21:08) Senior Communications Engineer (05/25/25 ) Drug Screen (05/25/25 18:33) Chest Portable (05/25/25 18:33) Troponin-I Hs (05/25/25 21:33) Admit (05/25/25 21:05) Code Status (05/25/25 21:05) Acetaminophen Tablet (Tylenol Tablet) (05/25/25 21:15) Ondansetron Hcl (Zofran) (05/25/25 21:15) Complete Blood Count (05/26/25 04:00) Comprehensive Metabolic Panel (05/26/25 04:00) Npo (Nothing By Mouth) Diet (05/26/25 Breakfast) Echo 2d Mode Cardiac Dop (05/25/25 21:05) Morphine Sulfate Injection (05/25/25 21:15) Enoxaparin Sodium (Lovenox) (05/26/25 10:00) Nitroglycerin Sublingual (Ntrostat Subli (05/25/25 21:15) Morphine Sulfate Injection (05/25/25 21:15) Oxygen By Nasal Cannula (05/25/25 21:05) Stat Ekg For Chest Pain (05/25/25 21:05) Notify Of Changes From Base (05/25/25 21:05) Loan Closer For 24 Hours (05/25/25 21:05) Emergency Dysrhythmia Protocol (05/25/25 21:05) Rhythm Strips Once Every Shift (05/25/25 21:05) Aspirin Tablet (05/26/25 10:00) Atorvastatin (Lipitor) (05/25/25 22:00) Vital Signs Date Time Temp Pulse Resp B/P (MAP) Pulse Ox O2 Delivery O2 Flow Rate FiO2 05/25/25 21:22 93 05/25/25 21:22 93 05/25/25 20:51 73 05/25/25 20:50 97 Room Air* 0 21 05/25/25 20:49 97.6 97 12 106/50 (68) 97 97.6 05/25/25 19:07 98 05/25/25 18:11 97.5 102 18 131/66 93 97.5 05/25/25 18:04 101 Laboratory Tests Test 05/25/25 19:06 White Blood Count 5.0 10^3/uL (4.4-10.8) Assessment/Plan Assessment/Plan Rule out acute coronary syndrome Acute on chronic systolic congestive heart failure (HFrEF which improved from LVEF 10% to 40%) CAD with history of RI s/p complex PCI with 3 KYM Ordered EKG. Troponin x 2 negative. BNP negative Patient on digoxin, may benefit from evaluate hygiene. Currently hold digoxin Chest x-ray shows congestive heart failure, patient has bilateral lower limb extremity edema. Consider BNP as false negative due to obesity Indicated IV diuretics (furosemide 40 mg b.i.d.) We will monitor BMP Ordered echocardiogram, but last echo was completed on 03/2025 which showed LVEF of 40%. If patient continues with symptoms, recommend repeating new echoca rdiogram. Continue DAPT (aspirin and Brilinta) and atorvastatin. Continued metoprolol and Jardiance. Pending Entresto and spironolactone due to soft blood pressures. Transaminitis Fatty liver Monitor CMP Obesity Hypertension Dyslipidemia Diabetes insulin requiring Ordered hemoglobin A1c On insulin sliding scale Continue home medication History of polysubstance abuse Has quit since August 2024. Ordered UDS Counseled strongly on continuing cessation for over 16 minutes. History of varicose veins status post sclerotherapy Rule out DVT Ordered ultrasound of lower limbs GERD Continue pantoprazole Goals of care discussed with patient for over 18 minutes: Full code status Discussed plan with Dr. Gonzalez, patient and nurses: Patient admitted to telemetry. We will rule out acute coronary syndrome. Evaluate repeating echocardiogram if patient's symptoms persist. Indicated IV diuretics. Per patient she is compliant with medication. Plan discussed with: Patient, Other (Nurses) My Orders Orders - DB MARIE RESIDENT Procedure Category Date Status Time Admit ADMIT 05/25/25 Transmitted 21:05 Code Status CODE 05/25/25 Transmitted 21:05 Acetaminophen Tablet PHA 05/25/25 In Process (Tylenol Tablet) 21:15 Ondansetron Hcl PHA 05/25/25 In Process (Zofran) 21:15 Complete Blood Count LAB 05/26/25 Verified 04:00 Comprehensive LAB 05/26/25 Verified Metabolic Panel 04:00 Npo (Nothing By DIET 05/26/25 Transmitted Mouth) Diet Breakfast Echo 2d Mode Cardiac US 05/25/25 Logged DOP 21:05 Morphine Sulfate PHA 05/25/25 In Process Injection 21:15 Enoxaparin Sodium PHA 05/26/25 In Process (Lovenox) 10:00 Nitroglycerin PHA 05/25/25 In Process Sublingual (Ntrostat 21:15 Morphine Sulfate PHA 05/25/25 In Process Injection 21:15 Oxygen By Nasal RT 05/25/25 Transmitted Cannula 21:05 Stat Ekg For Chest [facility] 05/25/25 In Process Pain 21:05 Notify Of Changes [facility] 05/25/25 In Process From Base 21:05 Loan Closer For [facility] 05/25/25 In Process 24 Hours 21:05 Emergency Dysrhythmia [facility] 05/25/25 In Process Protocol 21:05 Rhythm Strips Once [facility] 05/25/25 In Process Every Shift 21:05 Aspirin Tablet PHA 05/26/25 In Process 10:00 Atorvastatin (Lipitor) PHA 05/25/25 In Process 22:00 Date of Service: May 25, 2025 Billing Provider: EVERETTE GONZALEZ MD Common Visit Codes: [id number]-[id number] INP/OBS CARE (HIGH) Secondary Visit Codes: [id number] CARE PLAN 30 MINUTES DB MARIE RESIDENT May 25, 2025 22:15
[2025-05-26] MEDS: ATORVASTATIN 20 MG TAB PO SCH (00:24)
[2025-05-26 06:30] LABS: Hemoglobin 11.5 g/dL (12.2-16.2); Mean Corpuscular Hemoglobin 23.0 pg (28.0-32.0)
[2025-05-26 06:32] VITALS: RESP 16; O2SAT 95
[2025-05-26 06:33] LABS: Hematocrit 35.6 % (36.0-46.0); Mean Corpuscular Volume 71.5 fL (80.0-100.0); Nucleated Red Blood Cells % 0.1 %
[2025-05-26 06:48] LABS: Alanine Aminotransferase 37 U/L (7-40); Anion Gap 14 (5-15); BUN/Creatinine Ratio 17.6 (10.0-20.0); Blood Urea Nitrogen 15 mg/dL (9-23); Calcium 9.4 mg/dL (8.7-10.4); Carbon Dioxide 20 mmol/L (20-31); Chloride 100 mmol/L (98-107); Potassium 4.0 mmol/L (3.5-5.1); Total Protein 8.0 g/dL (5.7-8.2)
[2025-05-26 06:49] LABS: Albumin 4.1 g/dL (3.2-4.8); Bilirubin, Total 0.4 mg/dL (0.2-1.0)
[2025-05-26 06:56] LABS: Alkaline Phosphatase 185 U/L (46-116); Glucose 394 mg/dL (74-106); Sodium 134 mmol/L (136-145)
[2025-05-26] MEDS: ENOXAPARIN SOD 40 MG/0.4 ML SYRINGE SC SCH (10:11)
[2025-05-26] MEDS ORDERED: DEXTROSE (50%) 50ML SYRG IV PRN (10:30)
--- NOTE | 2025-05-26 11:26 | DVH ---
CLINICAL HISTORY: Bilateral leg swelling TECHNIQUE: Color and duplex doppler imagine of the bilateral lower extremity veins was performed. Ves anand compression and augmentation if possible was also performed. COMPARISON: US RT LOW EXT ART DUPLEX on DOS: 09/28/24, US RT LOWER DVT on DOS: 09/28/24 FINDINGS: Right Lower Extremity: Right common femoral vein: Normal compressibility and flow. Right superficial femoral vein: Normal compressibility and flow. Right popliteal vein: Normal compressibility and flow. Proximal calf veins demonstrate flow. Left Lower Extremity: Left common femoral vein: Normal compressibility and flow. Left superficial femoral vein: Normal compressibility and flow. Left popliteal vein: Normal compressibility and flow. Proximal calf veins demonstrate flow. IMPRESSION: NO SONOGRAPHIC EVIDENCE FOR DEEP VENOUS THROMBOSIS IN THE BILATERAL LOWER EXTREMITY VEINS.
[2025-05-26] MEDS: TICAGRELOR 90 MG TAB PO ONE (11:43)
[2025-05-26] MEDS: METOPROLOL SUCCINATE XL 50 MG TAB PO ONE (11:45)
[2025-05-26] MEDS: FUROSEMIDE 40 MG/4 ML VIAL IV ONE (11:45)
[2025-05-26] MEDS: InsuLIN REG 1unit/0.01ml Soln (100units/ml) SC SCH (11:51)
[2025-05-26] MEDS: ACCU-CHEK COMFORT CURVE STRIP VI SCH (11:53)
[2025-05-26 12:26] LABS: Magnesium 2.1 mg/dL (1.6-2.6)
[2025-05-26 12:27] LABS: Cholesterol 192.0 mg/dL (< 200)
[2025-05-26 12:28] LABS: HDL Cholesterol 36.0 mg/dL (40-59); Triglycerides 176.0 mg/dL (< 150)
--- NOTE | 2025-05-26 13:13 | DVHPN2 ---
Reviewed: Care Plan, H&P, Labs, Medications, Previous Orders, Radiology Changes from previous H/P or p: No Changes Objective Vitals Vital Signs Date Time Temp Pulse Resp B/P (MAP) Pulse Ox O2 Delivery O2 Flow Rate FiO2 05/26/25 11:45 107/63 05/26/25 11:45 56 05/26/25 11:27 97.9 14 97 97.9 05/26/25 06:32 Room Air* 0 21 21 Medications Current Medications Medications Dose Ordered Sig/Mary Anne Route Start Time Stop Time Status Last Admin Dose Admin Acetaminophen 325 mg Q4HP PRN PO 05/25/25 21:15 Ondansetron HCl 4 mg Q4HP PRN IV 05/25/25 21:15 Morphine Sulfate 2 mg Q4HPRN PRN IV 05/25/25 21:15 Enoxaparin Sodium 40 mg DAILY SC 05/26/25 10:00 05/26/25 10:11 40 MG Nitroglycerin 0.4 mg Q5MINP PRN SL 05/25/25 21:15 Morphine Sulfate 2 mg Q30M PRN IV 05/25/25 21:15 Aspirin 81 mg DAILY PO 05/26/25 10:00 05/26/25 10:11 81 MG Atorvastatin Calcium 40 mg HS PO 05/25/25 22:00 05/26/25 00:24 40 MG Ticagrelor 90 mg BID GT 05/26/25 22:00 Diagnostic Test (Pha) 1 strip ACHS 05/26/25 11:30 05/26/25 11:53 1 STRIP Insulin Human Regular ACHS SC 05/26/25 11:30 05/26/25 11:51 8 UNITS Dextrose 50 ml UD PRN IV 05/26/25 10:30 Metoprolol Succinate 50 mg DAILY PO 05/27/25 10:00 Empaglifozin 10 mg DAILY PO 05/27/25 10:00 Furosemide 40 mg BIDD IV 05/26/25 18:00 Laboratory Results Laboratory Tests 05/26/25 05:20 Chemistry Test 05/25/25 19:06 05/26/25 05:20 Albumin 4.0 g/dL (3.2-4.8) 4.1 g/dL (3.2-4.8) Calcium Level 9.7 mg/dL (8.7-10.4) 9.4 mg/dL (8.7-10.4) Total Protein 7.4 g/dL (5.7-8.2) 8.0 g/dL (5.7-8.2) Magnesium Level 2.1 mg/dL (1.6-2.6) Phosphorus Level 4.2 mg/dL (2.4-5.1) Lipid panel Test 05/26/25 05:20 Cholesterol Level 192 mg/dL (< 200) HDL Cholesterol 36 mg/dL (40-59) L Triglycerides Level 176 mg/dL (< 150) H Cardiac Markers Test 05/25/25 19:06 B-Type Natriuretic Peptide 56.25 pg/mL (0-100) LFT Test 05/25/25 19:06 05/26/25 05:20 Alanine Aminotransferase (ALT) 41 U/L (7-40) H 37 U/L (7-40) Alkaline Phosphatase 207 U/L (46-116) H 185 U/L (46-116) H Aspartate Amino Transferase (AST) 31 U/L (13-40) 26 U/L (13-40) Total Bilirubin 0.3 mg/dL (0.2-1.0) 0.4 mg/dL (0.2-1.0) HgA1c, TSH Test 05/26/25 05:20 Hemoglobin A1c > 14.0 % A1C (<5.7) H Thyroid Stimulating Hormone (TSH) 1.14 uIU/mL (0.55-4.78) Labs and/or images reviewed: Labs reviewed by me, Image(s) reviewed by me Assessment/Plan Assessment/Plan Chest pain Rule out acute coronary syndrome troponin negative x3 Acute on chronic systolic congestive heart failure (HFrEF which improved from LVEF 10% to 40%) CAD with history of [place] s/p complex PCI with 3 KYM Transaminitis Fatty liver Obesity Hypertension Dyslipidemia Uncontrolled diabetes , blood sugars 400, A1c more than 14 Diabetes insulin aggressive scale, diabetic education History of polysubstance abuse History of varicose veins status post sclerotherapy Rule out DVT GERD Time spent 70 minutes Advanced care planning time 20 mts Patient is full code Plan discussed with: Patient Date of Service: May 26, 2025 Billing Provider: KAROLINA BETHEA MD Common Visit Codes: [id number] CARE 30-74 MIN KAROLINA BETHEA MD May 26, 2025 13:13
[2025-05-26 14:06] LABS: Amphetamine Screen, Urine Neg (NEGATIVE); Barbiturate Scree,Urine Neg (NEGATIVE); Benzodiazephine Screen, Urine Neg (NEGATIVE); Cannabinoid Screen, Urine Neg (NEGATIVE); Cocaine Screen, Urine Neg (NEGATIVE); Opiate Scree,Urine Neg (NEGATIVE); Phencyclidine Screen, Urine Neg (NEGATIVE)
[2025-05-26 17:00] VITALS: BP 130/85; PULSE 87; RESP 19; TEMP 98.4; O2SAT 95
[2025-05-26] MEDS: FUROSEMIDE 40 MG/4 ML VIAL IV SCH (18:10)
[2025-05-26 18:18] VITALS: PULSE 87; RESP 19; O2SAT 96
[2025-05-26 18:20] VITALS: BP 130/85; PULSE 87; RESP 19; TEMP 98.4; O2SAT 96
[2025-05-26 20:00] VITALS: PULSE 99
[2025-05-26 21:00] VITALS: BP 124/75; PULSE 106; RESP 18; TEMP 98.1; O2SAT 97
[2025-05-26] MEDS: TICAGRELOR 90 MG TAB GT SCH (21:16)
--- NOTE | 2025-05-26 22:04 | DVHINCON2 ---
Date of service: May 26, 2025 Referring Physician Eloy Reason for Consultation Chest pain History of Present Illness This is a 50 year old female with a PMH of Hypertension, dyslipidemia, diabetes, ischemic cardiomyopathy, HFrEF which has improved (LVEF initially 10% last ejection fraction 40% on 03/2025), coronary artery disease with AR in 09/2024 status post complex PCI with placement of three KYM over at higher level of care ([place]), GERD, fatty liver, varicose veins status post sclerotherapy, depression. Last echocardiogram on 03/2025 moderately dilated LV, LV global hypokinesis, LVEF 40%, normal valves who presents to ED with a complaint of SOB with associated dizziness,retrosternal chest pain which worsens with superficial palpation, deep breaths and when she lies flat, and improves when leaning forward onset 2-3 days. Patient reports recent complex PCI with placement of three KYM in September 2024 at [place], with ischemic cardiomyopathy which has improved (LVEF 10% with last echocardiogram 40%), patient has stopped consuming methamphetamine alcohol in other polysubstance abuse. Patient is compliant with all her medication, including DAPT with aspirin and Brilinta. GLUC 348. Chest x- ray showed NAD. Patient was admitted to the hospital. I am asked to consult on this patient. Family History: Cerebrovascular accident (CVA) G8 MOTHER Chronic obstructive pulmonary disease G8 MOTHER Cirrhosis of liver G8 MOTHER Diabetes mellitus G8 MOTHER FH: CHF (congestive heart failure) G8 FATHER FH: emphysema G8 FATHER FH: tuberculosis G8 FATHER Hypertension G8 MOTHER Liver transplant G8 MOTHER Allergies: Coded Allergies: Ibuprofen (Verified Allergy, Unknown, 07/23/14) Metformin (Unverified Allergy, Unknown, 02/12/25) Mushroom Extract Complex (Verified Allergy, Unknown, 09/28/24) Mushroom food allergy Home Meds Active Scripts Furosemide (Furosemide) 40 Mg Tab, 40 MG PO DAILY for 30 Days, #30 TAB Prov:JOJO SIERRA RESIDENT 04/08/25 Empagliflozin (Jardiance) 10 Mg Tab, 10 MG PO DAILY for 30 Days, #30 TAB Prov:JOJO SIERRA RESIDENT 04/08/25 Atorvastatin Calcium (ATORVASTATIN CALCIUM) 20 Mg Tab, 40 MG PO HS for 30 Days, #60 TAB Prov:JOJO SIERRA RESIDENT 04/08/25 Aspirin (Aspirin Low Dose) 81 Mg Tab, 81 MG PO DAILY for 30 Days, #30 TAB Prov:JOJO SIERRA [facility] [place] 04/08/25 Mirtazapine (Remeron) 30 Mg Tb, 15 MG PO HS for 30 Days, #15 TAB Prov:OJJO SIERRA [facility] [place] 04/08/25 Sucralfate (CARAFATE SUSP) 1 Gm/10 Ml Ss, 1 GM PO TID@0600,1130,2200 for 30 Days, #100 ML Prov:JOJO SIERRA [facility] [place] 04/08/25 Ticagrelor Base (Brilinta) 60 Mg Tab, 60 MG PO BID for 30 Days, #60 TAB Prov:JOJO SIERRA [facility] [place] 04/08/25 Sacubitril-Valsartan (Entresto 24-26 mg) 1 Tab Tab, 0.5 TAB PO BID for 30 Days, #30 TAB Prov:JOJO SIERRA [facility] [place] 04/08/25 Metoprolol Succinate (Toprol Xl) 50 Mg Tab, 25 MG PO DAILY for 30 Days, #15 TAB Prov:JOJO SIERRA [facility] [place] 04/08/25 Acetaminophen (Acetaminophen) 500 Mg Tab, 500 MG PO Q4HPRN, #30 TAB 0 Refills Prov:MAEVE JOYNER 03/29/25 Ciprofloxacin-Dexamethasone (Ciprofloxacin/Dexamethaso 0.3-0.1 %) 1 Prerna Prerna, 4 DROP LEFT EAR BID for 7 Days, #1 BOTTLE 0 Refills Prov:MAEVE JOYNER 03/29/25 Ticagrelor Base (BRILINTA) 90 Mg Tab, 90 MG PO BID for 90 Days, #180 TAB Prov:BRANDON BARRAZA MD 02/14/25 Sacubitril-Valsartan (Entresto 24-26 mg) 1 Tab Tab, 0.25 TAB PO BID for 90 Days, #45 TAB Prov:BRANDON BARRAZA MD 02/14/25 Ranolazine (Ranolazine ER) 500 Mg Tab, 1 TAB PO BID PRN for 90 Days, #60 TAB Prov:BRANDON BARRAZA MD 02/14/25 Ranolazine (Ranolazine ER) 500 Mg Tab, 500 MG PO BID, #30 TAB Prov:KAROLINA BETHEA MD 12/29/24 Midodrine HCl (Midodrine HCl) 10 Mg Tab, 10 MG PO TID for 30 Days, #90 TAB Prov:EVERETTE GONZALEZ MD 11/26/24 Cephalexin (KEFLEX CAPSULE) 250 Mg Cp, 1 CAP PO QID for 7 Days, #28 CAP Prov:EVERETTE GONZALEZ MD 11/26/24 Ranolazine (Ranolazine ER) 500 Mg Tab, 500 MG PO BID PRN for 30 Days, #60 TAB Prov:INDU GARCÍA COOK CHILI 11/07/24 Digoxin (Lanoxin) 125 Mcg Tab, 0.125 MG PO EOD for 30 Days, #30 TAB 1 Refill Prov:INDU GARCÍA COOK CHILI 11/07/24 Ticagrelor Base (BRILINTA) 90 Mg Tab, 90 MG PO BID for 30 Days, #60 TAB 3 Refills Prov:INDU GARCÍA COOK CHILI 10/03/24 Reported Medications Insulin Glargine (Lantus Solostar) 100 Unit/Ml Inj, 15 UNIT SC BID, INJ 09/27/24 Albuterol Sulfate (VENTOLIN MDI) 90 Mcg Ih, 1 PUFF IN DAILY, INH 09/27/24 Omeprazole (Gnp Omeprazole) 20 Mg Tab, 20 MG PO DAILY, TAB 09/27/24 Escitalopram Oxalate (Lexapro) 10 Mg Tab, 10 MG PO DAILY, TAB 09/27/24 Acetaminophen (Apap) 325 Mg Tab, 2 TAB PO Q6HP PRN for PAIN SCALE 1 THRU 6, TAB 09/27/24 Buprenorphine Hcl-Naloxone Hcl (Suboxone) 1 Mis Mis, 1 MIS SL DAILY, MISC 09/27/24 Atorvastatin Calcium (Lipitor) 40 Mg Tab, 40 MG PO DAILY, TAB 09/27/24 Aspirin (Aspirin Low Dose) 81 Mg Chw, 81 MG PO DAILY, TAB.CHEW 09/27/24 Empagliflozin (Jardiance) 10 Mg Tab, 10 MG PO DAILY, TAB 09/27/24 Current Medications Current Medications Medications (Trade) Dose Ordered Sig/Mary Anne Route PRN Reason Start Time Stop Time Status Last Admin Enoxaparin Sodium (Lovenox) 40 mg DAILY SC 05/26/25 10:00 05/26/25 10:11 Aspirin 81 mg DAILY PO 05/26/25 10:00 05/26/25 10:11 Atorvastatin Calcium (Lipitor) 40 mg HS PO 05/25/25 22:00 05/26/25 21:17 Ticagrelor (Brilinta) 90 mg BID GT 05/26/25 22:00 05/26/25 21:16 Diagnostic Test (Pha) (Accu-Chek Comfort Curve T) 1 strip ACHS 05/26/25 11:30 05/26/25 21:18 Insulin Human Regular (InsuLIN R) ACHS SC 05/26/25 11:30 05/26/25 21:15 Dextrose 50 ml UD PRN IV Blood Sugar LESS THAN 60 05/26/25 10:30 Metoprolol Succinate (Toprol Xl) 50 mg DAILY PO 05/27/25 10:00 Empaglifozin (Jardiance) 10 mg DAILY PO 05/27/25 10:00 Furosemide (Lasix Injection) 40 mg BIDD IV 05/26/25 18:00 05/26/25 18:10 Review of Systems CONSTITUTIONAL: Denies acute: fever, diaphoresis, chills, HEAD: Denies acute: headache, photophobia Eyes: Denies acute: Double vision, vision loss, eye pain, eye discharge. EARS: Denies acute: tinnitus, hearing loss, ear discharge, ear pain, THROAT: Denies acute: sore throat, swelling, difficulty swallowing , pain with swallowing, change in voice. NECK: Denies acute: neck pain, neck swelling, stiff neck. HEART: Denies acute : palpitations, LUNGS: Denies acute: , wheezing, cough, hemoptysis ABDOMEN: Denies acute: abdominal pain, Nausea, Vomiting, diarrhea, melena , hematemesis, hematochezia SKIN: Denies acute: rash, redness, lesions, itchiness. EXTREMITIES: Denies acute: calf pain, numbness, tingling, weakness, denies pain in extremity. Denies acute: Low back pain. Neuro: Denies acute: focal neurological deficit, motor or sensory focal neurological deficit, tremors, seizure like activity, confusion, change in mental status, loss of bowel or bladder function, cauda equina like symptoms. : Denies acute: dysuria, hematuria, flank pain, increase in urinary frequency. PSYCH: Denies acute: hallucination, suicidal ideation, homicidal ideation. FEMALE: Denies acute: abnormal vaginal bleeding, foul odor, unusual discharge. Vital Signs Vital Signs Date Time Temp Pulse Resp B/P (MAP) Pulse Ox O2 Delivery O2 Flow Rate FiO2 05/26/25 18:20 98.4 87 19 130/85 (100) 96 98.4 05/26/25 18:18 Room Air* 0 21 Physical Exam GENERAL: Alert and oriented x 3. No acute distress. EYES: PERRL, EOMI. Anicteric. HENT: Moist mucous membranes. LUNGS: Clear to auscultation bilaterally. CARDIOVASCULAR: Regular rate and rhythm. ABDOMEN: Soft, nontender and nondistended. EXTREMITIES: No edema. NEUROLOGIC: No focal neurological deficits. SKIN: Warm, dry. Labs/Diagnostic Data Labs Test 05/26/25 21:04 05/26/25 11:29 05/26/25 05:20 05/25/25 21:57 Range/Units POC Glucose 348 H 70-106 mg/dl Urine Opiates Screen Neg NEGATIVE Urine Fentanyl Screen Neg NEGATIVE Urine Barbiturates Screen Neg NEGATIVE Urine Phencyclidine Screen Neg NEGATIVE Urine Amphetamines Screen Neg NEGATIVE Urine Benzodiazepines Screen Neg NEGATIVE Urine Cocaine Screen Neg NEGATIVE Urine Cannabinoids Screen Neg NEGATIVE White Blood Count 5.6 4.4-10.8 10^3/uL Red Blood Count 4.98 4.0-5.20 10^6/uL Hemoglobin 11.5 L 12.2-16.2 g/dL Hematocrit 35.6 L 36.0-46.0 % Mean Corpuscular Volume 71.5 L 80.0-100.0 fL Mean Corpuscular Hemoglobin 23.0 L 28.0-32.0 pg Mean Corpuscular Hemoglobin Concent 32.2 32.0-36.0 g/dL Red Cell Distribution Width 17.2 H 11.8-14.3 % Platelet Count 349 140-450 10^3/uL Mean Platelet Volume 7.7 6.9-10.8 fL Neutrophils (%) (Auto) 61.4 37.0-80.0 % Lymphocytes (%) (Auto) 23.4 10.0-50.0 % Monocytes (%) (Auto) 9.9 0.0-12.0 % Eosinophils (%) (Auto) 4.7 0.0-7.0 % Basophils (%) (Auto) 0.6 0.0-2.0 % Neutrophils # (Auto) 3.5 1.6-8.6 10 ^3/uL Lymphocytes # (Auto) 1.3 0.4-5.4 10 ^3/uL Monocytes # (Auto) 0.6 0-1.3 10 ^3/uL Eosinophils # (Auto) 0.3 0-0.8 10 ^3/uL Basophils # (Auto) 0 0-0.2 10 ^3/uL Nucleated Red Blood Cells 0.1 % Sodium Level 134 L 136-145 mmol/L Potassium Level 4.0 3.5-5.1 mmol/L Chloride Level 100 98-107 mmol/L Carbon Dioxide Level 20 20-31 mmol/L Anion Gap 14 5-15 Blood Urea Nitrogen 15 9-23 mg/dL Creatinine 0.85 0.550-1.02 mg/dL Glomerular Filtration Rate Calc 84 >90 mL/min BUN/Creatinine Ratio 17.6 10.0-20.0 Serum Glucose 394 H 74-106 mg/dL Hemoglobin A1c > 14.0 H <5.7 % A1C Calcium Level 9.4 8.7-10.4 mg/dL Phosphorus Level 4.2 2.4-5.1 mg/dL Magnesium Level 2.1 1.6-2.6 mg/dL Total Bilirubin 0.4 0.2-1.0 mg/dL Aspartate Amino Transferase (AST) 26 13-40 U/L Alanine Aminotransferase (ALT) 37 7-40 U/L Alkaline Phosphatase 185 H 46-116 U/L Total Protein 8.0 5.7-8.2 g/dL Albumin 4.1 3.2-4.8 g/dL Triglycerides Level 176 H < 150 mg/dL Cholesterol Level 192 < 200 mg/dL LDL Cholesterol 153 H < 100 mg/dL HDL Cholesterol 36 L 40-59 mg/dL Vitamin D 25-Hydroxy 34.8 30.0-100 ng/mL Thyroid Stimulating Hormone (TSH) 1.14 0.55-4.78 uIU/mL Troponin I High Sensitivity 15 </=34 ng/L Test 05/25/25 19:06 Range/Units B-Type Natriuretic Peptide 56.25 0-100 pg/mL Assessment Chest pain Rule out acute coronary syndrome troponin negative x3. Acute on chronic systolic congestive heart failure (HFrEF which improved from LVEF 10% to 40%). CAD with history of [place] s/p complex PCI with 3 KYM. Transaminitis. Fatty liver . Obesity . Hypertension . Dyslipidemia. Uncontrolled diabetes. History of polysubstance abuse . History of varicose veins status post sclerotherapy . Rule out DVT . GERD . Plan/Recommendation I agree with your ongoing assessment and care of plan. Telemetry reviewed. Metoprolol. Aspirin, Lipitor, Brilinta. Diuretics with Lasix. DVT prophylactics. morphine for pain management. Additional plan as per the hospital course. A total of 45 minutes was spent reviewing the patient record, examining the patient, making a diagnostic and therapeutic plan, discussing this plan with medical personnel, following up on diagnostic studies and following the patient for clinical stability excluding any and all procedures. At least 50% of this time was spent in direct, [id number] contact. Plan discussed with: Patient JOEY HU MD May 26, 2025 22:04
[2025-05-27 01:00] VITALS: BP 103/63; PULSE 108; RESP 17; TEMP 98.3; O2SAT 98
[2025-05-27 05:00] VITALS: BP 98/54; PULSE 103; RESP 14; TEMP 98.1; O2SAT 93
[2025-05-27 07:10] LABS: Hematocrit 34.6 % (36.0-46.0); Hemoglobin 11.2 g/dL (12.2-16.2); Mean Corpuscular Hemoglobin 23.0 pg (28.0-32.0); Mean Corpuscular Volume 70.8 fL (80.0-100.0); Nucleated Red Blood Cells % 0.1 %
[2025-05-27 07:20] LABS: INR 1.04 (0.9-1.15); Partial Thromboplastin Time 29.6 SEC (24.5-34.5); Prothrombin Time 11.0 sec (9.3-11.8)
[2025-05-27 07:31] LABS: Urine Protein, UAD Negative (Negative); Urine WBC Clumps PRESENT /hpf (None Seen)
[2025-05-27 07:32] LABS: Alanine Aminotransferase 35 U/L (7-40); Anion Gap 15 (5-15); BUN/Creatinine Ratio 20.5 (10.0-20.0); Blood Urea Nitrogen 15 mg/dL (9-23); Calcium 9.0 mg/dL (8.7-10.4); Carbon Dioxide 21 mmol/L (20-31); Chloride 99 mmol/L (98-107); Total Protein 7.5 g/dL (5.7-8.2)
[2025-05-27 07:33] LABS: Albumin 3.9 g/dL (3.2-4.8); Alkaline Phosphatase 152 U/L (46-116); Glucose 249 mg/dL (74-106); Potassium 3.2 mmol/L (3.5-5.1); Sodium 135 mmol/L (136-145)
[2025-05-27 07:34] LABS: Bilirubin, Total 0.6 mg/dL (0.2-1.0)
[2025-05-27 08:00] VITALS: PULSE 116
[2025-05-27 09:00] VITALS: BP 111/75; PULSE 111; RESP 18; TEMP 98.5; O2SAT 96
[2025-05-27] MEDS: EMPAGLIFLOZIN 10 MG TAB PO SCH (09:57)
[2025-05-27] MEDS: METOPROLOL SUCCINATE XL 50 MG TAB PO SCH (09:57)
--- NOTE | 2025-05-27 10:22 | DVHPN2 ---
Reviewed: Care Plan, H&P, Labs, Medications, Previous Orders, Radiology Changes from previous H/P or p: No Changes Objective Vitals Vital Signs Date Time Temp Pulse Resp B/P (MAP) Pulse Ox O2 Delivery O2 Flow Rate FiO2 05/27/25 09:57 111 111/75 05/27/25 09:00 98.5 18 96 98.5 05/26/25 20:00 Room Air* 0 21 Intake/Output Intake and Output 05/27/25 07:00 Intake Total 800 ml Output Total 2 ml Balance 798 ml Intake Oral 800 ml Output Urine Total 2 ml # Bowel Movements 1 Medications Current Medications Medications Dose Ordered Sig/Mary Anne Route Start Time Stop Time Status Last Admin Dose Admin Acetaminophen 325 mg Q4HP PRN PO 05/25/25 21:15 Ondansetron HCl 4 mg Q4HP PRN IV 05/25/25 21:15 Morphine Sulfate 2 mg Q4HPRN PRN IV 05/25/25 21:15 Enoxaparin Sodium 40 mg DAILY SC 05/26/25 10:00 05/27/25 09:57 40 MG Nitroglycerin 0.4 mg Q5MINP PRN SL 05/25/25 21:15 Morphine Sulfate 2 mg Q30M PRN IV 05/25/25 21:15 Aspirin 81 mg DAILY PO 05/26/25 10:00 05/27/25 09:57 81 MG Atorvastatin Calcium 40 mg HS PO 05/25/25 22:00 05/26/25 21:17 40 MG Ticagrelor 90 mg BID GT 05/26/25 22:00 05/27/25 09:57 90 MG Diagnostic Test (Pha) 1 strip ACHS 05/26/25 11:30 05/27/25 06:32 1 STRIP Insulin Human Regular ACHS SC 05/26/25 11:30 05/27/25 06:42 4 UNITS Dextrose 50 ml UD PRN IV 05/26/25 10:30 Metoprolol Succinate 50 mg DAILY PO 05/27/25 10:00 05/27/25 09:57 50 MG Empaglifozin 10 mg DAILY PO 05/27/25 10:00 05/27/25 09:57 10 MG Furosemide 40 mg BIDD IV 05/26/25 18:00 05/27/25 06:42 40 MG Laboratory Results Laboratory Tests 05/27/25 06:16 Chemistry Test 05/27/25 06:16 Albumin 3.9 g/dL (3.2-4.8) Calcium Level 9.0 mg/dL (8.7-10.4) Total Protein 7.5 g/dL (5.7-8.2) Coagulation Test 05/27/25 06:16 Prothrombin Time 11.0 sec (9.3-11.8) Prothrombin Time INR 1.04 (0.9-1.15) Activated Partial Thromboplast Time 29.6 SEC (24.5-34.5) LFT Test 05/27/25 06:16 Alanine Aminotransferase (ALT) 35 U/L (7-40) Alkaline Phosphatase 152 U/L (46-116) H Aspartate Amino Transferase (AST) 36 U/L (13-40) Total Bilirubin 0.6 mg/dL (0.2-1.0) Urinalysis Test 05/27/25 07:13 Urine Color Colorless (Yellow) Urine Clarity Turbid (Clear) H Urine pH 5.5 (5.0-9.0) Urine Specific [place] 1.026 (1.001-1.035) Urine Protein Negative (Negative) Urine Ketones 1+ (Negative) H Urine Blood Negative /uL (Negative) Urine Nitrite Negative (Negative) Urine Bilirubin Negative (Negative) Urine Urobilinogen Normal mg/dL (Negative) Urine Leukocyte Esterase 3+ /uL (Negative) Urine RBC 10 /hpf (0 - 4) Urine WBC Clumps Present /hpf (None Seen) Urine Microscopic WBC 213 /HPF (0-5) H Urine Squamous Epithelial Cells Few /hpf (<5) Urine Bacteria Few /hpf (None Seen) H Urine Glucose 4+ mg/dL (Normal) H Labs and/or images reviewed: Labs reviewed by me, Image(s) reviewed by me Assessment/Plan Assessment/Plan Chest pain Rule out acute coronary syndrome troponin negative x3 Acute on chronic systolic congestive heart failure (HFrEF which improved from LVEF 10% to 40%) CAD with history of [place] s/p complex PCI with 3 KYM Transaminitis Fatty liver Obesity Hypertension Dyslipidemia Uncontrolled diabetes , blood sugars 400, A1c more than 14 Diabetes insulin aggressive scale, diabetic education History of polysubstance abuse History of varicose veins status post sclerotherapy Elevated D-dimer DVT ruled out GERD Time spent 50 minutes Advanced care planning time 20 mts Patient is full code Patient feels better and wants to go home FELIBERTO Malloy at bedside Plan discussed with: Patient My Orders Orders - KAROLINA BETHEA MD Procedure Category Date Status Time * Cardiology Consult CONS 05/26/25 Transmitted 13:06 Date of Service: May 27, 2025 Billing Provider: KAROLINA BETHEA MD Common Visit Codes: [id number] INP/OBS CARE(HIGH) KAROLINA BETHEA MD May 27, 2025 10:22
--- NOTE | 2025-05-27 10:29 | DVHDS2 ---
Discharge Summary Date of Admission May 25, 2025 at 21:05 Date of Discharge: May 27, 2025 Admitting Diagnosis Chest pain Wounds: None Labs/Diagnostic Data: Laboratory Results Test 05/27/25 07:13 05/27/25 06:16 05/27/25 05:49 05/26/25 11:29 Urine Color Colorless (Yellow) Urine Clarity Turbid (Clear) Urine pH 5.5 (5.0-9.0) Urine Specific [place] 1.026 (1.001-1.035) Urine Protein Negative (Negative) Urine Ketones 1+ (Negative) Urine Blood Negative /uL (Negative) Urine Nitrite Negative (Negative) Urine Bilirubin Negative (Negative) Urine Urobilinogen Normal mg/dL (Negative) Urine Leukocyte Esterase 3+ /uL (Negative) Urine RBC 10 /hpf (0 - 4) Urine WBC Clumps Present /hpf (None Seen) Urine Microscopic WBC 213 /HPF (0-5) Urine Squamous Epithelial Cells Few /hpf (<5) Urine Bacteria Few /hpf (None Seen) Urine Glucose 4+ mg/dL (Normal) White Blood Count 6.1 10^3/uL (4.4-10.8) Red Blood Count 4.88 10^6/uL (4.0-5.20) Hemoglobin 11.2 g/dL (12.2-16.2) Hematocrit 34.6 % (36.0-46.0) Mean Corpuscular Volume 70.8 fL (80.0-100.0) Mean Corpuscular Hemoglobin 23.0 pg (28.0-32.0) Mean Corpuscular Hemoglobin Concent 32.4 g/dL (32.0-36.0) Red Cell Distribution Width 17.2 % (11.8-14.3) Platelet Count 324 10^3/uL (140-450) Mean Platelet Volume 7.5 fL (6.9-10.8) Neutrophils (%) (Auto) 68.4 % (37.0-80.0) Lymphocytes (%) (Auto) 18.8 % (10.0-50.0) Monocytes (%) (Auto) 8.4 % (0.0-12.0) Eosinophils (%) (Auto) 3.8 % (0.0-7.0) Basophils (%) (Auto) 0.6 % (0.0-2.0) Neutrophils # (Auto) 4.1 10 ^3/uL (1.6-8.6) Lymphocytes # (Auto) 1.1 10 ^3/uL (0.4-5.4) Monocytes # (Auto) 0.5 10 ^3/uL (0-1.3) Eosinophils # (Auto) 0.2 10 ^3/uL (0-0.8) Basophils # (Auto) 0 10 ^3/uL (0-0.2) Nucleated Red Blood Cells 0.1 % Prothrombin Time 11.0 sec (9.3-11.8) Prothrombin Time INR 1.04 (0.9-1.15) Activated Partial Thromboplast Time 29.6 SEC (24.5-34.5) Sodium Level 135 mmol/L (136-145) Potassium Level 3.2 mmol/L (3.5-5.1) Chloride Level 99 mmol/L (98-107) Carbon Dioxide Level 21 mmol/L (20-31) Anion Gap 15 (5-15) Blood Urea Nitrogen 15 mg/dL (9-23) Creatinine 0.73 mg/dL (0.550-1.02) Glomerular Filtration Rate Calc 101 mL/min (>90) BUN/Creatinine Ratio 20.5 (10.0-20.0) Serum Glucose 249 mg/dL (74-106) Calcium Level 9.0 mg/dL (8.7-10.4) Total Bilirubin 0.6 mg/dL (0.2-1.0) Aspartate Amino Transferase (AST) 36 U/L (13-40) Alanine Aminotransferase (ALT) 35 U/L (7-40) Alkaline Phosphatase 152 U/L (46-116) Total Protein 7.5 g/dL (5.7-8.2) Albumin 3.9 g/dL (3.2-4.8) POC Glucose 240 mg/dl (70-106) Urine Opiates Screen Neg (NEGATIVE) Urine Fentanyl Screen Neg (NEGATIVE) Urine Barbiturates Screen Neg (NEGATIVE) Urine Phencyclidine Screen Neg (NEGATIVE) Urine Amphetamines Screen Neg (NEGATIVE) Urine Benzodiazepines Screen Neg (NEGATIVE) Urine Cocaine Screen Neg (NEGATIVE) Urine Cannabinoids Screen Neg (NEGATIVE) Test 05/26/25 05:20 05/25/25 21:57 05/25/25 19:06 Hemoglobin A1c > 14.0 % A1C (<5.7) Phosphorus Level 4.2 mg/dL (2.4-5.1) Magnesium Level 2.1 mg/dL (1.6-2.6) Triglycerides Level 176 mg/dL (< 150) Cholesterol Level 192 mg/dL (< 200) LDL Cholesterol 153 mg/dL (< 100) HDL Cholesterol 36 mg/dL (40-59) Vitamin B12 Level 674 pg/mL (211-911) Vitamin D 25-Hydroxy 34.8 ng/mL (30.0-100) Thyroid Stimulating Hormone (TSH) 1.14 uIU/mL (0.55-4.78) Troponin I High Sensitivity 15 ng/L (</=34) B-Type Natriuretic Peptide 56.25 pg/mL (0-100) Other Laboratory Tests 05/27/25 06:16 Brief Hx & Hospital Course: 50-year-old female with a history of congestive heart failure coronary artery disease status post stents fatty liver obesity hypertension hypercholesterolemia diabetes history of polysubstance abuse came in complaining of chest pain troponin was normal treated per ACS protocol and congestive heart failure treated with the Lasix ejection fraction 10 percent in the past improved to 40 percent elevated D-dimer DVT ruled out seen by paint prepper Dr. Kaleb Hussein. Patient feels better without any symptoms and wants to go home and wants to follow up with the primary paint prepper Dr. [place]. Discharged home. No new meds Consults/Reason for consult Cardiology Dr. Kaleb Hussein Operations or Procedures Echocardiogram Condition at Discharge: Fair Final Diagnosis/Problems List Chest pain Rule out acute coronary syndrome troponin negative x3 Acute on chronic systolic congestive heart failure (HFrEF which improved from LVEF 10% to 40%) CAD with history of [place] s/p complex PCI with 3 KYM Transaminitis Fatty liver Obesity Hypertension Dyslipidemia Uncontrolled diabetes , blood sugars 400, A1c more than 14 Diabetes insulin aggressive scale, diabetic education History of polysubstance abuse History of varicose veins status post sclerotherapy Elevated D-dimer DVT ruled out GERD Discharge Disposition: Home Discharge Instruct/Medications Diet: Cardiac 2g Na,low cholest Activity: Light activity Follow Up/Referral: Resume all previous home medications Follow up with the primary Dr and your paint prepper Dr. [place] Medications: None Scheduled Acetaminophen (Acetaminophen), 500 MG PO Q4HPRN Albuterol Sulfate (Ventolin Mdi), 1 PUFF IN DAILY, (Reported) Aspirin (Aspirin Low Dose), 81 MG PO DAILY, (Reported) Aspirin (Aspirin Low Dose), 81 MG PO DAILY Atorvastatin Calcium (Lipitor), 40 MG PO DAILY, (Reported) Atorvastatin Calcium (Atorvastatin Calcium), 40 MG PO HS Buprenorphine Hcl-Naloxone Hcl (Suboxone), 1 MIS SL DAILY, (Reported) Cephalexin (Keflex Capsule), 1 CAP PO QID Ciprofloxacin-Dexamethasone (Ciprofloxacin/Dexamethaso 0.3-0.1 %), 4 DROP LEFT EAR BID Digoxin (Lanoxin), 0.125 MG PO EOD Empagliflozin (Jardiance), 10 MG PO DAILY, (Reported) Empagliflozin (Jardiance), 10 MG PO DAILY Escitalopram Oxalate (Lexapro), 10 MG PO DAILY, (Reported) Furosemide (Furosemide), 40 MG PO DAILY Insulin Glargine (Lantus Solostar), 15 UNIT SC BID, (Reported) Metoprolol Succinate (Toprol Xl), 25 MG PO DAILY Midodrine HCl (Midodrine HCl), 10 MG PO TID Mirtazapine (Remeron), 15 MG PO HS Omeprazole (Gnp Omeprazole), 20 MG PO DAILY, (Reported) Ranolazine (Ranolazine ER), 500 MG PO BID Ranolazine (Ranolazine ER), 1 TAB PO BID PRN Sacubitril-Valsartan (Entresto 24-26 mg), 0.25 TAB PO BID Sacubitril-Valsartan (Entresto 24-26 mg), 0.5 TAB PO BID Sucralfate (Carafate Susp), 1 GM PO TID@0600,1130,2200 Ticagrelor Base (Brilinta), 90 MG PO BID Ticagrelor Base (Brilinta), 90 MG PO BID Ticagrelor Base (Brilinta), 60 MG PO BID Scheduled PRN Acetaminophen (Apap), 2 TAB PO Q6HP PRN for PAIN SCALE 1 THRU 6, (Reported) Ranolazine (Ranolazine ER), 500 MG PO BID PRN 39 (Time taken for discharge summary 39 minutes) Discharge Statement: "Patient was advised to return to the ER or call 911 if any headaches, dizziness, shortness of breath, chest pain, abdominal pain, bleeding, fevers, or worsening of medical condition. Patient was counseled about treatment plan, medications, possible side effects, patientverbalized understanding. All questions were answered to the best of my ability. This discharge took greater then 30 minutes in planning, reviewing documentation, counseling the patient, and discussing with other team members." ASSESSMENT ASSESSMENT Hospital Course Uneventful Assessment Chest pain Rule out acute coronary syndrome troponin negative x3 Acute on chronic systolic congestive heart failure (HFrEF which improved from LVEF 10% to 40%) CAD with history of [place] s/p complex PCI with 3 KYM Transaminitis Fatty liver Obesity Hypertension Dyslipidemia Uncontrolled diabetes , blood sugars 400, A1c more than 14 Diabetes insulin aggressive scale, diabetic education History of polysubstance abuse History of varicose veins status post sclerotherapy Elevated D-dimer DVT ruled out GERD Date of Service: May 27, 2025 Billing Provider: KAROLINA BETHEA MD Common Visit Codes: [id number] DISCH DAY >30min KAROLINA BETHEA MD May 27, 2025 10:29
[2025-05-27 10:55] VITALS: BP 111/75; PULSE 111; RESP 18; TEMP 98.5; O2SAT 96
--- NOTE | 2025-05-27 12:36 | ECG ---
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
--- NOTE | 2025-05-27 23:40 | DVHPN2 ---
Progress Note - Dictate Date Seen: May 27, 2025 Medical Necessity Reason Pt with a Central, PICC or Fol: No Subjective Patient was seen and evaluated in follow up. No overnight events. Patient has no new complaints at this time. Patient denies any cardiac symptoms. Patient is cardiac stable for discharge. Telemetry reviewed. vital signs Vital Sign Date Time Temp Pulse Resp B/P (MAP) Pulse Ox O2 Delivery O2 Flow Rate FiO2 05/27/25 10:55 98.5 111 18 96 05/27/25 09:57 111/75 05/27/25 08:00 Room Air* 0 21 Total Intake and Output 05/26/25 05/26/25 05/27/25 15:00 23:00 07:00 Intake Total 800 ml Output Total 2 ml Balance 798 ml objective GENERAL: Alert and oriented x 3. No acute distress. EYES: PERRL, EOMI. Anicteric. HENT: Moist mucous membranes. LUNGS: Clear to auscultation bilaterally. CARDIOVASCULAR: Regular rate and rhythm. ABDOMEN: Soft, nontender and nondistended. EXTREMITIES: No edema. NEUROLOGIC: No focal neurological deficits. SKIN: Warm, dry. laboratory and microbiology Laboratory Tests 05/27/25 06:16 Test 05/27/25 06:16 Range/Units Serum Glucose 249 H 74-106 mg/dL Problem List Chest pain. Acute on chronic systolic congestive heart failure (HFrEF which improved from LVEF 10% to 40%). CAD with history of HI s/p complex PCI with 3 KYM. Transaminitis. Fatty liver. Obesity. Hypertension. Dyslipidemia. Uncontrolled diabetes. History of polysubstance abuse. History of varicose veins status post sclerotherapy. GERD. Assessment/Plan Continued all current supportive medical care. Aspirin, Metoprolol, Brilinta. Diuretics with Lasix. DVT prophylactics. Morphine for pain management. Additional plan as per the hospital course. Plan discussed with: Patient JOEY HU MD May 27, 2025 12:44
--- NOTE | 2025-05-31 09:18 | ECG ---
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
--- NOTE | 2025-05-31 09:18 | ECG ---
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
--- NOTE | 2025-05-31 09:21 | ECG ---
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
== END 2025-05-27 12:30 | disposition home or self-care (01) | DRG 198 ==
LOC: ER 17:58 → OVERFLOW 21:05 → TELE-CENTR 05-26 17:28
PROVIDERS: ADMIT Family Medicine; ATTEND Family Medicine
DX: I24.9 Acute ischemic heart disease, unspecified (principal); I50.23 Acute on chronic systolic (congestive) heart failure; I11.0 Hypertensive heart disease with heart failure; E66.9 Obesity, unspecified; K21.9 Gastro-esophageal reflux disease without esophagitis; E78.5 Hyperlipidemia, unspecified; K76.0 Fatty (change of) liver, not elsewhere classified; I25.5 Ischemic cardiomyopathy; F32.A Depression, unspecified; F41.9 Anxiety disorder, unspecified; F17.210 Nicotine dependence, cigarettes, uncomplicated; E11.9 Type 2 diabetes mellitus without complications; Z68.34 Body mass index [BMI] 34.0-34.9, adult; I25.10 Atherosclerotic heart disease of native coronary artery without angina pectoris; I25.2 Old myocardial infarction; Z82.3 Family history of stroke; Z82.49 Family history of ischemic heart disease and other diseases of the circulatory system; Z82.5 Family history of asthma and other chronic lower respiratory diseases; Z83.3 Family history of diabetes mellitus
CPT/HCPCS: 36415; 71045; 80053; 80061; 80307; 81001; 82306; 82607; 82962; 83036; 83735; 83880; 84100; 84443; 84484; 85025; 85610; 85730; 93005; 93970; G0378; J1815

== ENCOUNTER 2025-08-07 17:01 | Emergency (ER) | payer MEDICAID ==
[~2025-08-07] VITALS: Ht 162.6 cm; Wt 97.2 kg
[2025-08-07 17:10] VITALS: BP 156/90; PULSE 87; RESP 16; TEMP 97.2; O2SAT 93
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
[2025-08-07] MEDS ORDERED: CYCL-837 PO (18:51)
== END 2025-08-07 20:00 | disposition home or self-care (01) ==
LOC: ER 17:01
DX: S20.211A Contusion of right front wall of thorax, initial encounter (principal); E11.9 Type 2 diabetes mellitus without complications; I11.0 Hypertensive heart disease with heart failure; F41.9 Anxiety disorder, unspecified; F17.210 Nicotine dependence, cigarettes, uncomplicated; F15.90 Other stimulant use, unspecified, uncomplicated; F12.90 Cannabis use, unspecified, uncomplicated; Z79.4 Long term (current) use of insulin; Z79.82 Long term (current) use of aspirin; Z79.899 Other long term (current) drug therapy; Z88.6 Allergy status to analgesic agent; V89.2XXA Person injured in unspecified motor-vehicle accident, traffic, initial encounter; Y93.89 Activity, other specified; Y92.89 Other specified places as the place of occurrence of the external cause; Y99.8 Other external cause status
CPT/HCPCS: 71045; 73030